=== PATIENT | female | born 1945 | race Caucasian/White ===

== ENCOUNTER → 2016-06-16 | Outpatient (CLI) | payer MEDICARE ==
[2016-03-31 15:00] VITALS: BP 121/58
[~2016-06-16] MED LIST: ALPR0.254 PO; AMIT50TA PO; AMLO5TAB2 PO; ASPI-482 PO; ATOR20TA58 PO; CARV25TA PO; CETI10TA16 PO; CLON0.1T12 PO; CLOT15CR3 TP; DIGO125T PO; FLUT9.9S NS; FURO20TA3 PO; GABA-586 PO; GLIP5TAB10 PO; HYDR200T5 PO; INSU100I13 SQ; ISOS30TA4 PO; LOSA100T6 PO; METF500T4 PO; MONT10TA6 PO; MULT-18 PO; NITR0.4T SL; OMEP20CA5 PO; POTA10CA PO; PRED-220 PO; ZOLP5TAB4 PO; [UNRECOGNIZED DRUG - CODE] PO
--- NOTE | 2016-06-16 10:00 | KCIC ---
PROCEDURE CT right foot without contrast dated 06/16/2016. HISTORY Right foot pain. Pain since March 2016. No known injury. TECHNIQUE Contiguous axial imaging of the right foot performed with thin cut coronal and sagittal reconstructions. No contrast administered.Exposure: One or more of the following individualized dose reduction techniques were utilized for this exam: 1. Automated exposure control. 2. Adjustment of the mA and/or kV according to patient size. 3. Use of iterative reconstruction technique. COMPARISON None. FINDINGS Moderate hypertrophic change of the Lisfranc joints with bony fragmentation and/or calcification along the dorsal margin of the midfoot. There is widening of the intermetatarsal disc since between the 1st and 2nd metatarsals, suggesting the possibility of Lisfranc ligament injury. There is a mildly displaced fracture of the lateral aspect of the navicular bone extending to both the talonavicular joint and the navicular-lateral cuneiform joint. There is cortical thickening of the 2nd, 3rd and 4th metatarsals. Focal erosive changes at the base of 2nd metatarsal and intermediate cuneiform. There is also erosive changes at the medial cuneiform bone near the base of 1st metatarsal articulation. Alignment is otherwise anatomic. No additional fractures are seen. Mild degenerate change in chondrocalcinosis of the tibiotalar joint. Mild degenerative change of the subtalar joints and 1st MTP joint. Small calcaneal spur. No apparent tibiotalar joint effusion. There is edema and fluid surrounding the Lisfranc joints throughout. Diffuse fatty atrophy of the plantar foot musculature plantar fascia and Achilles tendon are grossly intact. Flexor and extensor tendons are not well evaluated. The ankle ligaments are not well evaluated. 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 Underlying infection not excluded. - Widening of the 1st and 2nd metatarsal bases, suggestive of complete Lisfranc ligament tear and midfoot instability. - Ununited intra-articular fracture of the lateral aspect of the navicular bone, age-indeterminate. - Focal soft tissue swelling and fluid surrounding the Lisfranc joints. Diffuse muscle atrophy. Electronically signed by: Oscar Mitchell (Jun 16, 2016 09:59:22)
== END | disposition home or self-care (01) ==
LOC: KCIC CT 08:58
PROVIDERS: ATTEND Orthopaedic Surgery Foot and Ankle Surgery
DX: M79.671 Pain in right foot (principal)
CPT/HCPCS: 73700

== ENCOUNTER → 2016-07-27 | Outpatient (CLI) | payer MEDICARE ==
[2016-03-31 15:00] VITALS: BP 121/58
[~2016-07-27] MED LIST changes: -ZOLP5TAB4 PO; +ZOLP5TAB5 PO
--- NOTE | 2016-07-27 13:49 | KCIC ---
Complete cervical spine Indication: Reason: NECK PAIN WITH LEFT ARM RADICULOPATHY X'S 3 MONTHS, NO INJURY / Spl. Instructions: / History: Reason For Study Findings: There is very subtle anterolisthesis of C4 on C5 which is degenerative in nature as there is facet arthropathy on the right at this level. This results in moderate narrowing of the right foramina. The left foramina are widely patent. Vertebral body heights are maintained. There is degenerative disc height loss at C5-6 and C6-7. No perching of the facets. The odontoid is intact. Evaluation of the cervical thoracic junction is somewhat obscured by overlying shoulder anatomy. Impression: - Degenerative disc disease greatest at C4-C5 where there is right facet arthropathy with moderate right foraminal stenosis. Correlate for right C5 radiculopathy symptoms. Electronically signed by: Michael Eddy (Jul 27, 2016 13:47:46)
== END | disposition home or self-care (01) ==
LOC: KCIC 11:42
PROVIDERS: ATTEND Internal Medicine
DX: M54.12 Radiculopathy, cervical region (principal)
CPT/HCPCS: 72050

== ENCOUNTER → 2016-07-29 | Outpatient (CLI) | payer MEDICARE ==
[2016-03-31 15:00] VITALS: BP 121/58
[~2016-07-29] MED LIST changes: +ZOLP5TAB4 PO; -ZOLP5TAB5 PO
== END | disposition home or self-care (01) ==
LOC: KCIC MAMMO 09:14
PROVIDERS: ATTEND Internal Medicine
DX: Z12.31 Encounter for screening mammogram for malignant neoplasm of breast (principal)
CPT/HCPCS: G0202; 77067

== ENCOUNTER → 2016-08-02 | Outpatient (CLI) | payer MEDICARE ==
[2016-03-31 15:00] VITALS: BP 121/58
[~2016-08-02] MED LIST changes: -ZOLP5TAB4 PO; +ZOLP5TAB5 PO
--- NOTE | 2016-08-02 09:40 | KCIC ---
EXAM: Bone densitometry. HISTORY: Postmenopausal female presents for osteoporosis screening. FINDINGS: BMD: (g/cm2) - AP Spine Total (L1-L4): 1.183 - Total left Hip: 0.841 T-Score: - AP Spine Total (L1-L4): 1.2 - Total left Hip: -0.8 Z-Score: - AP Spine Total (L1-L4): 3.5 - Total left Hip: 0.8 World Health Organization criteria for BMD interpretation classify patients as Normal (T-score at or above -1.0), Osteopenic (T-score between -1.0 and -2.5), or Osteoporotic (T-score at or below -2.5). IMPRESSION: Normal bone mineral density. Electronically signed by: Jessica Baca (Aug 02, 2016 09:38:38)
== END | disposition home or self-care (01) ==
LOC: KCIC DEXA 08:41
PROVIDERS: ATTEND Internal Medicine
DX: Z13.820 Encounter for screening for osteoporosis (principal); Z78.0 Asymptomatic menopausal state
CPT/HCPCS: 77080

== ENCOUNTER → 2016-08-03 | Outpatient (CLI) | payer MEDICARE ==
[2016-03-31 15:00] VITALS: BP 121/58
--- NOTE | 2016-08-03 13:25 | KCIC ---
PROCEDURE Chest, two views. HISTORY Bronchitis. FINDINGS Frontal and lateral views of the chest are obtained. Comparison is made with a prior study dated 03/30/2016. There is no infiltrate, effusion or pneumothorax. There is suspected lingular atelectasis or scarring. The heart is upper normal in size. There are findings consistent with median sternotomy and cardiac pacemaker defibrillator placement. IMPRESSION No acute pulmonary finding. Electronically signed by: Jessica Baca (Aug 03, 2016 13:24:02)
== END | disposition home or self-care (01) ==
LOC: KCIC 12:48
PROVIDERS: ATTEND Internal Medicine
DX: J41.0 Simple chronic bronchitis (principal)
CPT/HCPCS: 71020

== ENCOUNTER 2016-08-19 13:43 | Emergency (ER) | payer MEDICARE ==
[~2016-08-19] VITALS: Ht 162.6 cm; Wt 81.6 kg
[2016-08-19] MEDS ORDERED: MECLIZINE HCL 12.5 MG TABLET. PO ONE (14:15)
--- NOTE | 2016-08-19 14:19 | EKG ---
[facility] [address] [place] [address] Test Date: 2016-08-19 Test Time: 14:01:31 Pat Name: SHANIQUA SHRESTHA Department: Room: Gender: F Platform Loader: : 1945 Requested By: Jerome UPTON Order Number: [id number] Reading MD: Measurements Intervals Cameron Rate: 62 P: 41 GA: 214 QRS: 51 QRSD: 118 T: 84 QT: 434 QTc: 443 Interpretive Statements SINUS RHYTHM INCOMPLETE RIGHT BUNDLE BRANCH BLOCK QRS(T) CONTOUR ABNORMALITY CONSIDER INFERIOR MYOCARDIAL DAMAGE POSSIBLY ABNORMAL ECG RI6.01 No previous ECG available for comparison
[2016-08-19 14:24] LABS: BASO # 0.1 x10^3/uL (0.0-0.2); BASO % 1 % (0-3); EOS % 0 % (0-3); HEMATOCRIT 28.9 % (36.0-47.0); HEMOGLOBIN 9.3 g/dL (12.0-15.5); LYMPH # 0.6 x10^3/uL (1.0-4.8); LYMPH % 3 % (24-48); MEAN CORPUSCULAR HEMOGLOBIN 25 pg (25-35); MEAN CORPUSCULAR HGB CONC 32 g/dL (31-37); MEAN CORPUSCULAR VOLUME 77 fL (79-100); MONO % 8 % (0-9); NEUT % 89 % (31-73); PLATELET COUNT 268 x10^3/uL (140-400); RED BLOOD COUNT 3.77 x10^6/uL (3.50-5.40); RED CELL DISTRIBUTION WIDTH 14.2 % (11.5-14.5); WHITE BLOOD COUNT 23.3 x10^3/uL (4.0-11.0)
[2016-08-19 14:38] LABS: CALCIUM 9.1 mg/dL (8.5-10.1); GFR 54.5; POTASSIUM 4.6 mmol/L (3.5-5.1)
--- NOTE | 2016-08-19 14:48 | RAD ---
CT of the head without IV contrast compared to similar examination dated 08/28/2012 for dizziness, dropped a bowl of cereal and does not know why. Technique: Contiguous helical axial 5 mm axial images are obtained from the skull base to the vertex. No IV contrast was administered. Findings: There is no acute territorial infarction or intracranial hemorrhage. There is no mass, mass effect, or midline shift. Small focal area of calcification is seen in the left basal ganglia, and was present on the prior examination. The ventricles and subarachnoid spaces are mildly enlarged compatible with mild diffuse cortical atrophy. No extra axial fluid collections are identified. The posterior fossa, brainstem, bilateral orbits, visualized paranasal sinuses, and mastoid air cells are grossly unremarkable. No significant osseous abnormalities are seen. Impression: 1. No acute intracranial abnormality.
[2016-08-19 14:51] LABS: HYPOCHROMIA SLIGHT; MICROCYTOSIS SLIGHT; PLT ESTIMATE ADEQUATE (ADEQUATE)
[2016-08-19] MEDS ORDERED: HYDROCODONE/APAP 7.5/325MG TABLET. PO ONE (15:00)
[2016-08-19] MEDS ORDERED: MECL25TA3 PO (15:30)
--- NOTE | 2016-08-19 15:30 | PHYS DOC ---
Past Medical History Past Medical History: Anxiety, Diabetes-Type II, GERD, High Cholesterol, Hypertension, [place] Additional Past Medical Histor: RA; neuropathy Past Surgical History: Hysterectomy, Other Additional Past Surgical Histo: open heart SX 2003, defibrillator 2003; left bunionectomy Alcohol Use: None Drug Use: None Adult General Chief Complaint Chief Complaint: DIZZY/LIGHT HEADED HPI HPI Patient is a 71 year old female who presents with her friend for intermittent dizziness over the past 3 days, worse today, and few episodes of watery diarrhea associated with mild crampy abdominal pain. She notes slight blurred vision when she is dizzy. She does have some dizziness after moving in the bed , but this fatigues easily. States she has not fallen due to dizziness, but is holding the naranjo at home to walk. She denies headache, chest pain, dyspnea, orthopnea, cough, dysuria, bloody or dark stools. Review of Systems Review of Systems Constitutional: Denies fever or chills [] Eyes: Denies change in visual acuity, redness, or eye pain [] HENT: Denies nasal congestion or sore throat [] Respiratory: Denies cough or shortness of breath [] Cardiovascular: No additional information not addressed in HPI [] GI: Denies nausea, vomiting, bloody stools [] : Denies dysuria or hematuria [] Musculoskeletal: Denies back pain or joint pain [] Integument: Denies rash or skin lesions [] Neurologic: Denies headache, focal weakness or sensory changes [] Endocrine: Denies polyuria or polydipsia [] Current Medications Current Medications Current Medications Medications (Trade) Dose Ordered Sig/Christian Start Time Stop Time Status Last Admin Dose Admin Acetaminophen/ Hydrocodone Bitart (Lortab 7.5/325) 1 tab 1X ONCE 08/19/16 15:00 08/19/16 15:01 DC 08/19/16 15:15 1 TAB Meclizine HCl (Antivert) 25 mg 1X ONCE 08/19/16 14:15 08/19/16 14:18 DC 08/19/16 14:51 25 MG Allergies Allergies Allergies Coded Allergies Type Severity Reaction Last Updated Verified No Known Drug Allergies 01/22/14 No Physical Exam Physical Exam Constitutional: Well developed, well nourished, no acute distress, non-toxic appearance. [] HENT: Normocephalic, atraumatic, bilateral external ears normal, oropharynx moist, no oral exudates, nose normal. [] Eyes: PERRLA, EOMI. [] Neck: Normal range of motion, supple. [] Cardiovascular:Heart rate regular rhythm [] Lungs & Thorax: Bilateral breath sounds clear to auscultation [] Abdomen: Bowel sounds normal, soft, no tenderness. [] Skin: Warm, dry, no erythema, no rash. [] Back: No tenderness, no CVA tenderness. [] Extremities: No tenderness, ROM intact, no edema. [] Neurologic: Alert and oriented X 3, normal motor function, normal sensory function, no focal deficits noted, cranial nerves II through XII intact, no extremity drift, normal finger to nose. [] Psychologic: Affect normal, judgement normal, mood normal. [] Current Patient Data Vital Signs Vital Signs Date Time Temp Pulse Resp B/P Pulse Ox O2 Delivery O2 Flow Rate FiO2 08/19/16 15:38 64 123/61 96 Room Air 08/19/16 15:18 1 08/19/16 15:15 16 08/19/16 14:00 97.2 97.2 Lab Values Laboratory Tests Test 08/19/16 14:10 White Blood Count 23.3x10^3/uL (4.0-11.0) H Red Blood Count 3.77x10^6/uL (3.50-5.40) Hemoglobin 9.3g/dL (12.0-15.5) L Hematocrit 28.9% (36.0-47.0) L Mean Corpuscular Volume 77fL (79-100) L Mean Corpuscular Hemoglobin 25pg (25-35) Mean Corpuscular Hemoglobin Concent 32g/dL (31-37) Red Cell Distribution Width 14.2% (11.5-14.5) Platelet Count 268x10^3/uL (140-400) Neutrophils (%) (Auto) 89% (31-73) H Lymphocytes (%) (Auto) 3% (24-48) L Monocytes (%) (Auto) 8% (0-9) Eosinophils (%) (Auto) 0% (0-3) Basophils (%) (Auto) 1% (0-3) Neutrophils # (Auto) 20.8x10^3uL (1.8-7.7) H Lymphocytes # (Auto) 0.6x10^3/uL (1.0-4.8) L Monocytes # (Auto) 1.8x10^3/uL (0.0-1.1) H Eosinophils # (Auto) 0.0x10^3/uL (0.0-0.7) Basophils # (Auto) 0.1x10^3/uL (0.0-0.2) Segmented Neutrophils % 73% (35-66) H Band Neutrophils % 23% (0-9) H Lymphocytes % 2% (24-48) L Monocytes % 2% (0-10) Platelet Estimate Adequate (ADEQUATE) Hypochromasia Slight Microcytosis Slight Sodium Level 135mmol/L (136-145) L Potassium Level 4.6mmol/L (3.5-5.1) Chloride Level 97mmol/L (98-107) L Carbon Dioxide Level 26mmol/L (21-32) Anion Gap 12 (6-14) Blood Urea Nitrogen 18mg/dL (7-20) Creatinine 1.0mg/dL (0.6-1.0) Estimated GFR (Cockcroft-Gault) 54.5 Glucose Level 176mg/dL (70-99) H Calcium Level 9.1mg/dL (8.5-10.1) Laboratory Tests 08/19/16 14:10 Laboratory Tests 08/19/16 14:10 EKG EKG EKG as interpreted by me as normal sinus rhythm with first-degree AV block, rate 62, no ST-T changes, P-R 214, QTc 443, no ectopy Radiology/Procedures Radiology/Procedures Head CT without contrast Impression: 1. No acute intracranial abnormality. DICTATED and SIGNED BY: STEVAN LOPEZ MD DATE: 08/19/16 0892 Course & Med Decision Making Course & Med Decision Making Pertinent Labs and Imaging studies reviewed. (See chart for details) She has leukocytosis but workup is otherwise unremarkable. She is feeling better after meclizine and walking with a steady gait. She would like to go home. Return precautions given. She understands and agrees with plan. Dragon Disclaimer Dragon Disclaimer This electronic medical record was generated, in whole or in part, using a voice recognition dictation system. Departure Departure Impression: Primary Impression: Diarrhea Additional Impression: Dizziness Disposition: HOME, SELF-CARE Condition: STABLE Referrals: MILA CONN MD (PCP) Patient Instructions: Dizziness, [id number] Additional Instructions: Drink liquids to stay hydrated. Take meclizine as needed for dizziness. Follow- up with your primary care doctor within one week. Return for any concerns. Scripts Meclizine Hcl 25 Mg Tablet1 Tab PO PRN TID PRN DIZZINESS #10 TAB Prov:Jerome UPTON MD 08/19/16 Problem Qualifiers Primary Impression: Diarrhea Diarrhea type: unspecified type Qualified Code: R19.7 - Diarrhea, unspecified Jerome UPTON MD Aug 19, 2016 15:30
[2016-08-19 15:38] VITALS: BP 123/61
== END 2016-08-19 15:40 | disposition home or self-care (01) ==
LOC: ER 13:49
DX: R42 Dizziness and giddiness (principal); R19.7 Diarrhea, unspecified; H53.8 Other visual disturbances; R10.9 Unspecified abdominal pain; F41.9 Anxiety disorder, unspecified; I10 Essential (primary) hypertension; K21.9 Gastro-esophageal reflux disease without esophagitis; E78.00 Pure hypercholesterolemia, unspecified; I25.2 Old myocardial infarction; E11.40 Type 2 diabetes mellitus with diabetic neuropathy, unspecified; Z90.710 Acquired absence of both cervix and uterus
CPT/HCPCS: 36415; 70450; 80048; 85007; 85027; 93005; 99285; J8597

== ENCOUNTER 2016-08-20 16:39 | Inpatient (IN) | payer MEDICARE ==
[~2016-08-20] VITALS: Ht 165.1 cm; Wt 87.5 kg
[~2016-08-20 16:39] MED LIST changes: +MECL25TA3 PO
--- NOTE | 2016-08-20 18:04 | PHYS DOC ---
Past Medical History Past Medical History: Anxiety, Diabetes-Type II, GERD, High Cholesterol, Hypertension, [place] Additional Past Medical Histor: RA; neuropathy Past Surgical History: Hysterectomy, Other Additional Past Surgical Histo: open heart SX 2003, defibrillator 2003; left bunionectomy Alcohol Use: None Drug Use: None Adult General Chief Complaint Chief Complaint: DIZZY/LIGHT HEADED HPI HPI Patient is a 71 year old female who presents with continued dizziness and nb watery diarrhea. She was seen here yesterday for same, felt better after evaluation and went home. She had another episode of diarrhea and has not taken meclizine at home. She no longer feels safe at home in current condition. She denies headache, vision changes, chest pain, dyspnea, cough, abdominal pain, dysuria, numbness, tingling, focal weakness. Review of Systems Review of Systems Constitutional: Denies fever or chills [] Eyes: Denies change in visual acuity, redness, or eye pain [] HENT: Denies nasal congestion or sore throat [] Respiratory: Denies cough or shortness of breath [] Cardiovascular: No additional information not addressed in HPI [] GI: Denies abdominal pain, nausea, vomiting, bloody stools or diarrhea [] : Denies dysuria or hematuria [] Musculoskeletal: Denies back pain or joint pain [] Integument: Denies rash or skin lesions [] Neurologic: Denies headache, focal weakness or sensory changes [] Endocrine: Denies polyuria or polydipsia [] Allergies Allergies Allergies Coded Allergies Type Severity Reaction Last Updated Verified No Known Drug Allergies 01/22/14 No Physical Exam Physical Exam Constitutional: Well developed, well nourished, no acute distress, non-toxic appearance. [] HENT: Normocephalic, atraumatic, bilateral external ears normal, oropharynx moist, nose normal. [] Eyes: PERRLA, EOMI. [] Neck: Normal range of motion, supple. [] Cardiovascular:Heart rate regular rhythm [] Lungs & Thorax: Bilateral breath sounds clear to auscultation [] Abdomen: Bowel sounds normal, soft, no tenderness. [] Skin: Warm, dry, no erythema, no rash. [] Back: No tenderness, no CVA tenderness. [] Extremities: No tenderness, ROM intact, no edema. [] Neurologic: Alert and oriented X 3, normal motor function, normal sensory function, no focal deficits noted, cranial nerves II through XII intact, no extremity drift. [] Psychologic: Affect normal, judgement normal, mood normal. [] Current Patient Data Vital Signs Vital Signs Date Time Temp Pulse Resp B/P Pulse Ox O2 Delivery O2 Flow Rate FiO2 08/20/16 17:52 72 14 112/72 94 08/20/16 16:52 97.4 Room Air 97.4 Lab Values Laboratory Tests Test 08/20/16 18:05 White Blood Count 10.6x10^3/uL (4.0-11.0) # Red Blood Count 3.15x10^6/uL (3.50-5.40) L Hemoglobin 7.8g/dL (12.0-15.5) L Hematocrit 23.8% (36.0-47.0) L Mean Corpuscular Volume 76fL (79-100) L Mean Corpuscular Hemoglobin 25pg (25-35) Mean Corpuscular Hemoglobin Concent 33g/dL (31-37) Red Cell Distribution Width 13.8% (11.5-14.5) Platelet Count 220x10^3/uL (140-400) Neutrophils (%) (Auto) 77% (31-73) H Lymphocytes (%) (Auto) 11% (24-48) L Monocytes (%) (Auto) 9% (0-9) Eosinophils (%) (Auto) 2% (0-3) Basophils (%) (Auto) 1% (0-3) Neutrophils # (Auto) 8.2x10^3uL (1.8-7.7) H Lymphocytes # (Auto) 1.2x10^3/uL (1.0-4.8) Monocytes # (Auto) 1.0x10^3/uL (0.0-1.1) Eosinophils # (Auto) 0.2x10^3/uL (0.0-0.7) Basophils # (Auto) 0.1x10^3/uL (0.0-0.2) Urine Collection Type Unknown Urine Color Yellow Urine Clarity Clear Urine pH 5.5 Urine Specific [place] 1.010 Urine Protein Negativemg/dL (NEG-TRACE) Urine Glucose (UA) Negativemg/dL (NEG) Urine Ketones (Stick) Negativemg/dL (NEG) Urine Blood Negative (NEG) Urine Nitrite Negative (NEG) Urine Bilirubin Negative (NEG) Urine Urobilinogen Dipstick 0.2mg/dL (0.2 mg/dL) Urine Leukocyte Esterase Negative (NEG) Urine RBC 0/HPF (0-2) Urine WBC 0/HPF (0-4) Urine Squamous Epithelial Cells Few/LPF Urine Bacteria 0/HPF (0-FEW) Sodium Level 118mmol/L (136-145) *L Potassium Level 3.9mmol/L (3.5-5.1) Chloride Level 86mmol/L (98-107) L Carbon Dioxide Level 26mmol/L (21-32) Anion Gap 6 (6-14) Blood Urea Nitrogen 17mg/dL (7-20) Creatinine 0.8mg/dL (0.6-1.0) Estimated GFR (Cockcroft-Gault) 70.5 Glucose Level 209mg/dL (70-99) H Calcium Level 7.9mg/dL (8.5-10.1) L Laboratory Tests 08/20/16 18:05 Laboratory Tests 08/20/16 18:05 Course & Med Decision Making Course & Med Decision Making Pertinent Labs and Imaging studies reviewed. (See chart for details) She has persistent dizziness and diarrhea. Laboratory evaluation reveals hyponatremia, suspected as acute hypovolemic. IV fluids ordered for placement, going slow for history of CHF. Discussed case with Dr. Conn, who will admit. Dragon Disclaimer Dragon Disclaimer This electronic medical record was generated, in whole or in part, using a voice recognition dictation system. Departure Departure Impression: Primary Impression: Dizziness Additional Impressions: Diarrhea Hyponatremia Disposition: ADMITTED INPATIENT Condition: STABLE Referrals: MILA CONN MD (PCP) Problem Qualifiers Additional Impressions: Diarrhea Diarrhea type: unspecified type Qualified Code: R19.7 - Diarrhea, unspecified Jerome UPTON MD Aug 20, 2016 18:04
[2016-08-20 18:23] LABS: BASO # 0.1 x10^3/uL (0.0-0.2); BASO % 1 % (0-3); EOS % 2 % (0-3); HEMATOCRIT 23.8 % (36.0-47.0); HEMOGLOBIN 7.8 g/dL (12.0-15.5); LYMPH # 1.2 x10^3/uL (1.0-4.8); LYMPH % 11 % (24-48); MEAN CORPUSCULAR HEMOGLOBIN 25 pg (25-35); MEAN CORPUSCULAR HGB CONC 33 g/dL (31-37); MEAN CORPUSCULAR VOLUME 76 fL (79-100); MONO % 9 % (0-9); NEUT % 77 % (31-73); PLATELET COUNT 220 x10^3/uL (140-400); RED BLOOD COUNT 3.15 x10^6/uL (3.50-5.40); RED CELL DISTRIBUTION WIDTH 13.8 % (11.5-14.5); WHITE BLOOD COUNT 10.6 x10^3/uL (4.0-11.0)
[2016-08-20 18:26] LABS: BILIRUBIN,URINE NEGATIVE (NEG); GLUCOSE,URINE NEGATIVE (NEG); NITRITE,URINE NEGATIVE (NEG); PH,URINE 5.5; PROTEIN,URINE NEGATIVE (NEG-TRACE); UROBILINOGEN,URINE 0.2 mg/dL (0.2 mg/dL)
[2016-08-20 18:44] LABS: CALCIUM 7.9 mg/dL (8.5-10.1); CREATININE 0.8 mg/dL (0.6-1.0); GFR 70.5; POTASSIUM 3.9 mmol/L (3.5-5.1)
[2016-08-20 18:46] LABS: BACTERIA,URINE 0 /HPF (0-FEW); RBC,URINE 0 /HPF (0-2); SQUAMOUS EPITHELIAL CELL,UR FEW /LPF; WBC,URINE 0 /HPF (0-4)
[2016-08-20] MEDS ORDERED: HYDROCODONE/APAP 7.5/325MG TABLET. PO ONE (19:00)
[2016-08-20] MEDS ORDERED: IV NORMAL SALINE 500ML BAG 500 ML IV ONE (19:15)
[2016-08-20] MEDS ORDERED: ACETAMINOPHEN 325 MG TABLET. PO PRN (19:45)
[2016-08-20] MEDS ORDERED: ONDANSETRON PF 4 MG/2 ML VIAL. IV PRN (19:45)
[2016-08-20] MEDS ORDERED: FENTANYL PF 100 MCG/2 ML VIAL. IV PRN (19:45)
[2016-08-20 19:51] VITALS: BP 139/75
[2016-08-20] MEDS ORDERED: ALBUTEROL SULFATE 2.5 MG/3 ML NEBU. NEB PRN (22:15)
[2016-08-20 23:15] VITALS: BP 155/56
[2016-08-21] MEDS: VANCOMYCIN 125 MG/2.5 ML ORAL SOLUTION. PO SCH ×5 (00:15→20:21)
[2016-08-21] MEDS ORDERED: MECLIZINE HCL 12.5 MG TABLET. PO PRN (00:45)
[2016-08-21] MEDS ORDERED: GABA600T PO (01:20)
[2016-08-21] MEDS ORDERED: GABA-586 PO (01:20)
[2016-08-21] MEDS ORDERED: CLOTRIMAZOLE/BETAMETH 1%-0.05% TOPICAL CREAM 15GM TUBE. TP PRN (01:30)
[2016-08-21] MEDS: AMITRIPTYLINE HCL 50 MG TABLET PO SCH ×2 (01:41→20:22)
[2016-08-21] MEDS ORDERED: MORPHINE SULFATE 2 MG/ML DISP.SYRIN. IV PRN (03:30)
[2016-08-21 05:14] LABS: BASO # 0.1 x10^3/uL (0.0-0.2); BASO % 0 % (0-3); EOS % 1 % (0-3); HEMATOCRIT 30.3 % (36.0-47.0); HEMOGLOBIN 9.7 g/dL (12.0-15.5); LYMPH # 0.8 x10^3/uL (1.0-4.8); LYMPH % 6 % (24-48); MEAN CORPUSCULAR HEMOGLOBIN 25 pg (25-35); MEAN CORPUSCULAR HGB CONC 32 g/dL (31-37); MEAN CORPUSCULAR VOLUME 76 fL (79-100); MONO % 9 % (0-9); NEUT % 84 % (31-73); PLATELET COUNT 280 x10^3/uL (140-400); RED BLOOD COUNT 3.98 x10^6/uL (3.50-5.40); RED CELL DISTRIBUTION WIDTH 14.1 % (11.5-14.5); WHITE BLOOD COUNT 13.1 x10^3/uL (4.0-11.0)
[2016-08-21 05:27] LABS: ALBUMIN 3.3 g/dL (3.4-5.0); ALBUMIN/GLOBULIN RATIO 0.8 (1.0-1.7); CALCIUM 8.9 mg/dL (8.5-10.1); CREATININE 0.6 mg/dL (0.6-1.0); GFR 98.3; POTASSIUM 3.9 mmol/L (3.5-5.1); TOTAL BILIRUBIN 0.4 mg/dL (0.2-1.0); TOTAL PROTEIN 7.5 g/dL (6.4-8.2)
[2016-08-21 07:00] VITALS: BP 197/88
[2016-08-21] MEDS ORDERED: ONDANSETRON PF 4 MG/2 ML VIAL. IV PRN (07:45)
[2016-08-21] MEDS ORDERED: NITROGLYCERIN SUBLINGUAL 0.4 MG BOTTLE OF 25. SL PRN (07:45)
[2016-08-21] MEDS ORDERED: HYDROCODONE/APAP 7.5/325MG TABLET. PO PRN (07:45)
[2016-08-21] MEDS ORDERED: ACETAMINOPHEN 325 MG TABLET. PO PRN (07:45)
[2016-08-21] MEDS: INSULIN ASPART 300 UNITS/3 ML INSULN.PEN SQ SCH ×3 (08:00→16:30)
--- NOTE | 2016-08-21 08:06 | PDOC1 ---
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 She was seen in the ED on 08/19 with c/o dizziness along with crampy abdominal pain with watery diarrhea. Her WBC was 23.3 and Hgb 9.3. EKG unremarkable. A CT of the head unremarkable. Na 135. She was given Meclizine in the ED and discharged home per her request. She returned to the ED on 08/20/16 with continued dizziness and watery stool x1. Labs: Na 118 and WBC decreased to 10.6. She is c/o back pain this morning- reports a fall on Tuesday when taking out trash. Her full weight landed on her buttocks. She was also recently treated in the office with Keflex for infected R great toe after cuticle removed per pt. She is admitted for further evaluation and treatment. Problem List Problems Medical Problems: (1) Diarrhea Status: Acute (2) Dizziness Status: Acute (3) Hyponatremia Status: Acute Past Medical History Cardiovascular: CAD (h/o NSTEMI: 3 vessel disease on cath; CABG x 4 07/12/04: MORILLO to LAD, SVT to diagonal and marginal and SVG to PDA), CHF (diastolic EF 50% ), HTN, TN, Hyperlipidemia, Other (ICM with medtronic ICD ) Pulmonary: Other (ROEL intolerant to COPA ) GI: Diverticulosis, GERD, Gastritis, Other (Schatski ring) Heme/Onc: Anemia NOS, Cancer (forhead type unknown ) Hepatobiliary: Hep A/B/C Psych: Anxiety Musculoskeletal: low back pain (chronic ), Other (Charcot foot with surgery planned ) Rheumatologic: Rheumatoid arthritis Endocrine: Diabetes (Type II chronic insulin ) Past Surgical History Past Surgical History: Pacemaker (Medtronic dual chanber ICD), CABG, Cataract Removal (with IOL), Total knee replacement (Left), Tonsillectomy, Hysterectomy, Other (R carpal tunnel release, L bunionectomy ) Past Family History Family History: Coronary Artery Disease (multiple family members) Past Social History PSH lives alone, h/o tobacco, no ETOH or illicit drug use Review of Symptoms Review of Symptoms A 14 point ROS was completed with the following noted as positive: low back pain , diarrhea-no further stools since admit, n/v resolved, + dizziness Other systems reviewed and negative. Medications Medications reviewed and reconciled Allergy Allergies Coded Allergies Type Severity Reaction Last Updated Verified No Known Drug Allergies 01/22/14 No Physical Exam Physical Exam General appearance - alert, ill appearing, and in mod distress r/t back pain Mental Status - alert, oriented to person, place, and time, in distress Head - normal Chest - clear to auscultation, no wheezes, rales or rhonchi, symmetric air entry Heart - S1 and S2 normal Abdomen - soft, nontender, nondistended, BS+ obese Neurological - no acute focal neurological deficits noted Musculoskeletal - bilateral LS pain Extremities - no pedal edema Skin - warm and dry VTE Prophylaxis Ordered VTE Prophylaxis Devices: Yes VTE Pharmacological Prophylaxi: No Assessment Labs Laboratory Tests Test 08/20/16 18:05 08/21/16 04:35 White Blood Count 10.6x10^3/uL (4.0-11.0) 13.1x10^3/uL (4.0-11.0) Red Blood Count 3.15x10^6/uL (3.50-5.40) 3.98x10^6/uL (3.50-5.40) Hemoglobin 7.8g/dL (12.0-15.5) 9.7g/dL (12.0-15.5) Hematocrit 23.8% (36.0-47.0) 30.3% (36.0-47.0) Mean Corpuscular Volume 76fL (79-100) 76fL (79-100) Mean Corpuscular Hemoglobin 25pg (25-35) 25pg (25-35) Mean Corpuscular Hemoglobin Concent 33g/dL (31-37) 32g/dL (31-37) Red Cell Distribution Width 13.8% (11.5-14.5) 14.1% (11.5-14.5) Platelet Count 220x10^3/uL (140-400) 280x10^3/uL (140-400) Neutrophils (%) (Auto) 77% (31-73) 84% (31-73) Lymphocytes (%) (Auto) 11% (24-48) 6% (24-48) Monocytes (%) (Auto) 9% (0-9) 9% (0-9) Eosinophils (%) (Auto) 2% (0-3) 1% (0-3) Basophils (%) (Auto) 1% (0-3) 0% (0-3) Neutrophils # (Auto) 8.2x10^3uL (1.8-7.7) 11.0x10^3uL (1.8-7.7) Lymphocytes # (Auto) 1.2x10^3/uL (1.0-4.8) 0.8x10^3/uL (1.0-4.8) Monocytes # (Auto) 1.0x10^3/uL (0.0-1.1) 1.2x10^3/uL (0.0-1.1) Eosinophils # (Auto) 0.2x10^3/uL (0.0-0.7) 0.1x10^3/uL (0.0-0.7) Basophils # (Auto) 0.1x10^3/uL (0.0-0.2) 0.1x10^3/uL (0.0-0.2) Urine Collection Type Unknown Urine Color Yellow Urine Clarity Clear Urine pH 5.5 Urine Specific Joanna 1.010 Urine Protein Negativemg/dL (NEG-TRACE) Urine Glucose (UA) Negativemg/dL (NEG) Urine Ketones (Stick) Negativemg/dL (NEG) Urine Blood Negative (NEG) Urine Nitrite Negative (NEG) Urine Bilirubin Negative (NEG) Urine Urobilinogen Dipstick 0.2mg/dL (0.2 mg/dL) Urine Leukocyte Esterase Negative (NEG) Urine RBC 0/HPF (0-2) Urine WBC 0/HPF (0-4) Urine Squamous Epithelial Cells Few/LPF Urine Bacteria 0/HPF (0-FEW) Sodium Level 118mmol/L (136-145) 136mmol/L (136-145) Potassium Level 3.9mmol/L (3.5-5.1) 3.9mmol/L (3.5-5.1) Chloride Level 86mmol/L (98-107) 100mmol/L (98-107) Carbon Dioxide Level 26mmol/L (21-32) 26mmol/L (21-32) Anion Gap 6 (6-14) 10 (6-14) Blood Urea Nitrogen 17mg/dL (7-20) 9mg/dL (7-20) Creatinine 0.8mg/dL (0.6-1.0) 0.6mg/dL (0.6-1.0) Estimated GFR (Cockcroft-Gault) 70.5 98.3 Glucose Level 209mg/dL (70-99) 133mg/dL (70-99) Calcium Level 7.9mg/dL (8.5-10.1) 8.9mg/dL (8.5-10.1) BUN/Creatinine Ratio 15 (6-20) Total Bilirubin 0.4mg/dL (0.2-1.0) Aspartate Amino Transf (AST/SGOT) 25U/L (15-37) Alanine Aminotransferase (ALT/SGPT) 32U/L (14-59) Alkaline Phosphatase 77U/L (46-116) Total Protein 7.5g/dL (6.4-8.2) Albumin 3.3g/dL (3.4-5.0) Albumin/Globulin Ratio 0.8 (1.0-1.7) Laboratory Tests Test 08/20/16 18:05 08/21/16 04:35 White Blood Count 10.6x10^3/uL (4.0-11.0) 13.1x10^3/uL (4.0-11.0) Red Blood Count 3.15x10^6/uL (3.50-5.40) 3.98x10^6/uL (3.50-5.40) Hemoglobin 7.8g/dL (12.0-15.5) 9.7g/dL (12.0-15.5) Hematocrit 23.8% (36.0-47.0) 30.3% (36.0-47.0) Mean Corpuscular Volume 76fL (79-100) 76fL (79-100) Mean Corpuscular Hemoglobin 25pg (25-35) 25pg (25-35) Mean Corpuscular Hemoglobin Concent 33g/dL (31-37) 32g/dL (31-37) Red Cell Distribution Width 13.8% (11.5-14.5) 14.1% (11.5-14.5) Platelet Count 220x10^3/uL (140-400) 280x10^3/uL (140-400) Neutrophils (%) (Auto) 77% (31-73) 84% (31-73) Lymphocytes (%) (Auto) 11% (24-48) 6% (24-48) Monocytes (%) (Auto) 9% (0-9) 9% (0-9) Eosinophils (%) (Auto) 2% (0-3) 1% (0-3) Basophils (%) (Auto) 1% (0-3) 0% (0-3) Neutrophils # (Auto) 8.2x10^3uL (1.8-7.7) 11.0x10^3uL (1.8-7.7) Lymphocytes # (Auto) 1.2x10^3/uL (1.0-4.8) 0.8x10^3/uL (1.0-4.8) Monocytes # (Auto) 1.0x10^3/uL (0.0-1.1) 1.2x10^3/uL (0.0-1.1) Eosinophils # (Auto) 0.2x10^3/uL (0.0-0.7) 0.1x10^3/uL (0.0-0.7) Basophils # (Auto) 0.1x10^3/uL (0.0-0.2) 0.1x10^3/uL (0.0-0.2) Urine Collection Type Unknown Urine Color Yellow Urine Clarity Clear Urine pH 5.5 Urine Specific Joanna 1.010 Urine Protein Negativemg/dL (NEG-TRACE) Urine Glucose (UA) Negativemg/dL (NEG) Urine Ketones (Stick) Negativemg/dL (NEG) Urine Blood Negative (NEG) Urine Nitrite Negative (NEG) Urine Bilirubin Negative (NEG) Urine Urobilinogen Dipstick 0.2mg/dL (0.2 mg/dL) Urine Leukocyte Esterase Negative (NEG) Urine RBC 0/HPF (0-2) Urine WBC 0/HPF (0-4) Urine Squamous Epithelial Cells Few/LPF Urine Bacteria 0/HPF (0-FEW) Sodium Level 118mmol/L (136-145) 136mmol/L (136-145) Potassium Level 3.9mmol/L (3.5-5.1) 3.9mmol/L (3.5-5.1) Chloride Level 86mmol/L (98-107) 100mmol/L (98-107) Carbon Dioxide Level 26mmol/L (21-32) 26mmol/L (21-32) Anion Gap 6 (6-14) 10 (6-14) Blood Urea Nitrogen 17mg/dL (7-20) 9mg/dL (7-20) Creatinine 0.8mg/dL (0.6-1.0) 0.6mg/dL (0.6-1.0) Estimated GFR (Cockcroft-Gault) 70.5 98.3 Glucose Level 209mg/dL (70-99) 133mg/dL (70-99) Calcium Level 7.9mg/dL (8.5-10.1) 8.9mg/dL (8.5-10.1) BUN/Creatinine Ratio 15 (6-20) Total Bilirubin 0.4mg/dL (0.2-1.0) Aspartate Amino Transf (AST/SGOT) 25U/L (15-37) Alanine Aminotransferase (ALT/SGPT) 32U/L (14-59) Alkaline Phosphatase 77U/L (46-116) Total Protein 7.5g/dL (6.4-8.2) Albumin 3.3g/dL (3.4-5.0) Albumin/Globulin Ratio 0.8 (1.0-1.7) Plan Plan IMPRESSION 1. acute hyponatremia 2. dizziness 3. acute on chronic LBP (LBPunder chronic pain management OP) secondary to fall in the home Wednesday 08/16 4. ICM CHF diastolic EF 50% ICD PPM 5. HTN 6. CAD with h/o NSTEMI TN, CABG 7. anemia CD 8. hyperlipidemia 9. mild pulmonary HTN 10. DM II controlled chronic insulin polyneuropathy 11. ROEL intolerant to CPAP 12. diverticulosis 13. GERD 14. Schatzki ring 15. anemia chronic disease 16. chronic pain management LS 17. RA 18. anxiety 19. chronic moderate PCL malnutrition PLAN: acute hyponatremia Na 08/19 135 Admit Na 118 08/21 136 K 3.9 3.8 BUN 17 9 Cr 0.8 0.6 NS 20 K 125cc/hr 08/20--decrease to 100cc/hr 08/21 renal consulted Anemia Hgb 08/19 9.3 Admit Hgb 7.8 08/21 9.7 no overt bleeding, no PRC, improved 08/21-?dilutional leukocytosis w/o fever--diarrhea WBC 08/19 23.3 Admit 10.6 08/21 13.1 UA negative A/C low back pain post fall Tuesday xray LS Dr. Thacker consult suspect acute lumbar strain Voltaren gel qid 2gm initiate 08/21 CHF diastolic not acute Admit wt 197.36 daily wt IO hold Lasix KCL DM II Levemir 34unit (recently being tirated up--needs Hba1c less than 8 before can proceed with surgery for Charcoat foot) HOld levemir FSBS/SSI [id number] DVT/GI prophylaxis SCD/LENA PPI For further plan of care, please refer to the orders. For more details regarding further plans, please refer to the orders. MILA CONN MD 08/21/16 0955: HISTORY AND PHYSICAL Plan Plan Acute gastroenteritis.Also treated recently sith Ketali- check for C.Diff.started on Vancomycin- diarrhea improving. Left hip pain. The patient was seen and examined by me. Chart reviewed and plan of care formulated. Discussed with, reviewed and agree with EQUIPMENT MAINTENANCE ENGINEER's notes, plan of care and orders with modifications as necessary. For more details regarding further plans, please refer to the orders. EDUAR LOBO APRN Aug 21, 2016 08:06 MILA CONN MD Aug 21, 2016 09:55
[2016-08-21] MEDS: FENTANYL PF 100 MCG/2 ML VIAL. IV PRN ×6 (09:43→22:55)
[2016-08-21] MEDS: CALCIUM CARB/VIT D3 500/200 TABLET. PO SCH ×2 (09:44→18:10)
[2016-08-21] MEDS: ALPRAZOLAM 0.25 MG TABLET PO PRN (09:44)
[2016-08-21] MEDS: HYDROCODONE/APAP 10/325 TABLET. PO PRN ×3 (09:45→21:39)
[2016-08-21] MEDS: CLONIDINE HCL 0.1 MG TABLET PO SCH ×3 (09:45→20:22)
[2016-08-21] MEDS: tiZANidine 4 MG TABLET. PO SCH ×3 (09:45→21:39)
[2016-08-21] MEDS: PANTOPRAZOLE 40 MG TABLET. PO SCH (09:45)
[2016-08-21] MEDS: LOSARTAN POTASSIUM 50 MG TABLET. PO SCH (09:46)
--- NOTE | 2016-08-21 11:04 | CONS ---
DATE OF CONSULTATION: 08/21/2016 ATTENDING PHYSICIAN: Dr. Cheryl Rai. The patient was seen at the request of Dr. Rai for rehab evaluation. HISTORY OF PRESENT ILLNESS: This is a 71-year-old right-handed female admitted on 08/20/2016, with dizziness, nausea and diarrhea, acute on chronic lower back pain since she fell on 08/17/2016 and landed on her buttock at home. She was seen in the Emergency Room on 08/19/2016 with dizziness, crampy abdominal pain and watery diarrhea. At that time, her WBC count was 23.3 thousand, hemoglobin 9.3. EKG unremarkable. CT of the head unremarkable. Sodium 135. Was given meclizine and discharged to home at her request. She was seen in the Emergency Room again on 08/20/2016 and she was noted again with dizziness and watery stools x 1, sodium 118. WBC decreased to 10.6 thousand, complained of back pain, reportedly fell on 08/17/2016 or 08/18/2016 when taking out trash ____ landed on her buttocks. The patient was recently treated with antibiotics for right big toe infection and cuticle removed. The patient with known coronary artery disease status post coronary artery bypass graft, congestive heart failure, diastolic with ejection fraction of 50%, hypertension, previous non-ST segment elevated myocardial infarction, hyperlipidemia, ICM with Medtronic ICD placement, obstructive sleep apnea, intolerant to CPAP, diverticulosis, gastroesophageal reflux disease, gastritis, Schatzki's ring, anemia, carcinoma of skin, hepatitis A, B, C, positive anxiety, chronic lower back pain, Charcot foot, rheumatoid arthritis, diabetes type 2, cataract surgery, left total knee arthroplasty, tonsillectomy, hysterectomy, right carpal tunnel release, left bunionectomy. Family history of coronary artery disease with multiple family members. She lives with her family, had history of tobacco use. No ethanol or illicit drug use. She has been taking before hydrocodone for pain, but is not effective anymore. She denies any radiation of back pain to the extremities. She is not known allergic to any medication. She has been independent with her mobility and self-care skills, not using assistive devices prior to the present hospitalization. She had a few stairs to manage at home. PHYSICAL EXAMINATION: Today revealed an elderly female. She is alert, oriented to time, place, person and circumstance and follows commands appropriately, moves all 4 extremities voluntarily where she had 4+/5 grade muscle strength and deep tendon reflexes are decreased overall with absent knee and ankle jerks and she had equal perception of touch and pinprick sensation bilaterally. Straight leg raising test is negative bilaterally. She had painful limited movements of her lumbar spine with tenderness to palpation over lower thoracic and lumbar paraspinal muscles extending over to sacroiliac joint area. The patient is independent with rolling from side to side. I have not tested her transfers or ambulation skills at this time. She had been receiving IV fluids. ASSESSMENT: An elderly female with recent fall with lumbar sprain. No clinical evidence of ongoing lumbar radiculopathy. The patient with degenerative joint disease of her right knee, status post left total knee arthroplasty, chronic lower back pain, also radiological evidence of degenerative disk disease of cervical vertebrae without any neck pain at present time, diabetes mellitus with peripheral neuropathy, coronary artery disease, hypertension, hyperlipidemia, status post permanent pacemaker placement and coronary artery bypass graft. Also with history of obstructive sleep apnea, gastroesophageal reflux disease, diverticulosis, anemia, hepatitis A, B, C, positive anxiety, Charcot feet, rheumatoid arthritis. RECOMMENDATIONS: To obtain CT scan of the lumbar spine to rule out any new compression fractures. To ask physical therapy and occupational therapy to see to get her up with lumbar support. Dr. Rai, I appreciate asking me to participate in the care of this interesting patient. I will be glad to follow her with you as needed for her rehabilitation. CHARITY FELDMAN MD DR: ANTWON/karmen JOB#: [id number] / [id number]
--- NOTE | 2016-08-21 11:10 | RAD ---
Indication chronic back pain. PA and lateral views of the lumbar spine were obtained as well as a coned view targeted to the lumbosacral junction. Note is made of a previous plain film examination 05/12/2010. There are spondylitic changes. There is disc space narrowing with associated degenerative endplate changes at L4-5. Facet degenerative changes are seen at L4-5 and L5-S1. Alignment is unremarkable. There is a fracture involving the inferior endplate of L1. This is new relative to the previous plain film examination and the CT examination 4 years ago. Vascular calcification is noted. IMPRESSION: Underlying spondylitic changes. Mild compression involving the inferior endplate of L1 new relative to a study 4 years ago
[2016-08-21 11:15] VITALS: BP 176/74
--- NOTE | 2016-08-21 11:33 | RAD ---
Indication persistent pain associated with a fall 5 days earlier. Axial images through the lumbar spine were obtained and reformatted in the coronal and sagittal planes. Note is made of a plain film examination obtained in conjunction with the CT exam. Note is made of a prior plain film examination 05/12/2010. There are very small bilateral pleural effusions. There is mild compression involving the inferior endplate of L1. This is likely recent or acute as demonstrated by fracture lines on the axial images. It is certainly new relative to the plain film examination in 2009 and is new when compared to a CT examination 08/27/2012. The remainder of the vertebral body segments demonstrate normal height. Degenerative changes are noted at L4-5. Facet degenerative changes are noted in the lower lumbar spine. There is disc space bulging at L2-3 with some associated narrowing of the canal. Similar findings are seen at L3-4. There is additional mild spinal stenosis noted at L4-5. IMPRESSION: Recent or acute fracture involving the inferior endplate of L1. Underlying spondylitic changes with mild multilevel spinal stenosis PQRS Compliance Statement: One or more of the following individualized dose reduction techniques were utilized for this examination: 1. Automated exposure control 2. Adjustment of the mA and/or kV according to patient size 3. Use of iterative reconstruction technique
[2016-08-21] MEDS: AMLODIPINE BESYLATE 5 MG TABLET PO SCH (11:54)
[2016-08-21] MEDS: DIGOXIN 125 MCG TABLET PO SCH (11:54)
[2016-08-21] MEDS: GABAPENTIN 300 MG CAPSULE. PO SCH ×2 (11:54→20:22)
[2016-08-21] MEDS: HYDROXYCHLOROQUINE 200 MG TABLET PO SCH ×2 (11:55→18:10)
[2016-08-21] MEDS: MULTIVITAMIN with MINERAL TABLET. PO SCH (11:56)
[2016-08-21] MEDS: ASPIRIN ENTERIC COATED 81 MG TABLET.DR. PO SCH (11:56)
[2016-08-21] MEDS: ISOSORBIDE MONONITRATE ER 30 MG TAB.ER.24H PO SCH (11:56)
[2016-08-21] MEDS: LIDOCAINE (700MG/PATCH) PATCH. TD SCH (12:03)
[2016-08-21] MEDS: GABAPENTIN PO SCH (12:47)
[2016-08-21 15:14] VITALS: BP 176/70
[2016-08-21] MEDS: DICLOFENAC SODIUM 1% TOPICAL GEL 100GM TUBE. TP SCH ×3 (15:52→20:22)
[2016-08-21 19:31] VITALS: BP 125/61
[2016-08-21] MEDS: CETIRIZINE HCL 10 MG TABLET. PO SCH (20:22)
[2016-08-21] MEDS: ATORVASTATIN CALCIUM 20 MG TABLET PO SCH (20:22)
[2016-08-21] MEDS ORDERED: MONTELUKAST SODIUM 10 MG TABLET. PO SCH (21:00)
[2016-08-21] MEDS ORDERED: AMITRIPTYLINE HCL 50 MG TABLET PO SCH (21:00)
[2016-08-21] MEDS: ZOLPIDEM 5 MG TABLET. PO PRN (23:00)
[2016-08-21 23:06] VITALS: BP 171/66
[2016-08-22] VITALS (7 sets, daily range): BP systolic 87–171; BP diastolic 43–83
--- NOTE | 2016-08-22 00:06 | CONS ---
DATE OF CONSULTATION: 08/21/2016 REQUESTING PHYSICIAN: Dr Rai. REASON FOR CONSULTATION: Hyponatremia. HISTORY OF PRESENT ILLNESS: A 71-year-old female who presents to the hospital with complaints of dizziness and watery diarrhea. The patient was ____ 24 hours to hospitalizations for another earlier Emergency Room evaluation. The patient improved and was discharged home. She has had no nausea, vomiting. She does have background history of diabetes mellitus and hypertension. Her laboratories on presentation revealed serum sodium of 118 at 1800 hours on 08/20/2016 and by 0430 hours on 08/21/2016 patient's serum sodium was 136. ____ isotonic saline administration for 10 hours. PAST MEDICAL HISTORY: Diabetes mellitus, hypertension, coronary artery disease, status post myocardial infarction, GE reflux disease, anxiety, rheumatoid arthritis, peripheral neuropathy, tubular replacement, coronary artery bypass grafting 2003, left bunionectomy, hysterectomy. ALLERGIES: None. MEDICATIONS: Noted. FAMILY HISTORY: Noncontributory. SOCIAL HISTORY: The patient resides independently. No tobacco use. No alcohol use. REVIEW OF SYSTEMS: Diarrhea, nausea and vomiting, resolved, has had back pain, no headaches, sinus problem, nasal drainage, epistaxis, change in vision or hearing, no difficulty swallowing. No fever, chills, cough, sputum production, or hemoptysis. No chest pain, shortness of breath, PND, orthopnea, dyspnea on exertion. No abdominal pain or upper or lower gastrointestinal blood loss. No malignancies. No seizures. PHYSICAL EXAMINATION: GENERAL: The patient awake, conversant. She has back pain. HEENT: Clear. NECK: No increased JVD, no thyromegaly, masses or lymphadenopathy. LUNGS: Clear. CARDIAC: Without S3 or rub. ABDOMEN: Soft, nontender, no bruits. EXTREMITIES: Without edema. NEUROLOGIC: Nonfocal, localizing. PSYCHIATRIC: Good attention to detail, appropriate affect somewhat dysphoric. LABORATORY DATA: Sodium currently 136, creatinine 0.6, GFR 98, white count, 13.1, hemoglobin 9, hematocrit 30%. Urinalysis specific gravity 1.010, no protein or blood. IMPRESSION: Hyponatremia - suspect the serum sodium of 118 was laboratory error, unlikely that would have improved to this degree in such a short amount of time with isotonic saline administration. RECOMMENDATIONS: Discontinue IV fluid and allow oral hydration. Reassess serum sodium in the morning. MARCELA SIFUENTES MD DR: Madhu JOB#: [id number] / [id number]
[2016-08-22] MEDS: tiZANidine 4 MG TABLET. PO SCH ×3 (06:14→21:21)
[2016-08-22] MEDS: HYDROCODONE/APAP 10/325 TABLET. PO PRN ×3 (06:14→18:38)
[2016-08-22] MEDS: DICLOFENAC SODIUM 1% TOPICAL GEL 100GM TUBE. TP SCH ×4 (06:14→21:26)
[2016-08-22] MEDS: INSULIN ASPART 300 UNITS/3 ML INSULN.PEN SQ SCH ×3 (07:30→16:30)
[2016-08-22 08:24] LABS: BASO # 0.1 x10^3/uL (0.0-0.2); BASO % 1 % (0-3); EOS % 2 % (0-3); HEMATOCRIT 25.7 % (36.0-47.0); HEMOGLOBIN 8.1 g/dL (12.0-15.5); LYMPH # 1.3 x10^3/uL (1.0-4.8); LYMPH % 18 % (24-48); MEAN CORPUSCULAR HEMOGLOBIN 25 pg (25-35); MEAN CORPUSCULAR HGB CONC 31 g/dL (31-37); MEAN CORPUSCULAR VOLUME 78 fL (79-100); MONO % 13 % (0-9); NEUT % 67 % (31-73); PLATELET COUNT 237 x10^3/uL (140-400); RED CELL DISTRIBUTION WIDTH 14.5 % (11.5-14.5); WHITE BLOOD COUNT 7.2 x10^3/uL (4.0-11.0)
[2016-08-22 08:34] LABS: CALCIUM 8.6 mg/dL (8.5-10.1); CREATININE 1.2 mg/dL (0.6-1.0); GFR 44.2; MAGNESIUM 2.3 mg/dL (1.8-2.4); POTASSIUM 4.4 mmol/L (3.5-5.1)
[2016-08-22] MEDS: LOSARTAN POTASSIUM 50 MG TABLET. PO SCH (08:41)
[2016-08-22] MEDS: ISOSORBIDE MONONITRATE ER 30 MG TAB.ER.24H PO SCH (08:41)
[2016-08-22] MEDS: DIGOXIN 125 MCG TABLET PO SCH (08:42)
[2016-08-22] MEDS: AMLODIPINE BESYLATE 5 MG TABLET PO SCH ×2 (08:43→08:59)
[2016-08-22] MEDS: GABAPENTIN 300 MG CAPSULE. PO SCH ×2 (08:43→20:26)
[2016-08-22] MEDS: CALCIUM CARB/VIT D3 500/200 TABLET. PO SCH ×2 (08:44→17:58)
[2016-08-22] MEDS: MULTIVITAMIN with MINERAL TABLET. PO SCH (08:44)
[2016-08-22] MEDS: PANTOPRAZOLE 40 MG TABLET. PO SCH (08:44)
[2016-08-22] MEDS: HYDROXYCHLOROQUINE 200 MG TABLET PO SCH ×2 (08:45→17:58)
[2016-08-22] MEDS: ASPIRIN ENTERIC COATED 81 MG TABLET.DR. PO SCH (08:45)
[2016-08-22] MEDS: MONTELUKAST SODIUM 10 MG TABLET. PO SCH (08:45)
[2016-08-22] MEDS: CLONIDINE HCL 0.1 MG TABLET PO SCH ×3 (08:51→20:25)
[2016-08-22 08:52] LABS: FREE T4 1.09 ng/dL (0.76-1.46)
[2016-08-22] MEDS: LIDOCAINE (700MG/PATCH) PATCH. TD SCH (08:52)
[2016-08-22] MEDS: VANCOMYCIN 125 MG/2.5 ML ORAL SOLUTION. PO SCH ×4 (08:54→20:30)
[2016-08-22] MEDS: FENTANYL PF 100 MCG/2 ML VIAL. IV PRN ×3 (10:43→19:54)
--- NOTE | 2016-08-22 10:55 | PDOC ---
IM PROGRESS NOTES- Subjective Subjective Has low back pain. Objective Vitals Vital Signs Date Time Temp Pulse Resp B/P Pulse Ox O2 Delivery O2 Flow Rate FiO2 08/22/16 08:59 134/56 08/22/16 08:42 80 08/22/16 08:00 Room Air 08/22/16 07:00 98.3 16 100 98.3 Input & Output Intake and Output 08/22/16 07:00 Intake Total 1160 ml Output Total 800 ml Balance 360 ml Intake Oral 1160 ml Output Urine Total 800 ml # Voids 3 Physical Exam Physical Exam General appearance - alert, ill appearing, and in mod distress r/t back pain Mental Status - alert, oriented to person, place, and time, in distress Head - normal Chest - clear to auscultation, no wheezes, rales or rhonchi, symmetric air entry Heart - S1 and S2 normal Abdomen - soft, nontender, nondistended, BS+ obese Neurological - no acute focal neurological deficits noted Musculoskeletal - bilateral LS pain Extremities - no pedal edema Skin - warm and dry Labs Laboratory Tests Test 08/20/16 18:05 08/21/16 04:35 08/21/16 07:43 08/21/16 11:42 White Blood Count 10.6x10^3/uL (4.0-11.0) 13.1x10^3/uL (4.0-11.0) Red Blood Count 3.15x10^6/uL (3.50-5.40) 3.98x10^6/uL (3.50-5.40) Hemoglobin 7.8g/dL (12.0-15.5) 9.7g/dL (12.0-15.5) Hematocrit 23.8% (36.0-47.0) 30.3% (36.0-47.0) Mean Corpuscular Volume 76fL (79-100) 76fL (79-100) Mean Corpuscular Hemoglobin 25pg (25-35) 25pg (25-35) Mean Corpuscular Hemoglobin Concent 33g/dL (31-37) 32g/dL (31-37) Red Cell Distribution Width 13.8% (11.5-14.5) 14.1% (11.5-14.5) Platelet Count 220x10^3/uL (140-400) 280x10^3/uL (140-400) Neutrophils (%) (Auto) 77% (31-73) 84% (31-73) Lymphocytes (%) (Auto) 11% (24-48) 6% (24-48) Monocytes (%) (Auto) 9% (0-9) 9% (0-9) Eosinophils (%) (Auto) 2% (0-3) 1% (0-3) Basophils (%) (Auto) 1% (0-3) 0% (0-3) Neutrophils # (Auto) 8.2x10^3uL (1.8-7.7) 11.0x10^3uL (1.8-7.7) Lymphocytes # (Auto) 1.2x10^3/uL (1.0-4.8) 0.8x10^3/uL (1.0-4.8) Monocytes # (Auto) 1.0x10^3/uL (0.0-1.1) 1.2x10^3/uL (0.0-1.1) Eosinophils # (Auto) 0.2x10^3/uL (0.0-0.7) 0.1x10^3/uL (0.0-0.7) Basophils # (Auto) 0.1x10^3/uL (0.0-0.2) 0.1x10^3/uL (0.0-0.2) Urine Collection Type Unknown Urine Color Yellow Urine Clarity Clear Urine pH 5.5 Urine Specific Gomer 1.010 Urine Protein Negativemg/dL (NEG-TRACE) Urine Glucose (UA) Negativemg/dL (NEG) Urine Ketones (Stick) Negativemg/dL (NEG) Urine Blood Negative (NEG) Urine Nitrite Negative (NEG) Urine Bilirubin Negative (NEG) Urine Urobilinogen Dipstick 0.2mg/dL (0.2 mg/dL) Urine Leukocyte Esterase Negative (NEG) Urine RBC 0/HPF (0-2) Urine WBC 0/HPF (0-4) Urine Squamous Epithelial Cells Few/LPF Urine Bacteria 0/HPF (0-FEW) Sodium Level 118mmol/L (136-145) 136mmol/L (136-145) Potassium Level 3.9mmol/L (3.5-5.1) 3.9mmol/L (3.5-5.1) Chloride Level 86mmol/L (98-107) 100mmol/L (98-107) Carbon Dioxide Level 26mmol/L (21-32) 26mmol/L (21-32) Anion Gap 6 (6-14) 10 (6-14) Blood Urea Nitrogen 17mg/dL (7-20) 9mg/dL (7-20) Creatinine 0.8mg/dL (0.6-1.0) 0.6mg/dL (0.6-1.0) Estimated GFR (Cockcroft-Gault) 70.5 98.3 Glucose Level 209mg/dL (70-99) 133mg/dL (70-99) Calcium Level 7.9mg/dL (8.5-10.1) 8.9mg/dL (8.5-10.1) BUN/Creatinine Ratio 15 (6-20) Magnesium Level 2.1mg/dL (1.8-2.4) Total Bilirubin 0.4mg/dL (0.2-1.0) Aspartate Amino Transf (AST/SGOT) 25U/L (15-37) Alanine Aminotransferase (ALT/SGPT) 32U/L (14-59) Alkaline Phosphatase 77U/L (46-116) Total Protein 7.5g/dL (6.4-8.2) Albumin 3.3g/dL (3.4-5.0) Albumin/Globulin Ratio 0.8 (1.0-1.7) Glucose (Fingerstick) 155mg/dL (70-99) 136mg/dL (70-99) Test 08/21/16 17:17 08/21/16 20:44 08/22/16 07:50 08/22/16 07:51 Glucose (Fingerstick) 129mg/dL (70-99) 142mg/dL (70-99) 120mg/dL (70-99) White Blood Count 7.2x10^3/uL (4.0-11.0) Red Blood Count 3.30x10^6/uL (3.50-5.40) Hemoglobin 8.1g/dL (12.0-15.5) Hematocrit 25.7% (36.0-47.0) Mean Corpuscular Volume 78fL (79-100) Mean Corpuscular Hemoglobin 25pg (25-35) Mean Corpuscular Hemoglobin Concent 31g/dL (31-37) Red Cell Distribution Width 14.5% (11.5-14.5) Platelet Count 237x10^3/uL (140-400) Neutrophils (%) (Auto) 67% (31-73) Lymphocytes (%) (Auto) 18% (24-48) Monocytes (%) (Auto) 13% (0-9) Eosinophils (%) (Auto) 2% (0-3) Basophils (%) (Auto) 1% (0-3) Neutrophils # (Auto) 4.8x10^3uL (1.8-7.7) Lymphocytes # (Auto) 1.3x10^3/uL (1.0-4.8) Monocytes # (Auto) 0.9x10^3/uL (0.0-1.1) Eosinophils # (Auto) 0.1x10^3/uL (0.0-0.7) Basophils # (Auto) 0.1x10^3/uL (0.0-0.2) Sodium Level 136mmol/L (136-145) Potassium Level 4.4mmol/L (3.5-5.1) Chloride Level 101mmol/L (98-107) Carbon Dioxide Level 29mmol/L (21-32) Anion Gap 6 (6-14) Blood Urea Nitrogen 13mg/dL (7-20) Creatinine 1.2mg/dL (0.6-1.0) Estimated GFR (Cockcroft-Gault) 44.2 Glucose Level 123mg/dL (70-99) Serum Osmolality 280mOsm/Kg (279-304) Calcium Level 8.6mg/dL (8.5-10.1) Magnesium Level 2.3mg/dL (1.8-2.4) Thyroid Stimulating Hormone (TSH) 2.776uIU/mL (0.358-3.74) Free Thyroxine 1.09ng/dL (0.76-1.46) Laboratory Tests Test 08/21/16 11:42 08/21/16 17:17 08/21/16 20:44 08/22/16 07:50 Glucose (Fingerstick) 136mg/dL (70-99) 129mg/dL (70-99) 142mg/dL (70-99) White Blood Count 7.2x10^3/uL (4.0-11.0) Red Blood Count 3.30x10^6/uL (3.50-5.40) Hemoglobin 8.1g/dL (12.0-15.5) Hematocrit 25.7% (36.0-47.0) Mean Corpuscular Volume 78fL (79-100) Mean Corpuscular Hemoglobin 25pg (25-35) Mean Corpuscular Hemoglobin Concent 31g/dL (31-37) Red Cell Distribution Width 14.5% (11.5-14.5) Platelet Count 237x10^3/uL (140-400) Neutrophils (%) (Auto) 67% (31-73) Lymphocytes (%) (Auto) 18% (24-48) Monocytes (%) (Auto) 13% (0-9) Eosinophils (%) (Auto) 2% (0-3) Basophils (%) (Auto) 1% (0-3) Neutrophils # (Auto) 4.8x10^3uL (1.8-7.7) Lymphocytes # (Auto) 1.3x10^3/uL (1.0-4.8) Monocytes # (Auto) 0.9x10^3/uL (0.0-1.1) Eosinophils # (Auto) 0.1x10^3/uL (0.0-0.7) Basophils # (Auto) 0.1x10^3/uL (0.0-0.2) Sodium Level 136mmol/L (136-145) Potassium Level 4.4mmol/L (3.5-5.1) Chloride Level 101mmol/L (98-107) Carbon Dioxide Level 29mmol/L (21-32) Anion Gap 6 (6-14) Blood Urea Nitrogen 13mg/dL (7-20) Creatinine 1.2mg/dL (0.6-1.0) Estimated GFR (Cockcroft-Gault) 44.2 Glucose Level 123mg/dL (70-99) Serum Osmolality 280mOsm/Kg (279-304) Calcium Level 8.6mg/dL (8.5-10.1) Magnesium Level 2.3mg/dL (1.8-2.4) Thyroid Stimulating Hormone (TSH) 2.776uIU/mL (0.358-3.74) Free Thyroxine 1.09ng/dL (0.76-1.46) Test 08/22/16 07:51 Glucose (Fingerstick) 120mg/dL (70-99) Meds Current Medications Amitriptyline HCl (Elavil) 50 mg QHS PO ; Start 08/21/16 at 21:00; Stop at 21:00; Status DC Atorvastatin Calcium (Lipitor) 20 mg QHS PO Last administered on 08/21/16 20: 22; Start 08/21/16 at 21:00 Cetirizine HCl (Zyrtec) 10 mg QHS PO Last administered on 08/21/16 20:22; Start 08/21/16 at 21:00 Diclofenac Sodium (Voltaren) 1 gage [id number] TP Last administered on 08/22/16 06 :14; Start 08/21/16 at 13:00 Gabapentin (Neurontin) 600 mg DAILYWLUN PO Last administered on 08/21/16 12:47 ; Start 08/21/16 at 12:00 Gabapentin (Neurontin) 900 mg QHS PO Last administered on 08/21/16 20:22; Start 08/21/16 at 21:00 Montelukast Sodium (Singulair) 10 mg DAILY PO Last administered on 08/22/16 08 :45; Start 08/22/16 at 09:00 Montelukast Sodium (Singulair) 10 mg QHS PO ; Start 08/21/16 at 21:00; Stop at 21:00; Status DC Assessment Assessment 1. acute hyponatremia 2. dizziness 3. acute on chronic LBP (LBPunder chronic pain management OP) secondary to fall in the home Wednesday 08/16 4. ICM CHF diastolic EF 50% ICD PPM 5. HTN 6. CAD with h/o NSTEMI LA, CABG 7. anemia CD 8. hyperlipidemia 9. mild pulmonary HTN 10. DM II controlled chronic insulin polyneuropathy 11. ROEL intolerant to CPAP 12. diverticulosis 13. GERD 14. Schatzki ring 15. anemia chronic disease 16. chronic pain management LS 17. RA 18. anxiety 19. chronic moderate PCL malnutrition PLAN: acute hyponatremia Na 08/19 135 Admit Na 118 08/21 136 K 3.9 3.8 BUN 17 9 Cr 0.8 0.6 NS 20 K 125cc/hr 08/20--decrease to 100cc/hr 08/21 renal consulted Anemia Hgb 08/19 9.3 Admit Hgb 7.8 08/21 9.7 no overt bleeding, no PRC, improved 08/21-?dilutional leukocytosis w/o fever--diarrhea WBC 08/19 23.3 Admit 10.6 08/21 13.1 08/22- 7.2 UA negative A/C low back pain post fall Tuesday xray LS Dr. Thacker consult CT lumbar spine -Recent or acute fracture involving the inferior endplate of L1. Underlying spondylitic changes with mild multilevel spinal stenosis. L1 compression fracture- consult IR. Voltaren gel qid 2gm initiate 08/21 CHF diastolic not acute Admit wt 197.36 daily wt IO hold Lasix KCL DM II Levemir 34unit (recently being tirated up--needs Hba1c less than 8 before can proceed with surgery for Charcoat foot) HOld levemir FSBS/SSI [id number] DVT/GI prophylaxis SCD/LENA PPI Hypertension with hypotension- BP 171/66 - 87/43 - 134/56. Plan Plan Acute gastroenteritis.Also treated recently sith Keflex- check for C.Diff.started on Vancomycin- diarrhea improving. Left hip pain. The patient was seen and examined by me. Chart reviewed and plan of care formulated. Discussed with, reviewed and agree with HOUSEHOLD WORKER's notes, plan of care and orders with modifications as necessary. For more details regarding further plans, please refer to the orders. MILA CONN MD Aug 22, 2016 10:54
[2016-08-22] MEDS: GABAPENTIN PO SCH (12:23)
[2016-08-22] MEDS: ALPRAZOLAM 0.25 MG TABLET PO PRN (17:58)
[2016-08-22] MEDS: ATORVASTATIN CALCIUM 20 MG TABLET PO SCH (20:24)
[2016-08-22] MEDS: CETIRIZINE HCL 10 MG TABLET. PO SCH (20:24)
[2016-08-22] MEDS: AMITRIPTYLINE HCL 50 MG TABLET PO SCH (20:25)
[2016-08-22] MEDS: ZOLPIDEM 5 MG TABLET. PO PRN (21:26)
--- NOTE | 2016-08-22 21:46 | PDOC ---
Provider Note Provider Note Provider Note RENAL F/U : GABRIEL S : No new c/o Feels better. O : Doing better/stable. VSS Afebrile. Neck : Supple. Lungs : Non labored. CVS : RRR ABD : Benign. Ext : No edema. Alert Neuro : Non focal. Labs, I/Os reviewed. A/P : HYPONATREMIA DEHYDRATION. DIZZINESS WEAKNESS. Dehydrated. Na stable. Likely lab error. Encourage diet. Supportive care. No new issues. GABRIEL RIOS MD Aug 22, 2016 21:45
[2016-08-23] VITALS (7 sets, daily range): BP systolic 132–186; BP diastolic 59–91
[2016-08-23] MEDS: HYDROCODONE/APAP 10/325 TABLET. PO PRN ×2 (01:41→08:35)
[2016-08-23 04:24] LABS: BASO # 0.1 x10^3/uL (0.0-0.2); BASO % 1 % (0-3); EOS % 3 % (0-3); HEMATOCRIT 26.8 % (36.0-47.0); HEMOGLOBIN 8.6 g/dL (12.0-15.5); LYMPH # 1.3 x10^3/uL (1.0-4.8); LYMPH % 17 % (24-48); MEAN CORPUSCULAR HEMOGLOBIN 25 pg (25-35); MEAN CORPUSCULAR HGB CONC 32 g/dL (31-37); MEAN CORPUSCULAR VOLUME 77 fL (79-100); MONO % 14 % (0-9); NEUT % 65 % (31-73); PLATELET COUNT 246 x10^3/uL (140-400); RED BLOOD COUNT 3.48 x10^6/uL (3.50-5.40); RED CELL DISTRIBUTION WIDTH 14.1 % (11.5-14.5); WHITE BLOOD COUNT 7.3 x10^3/uL (4.0-11.0)
[2016-08-23 04:51] LABS: GFR 54.5; POTASSIUM 4.6 mmol/L (3.5-5.1)
[2016-08-23] MEDS: DICLOFENAC SODIUM 1% TOPICAL GEL 100GM TUBE. TP SCH ×4 (05:30→20:50)
[2016-08-23] MEDS: tiZANidine 4 MG TABLET. PO SCH ×3 (05:30→20:43)
[2016-08-23] MEDS: FENTANYL PF 100 MCG/2 ML VIAL. IV PRN ×2 (05:36→14:56)
[2016-08-23] MEDS: PANTOPRAZOLE 40 MG TABLET. PO SCH (07:30)
[2016-08-23] MEDS: INSULIN ASPART 300 UNITS/3 ML INSULN.PEN SQ SCH ×3 (07:30→17:06)
[2016-08-23] MEDS: HYDROXYCHLOROQUINE 200 MG TABLET PO SCH ×2 (08:00→16:58)
[2016-08-23] MEDS: GABAPENTIN 300 MG CAPSULE. PO SCH ×3 (08:00→20:49)
[2016-08-23] MEDS: CALCIUM CARB/VIT D3 500/200 TABLET. PO SCH ×2 (08:00→16:58)
[2016-08-23 08:47] LABS: INR 1.1 (0.8-1.1); PROTHROMBIN TIME PATIENT 13.1 SEC (11.7-14.0)
[2016-08-23] MEDS: CLONIDINE HCL 0.1 MG TABLET PO SCH ×3 (09:00→20:44)
[2016-08-23] MEDS: LIDOCAINE (700MG/PATCH) PATCH. TD SCH (09:00)
[2016-08-23] MEDS: MULTIVITAMIN with MINERAL TABLET. PO SCH (09:00)
[2016-08-23] MEDS: ISOSORBIDE MONONITRATE ER 30 MG TAB.ER.24H PO SCH (09:00)
[2016-08-23] MEDS: MONTELUKAST SODIUM 10 MG TABLET. PO SCH (09:00)
[2016-08-23] MEDS: LOSARTAN POTASSIUM 50 MG TABLET. PO SCH (09:00)
[2016-08-23] MEDS: VANCOMYCIN 125 MG/2.5 ML ORAL SOLUTION. PO SCH ×5 (09:00→20:43)
[2016-08-23] MEDS: ASPIRIN ENTERIC COATED 81 MG TABLET.DR. PO SCH (09:00)
--- NOTE | 2016-08-23 09:40 | PDOC ---
DES-KAYLIEEDUAR FORGE PRESS OPERATOR 08/23/16 0940: IM PROGRESS NOTES- Subjective Subjective Continues with low back pain Objective Objective mod distress Vitals Vital Signs Date Time Temp Pulse Resp B/P Pulse Ox O2 Delivery O2 Flow Rate FiO2 08/23/16 08:35 Room Air 08/23/16 07:00 98.1 67 20 149/59 93 98.1 Input & Output Intake and Output 08/23/16 07:00 Intake Total 600 ml Output Total 0 ml Balance 600 ml Intake Oral 600 ml Output Urine Total 0 ml # Voids 1 Physical Exam Physical Exam General appearance - alert, ill appearing, and in mod distress r/t back pain Mental Status - alert, oriented to person, place, and time, in distress Head - normal Chest - clear to auscultation, no wheezes, rales or rhonchi, symmetric air entry Heart - S1 and S2 normal Abdomen - soft, nontender, nondistended, BS+ obese Neurological - no acute focal neurological deficits noted Musculoskeletal - bilateral LS pain Extremities - no pedal edema Skin - warm and dry Labs Laboratory Tests Test 08/21/16 11:42 08/21/16 17:17 08/21/16 20:44 08/22/16 07:50 Glucose (Fingerstick) 136mg/dL (70-99) 129mg/dL (70-99) 142mg/dL (70-99) White Blood Count 7.2x10^3/uL (4.0-11.0) Red Blood Count 3.30x10^6/uL (3.50-5.40) Hemoglobin 8.1g/dL (12.0-15.5) Hematocrit 25.7% (36.0-47.0) Mean Corpuscular Volume 78fL (79-100) Mean Corpuscular Hemoglobin 25pg (25-35) Mean Corpuscular Hemoglobin Concent 31g/dL (31-37) Red Cell Distribution Width 14.5% (11.5-14.5) Platelet Count 237x10^3/uL (140-400) Neutrophils (%) (Auto) 67% (31-73) Lymphocytes (%) (Auto) 18% (24-48) Monocytes (%) (Auto) 13% (0-9) Eosinophils (%) (Auto) 2% (0-3) Basophils (%) (Auto) 1% (0-3) Neutrophils # (Auto) 4.8x10^3uL (1.8-7.7) Lymphocytes # (Auto) 1.3x10^3/uL (1.0-4.8) Monocytes # (Auto) 0.9x10^3/uL (0.0-1.1) Eosinophils # (Auto) 0.1x10^3/uL (0.0-0.7) Basophils # (Auto) 0.1x10^3/uL (0.0-0.2) Sodium Level 136mmol/L (136-145) Potassium Level 4.4mmol/L (3.5-5.1) Chloride Level 101mmol/L (98-107) Carbon Dioxide Level 29mmol/L (21-32) Anion Gap 6 (6-14) Blood Urea Nitrogen 13mg/dL (7-20) Creatinine 1.2mg/dL (0.6-1.0) Estimated GFR (Cockcroft-Gault) 44.2 Glucose Level 123mg/dL (70-99) Serum Osmolality 280mOsm/Kg (279-304) Calcium Level 8.6mg/dL (8.5-10.1) Magnesium Level 2.3mg/dL (1.8-2.4) Thyroid Stimulating Hormone (TSH) 2.776uIU/mL (0.358-3.74) Free Thyroxine 1.09ng/dL (0.76-1.46) Cortisol AM Sample 1.8ug/dL (6.2-19.4) Test 08/22/16 07:51 08/22/16 12:11 08/22/16 17:26 08/22/16 21:51 Glucose (Fingerstick) 120mg/dL (70-99) 279mg/dL (70-99) 120mg/dL (70-99) 178mg/dL (70-99) Test 08/23/16 03:00 08/23/16 07:26 08/23/16 08:25 White Blood Count 7.3x10^3/uL (4.0-11.0) Red Blood Count 3.48x10^6/uL (3.50-5.40) Hemoglobin 8.6g/dL (12.0-15.5) Hematocrit 26.8% (36.0-47.0) Mean Corpuscular Volume 77fL (79-100) Mean Corpuscular Hemoglobin 25pg (25-35) Mean Corpuscular Hemoglobin Concent 32g/dL (31-37) Red Cell Distribution Width 14.1% (11.5-14.5) Platelet Count 246x10^3/uL (140-400) Neutrophils (%) (Auto) 65% (31-73) Lymphocytes (%) (Auto) 17% (24-48) Monocytes (%) (Auto) 14% (0-9) Eosinophils (%) (Auto) 3% (0-3) Basophils (%) (Auto) 1% (0-3) Neutrophils # (Auto) 4.7x10^3uL (1.8-7.7) Lymphocytes # (Auto) 1.3x10^3/uL (1.0-4.8) Monocytes # (Auto) 1.0x10^3/uL (0.0-1.1) Eosinophils # (Auto) 0.2x10^3/uL (0.0-0.7) Basophils # (Auto) 0.1x10^3/uL (0.0-0.2) Sodium Level 132mmol/L (136-145) Potassium Level 4.6mmol/L (3.5-5.1) Chloride Level 95mmol/L (98-107) Carbon Dioxide Level 30mmol/L (21-32) Anion Gap 7 (6-14) Blood Urea Nitrogen 12mg/dL (7-20) Creatinine 1.0mg/dL (0.6-1.0) Estimated GFR (Cockcroft-Gault) 54.5 Glucose Level 124mg/dL (70-99) Calcium Level 9.0mg/dL (8.5-10.1) Glucose (Fingerstick) 170mg/dL (70-99) Prothrombin Time 13.1SEC (11.7-14.0) Prothromb Time International Ratio 1.1 (0.8-1.1) Laboratory Tests Test 08/22/16 12:11 08/22/16 17:26 08/22/16 21:51 08/23/16 03:00 Glucose (Fingerstick) 279mg/dL (70-99) 120mg/dL (70-99) 178mg/dL (70-99) White Blood Count 7.3x10^3/uL (4.0-11.0) Red Blood Count 3.48x10^6/uL (3.50-5.40) Hemoglobin 8.6g/dL (12.0-15.5) Hematocrit 26.8% (36.0-47.0) Mean Corpuscular Volume 77fL (79-100) Mean Corpuscular Hemoglobin 25pg (25-35) Mean Corpuscular Hemoglobin Concent 32g/dL (31-37) Red Cell Distribution Width 14.1% (11.5-14.5) Platelet Count 246x10^3/uL (140-400) Neutrophils (%) (Auto) 65% (31-73) Lymphocytes (%) (Auto) 17% (24-48) Monocytes (%) (Auto) 14% (0-9) Eosinophils (%) (Auto) 3% (0-3) Basophils (%) (Auto) 1% (0-3) Neutrophils # (Auto) 4.7x10^3uL (1.8-7.7) Lymphocytes # (Auto) 1.3x10^3/uL (1.0-4.8) Monocytes # (Auto) 1.0x10^3/uL (0.0-1.1) Eosinophils # (Auto) 0.2x10^3/uL (0.0-0.7) Basophils # (Auto) 0.1x10^3/uL (0.0-0.2) Sodium Level 132mmol/L (136-145) Potassium Level 4.6mmol/L (3.5-5.1) Chloride Level 95mmol/L (98-107) Carbon Dioxide Level 30mmol/L (21-32) Anion Gap 7 (6-14) Blood Urea Nitrogen 12mg/dL (7-20) Creatinine 1.0mg/dL (0.6-1.0) Estimated GFR (Cockcroft-Gault) 54.5 Glucose Level 124mg/dL (70-99) Calcium Level 9.0mg/dL (8.5-10.1) Test 08/23/16 07:26 08/23/16 08:25 Glucose (Fingerstick) 170mg/dL (70-99) Prothrombin Time 13.1SEC (11.7-14.0) Prothromb Time International Ratio 1.1 (0.8-1.1) Assessment Assessment 1. acute hyponatremia 2. dizziness 3. acute on chronic LBP (LBPunder chronic pain management OP) secondary to fall in the home Wednesday 08/16 with compression fracture L1 endplate 4. ICM CHF diastolic EF 50% ICD PPM 5. HTN 6. CAD with h/o NSTEMI MS, CABG 7. anemia CD 8. hyperlipidemia 9. mild pulmonary HTN 10. DM II controlled chronic insulin polyneuropathy 11. ROEL intolerant to CPAP 12. diverticulosis 13. GERD 14. Schatzki ring 15. anemia chronic disease 16. chronic pain management LS 17. RA 18. anxiety 19. chronic moderate PCL malnutrition 20. acute gastroenteritis viral POA 21. diarrhea presumptive C diff PLAN: acute hyponatremia Na 08/19 135 Admit Na 118 08/23 132 K 3.9 4.6 BUN 17 12 Cr 0.8 01.0 NS 20 K 125cc/hr 08/20--decrease to 100cc/hr 08/21 renal consulted-secondary to dehydration Anemia Hgb 08/19 9.3 Admit Hgb 7.8 08/23 8.6 no overt bleeding, no PRC, improved 08/21-?dilutional leukocytosis w/o fever--diarrhea WBC 08/19 23.3 Admit 10.6 08/21 13.1 08/23 7.3 UA negative A/C low back pain post fall Tuesday xray LS Dr. Thacker consult CT lumbar spine -Recent or acute fracture involving the inferior endplate of L1 : spondylitic underlying spondylitic changes with mild multilevel spinal stenosis. L1 compression fracture- consult IR-kyphoplasty pending 08/23 Voltaren gel qid 2gm initiate 08/21 CHF diastolic not acute Admit wt 197.36 08/23 193.0 daily wt IO hold Lasix KCL DM II Levemir 34unit (recently being tirated up--needs Hba1c less than 8 before can proceed with surgery for Charcoat foot) HOld levemir FSBS/SSI [id number] DVT/GI prophylaxis SCD/LENA PPI Hypertension with hypotension- 08/22 BP 171/66 - 87/43 - 134/56. improving. DVT/GI prophylaxis Lovenox PPI Diarrhea POA acute gastroenteritis presumptive C diff-oral vancomycin due to recent keflex for infected R great toe improved. Plan Plan For more details regarding further plans, please refer to the orders. MILA CONN MD 08/23/16 0958: IM PROGRESS NOTES- Assessment Assessment D/w . The patient was seen and examined by me. Chart reviewed and plan of care formulated. Discussed with, reviewed and agree with CANVAS BASTER's notes, plan of care and orders with modifications as necessary. For more details regarding further plans, please refer to the orders. EDUAR LOBO APRN Aug 23, 2016 09:40 MILA CONN MD Aug 23, 2016 09:58
--- NOTE | 2016-08-23 12:08 | PDOC ---
Renal-Progress Notes Subjective Notes Notes NONE History of Present Illness Hx of present illness BETTER Vitals Vitals Vital Signs Date Time Temp Pulse Resp B/P Pulse Ox O2 Delivery O2 Flow Rate FiO2 08/23/16 11:00 97.9 80 20 176/72 93 Room Air 97.9 Weight Weight [ ] I.O. Intake and Output Intake and Output 08/23/16 07:00 Intake Total 600 ml Output Total 0 ml Balance 600 ml Intake Oral 600 ml Output Urine Total 0 ml # Voids 1 Labs Labs Laboratory Tests Test 08/22/16 12:11 08/22/16 17:26 08/22/16 21:51 08/23/16 03:00 Glucose (Fingerstick) 279mg/dL (70-99) 120mg/dL (70-99) 178mg/dL (70-99) White Blood Count 7.3x10^3/uL (4.0-11.0) Red Blood Count 3.48x10^6/uL (3.50-5.40) Hemoglobin 8.6g/dL (12.0-15.5) Hematocrit 26.8% (36.0-47.0) Mean Corpuscular Volume 77fL (79-100) Mean Corpuscular Hemoglobin 25pg (25-35) Mean Corpuscular Hemoglobin Concent 32g/dL (31-37) Red Cell Distribution Width 14.1% (11.5-14.5) Platelet Count 246x10^3/uL (140-400) Neutrophils (%) (Auto) 65% (31-73) Lymphocytes (%) (Auto) 17% (24-48) Monocytes (%) (Auto) 14% (0-9) Eosinophils (%) (Auto) 3% (0-3) Basophils (%) (Auto) 1% (0-3) Neutrophils # (Auto) 4.7x10^3uL (1.8-7.7) Lymphocytes # (Auto) 1.3x10^3/uL (1.0-4.8) Monocytes # (Auto) 1.0x10^3/uL (0.0-1.1) Eosinophils # (Auto) 0.2x10^3/uL (0.0-0.7) Basophils # (Auto) 0.1x10^3/uL (0.0-0.2) Sodium Level 132mmol/L (136-145) Potassium Level 4.6mmol/L (3.5-5.1) Chloride Level 95mmol/L (98-107) Carbon Dioxide Level 30mmol/L (21-32) Anion Gap 7 (6-14) Blood Urea Nitrogen 12mg/dL (7-20) Creatinine 1.0mg/dL (0.6-1.0) Estimated GFR (Cockcroft-Gault) 54.5 Glucose Level 124mg/dL (70-99) Calcium Level 9.0mg/dL (8.5-10.1) Test 08/23/16 07:26 08/23/16 08:25 08/23/16 11:39 Glucose (Fingerstick) 170mg/dL (70-99) 146mg/dL (70-99) Prothrombin Time 13.1SEC (11.7-14.0) Prothromb Time International Ratio 1.1 (0.8-1.1) Review of Systems Constitutional: yes: no symptom reported Physical Exam General Appearance: no apparent distress Skin: warm Respiratory: decreased breath sounds Abdomen: soft, bowel sounds present Extremities: no edema Musculoskeletal: low back pain (chronic ), Other (Charcot foot with surgery planned ) Assessment Assessment IMP HYPONATREMIA-MUCH BETTER NA 118 TO 132 PLAN WILL FOLLOW ADDIS PANDA MD Aug 23, 2016 12:08
[2016-08-23] MEDS: DIGOXIN 125 MCG TABLET PO SCH (12:15)
[2016-08-23] MEDS: AMLODIPINE BESYLATE 5 MG TABLET PO SCH (12:16)
[2016-08-23] MEDS ORDERED: LIDOCAINE 1% / SOD BICARB 8.4% 20 ML VIAL. IJ ONE ×2 (12:56→14:00)
[2016-08-23] MEDS ORDERED: IOHEXOL 300 MG/ML 50 ML VIAL. ONE (13:08)
[2016-08-23] MEDS ORDERED: MIDAZOLAM HCL/PF 5 MG/5 ML VIAL ONE (13:09)
[2016-08-23] MEDS ORDERED: FENTANYL PF 250 MCG/5 ML VIAL. ONE (13:10)
[2016-08-23] MEDS ORDERED: CEFAZOLIN 1GM IVPB FOR OMNI 50 ML IV ONE ×2 (13:10→14:00)
[2016-08-23] MEDS ORDERED: MIDAZOLAM HCL/PF 5 MG/5 ML VIAL IV ONE (14:00)
[2016-08-23] MEDS ORDERED: FENTANYL PF 250 MCG/5 ML VIAL. IV ONE (14:00)
[2016-08-23] MEDS ORDERED: IOHEXOL 300 MG/ML 50 ML VIAL. IART ONE (14:00)
--- NOTE | 2016-08-23 14:02 | PDOC ---
MODERATE SEDATION ASSESSMENT RISKS/ALTERNATIVES Risks/Alternatives Risks and alternatives of this type of sedation and procedure discussed with: RISK/ALTERNATIVES: Patient H & P ON CHART H & P H & P on chart and reviewed for co-morbid conditions and appropriate labs. H&P ON CHART: Yes STATUS PREG STATUS ASSESSED: N/A MEDS/ALLERGIES REVIEWED Meds/Allergies Reviewed Medications and Allergies including time and route of recently administered narcotics and sedatives. MEDS/ALLERGIES REVIEWED: Yes ASA RATING ASA RATING: II AIRWAY ASSESSMENT Airway Assessment Airway patency, oral function limitations, presence of caps, crowns, dentures, partials, and ability to extend neck assessed. AIRWAY ASSESSMENT: Yes MALLAMPATI SCORE MALLAMPATI SCORE: III PRE-SEDATION ASSESSMENT PRE-SEDATION ASSESSMENT: Yes LUIS FERNANDO ZHANG MD Aug 23, 2016 14:02
[2016-08-23] MEDS ORDERED: KETOROLAC TROMETHAMINE 60 MG/2 ML SYRINGE. ONE (14:04)
--- NOTE | 2016-08-23 14:05 | PDOC ---
Exam Hat Blocking Machine Operator Hat Blocking Machine Operator Keira Core Laying Machine Operator Core Laying Machine Operator Lauryn Reyna Pre-Procedure Diagnosis Pre-Procedure Diagnosis 71 YO female with severe LBP due to L1 fracture, precipitated by a fall 08/17/16. Post-Procedure Diagnosis Post-Procedure Diagnosis Same Procedure Performed Procedure Performed Fluoro guided L1 kyphoplasty Type of Anesthesia Type of Anesthesia Local + Mod sedation Estimated Blood Loss EBL: Minimal Condition of Patient Condition of Patient Stable. No apparent complication. Disposition Disposition From IR return to [facility] for recovery. F/u with Dr Rai and Dr Thacker. Full report to follow. LUIS FERNANDO ZHANG MD Aug 23, 2016 14:05
[2016-08-23] MEDS ORDERED: KETOROLAC TROMETHAMINE 30 MG/ML SYRINGE. IV ONE (14:45)
--- NOTE | 2016-08-23 15:40 | RAD ---
Fluoro guided L1 kyphoplasty Indication: 71-year-old female with severe low back pain due to acute L1 vertebral body compression, precipitated by a fall on 08/17/2016. Fluoro time: 15.5 minutes Kerma-Area Product: 67 Gycm2 Moderate sedation: 33 minutes moderate sedation was provided utilizing a total of 4 mg Versed and 250 mcg fentanyl, IV. The patient was appropriately monitored by a qualified independent observer throughout the course of the moderate sedation. Consent: The procedure was explained in its entirety to the patient and/or the patient's designated sales representative by a member of the treatment team. This included a discussion of risks and benefits and commonly accepted alternatives to the procedure, as well as expected consequences of no treatment at all. Discussion of risks included, but was not limited to, those that are most frequent and those that are rare, but possibly severe or life-threatening, as well as the possibility of unforeseen complications. Antibiotic: A single dose of Ancef was administered within 1 hour of the procedure start time. Sterility: All elements of maximal sterile barrier technique, including the use of a cap, mask, sterile gown, sterile gloves, large sterile sheet, appropriate hand hygiene, and 2% chlorhexidine for cutaneous antisepsis (or acceptable alternative antiseptic per current guidelines) were utilized. Procedure: Informed was obtained from the patient. She was placed prone on the angiography table. Midline low back was prepped and draped in the usual sterile fashion, utilizing all elements of maximal sterile barrier technique, as described above. Moderate sedation was provided with IV Fentanyl and Versed. 1 gram Ancef was given IV, prophylactically. Using aseptic technique, local anesthesia, and direct fluoroscopic guidance a 10 gauge vertebral augmentation needle was successfully introduced into anterior inferior midline of the L1 vertebral body, via unilateral right transpedicular approach. A 15 mm vertebral augmentation balloon was then coaxially introduced through the needle, and was gently inflated under fluoroscopic control, creating a pocket suitable to accept vertebral augmentation cement. The balloon was then deflated and removed. Contrast opacified polymethylmethacrylate was then very slowly and carefully introduced through the vertebral augmentation needle, using strict fluoroscopic control. There was resulting good filling of the L1 vertebral body, without significant extraosseous extravasation of opacified cement. The needle was then removed and a sterile dressing was applied. Patient tolerated the procedure well, without apparent complication. Impression: Successful, uneventful fluoro guided L1 kyphoplasty , performed via unilateral right transpedicular approach, as described.
--- NOTE | 2016-08-23 18:14 | PDOC ---
PROGRESS NOTES Subjective Subjective She admits no back pain after kyphoplasty this AM. Objective Objective Vital Signs Date Time Temp Pulse Resp B/P Pulse Ox O2 Delivery O2 Flow Rate FiO2 08/23/16 15:36 Nasal Cannula 1.0 08/23/16 15:00 97.9 81 20 157/61 94 97.9 Intake and Output 08/23/16 07:00 Intake Total 600 ml Output Total 0 ml Balance 600 ml Intake Oral 600 ml Output Urine Total 0 ml # Voids 1 Physical Exam Physical Exam She is supine in bed and seems comfortable. Assessment Assessment Problems Medical Problems: (1) Diarrhea Status: Acute (2) Dizziness Status: Acute (3) Hyponatremia Status: Acute Plan Plan of Care To see how she does get around tomorrow and depending on that home with home health or SNF transfer. Comment Review of Relevant I have reviewed the following items jenifer (where applicable) has been applied. Labs Laboratory Tests Test 08/21/16 20:44 08/22/16 07:50 08/22/16 07:51 08/22/16 12:11 Glucose (Fingerstick) 142mg/dL (70-99) 120mg/dL (70-99) 279mg/dL (70-99) White Blood Count 7.2x10^3/uL (4.0-11.0) Red Blood Count 3.30x10^6/uL (3.50-5.40) Hemoglobin 8.1g/dL (12.0-15.5) Hematocrit 25.7% (36.0-47.0) Mean Corpuscular Volume 78fL (79-100) Mean Corpuscular Hemoglobin 25pg (25-35) Mean Corpuscular Hemoglobin Concent 31g/dL (31-37) Red Cell Distribution Width 14.5% (11.5-14.5) Platelet Count 237x10^3/uL (140-400) Neutrophils (%) (Auto) 67% (31-73) Lymphocytes (%) (Auto) 18% (24-48) Monocytes (%) (Auto) 13% (0-9) Eosinophils (%) (Auto) 2% (0-3) Basophils (%) (Auto) 1% (0-3) Neutrophils # (Auto) 4.8x10^3uL (1.8-7.7) Lymphocytes # (Auto) 1.3x10^3/uL (1.0-4.8) Monocytes # (Auto) 0.9x10^3/uL (0.0-1.1) Eosinophils # (Auto) 0.1x10^3/uL (0.0-0.7) Basophils # (Auto) 0.1x10^3/uL (0.0-0.2) Sodium Level 136mmol/L (136-145) Potassium Level 4.4mmol/L (3.5-5.1) Chloride Level 101mmol/L (98-107) Carbon Dioxide Level 29mmol/L (21-32) Anion Gap 6 (6-14) Blood Urea Nitrogen 13mg/dL (7-20) Creatinine 1.2mg/dL (0.6-1.0) Estimated GFR (Cockcroft-Gault) 44.2 Glucose Level 123mg/dL (70-99) Serum Osmolality 280mOsm/Kg (279-304) Calcium Level 8.6mg/dL (8.5-10.1) Magnesium Level 2.3mg/dL (1.8-2.4) Thyroid Stimulating Hormone (TSH) 2.776uIU/mL (0.358-3.74) Free Thyroxine 1.09ng/dL (0.76-1.46) Cortisol AM Sample 1.8ug/dL (6.2-19.4) Test 08/22/16 17:26 08/22/16 21:51 08/23/16 03:00 08/23/16 07:26 Glucose (Fingerstick) 120mg/dL (70-99) 178mg/dL (70-99) 170mg/dL (70-99) White Blood Count 7.3x10^3/uL (4.0-11.0) Red Blood Count 3.48x10^6/uL (3.50-5.40) Hemoglobin 8.6g/dL (12.0-15.5) Hematocrit 26.8% (36.0-47.0) Mean Corpuscular Volume 77fL (79-100) Mean Corpuscular Hemoglobin 25pg (25-35) Mean Corpuscular Hemoglobin Concent 32g/dL (31-37) Red Cell Distribution Width 14.1% (11.5-14.5) Platelet Count 246x10^3/uL (140-400) Neutrophils (%) (Auto) 65% (31-73) Lymphocytes (%) (Auto) 17% (24-48) Monocytes (%) (Auto) 14% (0-9) Eosinophils (%) (Auto) 3% (0-3) Basophils (%) (Auto) 1% (0-3) Neutrophils # (Auto) 4.7x10^3uL (1.8-7.7) Lymphocytes # (Auto) 1.3x10^3/uL (1.0-4.8) Monocytes # (Auto) 1.0x10^3/uL (0.0-1.1) Eosinophils # (Auto) 0.2x10^3/uL (0.0-0.7) Basophils # (Auto) 0.1x10^3/uL (0.0-0.2) Sodium Level 132mmol/L (136-145) Potassium Level 4.6mmol/L (3.5-5.1) Chloride Level 95mmol/L (98-107) Carbon Dioxide Level 30mmol/L (21-32) Anion Gap 7 (6-14) Blood Urea Nitrogen 12mg/dL (7-20) Creatinine 1.0mg/dL (0.6-1.0) Estimated GFR (Cockcroft-Gault) 54.5 Glucose Level 124mg/dL (70-99) Calcium Level 9.0mg/dL (8.5-10.1) Test 08/23/16 08:25 08/23/16 11:39 08/23/16 17:02 Prothrombin Time 13.1SEC (11.7-14.0) Prothromb Time International Ratio 1.1 (0.8-1.1) Glucose (Fingerstick) 146mg/dL (70-99) 180mg/dL (70-99) Laboratory Tests Test 08/22/16 21:51 08/23/16 03:00 08/23/16 07:26 08/23/16 08:25 Glucose (Fingerstick) 178mg/dL (70-99) 170mg/dL (70-99) White Blood Count 7.3x10^3/uL (4.0-11.0) Red Blood Count 3.48x10^6/uL (3.50-5.40) Hemoglobin 8.6g/dL (12.0-15.5) Hematocrit 26.8% (36.0-47.0) Mean Corpuscular Volume 77fL (79-100) Mean Corpuscular Hemoglobin 25pg (25-35) Mean Corpuscular Hemoglobin Concent 32g/dL (31-37) Red Cell Distribution Width 14.1% (11.5-14.5) Platelet Count 246x10^3/uL (140-400) Neutrophils (%) (Auto) 65% (31-73) Lymphocytes (%) (Auto) 17% (24-48) Monocytes (%) (Auto) 14% (0-9) Eosinophils (%) (Auto) 3% (0-3) Basophils (%) (Auto) 1% (0-3) Neutrophils # (Auto) 4.7x10^3uL (1.8-7.7) Lymphocytes # (Auto) 1.3x10^3/uL (1.0-4.8) Monocytes # (Auto) 1.0x10^3/uL (0.0-1.1) Eosinophils # (Auto) 0.2x10^3/uL (0.0-0.7) Basophils # (Auto) 0.1x10^3/uL (0.0-0.2) Sodium Level 132mmol/L (136-145) Potassium Level 4.6mmol/L (3.5-5.1) Chloride Level 95mmol/L (98-107) Carbon Dioxide Level 30mmol/L (21-32) Anion Gap 7 (6-14) Blood Urea Nitrogen 12mg/dL (7-20) Creatinine 1.0mg/dL (0.6-1.0) Estimated GFR (Cockcroft-Gault) 54.5 Glucose Level 124mg/dL (70-99) Calcium Level 9.0mg/dL (8.5-10.1) Prothrombin Time 13.1SEC (11.7-14.0) Prothromb Time International Ratio 1.1 (0.8-1.1) Test 08/23/16 11:39 08/23/16 17:02 Glucose (Fingerstick) 146mg/dL (70-99) 180mg/dL (70-99) Medications Current Medications Acetaminophen/ Hydrocodone Bitart 1 tab 1 tab 1X ONCE PO Last administered on 08/20/16 19:00; Start 08/20/16 at 19:00; Stop 08/20/16 at 19:01; Status DC Sodium Chloride (Iv Sodium Chloride 0.9% 500ml Bag) 500 ml @ 500 mls/hr 1X ONCE IV Last administered on 08/20/16 19:15; Start 08/20/16 at 19:15; Stop at 20:14; Status DC Ondansetron HCl (Zofran) 4 mg PRN Q8HRS PRN IV NAUSEA/VOMITING; Start 08/20/16 at 19:45; Stop 08/21/16 at 07:52; Status DC Fentanyl Citrate (Fentanyl 2ml Vial) 50 mcg PRN Q2HR PRN IV PAIN Last administered on 08/21/16 00:22; Start 08/20/16 at 19:45; Stop 08/21/16 at 07:52 ; Status DC Acetaminophen (Tylenol) 650 mg PRN Q4HRS PRN PO FEVER Last administered on 08/21 01:41; Start 08/20/16 at 19:45; Stop 08/21/16 at 07:52; Status DC Albuterol Sulfate (Ventolin Neb Soln) 2.5 mg PRN QID PRN NEB SHORTNESS OF BREATH Last administered on 08/21/16 08:41; Start 08/20/16 at 22:15 Vancomycin HCl 125 mg 125 mg [id number] PO ; Start 08/20/16 at 22:30 Potassium Chloride/Sodium Chloride (KCl 20 Meq-NS 1,000 ml Iv Soln) 1,000 ml @ 125 mls/hr Q8H IV Last administered on 08/21/16 00:22; Start 08/20/16 at 22:30 ; Stop 08/21/16 at 07:52; Status DC Alprazolam (Xanax) 0.25 mg PRN TID PRN PO ANXIETY / AGITATION Last administered on 08/22/16 17:58; Start 08/21/16 at 00:45 Amitriptyline HCl (Elavil) 50 mg QHS PO ; Start 08/21/16 at 21:00; Stop at 21:00; Status DC Aspirin (Ecotrin) 81 mg DAILY PO Last administered on 08/22/16 08:45; Start at 09:00 Atorvastatin Calcium (Lipitor) 20 mg QHS PO Last administered on 08/22/16 20: 24; Start 08/21/16 at 21:00 Cetirizine HCl (Zyrtec) 10 mg QHS PO Last administered on 08/22/16 20:24; Start 08/21/16 at 21:00 Betamethasone/ Clotrimazole (Lotrisone) 1 david PRN BID PRN TP ALLERGIES; Start 08/21/16 at 01:30 Digoxin (Lanoxin) 125 mcg DAILY PO Last administered on 08/23/16 12:15; Start 08/21/16 at 09:00 Gabapentin (Neurontin) 300 mg DAILY08 PO Last administered on 08/22/16 08:43; Start 08/21/16 at 08:00 Hydroxychloroquine Sulfate (Plaquenil) 200 mg BIDWMEALS PO Last administered on 08/23/16 16:58; Start 08/21/16 at 08:00 Isosorbide Mononitrate (Imdur) 30 mg DAILY PO Last administered on 08/21/16 11 :56; Start 08/21/16 at 09:00 Montelukast Sodium (Singulair) 10 mg QHS PO ; Start 08/21/16 at 21:00; Stop at 21:00; Status DC Meclizine HCl (Antivert) 25 mg PRN TID PRN PO DIZZINESS; Start 08/21/16 at 00: 45 Multivitamins (Thera M Plus) 1 tab DAILY PO Last administered on 08/22/16 08: 44; Start 08/21/16 at 09:00 Gabapentin (Neurontin) 900 mg QHS PO Last administered on 08/22/16 20:26; Start 08/21/16 at 21:00 Gabapentin (Neurontin) 600 mg DAILYWLUN PO Last administered on 08/22/16 12:23 ; Start 08/21/16 at 12:00; Stop 08/23/16 at 10:57; Status DC Amitriptyline HCl (Elavil) 50 mg QHS PO Last administered on 08/22/16 20:25; Start 08/21/16 at 01:45 Morphine Sulfate 2 mg 2 mg PRN Q2HR PRN IV PAIN Last administered on 08/21/16 03:49; Start 08/21/16 at 03:30; Stop 08/21/16 at 07:52; Status DC Potassium Chloride/Sodium Chloride (KCl 20 Meq-NS 1,000 ml Iv Soln) 1,000 ml @ 100 mls/hr Q10H IV Last administered on 08/21/16 07:45; Start 08/21/16 at 07: 45; Stop 08/21/16 at 12:41; Status DC Fentanyl Citrate (Fentanyl 2ml Vial) 50 mcg PRN Q2HR PRN IV PAIN Last administered on 08/23/16 14:56; Start 08/21/16 at 07:45 Ondansetron HCl (Zofran) 4 mg PRN Q8HRS PRN IV NAUSEA/VOMITING; Start 08/21/16 at 07:45 Acetaminophen (Tylenol) 650 mg PRN Q4HRS PRN PO FEVER Last administered on 08/23 12:16; Start 08/21/16 at 07:45 Acetaminophen/ Hydrocodone Bitart (Lortab 7.5/325) 1 tab PRN Q6HRS PRN PO PAIN ; Start 08/21/16 at 07:45; Stop 08/21/16 at 08:58; Status DC Pantoprazole Sodium (Protonix) 40 mg DAILYAC PO Last administered on 08/22/16 08:44; Start 08/21/16 at 09:00 Amlodipine Besylate (Norvasc) 5 mg DAILY PO Last administered on 08/23/16 12: 16; Start 08/21/16 at 09:00 Clonidine HCl (Catapres) 0.1 mg TID PO Last administered on 08/23/16 14:56; Start 08/21/16 at 09:00 Nitroglycerin (Nitrostat) 0.4 mg PRN Q5MIN PRN SL CHEST PAIN; Start 08/21/16 at 07:45 Zolpidem Tartrate (Ambien) 5 mg PRN QHS PRN PO INSOMNIA Last administered on 21:26; Start 08/21/16 at 07:45 Calcium/Vitamin D (Oscal D 500mg/ 200uts) 1 tab BIDWMEALS PO Last administered on 08/23/16 16:58; Start 08/21/16 at 08:00 Losartan Potassium (Cozaar) 100 mg DAILY PO Last administered on 08/21/16 09: 46; Start 08/21/16 at 09:00 Insulin Aspart (Novolog) TIDAC SQ Last administered on 08/23/16 17:06; Start 08/21/16 at 08:00 Diclofenac Sodium (Voltaren) 1 david [id number] TP Last administered on 08/23/16 17 :00; Start 08/21/16 at 13:00 Acetaminophen/ Hydrocodone Bitart (Lortab 10/325) 1 tab PRN Q6HRS PRN PO PAIN MILD TO MOD Last administered on 08/23/16 08:35; Start 08/21/16 at 09:00 Tizanidine HCl (Zanaflex) 4 mg Q8HRS PO Last administered on 08/23/16 14:56; Start 08/21/16 at 09:00 Lidocaine (Lidoderm) 1 patch DAILY TD Last administered on 08/22/16 08:52; Start 08/21/16 at 09:00 Montelukast Sodium (Singulair) 10 mg DAILY PO Last administered on 08/22/16 08 :45; Start 08/22/16 at 09:00 Gabapentin (Neurontin) 600 mg DAILYWLUN PO ; Start 08/23/16 at 12:00 Lidocaine/Sodium Bicarbonate (Buffered Lidocaine 1%) 20 ml STK-MED ONCE IJ ; Start 08/23/16 at 12:56; Stop 08/23/16 at 12:57; Status DC Iohexol (Omnipaque 300 Mg/ml) 50 ml STK-MED ONCE .ROUTE ; Start 08/23/16 at 13: 08; Stop 08/23/16 at 13:09; Status DC Midazolam HCl (Versed) 5 mg STK-MED ONCE .ROUTE ; Start 08/23/16 at 13:09; Stop 08/23/16 at 13:10; Status DC Fentanyl Citrate 250 mcg 250 mcg STK-MED ONCE .ROUTE ; Start 08/23/16 at 13:10; Stop 08/23/16 at 13:11; Status DC Cefazolin Sodium (Ancef 1gm Ivpb For Omni) 50 ml @ As Directed STK-MED ONCE IV ; Start 08/23/16 at 13:10; Stop 08/23/16 at 13:11; Status DC Lidocaine/Sodium Bicarbonate (Buffered Lidocaine 1%) 10 ml 1X ONCE IJ Last administered on 08/23/16 14:14; Start 08/23/16 at 14:00; Stop 08/23/16 at 14:03 ; Status DC Midazolam HCl (Versed) 4 mg 1X ONCE IV Last administered on 08/23/16 14:12; Start 08/23/16 at 14:00; Stop 08/23/16 at 14:03; Status DC Fentanyl Citrate (Fentanyl 5ml Vial) 250 mcg 1X ONCE IV Last administered on 14:13; Start 08/23/16 at 14:00; Stop 08/23/16 at 14:03; Status DC Iohexol 10 ml 10 ml 1X ONCE IART Last administered on 08/23/16 14:13; Start 08/23/16 at 14:00; Stop 08/23/16 at 14:03; Status DC Cefazolin Sodium (Ancef 1gm Ivpb For Omni) 50 ml @ 100 mls/hr 1X ONCE IV Last administered on 08/23/16 14:14; Start 08/23/16 at 14:00; Stop 08/23/16 at 14:29; Status DC Ketorolac Tromethamine (Toradol) 60 mg 1X ONCE IV Last administered on 14:14; Start 08/23/16 at 14:45; Stop 08/23/16 at 14:46; Status DC Ketorolac Tromethamine (Toradol Im) 60 mg STK-MED ONCE .ROUTE ; Start 08/23/16 at 14:04; Stop 08/23/16 at 14:05; Status DC Active Scripts Active Meclizine Hcl 25 Mg Tablet 1 Tab PO PRN TID PRN Reported Neurontin (Gabapentin) 300 Mg Capsule 900 Mg PO QHS Neurontin (Gabapentin) 600 Mg Tablet 600 Mg PO DAILYWLUN Nitrostat (Nitroglycerin) 0.4 Mg Tab.subl 1 Tab SL UD PRN Zolpidem Tartrate 5 Mg Tablet 1 Tab PO PRN QHS PRN Lantus Solostar (Insulin Glargine,Hum.rec.anlog) 100 Unit/1 Ml Insuln.pen 34 Unit SQ DAILY08 Flonase Allergy Relief (Fluticasone Propionate) 9.9 Ml [place].susp 2 Sprays NS DAILY Digoxin 125 Mcg Tablet 1 Tab PO DAILY Lotrisone Cream (Clotrimazole/Betamethasone Dip) 15 Gm Cream..g. 1 David TP PRN BID PRN Calcium Plus Menaq7 Adult Tab (Calcium Carb/Vitamin D3/Vit K2) 1 Each Tablet 1 Each PO Amitriptyline Hcl 50 Mg Tablet 1 Tab PO QHS Hydroxychloroquine Sulfate 200 Mg Tablet 1 Tab PO BID Alprazolam 0.25 Mg Tablet 1 Tab PO PRN TID PRN Prilosec (Omeprazole) 20 Mg Capsule.dr 1 Cap PO Metformin Hcl 500 Mg Tablet 1 Tab PO Glipizide 5 Mg Tablet 1 Tab PO Neurontin (Gabapentin) 300 Mg Capsule 1 Cap PO DAILY08 Daily Vitamin (Multivitamin) 1 Each Tablet 1 Each PO DAILY Potassium Chloride 10 Meq Capsule.er 1 Cap PO Coreg (Carvedilol) 25 Mg Tablet 1 Tab PO Aspir 81 (Aspirin) 81 Mg Tablet.dr 1 Tab PO Amlodipine Besylate 5 Mg Tablet 1 Tab PO Atorvastatin Calcium 20 Mg Tablet 20 Mg PO Furosemide 20 Mg Tablet 1 Tab PO Catapres (Clonidine Hcl) 0.1 Mg Tablet 1 Tab PO TID Cetirizine Hcl 10 Mg Tablet 1 Tab PO QHS Losartan Potassium 100 Mg Tablet 1 Tab PO Isosorbide Mononitrate Er (Isosorbide Mononitrate) 30 Mg Tab.er.24h 1 Tab PO Singulair Tablet (Montelukast Sodium) 10 Mg Tablet 1 Tab PO Vitals/I & O Vital Sign - Last 24 Hours 08/22/16 08/22/16 08/22/16 08/22/16 19:00 19:54 20:00 20:25 Temp 97.9 97.9 Pulse 71 71 Resp 18 B/P 171/83 171/83 Pulse Ox 90 90 O2 Delivery Room Air Room Air Room Air 08/22/16 08/22/16 08/23/16 08/23/16 20:30 23:00 03:00 05:36 Temp 97.6 98.3 97.6 98.3 Pulse 62 76 Resp 18 20 B/P 155/63 168/66 Pulse Ox 90 92 90 O2 Delivery Room Air Room Air Room Air 308/23/16 08/23/16 08/23/16 07:00 08:08 08:35 09:00 Temp 98.1 98.1 Pulse 67 67 Resp 20 B/P 149/59 149/59 Pulse Ox 93 O2 Delivery Room Air Room Air Room Air 08/23/16 08/23/16 08/23/16 08/23/16 09:00 09:00 10:04 11:00 Temp 97.9 97.9 Pulse 67 67 80 Resp 20 B/P 149/59 149/59 176/72 Pulse Ox 93 O2 Delivery Room Air Room Air 08/23/16 08/23/16 08/23/16 08/23/16 12:15 12:16 14:13 14:15 Pulse 80 80 96 Resp 16 14 B/P 176/72 176/72 Pulse Ox 99 97 O2 Delivery Nasal Cannula Nasal Cannula O2 Flow Rate 2.0 2.0 08/23/16 08/23/16 08/23/16 08/23/16 14:56 14:56 15:00 15:05 Temp 97.9 97.9 Pulse 77 81 Resp 20 B/P 192/63 157/61 Pulse Ox 98 94 O2 Delivery Nasal Cannula Room Air Nasal Cannula O2 Flow Rate 1.0 1.0 08/23/16 15:36 O2 Delivery Nasal Cannula O2 Flow Rate 1.0 Intake and Output 08/22/16 08/22/16 08/23/16 15:00 23:00 07:00 Intake Total 600 ml Output Total 0 ml Balance 600 ml 0 ml CHARITY FELDMAN MD Aug 23, 2016 18:13
[2016-08-23] MEDS ORDERED: AMITRIPTYLINE HCL 50 MG TABLET ONE (20:10)
[2016-08-23] MEDS: CETIRIZINE HCL 10 MG TABLET. PO SCH (20:44)
[2016-08-23] MEDS: AMITRIPTYLINE HCL 50 MG TABLET PO SCH (20:44)
[2016-08-23] MEDS: ATORVASTATIN CALCIUM 20 MG TABLET PO SCH (20:44)
[2016-08-24 03:45] VITALS: BP 154/81
--- NOTE | 2016-08-24 05:15 | ACF ---
Admission Forms Criteria HYPONATREMIA; HYPERNATREMIA; HYPOKALEMIA; HYPERKALEMIA; HYPOCALCEMIA; HYPERCALCEMIA Clinical Indications for Inpatient Care (Place 'X' for any and all applicable criteria): Ongoing inpatient care may be indicated for ANY ONE of the following [G](1)(2)(3 )(5): [X]I. Hyponatremia with ANY ONE of the following: [X]a) Sodium less than 130 mEq/L (mmol/L) (new) (6)(22) [ ]b) Sodium less than 135 mEq/L (mmol/L) with ANY ONE of the following: [ ]i) Severe medical etiology requiring inpatient management (eg, heart failure, hypovolemia) [ ]ii) Altered mental status [ ]iii) Seizures [ ]II. Hypernatremia with ANY ONE of the following: [ ]a) Sodium greater than 155 mEq/L (mmol/L) [ ]b) Sodium greater than 150 mEq/L (mmol/L) with ANY ONE of the following: [ ] i) Altered mental status [ ]ii) Seizures [ ]iii) Severe medical etiology (eg, hypovolemia, diabetes insipidus) [ ]iv) Severe weakness [ ]v) Severe medical etiology (eg, hemolysis, infection, drug overdose) [ ]III. Hypokalemia with ANY ONE of the following: [ ]a) Potassium less than 2.5 mEq/L (mmol/L) despite outpatient and emergency treatment [ ]b) Potassium less than 3.0 mEq/L (mmol/L) with ANY ONE of the following: [ ]i) Weakness [ ]ii) Cardiac abnormality (eg, arrhythmia, conduction disturbance) [ ]iii) Cardiac ischemia [ ]iv) Ileus [ ]v) Ongoing medical cause requiring inpatient management. ( e.g., acute renal wasting, SIADH) [ ]vi) Other severe symptoms [ ] IV. Hyperkalemia with ANY ONE of the following: [ ]a) Potassium greater than 6.5 mEq/L (mmol/L) [ ]b) Potassium greater than 5 mEq/L (mmol/L) with ANY ONE of the following: [ ]i) Severe ECG findings [H] [ ]ii) Acute worsening of renal failure (creatinine greater than 2.5 mg/dL (221 micromoles/L) or significant elevation for age and size) [ ] V. Hypocalcemia with ANY ONE of the following: [ ]a) Calcium less than 7 mg/dL (1.75 mmol/L) despite outpatient and emergency treatment(19) [ ]b) Calcium less than 8 mg/dL (2 mmol/L) with significant symptoms or findings; examples include: [ ]i) Cardiac abnormality (eg, arrhythmia or conduction disturbance) [ ]ii) Altered mental status [ ]iii) Seizures [ ]iv) Breathing difficulty [ ]v) Muscle spasms [ ]. Hypercalcemia with ANY ONE of the following: [ ]a) Calcium greater than 14 mg/dL (3.5 mmol/L) [ ]b) Calcium greater than 12 mg/dL (3 mmol/L) with ANY ONE of the following: [ ]i) Significant dehydration or hypovolemia as indicated by ANY ONE of the following(2): [ ]1. Clinically significant dehydration as indicated by ANY ONE of the following: [ ]A. Acute loss of weight from baseline (5% of body weight in adults, 9% in pediatric patients) [ ]B. Hemodynamic instability [ ]C. Acute renal failure [ ]D. Serum sodium greater than 150 mEq/L (mmol/L) [ ]2) Dehydration that is persistent indicated by ALL of the following: [ ]A. Oral rehydration therapy not tolerated or insufficient to adequately correct dehydration [ ]B. Appropriate intravenous treatment (eg, fluids ) does not readily correct dehydration ie, after 12 to 24 hours of treatment) [ ]ii) Significant symptoms or findings; examples include: [ ]1) Altered mental status [ ]2) Cardiac abnormality (eg, arrhythmia, conduction disturbance) [ ]3) Cardiac abnormality (eg, arrhythmia, conduction disturbance) The original [facility] content created by [facility] has been revised. The portions of the content which have been revised are identified through the use of italic text or in bold, and [facility] has neither reviewed nor approved the modified material. All other unmodified content is copyright [facility] Please see references footnoted in the original [facility] [employer] edition 2015 Admission Criteria Met?: Yes IKE LOMBARDO Aug 24, 2016 05:15
[2016-08-24 05:55] LABS: BASO # 0.1 x10^3/uL (0.0-0.2); BASO % 1 % (0-3); EOS % 2 % (0-3); HEMATOCRIT 32.5 % (36.0-47.0); HEMOGLOBIN 10.3 g/dL (12.0-15.5); LYMPH # 1.3 x10^3/uL (1.0-4.8); LYMPH % 14 % (24-48); MEAN CORPUSCULAR HEMOGLOBIN 24 pg (25-35); MEAN CORPUSCULAR HGB CONC 32 g/dL (31-37); MEAN CORPUSCULAR VOLUME 77 fL (79-100); MONO % 11 % (0-9); NEUT % 72 % (31-73); PLATELET COUNT 329 x10^3/uL (140-400); RED BLOOD COUNT 4.25 x10^6/uL (3.50-5.40); RED CELL DISTRIBUTION WIDTH 14.4 % (11.5-14.5); WHITE BLOOD COUNT 9.5 x10^3/uL (4.0-11.0)
[2016-08-24 06:13] LABS: CALCIUM 9.5 mg/dL (8.5-10.1); CREATININE 0.8 mg/dL (0.6-1.0); GFR 70.5; POTASSIUM 4.1 mmol/L (3.5-5.1)
[2016-08-24] MEDS: tiZANidine 4 MG TABLET. PO SCH ×2 (06:39→15:45)
[2016-08-24 07:00] VITALS: BP 215/93
[2016-08-24] MEDS: DICLOFENAC SODIUM 1% TOPICAL GEL 100GM TUBE. TP SCH ×3 (07:00→17:00)
--- NOTE | 2016-08-24 07:38 | PDOC3 ---
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 acute hyponatremia 2. dizziness 3. acute on chronic LBP (LBPunder chronic pain management OP) secondary to fall in the home Wednesday 08/16 with compression fracture L1 endplate 4. ICM CHF diastolic EF 50% ICD PPM 5. HTN 6. CAD with h/o NSTEMI NM, CABG 7. anemia CD 8. hyperlipidemia 9. mild pulmonary HTN 10. DM II controlled chronic insulin polyneuropathy 11. ROEL intolerant to CPAP 12. diverticulosis 13. GERD 14. Schatzki ring 15. anemia chronic disease 16. chronic pain management LS 17. RA 18. anxiety 19. chronic moderate PCL malnutrition 20. acute gastroenteritis viral POA 21. diarrhea presumptive C diff Consults Consults Gary Thacker MD, Dr. Procedures Procedures Furnace Repairer Furnace Repairer Keira Cisco Certified Network Professional [employer] Certified Network Professional Lauryn Reyna Pre-Procedure Diagnosis Pre-Procedure Diagnosis 71 YO female with severe LBP due to L1 fracture, precipitated by a fall 08/17/16. Post-Procedure Diagnosis Post-Procedure Diagnosis Same Procedure Performed Procedure Performed Fluoro guided L1 kyphoplasty Type of Anesthesia Type of Anesthesia Local + Mod sedation Estimated Blood Loss EBL: Minimal Condition of Patient Condition of Patient Stable. No apparent complication. Disposition Disposition From IR return to [facility] for recovery. F/u with Dr Rai and Dr Thacker. Full report to follow. LUIS FERNANDO ZHANG MD Aug 23, 2016 14:05 Labs Labs Laboratory Tests Test 08/21/16 07:43 08/21/16 11:42 08/21/16 17:17 08/21/16 20:44 Glucose (Fingerstick) 155mg/dL (70-99) 136mg/dL (70-99) 129mg/dL (70-99) 142mg/dL (70-99) Test 08/22/16 07:50 08/22/16 07:51 08/22/16 12:11 08/22/16 17:26 White Blood Count 7.2x10^3/uL (4.0-11.0) Red Blood Count 3.30x10^6/uL (3.50-5.40) Hemoglobin 8.1g/dL (12.0-15.5) Hematocrit 25.7% (36.0-47.0) Mean Corpuscular Volume 78fL (79-100) Mean Corpuscular Hemoglobin 25pg (25-35) Mean Corpuscular Hemoglobin Concent 31g/dL (31-37) Red Cell Distribution Width 14.5% (11.5-14.5) Platelet Count 237x10^3/uL (140-400) Neutrophils (%) (Auto) 67% (31-73) Lymphocytes (%) (Auto) 18% (24-48) Monocytes (%) (Auto) 13% (0-9) Eosinophils (%) (Auto) 2% (0-3) Basophils (%) (Auto) 1% (0-3) Neutrophils # (Auto) 4.8x10^3uL (1.8-7.7) Lymphocytes # (Auto) 1.3x10^3/uL (1.0-4.8) Monocytes # (Auto) 0.9x10^3/uL (0.0-1.1) Eosinophils # (Auto) 0.1x10^3/uL (0.0-0.7) Basophils # (Auto) 0.1x10^3/uL (0.0-0.2) Sodium Level 136mmol/L (136-145) Potassium Level 4.4mmol/L (3.5-5.1) Chloride Level 101mmol/L (98-107) Carbon Dioxide Level 29mmol/L (21-32) Anion Gap 6 (6-14) Blood Urea Nitrogen 13mg/dL (7-20) Creatinine 1.2mg/dL (0.6-1.0) Estimated GFR (Cockcroft-Gault) 44.2 Glucose Level 123mg/dL (70-99) Serum Osmolality 280mOsm/Kg (279-304) Calcium Level 8.6mg/dL (8.5-10.1) Magnesium Level 2.3mg/dL (1.8-2.4) Thyroid Stimulating Hormone (TSH) 2.776uIU/mL (0.358-3.74) Free Thyroxine 1.09ng/dL (0.76-1.46) Cortisol AM Sample 1.8ug/dL (6.2-19.4) Glucose (Fingerstick) 120mg/dL (70-99) 279mg/dL (70-99) 120mg/dL (70-99) Test 08/22/16 21:51 08/23/16 03:00 08/23/16 07:26 08/23/16 08:25 Glucose (Fingerstick) 178mg/dL (70-99) 170mg/dL (70-99) White Blood Count 7.3x10^3/uL (4.0-11.0) Red Blood Count 3.48x10^6/uL (3.50-5.40) Hemoglobin 8.6g/dL (12.0-15.5) Hematocrit 26.8% (36.0-47.0) Mean Corpuscular Volume 77fL (79-100) Mean Corpuscular Hemoglobin 25pg (25-35) Mean Corpuscular Hemoglobin Concent 32g/dL (31-37) Red Cell Distribution Width 14.1% (11.5-14.5) Platelet Count 246x10^3/uL (140-400) Neutrophils (%) (Auto) 65% (31-73) Lymphocytes (%) (Auto) 17% (24-48) Monocytes (%) (Auto) 14% (0-9) Eosinophils (%) (Auto) 3% (0-3) Basophils (%) (Auto) 1% (0-3) Neutrophils # (Auto) 4.7x10^3uL (1.8-7.7) Lymphocytes # (Auto) 1.3x10^3/uL (1.0-4.8) Monocytes # (Auto) 1.0x10^3/uL (0.0-1.1) Eosinophils # (Auto) 0.2x10^3/uL (0.0-0.7) Basophils # (Auto) 0.1x10^3/uL (0.0-0.2) Sodium Level 132mmol/L (136-145) Potassium Level 4.6mmol/L (3.5-5.1) Chloride Level 95mmol/L (98-107) Carbon Dioxide Level 30mmol/L (21-32) Anion Gap 7 (6-14) Blood Urea Nitrogen 12mg/dL (7-20) Creatinine 1.0mg/dL (0.6-1.0) Estimated GFR (Cockcroft-Gault) 54.5 Glucose Level 124mg/dL (70-99) Calcium Level 9.0mg/dL (8.5-10.1) Prothrombin Time 13.1SEC (11.7-14.0) Prothromb Time International Ratio 1.1 (0.8-1.1) Test 08/23/16 11:39 08/23/16 17:02 08/23/16 22:28 08/24/16 05:28 Glucose (Fingerstick) 146mg/dL (70-99) 180mg/dL (70-99) 138mg/dL (70-99) White Blood Count 9.5x10^3/uL (4.0-11.0) Red Blood Count 4.25x10^6/uL (3.50-5.40) Hemoglobin 10.3g/dL (12.0-15.5) Hematocrit 32.5% (36.0-47.0) Mean Corpuscular Volume 77fL (79-100) Mean Corpuscular Hemoglobin 24pg (25-35) Mean Corpuscular Hemoglobin Concent 32g/dL (31-37) Red Cell Distribution Width 14.4% (11.5-14.5) Platelet Count 329x10^3/uL (140-400) Neutrophils (%) (Auto) 72% (31-73) Lymphocytes (%) (Auto) 14% (24-48) Monocytes (%) (Auto) 11% (0-9) Eosinophils (%) (Auto) 2% (0-3) Basophils (%) (Auto) 1% (0-3) Neutrophils # (Auto) 6.9x10^3uL (1.8-7.7) Lymphocytes # (Auto) 1.3x10^3/uL (1.0-4.8) Monocytes # (Auto) 1.1x10^3/uL (0.0-1.1) Eosinophils # (Auto) 0.2x10^3/uL (0.0-0.7) Basophils # (Auto) 0.1x10^3/uL (0.0-0.2) Sodium Level 140mmol/L (136-145) Potassium Level 4.1mmol/L (3.5-5.1) Chloride Level 101mmol/L (98-107) Carbon Dioxide Level 32mmol/L (21-32) Anion Gap 7 (6-14) Blood Urea Nitrogen 11mg/dL (7-20) Creatinine 0.8mg/dL (0.6-1.0) Estimated GFR (Cockcroft-Gault) 70.5 Glucose Level 148mg/dL (70-99) Calcium Level 9.5mg/dL (8.5-10.1) Medications Medications Medications reviewed and reconciled for discharge. Brief hospital course Brief hospital course This 71 year old female who presented with weakness and diarrhea was admitted. The following is a summary of her treatment: acute hyponatremia Na 08/19 135 Admit Na 118 08/24 140 K 3.9 4.1 BUN 17 11 Cr 0.8 0.8 NS 20 K 125cc/hr 08/20--decrease to 100cc/hr 08/21 renal consulted-secondary to dehydration resolved Anemia Hgb 08/19 9.3 Admit Hgb 7.8 08/24 10.3 no overt bleeding, no PRC, improved 08/21-?dilutional leukocytosis w/o fever--diarrhea WBC 08/19 23.3 Admit 10.6 08/21 13.1 08/24 9.5 UA negative A/C low back pain post fall Tuesday xray LS Dr. Thacker consult CT lumbar spine -Recent or acute fracture involving the inferior endplate of L1 : spondylitic underlying spondylitic changes with mild multilevel spinal stenosis. L1 compression fracture- consult IR-kyphoplasty L1 08/23 in IR Voltaren gel qid 2gm initiate 08/21-stop at discharge CHF diastolic not acute Admit wt 197.36 08/23 193.0 daily wt IO hold Lasix KCL DM II Levemir 34unit (recently being tirated up--needs Hba1c less than 8 before can proceed with surgery for Charcoat foot) HOld levemir at admission FSBS/SSI [id number] Begin Levemir 28 units subq daily-eval in office Tuesday. DVT/GI prophylaxis SCD/LENA PPI Hypertension with hypotension- 08/22 BP 171/66 - 87/43 - 134/56. improving. DVT/GI prophylaxis Lovenox PPI Diarrhea POA acute gastroenteritis presumptive C diff-oral vancomycin due to recent keflex for infected R great toe -negative Cdiff improved. 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 For more details regarding the past history, family history, social history, surgical history and other details, please refer to History and Physical. BP has significantly improved. Will plan DC home. Please see DC orders. Subjective Pain improved Objective no distress Vitals Vital Signs Date Time Temp Pulse Resp B/P Pulse Ox O2 Delivery O2 Flow Rate FiO2 08/24/16 03:45 97.6 84 18 154/81 93 Room Air 97.6 08/23/16 15:36 1.0 Physical Exam General appearance - alert, ill appearing, and in mod distress r/t back pain Mental Status - alert, oriented to person, place, and time, in distress Head - normal Chest - clear to auscultation, no wheezes, rales or rhonchi, symmetric air entry Heart - S1 and S2 normal Abdomen - soft, nontender, nondistended, BS+ obese Neurological - no acute focal neurological deficits noted Musculoskeletal - bilateral LS pain Extremities - no pedal edema Skin - warm and dry Medications Medications reviewed. Allergy Allergies Coded Allergies Type Severity Reaction Last Updated Verified No Known Drug Allergies 01/22/14 No Follow up Tuesday this week. Disposition: Home Comments Discharge Management - 35 minutes. For other details please refer to discharge instructions MILA RAI MD 08/24/16 0944: IM DISCHARGE & PROGRESS NOTES Brief hospital course Brief hospital course BP 215/93- restarted Coreg and Lasix. Back pain much better. will need rt foot surgery at a later date. If BP is better,discharge later today.see in office in 6 days. Does not want HHS. The patient was seen and examined by me. Chart reviewed and plan of care formulated. Discussed with, reviewed and agree with [facility]'s notes, plan of care and orders with modifications as necessary. Discharge Management - 35 minutes. EDUAR LOBO APRN Aug 24, 2016 07:38 MILA RAI MD Aug 24, 2016 09:44
--- NOTE | 2016-08-24 07:40 | DISCH ---
DISCHARGE INSTRUCTIONS Condition on Discharge Condition on Discharge: Stable Activity After Discharge Activity Instructions for Disc: Activity as tolerated Diet after Discharge Diet after Discharge: Cardiac (no concentrated sweets ) Checks after Discharge DC Comment: Check BS TID ac and bring log to appt. Contacting the DRShanice after DC Call your doctor for: Concerns you may have Follow-Up Follow up with: Dr. Rai or Lawson on Tuesday Treatment/Equipment after DC Comment: continue cam walker on R EDUAR Green APRN Aug 24, 2016 07:40
[2016-08-24] MEDS ORDERED: Vancomycin Hcl PO (07:48)
[2016-08-24] MEDS ORDERED: MECL12.52 PO (07:48)
[2016-08-24] MEDS ORDERED: HYDR-2672 PO (07:48)
[2016-08-24] MEDS ORDERED: INSU100I27 SQ (07:48)
[2016-08-24] MEDS ORDERED: TIZA4TAB PO (07:48)
[2016-08-24] MEDS: CLONIDINE HCL 0.1 MG TABLET PO SCH ×2 (08:58→15:46)
[2016-08-24] MEDS: ISOSORBIDE MONONITRATE ER 30 MG TAB.ER.24H PO SCH (08:59)
[2016-08-24] MEDS: MONTELUKAST SODIUM 10 MG TABLET. PO SCH (08:59)
[2016-08-24] MEDS: HYDROXYCHLOROQUINE 200 MG TABLET PO SCH ×2 (08:59→18:19)
[2016-08-24] MEDS: LIDOCAINE (700MG/PATCH) PATCH. TD SCH (09:00)
[2016-08-24] MEDS: ASPIRIN ENTERIC COATED 81 MG TABLET.DR. PO SCH (09:01)
[2016-08-24] MEDS: DIGOXIN 125 MCG TABLET PO SCH (09:01)
[2016-08-24] MEDS: PANTOPRAZOLE 40 MG TABLET. PO SCH (09:02)
[2016-08-24] MEDS: CALCIUM CARB/VIT D3 500/200 TABLET. PO SCH ×2 (09:02→18:18)
[2016-08-24] MEDS: LOSARTAN POTASSIUM 50 MG TABLET. PO SCH (09:02)
[2016-08-24] MEDS: GABAPENTIN 300 MG CAPSULE. PO SCH ×2 (09:02→12:32)
[2016-08-24] MEDS: VANCOMYCIN 125 MG/2.5 ML ORAL SOLUTION. PO SCH ×2 (09:03→13:00)
[2016-08-24] MEDS: AMLODIPINE BESYLATE 5 MG TABLET PO SCH (09:03)
[2016-08-24] MEDS: MULTIVITAMIN with MINERAL TABLET. PO SCH (09:03)
[2016-08-24] MEDS: INSULIN ASPART 300 UNITS/3 ML INSULN.PEN SQ SCH ×3 (09:09→18:28)
[2016-08-24] MEDS ORDERED: FUROSEMIDE 20 MG TABLET PO SCH (09:30)
--- NOTE | 2016-08-24 09:43 | PDOC ---
PROGRESS NOTES Subjective Subjective No new complaints. Objective Objective Vital Signs Date Time Temp Pulse Resp B/P Pulse Ox O2 Delivery O2 Flow Rate FiO2 08/24/16 09:03 94 215/93 08/24/16 07:00 98.5 18 93 Room Air 98.5 08/23/16 15:36 1.0 Intake and Output 08/24/16 07:00 Intake Total 400 ml Output Total 3050 ml Balance -2650 ml Intake Oral 400 ml Output Urine Total 3050 ml Physical Exam Physical Exam She is comfortable supine in bed and moving in bed without pain.She hates back support brace. Assessment Assessment Problems Medical Problems: (1) Diarrhea Status: Acute (2) Dizziness Status: Acute (3) Hyponatremia Status: Acute Plan Plan of Care To see how she does getting up and walking and then decide on home or SNF transfer. Comment Review of Relevant I have reviewed the following items jenifer (where applicable) has been applied. Labs Laboratory Tests Test 08/22/16 12:11 08/22/16 17:26 08/22/16 21:51 08/23/16 03:00 Glucose (Fingerstick) 279mg/dL (70-99) 120mg/dL (70-99) 178mg/dL (70-99) White Blood Count 7.3x10^3/uL (4.0-11.0) Red Blood Count 3.48x10^6/uL (3.50-5.40) Hemoglobin 8.6g/dL (12.0-15.5) Hematocrit 26.8% (36.0-47.0) Mean Corpuscular Volume 77fL (79-100) Mean Corpuscular Hemoglobin 25pg (25-35) Mean Corpuscular Hemoglobin Concent 32g/dL (31-37) Red Cell Distribution Width 14.1% (11.5-14.5) Platelet Count 246x10^3/uL (140-400) Neutrophils (%) (Auto) 65% (31-73) Lymphocytes (%) (Auto) 17% (24-48) Monocytes (%) (Auto) 14% (0-9) Eosinophils (%) (Auto) 3% (0-3) Basophils (%) (Auto) 1% (0-3) Neutrophils # (Auto) 4.7x10^3uL (1.8-7.7) Lymphocytes # (Auto) 1.3x10^3/uL (1.0-4.8) Monocytes # (Auto) 1.0x10^3/uL (0.0-1.1) Eosinophils # (Auto) 0.2x10^3/uL (0.0-0.7) Basophils # (Auto) 0.1x10^3/uL (0.0-0.2) Sodium Level 132mmol/L (136-145) Potassium Level 4.6mmol/L (3.5-5.1) Chloride Level 95mmol/L (98-107) Carbon Dioxide Level 30mmol/L (21-32) Anion Gap 7 (6-14) Blood Urea Nitrogen 12mg/dL (7-20) Creatinine 1.0mg/dL (0.6-1.0) Estimated GFR (Cockcroft-Gault) 54.5 Glucose Level 124mg/dL (70-99) Calcium Level 9.0mg/dL (8.5-10.1) Test 08/23/16 07:26 08/23/16 08:25 08/23/16 11:39 08/23/16 17:02 Glucose (Fingerstick) 170mg/dL (70-99) 146mg/dL (70-99) 180mg/dL (70-99) Prothrombin Time 13.1SEC (11.7-14.0) Prothromb Time International Ratio 1.1 (0.8-1.1) Test 08/23/16 22:28 08/24/16 05:28 08/24/16 08:34 Glucose (Fingerstick) 138mg/dL (70-99) 180mg/dL (70-99) White Blood Count 9.5x10^3/uL (4.0-11.0) Red Blood Count 4.25x10^6/uL (3.50-5.40) Hemoglobin 10.3g/dL (12.0-15.5) Hematocrit 32.5% (36.0-47.0) Mean Corpuscular Volume 77fL (79-100) Mean Corpuscular Hemoglobin 24pg (25-35) Mean Corpuscular Hemoglobin Concent 32g/dL (31-37) Red Cell Distribution Width 14.4% (11.5-14.5) Platelet Count 329x10^3/uL (140-400) Neutrophils (%) (Auto) 72% (31-73) Lymphocytes (%) (Auto) 14% (24-48) Monocytes (%) (Auto) 11% (0-9) Eosinophils (%) (Auto) 2% (0-3) Basophils (%) (Auto) 1% (0-3) Neutrophils # (Auto) 6.9x10^3uL (1.8-7.7) Lymphocytes # (Auto) 1.3x10^3/uL (1.0-4.8) Monocytes # (Auto) 1.1x10^3/uL (0.0-1.1) Eosinophils # (Auto) 0.2x10^3/uL (0.0-0.7) Basophils # (Auto) 0.1x10^3/uL (0.0-0.2) Sodium Level 140mmol/L (136-145) Potassium Level 4.1mmol/L (3.5-5.1) Chloride Level 101mmol/L (98-107) Carbon Dioxide Level 32mmol/L (21-32) Anion Gap 7 (6-14) Blood Urea Nitrogen 11mg/dL (7-20) Creatinine 0.8mg/dL (0.6-1.0) Estimated GFR (Cockcroft-Gault) 70.5 Glucose Level 148mg/dL (70-99) Calcium Level 9.5mg/dL (8.5-10.1) Laboratory Tests Test 08/23/16 11:39 08/23/16 17:02 08/23/16 22:28 08/24/16 05:28 Glucose (Fingerstick) 146mg/dL (70-99) 180mg/dL (70-99) 138mg/dL (70-99) White Blood Count 9.5x10^3/uL (4.0-11.0) Red Blood Count 4.25x10^6/uL (3.50-5.40) Hemoglobin 10.3g/dL (12.0-15.5) Hematocrit 32.5% (36.0-47.0) Mean Corpuscular Volume 77fL (79-100) Mean Corpuscular Hemoglobin 24pg (25-35) Mean Corpuscular Hemoglobin Concent 32g/dL (31-37) Red Cell Distribution Width 14.4% (11.5-14.5) Platelet Count 329x10^3/uL (140-400) Neutrophils (%) (Auto) 72% (31-73) Lymphocytes (%) (Auto) 14% (24-48) Monocytes (%) (Auto) 11% (0-9) Eosinophils (%) (Auto) 2% (0-3) Basophils (%) (Auto) 1% (0-3) Neutrophils # (Auto) 6.9x10^3uL (1.8-7.7) Lymphocytes # (Auto) 1.3x10^3/uL (1.0-4.8) Monocytes # (Auto) 1.1x10^3/uL (0.0-1.1) Eosinophils # (Auto) 0.2x10^3/uL (0.0-0.7) Basophils # (Auto) 0.1x10^3/uL (0.0-0.2) Sodium Level 140mmol/L (136-145) Potassium Level 4.1mmol/L (3.5-5.1) Chloride Level 101mmol/L (98-107) Carbon Dioxide Level 32mmol/L (21-32) Anion Gap 7 (6-14) Blood Urea Nitrogen 11mg/dL (7-20) Creatinine 0.8mg/dL (0.6-1.0) Estimated GFR (Cockcroft-Gault) 70.5 Glucose Level 148mg/dL (70-99) Calcium Level 9.5mg/dL (8.5-10.1) Test 08/24/16 08:34 Glucose (Fingerstick) 180mg/dL (70-99) Medications Current Medications Acetaminophen/ Hydrocodone Bitart 1 tab 1 tab 1X ONCE PO Last administered on 08/20/16 19:00; Start 08/20/16 at 19:00; Stop 08/20/16 at 19:01; Status DC Sodium Chloride (Iv Sodium Chloride 0.9% 500ml Bag) 500 ml @ 500 mls/hr 1X ONCE IV Last administered on 08/20/16 19:15; Start 08/20/16 at 19:15; Stop at 20:14; Status DC Ondansetron HCl (Zofran) 4 mg PRN Q8HRS PRN IV NAUSEA/VOMITING; Start 08/20/16 at 19:45; Stop 08/21/16 at 07:52; Status DC Fentanyl Citrate (Fentanyl 2ml Vial) 50 mcg PRN Q2HR PRN IV PAIN Last administered on 08/21/16 00:22; Start 08/20/16 at 19:45; Stop 08/21/16 at 07:52 ; Status DC Acetaminophen (Tylenol) 650 mg PRN Q4HRS PRN PO FEVER Last administered on 08/21 01:41; Start 08/20/16 at 19:45; Stop 08/21/16 at 07:52; Status DC Albuterol Sulfate (Ventolin Neb Soln) 2.5 mg PRN QID PRN NEB SHORTNESS OF BREATH Last administered on 08/21/16 08:41; Start 08/20/16 at 22:15 Vancomycin HCl 125 mg 125 mg [id number] PO Last administered on 08/24/16 09:03; Start 08/20/16 at 22:30 Potassium Chloride/Sodium Chloride (KCl 20 Meq-NS 1,000 ml Iv Soln) 1,000 ml @ 125 mls/hr Q8H IV Last administered on 08/21/16 00:22; Start 08/20/16 at 22:30 ; Stop 08/21/16 at 07:52; Status DC Alprazolam (Xanax) 0.25 mg PRN TID PRN PO ANXIETY / AGITATION Last administered on 08/22/16 17:58; Start 08/21/16 at 00:45 Amitriptyline HCl (Elavil) 50 mg QHS PO ; Start 08/21/16 at 21:00; Stop at 21:00; Status DC Aspirin (Ecotrin) 81 mg DAILY PO Last administered on 08/24/16 09:01; Start at 09:00 Atorvastatin Calcium (Lipitor) 20 mg QHS PO Last administered on 08/23/16 20: 44; Start 08/21/16 at 21:00 Cetirizine HCl (Zyrtec) 10 mg QHS PO Last administered on 08/23/16 20:44; Start 08/21/16 at 21:00 Betamethasone/ Clotrimazole (Lotrisone) 1 david PRN BID PRN TP ALLERGIES; Start 08/21/16 at 01:30 Digoxin (Lanoxin) 125 mcg DAILY PO Last administered on 08/24/16 09:01; Start 08/21/16 at 09:00 Gabapentin (Neurontin) 300 mg DAILY08 PO Last administered on 08/24/16 09:02; Start 08/21/16 at 08:00 Hydroxychloroquine Sulfate (Plaquenil) 200 mg BIDWMEALS PO Last administered on 08/24/16 08:59; Start 08/21/16 at 08:00 Isosorbide Mononitrate (Imdur) 30 mg DAILY PO Last administered on 08/24/16 08 :59; Start 08/21/16 at 09:00 Montelukast Sodium (Singulair) 10 mg QHS PO ; Start 08/21/16 at 21:00; Stop at 21:00; Status DC Meclizine HCl (Antivert) 25 mg PRN TID PRN PO DIZZINESS; Start 08/21/16 at 00: 45 Multivitamins (Thera M Plus) 1 tab DAILY PO Last administered on 08/24/16 09: 03; Start 08/21/16 at 09:00 Gabapentin (Neurontin) 900 mg QHS PO Last administered on 08/23/16 20:49; Start 08/21/16 at 21:00 Gabapentin (Neurontin) 600 mg DAILYWLUN PO Last administered on 08/22/16 12:23 ; Start 08/21/16 at 12:00; Stop 08/23/16 at 10:57; Status DC Amitriptyline HCl (Elavil) 50 mg QHS PO Last administered on 08/23/16 20:44; Start 08/21/16 at 01:45 Morphine Sulfate 2 mg 2 mg PRN Q2HR PRN IV PAIN Last administered on 08/21/16 03:49; Start 08/21/16 at 03:30; Stop 08/21/16 at 07:52; Status DC Potassium Chloride/Sodium Chloride (KCl 20 Meq-NS 1,000 ml Iv Soln) 1,000 ml @ 100 mls/hr Q10H IV Last administered on 08/21/16 07:45; Start 08/21/16 at 07: 45; Stop 08/21/16 at 12:41; Status DC Fentanyl Citrate (Fentanyl 2ml Vial) 50 mcg PRN Q2HR PRN IV PAIN Last administered on 08/23/16 14:56; Start 08/21/16 at 07:45 Ondansetron HCl (Zofran) 4 mg PRN Q8HRS PRN IV NAUSEA/VOMITING; Start 08/21/16 at 07:45 Acetaminophen (Tylenol) 650 mg PRN Q4HRS PRN PO FEVER Last administered on 08/23 12:16; Start 08/21/16 at 07:45 Acetaminophen/ Hydrocodone Bitart (Lortab 7.5/325) 1 tab PRN Q6HRS PRN PO PAIN ; Start 08/21/16 at 07:45; Stop 08/21/16 at 08:58; Status DC Pantoprazole Sodium (Protonix) 40 mg DAILYAC PO Last administered on 08/24/16 09:02; Start 08/21/16 at 09:00 Amlodipine Besylate (Norvasc) 5 mg DAILY PO Last administered on 08/24/16 09: 03; Start 08/21/16 at 09:00 Clonidine HCl (Catapres) 0.1 mg TID PO Last administered on 08/24/16 08:58; Start 08/21/16 at 09:00 Nitroglycerin (Nitrostat) 0.4 mg PRN Q5MIN PRN SL CHEST PAIN; Start 08/21/16 at 07:45 Zolpidem Tartrate (Ambien) 5 mg PRN QHS PRN PO INSOMNIA Last administered on 21:26; Start 08/21/16 at 07:45 Calcium/Vitamin D (Oscal D 500mg/ 200uts) 1 tab BIDWMEALS PO Last administered on 08/24/16 09:02; Start 08/21/16 at 08:00 Losartan Potassium (Cozaar) 100 mg DAILY PO Last administered on 08/24/16 09: 02; Start 08/21/16 at 09:00 Insulin Aspart (Novolog) TIDAC SQ Last administered on 08/24/16 09:09; Start 08/21/16 at 08:00 Diclofenac Sodium (Voltaren) 1 david [id number] TP Last administered on 08/23/16 20 :50; Start 08/21/16 at 13:00 Acetaminophen/ Hydrocodone Bitart (Lortab 10/325) 1 tab PRN Q6HRS PRN PO PAIN MILD TO MOD Last administered on 08/23/16 08:35; Start 08/21/16 at 09:00 Tizanidine HCl (Zanaflex) 4 mg Q8HRS PO Last administered on 08/23/16 20:43; Start 08/21/16 at 09:00 Lidocaine (Lidoderm) 1 patch DAILY TD Last administered on 08/22/16 08:52; Start 08/21/16 at 09:00 Montelukast Sodium (Singulair) 10 mg DAILY PO Last administered on 08/24/16 08 :59; Start 08/22/16 at 09:00 Gabapentin (Neurontin) 600 mg DAILYWLUN PO ; Start 08/23/16 at 12:00 Lidocaine/Sodium Bicarbonate (Buffered Lidocaine 1%) 20 ml STK-MED ONCE IJ ; Start 08/23/16 at 12:56; Stop 08/23/16 at 12:57; Status DC Iohexol (Omnipaque 300 Mg/ml) 50 ml STK-MED ONCE .ROUTE ; Start 08/23/16 at 13: 08; Stop 08/23/16 at 13:09; Status DC Midazolam HCl (Versed) 5 mg STK-MED ONCE .ROUTE ; Start 08/23/16 at 13:09; Stop 08/23/16 at 13:10; Status DC Fentanyl Citrate 250 mcg 250 mcg STK-MED ONCE .ROUTE ; Start 08/23/16 at 13:10; Stop 08/23/16 at 13:11; Status DC Cefazolin Sodium (Ancef 1gm Ivpb For Omni) 50 ml @ As Directed STK-MED ONCE IV ; Start 08/23/16 at 13:10; Stop 08/23/16 at 13:11; Status DC Lidocaine/Sodium Bicarbonate (Buffered Lidocaine 1%) 10 ml 1X ONCE IJ Last administered on 08/23/16 14:14; Start 08/23/16 at 14:00; Stop 08/23/16 at 14:03 ; Status DC Midazolam HCl (Versed) 4 mg 1X ONCE IV Last administered on 08/23/16 14:12; Start 08/23/16 at 14:00; Stop 08/23/16 at 14:03; Status DC Fentanyl Citrate (Fentanyl 5ml Vial) 250 mcg 1X ONCE IV Last administered on 14:13; Start 08/23/16 at 14:00; Stop 08/23/16 at 14:03; Status DC Iohexol 10 ml 10 ml 1X ONCE IART Last administered on 08/23/16 14:13; Start 08/23/16 at 14:00; Stop 08/23/16 at 14:03; Status DC Cefazolin Sodium (Ancef 1gm Ivpb For Omni) 50 ml @ 100 mls/hr 1X ONCE IV Last administered on 08/23/16 14:14; Start 08/23/16 at 14:00; Stop 08/23/16 at 14:29; Status DC Ketorolac Tromethamine (Toradol) 60 mg 1X ONCE IV Last administered on 14:14; Start 08/23/16 at 14:45; Stop 08/23/16 at 14:46; Status DC Ketorolac Tromethamine (Toradol Im) 60 mg STK-MED ONCE .ROUTE ; Start 08/23/16 at 14:04; Stop 08/23/16 at 14:05; Status DC Amitriptyline HCl (Amitriptyline HCl) 50 mg STK-MED ONCE .ROUTE ; Start at 20:10; Stop 08/23/16 at 20:11; Status DC Carvedilol (Coreg) 25 mg BIDWMEALS PO ; Start 08/24/16 at 09:15 Furosemide (Lasix) 20 mg DAILY PO ; Start 08/25/16 at 09:00; Stop 08/25/16 at 09 :00; Status DC Furosemide (Lasix) 20 mg DAILY PO ; Start 08/24/16 at 09:30 Active Scripts Active Tizanidine Hcl 4 Mg Tablet 4 Mg PO Q8HRS Meclizine Hcl 12.5 Mg Tablet 25 Mg PO PRN TID PRN Hydrocodone-Apap 10-325 (Hydrocodone Bit/Acetaminophen) 1 Each Tablet 1 Tab PO PRN Q6HRS PRN Levemir Flextouch (Insulin Detemir) 100 Unit/1 Ml Insuln.pen 28 Unit SQ DAILY08 Reported Neurontin (Gabapentin) 300 Mg Capsule 900 Mg PO QHS Neurontin (Gabapentin) 600 Mg Tablet 600 Mg PO DAILYWLUN Nitrostat (Nitroglycerin) 0.4 Mg Tab.subl 1 Tab SL UD PRN Flonase Allergy Relief (Fluticasone Propionate) 9.9 Ml Crumrod.susp 2 Sprays NS DAILY Digoxin 125 Mcg Tablet 1 Tab PO DAILY Lotrisone Cream (Clotrimazole/Betamethasone Dip) 15 Gm Cream..g. 1 David TP PRN BID PRN Calcium Plus Menaq7 Adult Tab (Calcium Carb/Vitamin D3/Vit K2) 1 Each Tablet 1 Each PO Amitriptyline Hcl 50 Mg Tablet 1 Tab PO QHS Hydroxychloroquine Sulfate 200 Mg Tablet 1 Tab PO BID Alprazolam 0.25 Mg Tablet 1 Tab PO PRN TID PRN Prilosec (Omeprazole) 20 Mg Capsule.dr 1 Cap PO Glipizide 5 Mg Tablet 1 Tab PO Neurontin (Gabapentin) 300 Mg Capsule 1 Cap PO DAILY08 Daily Vitamin (Multivitamin) 1 Each Tablet 1 Each PO DAILY Potassium Chloride 10 Meq Capsule.er 1 Cap PO Coreg (Carvedilol) 25 Mg Tablet 1 Tab PO Aspir 81 (Aspirin) 81 Mg Tablet.dr 1 Tab PO Amlodipine Besylate 5 Mg Tablet 1 Tab PO Atorvastatin Calcium 20 Mg Tablet 20 Mg PO Furosemide 20 Mg Tablet 1 Tab PO Catapres (Clonidine Hcl) 0.1 Mg Tablet 1 Tab PO TID Cetirizine Hcl 10 Mg Tablet 1 Tab PO QHS Losartan Potassium 100 Mg Tablet 1 Tab PO Isosorbide Mononitrate Er (Isosorbide Mononitrate) 30 Mg Tab.er.24h 1 Tab PO Singulair Tablet (Montelukast Sodium) 10 Mg Tablet 1 Tab PO Vitals/I & O Vital Sign - Last 24 Hours 08/23/16 08/23/16 08/23/16 08/23/16 10:04 11:00 12:15 12:16 Temp 97.9 97.9 Pulse 80 80 80 Resp 20 B/P 176/72 176/72 176/72 Pulse Ox 93 O2 Delivery Room Air Room Air 08/23/16 08/23/16 08/23/16 08/23/16 14:13 14:15 14:56 14:56 Pulse 96 77 Resp 16 14 B/P 192/63 Pulse Ox 99 97 98 O2 Delivery Nasal Cannula Nasal Cannula Nasal Cannula O2 Flow Rate 2.0 2.0 1.0 08/23/16 08/23/16 08/23/16 08/23/16 15:00 15:05 15:36 19:46 Temp 97.9 97.7 97.9 97.7 Pulse 81 79 Resp 20 18 B/P 157/61 132/84 Pulse Ox 94 94 O2 Delivery Room Air Nasal Cannula Nasal Cannula Room Air O2 Flow Rate 1.0 1.0 08/23/16 08/23/16 08/23/16 08/24/16 20:00 20:44 23:00 03:45 Temp 97.7 97.6 97.7 97.6 Pulse 81 79 84 Resp 18 18 B/P 157/61 186/84 154/81 Pulse Ox 94 93 O2 Delivery Room Air Room Air Room Air 08/24/16 08/24/16 08/24/16 08/24/16 07:00 08:58 08:59 09:01 Temp 98.5 98.5 Pulse 94 94 94 94 Resp 18 B/P 215/93 215/93 215/93 215/93 Pulse Ox 93 O2 Delivery Room Air 08/24/16 08/24/16 09:02 09:03 Pulse 94 94 B/P 215/93 215/93 Intake and Output 08/23/16 08/23/16 08/24/16 15:00 23:00 07:00 Intake Total 400 ml 0 ml Output Total 1750 ml 1300 ml Balance -1350 ml -1300 ml CHARITY FELDMAN MD Aug 24, 2016 09:43
[2016-08-24] MEDS ORDERED: CLONIDINE HCL 0.1 MG TABLET PO ONE (09:45)
[2016-08-24] MEDS: HYDROCODONE/APAP 10/325 TABLET. PO PRN ×2 (10:41→15:46)
[2016-08-24] MEDS: CARVEDILOL 12.5 MG TABLET PO SCH ×2 (10:41→18:19)
[2016-08-24 10:44] VITALS: BP 179/151
--- NOTE | 2016-08-24 11:44 | PDOC ---
Renal-Progress Notes Subjective Notes Notes NONE History of Present Illness Hx of present illness STABLE Vitals Vitals Vital Signs Date Time Temp Pulse Resp B/P Pulse Ox O2 Delivery O2 Flow Rate FiO2 08/24/16 10:44 98.0 84 18 179/151 93 Room Air 98.0 08/24/16 10:41 1.0 Weight Weight [ ] I.O. Intake and Output Intake and Output 08/24/16 07:00 Intake Total 400 ml Output Total 3050 ml Balance -2650 ml Intake Oral 400 ml Output Urine Total 3050 ml Labs Labs Laboratory Tests Test 08/23/16 17:02 08/23/16 22:28 08/24/16 05:28 08/24/16 08:34 Glucose (Fingerstick) 180mg/dL (70-99) 138mg/dL (70-99) 180mg/dL (70-99) White Blood Count 9.5x10^3/uL (4.0-11.0) Red Blood Count 4.25x10^6/uL (3.50-5.40) Hemoglobin 10.3g/dL (12.0-15.5) Hematocrit 32.5% (36.0-47.0) Mean Corpuscular Volume 77fL (79-100) Mean Corpuscular Hemoglobin 24pg (25-35) Mean Corpuscular Hemoglobin Concent 32g/dL (31-37) Red Cell Distribution Width 14.4% (11.5-14.5) Platelet Count 329x10^3/uL (140-400) Neutrophils (%) (Auto) 72% (31-73) Lymphocytes (%) (Auto) 14% (24-48) Monocytes (%) (Auto) 11% (0-9) Eosinophils (%) (Auto) 2% (0-3) Basophils (%) (Auto) 1% (0-3) Neutrophils # (Auto) 6.9x10^3uL (1.8-7.7) Lymphocytes # (Auto) 1.3x10^3/uL (1.0-4.8) Monocytes # (Auto) 1.1x10^3/uL (0.0-1.1) Eosinophils # (Auto) 0.2x10^3/uL (0.0-0.7) Basophils # (Auto) 0.1x10^3/uL (0.0-0.2) Sodium Level 140mmol/L (136-145) Potassium Level 4.1mmol/L (3.5-5.1) Chloride Level 101mmol/L (98-107) Carbon Dioxide Level 32mmol/L (21-32) Anion Gap 7 (6-14) Blood Urea Nitrogen 11mg/dL (7-20) Creatinine 0.8mg/dL (0.6-1.0) Estimated GFR (Cockcroft-Gault) 70.5 Glucose Level 148mg/dL (70-99) Calcium Level 9.5mg/dL (8.5-10.1) Review of Systems Constitutional: yes: no symptom reported Physical Exam General Appearance: no apparent distress Skin: warm Respiratory: decreased breath sounds Abdomen: soft, bowel sounds present Extremities: no edema Musculoskeletal: low back pain (chronic ), Other (Charcot foot with surgery planned ) Assessment Assessment IMP HYPONATREMIA-RESOLVED PLAN WILL SIGN OFF ADDIS JONES MD Aug 24, 2016 11:43
[2016-08-24 15:00] VITALS: BP 121/47
[2016-08-24] MEDS ORDERED: HYDROCODONE/APAP 10/325 TABLET. PO ONE (15:30)
[2016-08-24 18:19] VITALS: BP 121/47
[2016-08-24] MEDS ORDERED: AMITRIPTYLINE HCL 50 MG TABLET PO SCH (21:00)
[2016-08-25] MEDS ORDERED: FUROSEMIDE 20 MG TABLET PO SCH (09:00)
== END 2016-08-24 18:41 | disposition home or self-care (01) | DRG 516 ==
LOC: ER 16:39 → 6 SOUTH 18:15
PROVIDERS: ADMIT Internal Medicine; ATTEND Internal Medicine
PROC: 0QS03ZZ Reposition Lumbar Vertebra, Percutaneous Approach (ICD-10-PCS; principal; 2016-08-23)
PROC: 0QU03JZ Supplement Lumbar Vertebra with Synthetic Substitute, Percutaneous Approach (ICD-10-PCS; 2016-08-23)
DX: M48.56XA Collapsed vertebra, not elsewhere classified, lumbar region, initial encounter for fracture (principal); E87.1 Hypo-osmolality and hyponatremia; E44.0 Moderate protein-calorie malnutrition; I50.32 Chronic diastolic (congestive) heart failure; E11.42 Type 2 diabetes mellitus with diabetic polyneuropathy; E11.610 Type 2 diabetes mellitus with diabetic neuropathic arthropathy; D63.8 Anemia in other chronic diseases classified elsewhere; Z68.32 Body mass index [BMI] 32.0-32.9, adult; E78.5 Hyperlipidemia, unspecified; E78.00 Pure hypercholesterolemia, unspecified; E66.9 Obesity, unspecified; F41.9 Anxiety disorder, unspecified; G47.33 Obstructive sleep apnea (adult) (pediatric); G89.29 Other chronic pain; I11.0 Hypertensive heart disease with heart failure; I25.10 Atherosclerotic heart disease of native coronary artery without angina pectoris; M54.5 Low back pain; I25.2 Old myocardial infarction; I27.2 Other secondary pulmonary hypertension; K21.9 Gastro-esophageal reflux disease without esophagitis; K22.2 Esophageal obstruction; K57.90 Diverticulosis of intestine, part unspecified, without perforation or abscess without bleeding; G56.01 Carpal tunnel syndrome, right upper limb; I95.9 Hypotension, unspecified; W19.XXXA Unspecified fall, initial encounter; E86.0 Dehydration; I25.5 Ischemic cardiomyopathy; A08.4 Viral intestinal infection, unspecified; M06.9 Rheumatoid arthritis, unspecified; Z96.652 Presence of left artificial knee joint; Z82.49 Family history of ischemic heart disease and other diseases of the circulatory system; Z87.891 Personal history of nicotine dependence; Z95.1 Presence of aortocoronary bypass graft; Z95.810 Presence of automatic (implantable) cardiac defibrillator; Z90.710 Acquired absence of both cervix and uterus; Y92.009 Unspecified place in unspecified non-institutional (private) residence as the place of occurrence of the external cause
CPT/HCPCS: 22514; 36415; 70450; 72100; 72131; 80048; 80053; 81001; 82533; 82947; 83735; 83930; 84439; 84443; 85007; 85027; 85610; 93005; 94250; 94640; 94760; 96360; C1758; C1892; J0690; J1815; J1885; J2250; J2270; J3010; J7040; Q9967; 99285-25

== ENCOUNTER 2016-12-25 22:09 | Inpatient (IN) | payer MEDICARE ==
[~2016-12-25] VITALS: Ht 165.1 cm; Wt 84.4 kg
[~2016-12-25 22:09] MED LIST changes: +GABA600T PO; +HYDR-2766 PO; +INSU100I27 SQ; +MECL12.52 PO; -POTA10CA PO; +POTASSIUM CHLO10 MEQ PO; +TIZA4TAB PO; +Vancomycin Hcl PO
[2016-12-25 23:29] LABS: BASO # 0.1 x10^3/uL (0.0-0.2); BASO % 1 % (0-3); EOS % 2 % (0-3); HEMATOCRIT 30.8 % (36.0-47.0); HEMOGLOBIN 10.2 g/dL (12.0-15.5); LYMPH # 2.2 x10^3/uL (1.0-4.8); LYMPH % 12 % (24-48); MEAN CORPUSCULAR HEMOGLOBIN 26 pg (25-35); MEAN CORPUSCULAR HGB CONC 33 g/dL (31-37); MEAN CORPUSCULAR VOLUME 79 fL (79-100); MONO % 10 % (0-9); NEUT % 75 % (31-73); PLATELET COUNT 246 x10^3/uL (140-400); RED BLOOD COUNT 3.91 x10^6/uL (3.50-5.40); RED CELL DISTRIBUTION WIDTH 18.1 % (11.5-14.5)
[2016-12-25 23:36] LABS: CALCIUM 8.8 mg/dL (8.5-10.1); CREATININE 0.8 mg/dL (0.6-1.0); GFR 70.5; POTASSIUM 3.8 mmol/L (3.5-5.1)
[2016-12-25 23:52] LABS: % BASOS 1 % (0-3); % EOS 1 % (0-5)
[2016-12-25 23:55] LABS: ANISOCYTOSIS SLIGHT; PLT ESTIMATE ADEQUATE (ADEQUATE); POLYCHROMASIA SLIGHT; TOXIC GRANULATION SLIGHT
[2016-12-26] VITALS (7 sets, daily range): BP systolic 133–188; BP diastolic 63–84
--- NOTE | 2016-12-26 00:28 | PHYS DOC ---
Past Medical History Past Medical History: Anxiety, Diabetes-Type II, GERD, High Cholesterol, Hypertension, [place] Additional Past Medical Histor: RA; neuropathy Past Surgical History: Hysterectomy, Other Additional Past Surgical Histo: open heart SX 2003, defibrillator 2003; left bunionectomy Alcohol Use: None Drug Use: None Adult General Chief Complaint Chief Complaint: COUGH HPI HPI 71-year-old female presenting to the emergency department today with cough fever congestion and intermittent confusion over the past few days. Her cough is productive with a yellow green sputum. Her fever is 101.5F. No alleviating or exacerbating factors present. She denies abdominal pain. Review of systems is negative for chest pain abdominal pain. Positive for fevers and cough. All other review of systems is negative unless otherwise noted in history of present illness. ED course: 71-year-old female presenting to the emergency department with cough suggestive of pneumonia. The patient was hypoxic in the emergency department and placed on nasal cannula. Chest x-ray suggestive of pneumonia. Intravenous Rocephin and azithromycin given. The patient's sodium also came back at around 118. The patient was then admitted to the hospital for treatment of pneumonia further evaluation workup and care. Review of Systems Review of Systems SEE ABOVE. Current Medications Current Medications Current Medications Medications (Trade) Dose Ordered Sig/Christian Start Time Stop Time Status Last Admin Dose Admin Azithromycin 500 mg/Sodium Chloride 250 ml @ 250 mls/hr 1X ONCE 12/26/16 00:30 12/26/16 01:29 UNV Ceftriaxone Sodium 50 ml @ 100 mls/hr 1X ONCE 12/26/16 00:30 12/26/16 00:59 UNV Sodium Chloride 1,000 ml @ 1,000 mls/hr 1X ONCE 12/26/16 00:30 12/26/16 01:29 UNV Allergies Allergies Allergies Coded Allergies Type Severity Reaction Last Updated Verified No Known Drug Allergies 01/22/14 No Physical Exam Physical Exam SEE ABOVE Constitutional: Well developed, well nourished, no acute distress, non-toxic appearance. [] HENT: Normocephalic, atraumatic, bilateral external ears normal, oropharynx moist, no oral exudates, nose normal. [] Eyes: PERRLA, EOMI, conjunctiva normal, no discharge. [] Neck: Normal range of motion, no tenderness, supple, no stridor. [] Cardiovascular:Heart rate regular rhythm, no murmur [] Lungs & Thorax: Mild wheezing in the left more than the right. Abdomen: Bowel sounds normal, soft, no tenderness, no masses, no pulsatile masses. [] Skin: Warm, dry, no erythema, no rash. [] Back: No tenderness, no CVA tenderness. [] Extremities: No tenderness, no cyanosis, no clubbing, ROM intact, no edema. [] Neurologic: Alert and oriented X 3, normal motor function, normal sensory function, no focal deficits noted. [] Psychologic: Affect normal, judgement normal, mood normal. [] Current Patient Data Vital Signs Vital Signs Date Time Temp Pulse Resp B/P (MAP) Pulse Ox O2 Delivery O2 Flow Rate FiO2 12/26/16 00:00 73 20 177/78 (111) 97 Room Air 12/25/16 22:57 97.6 97.6 Lab Values Laboratory Tests Test 12/25/16 23:20 White Blood Count 19.0 x10^3/uL (4.0-11.0) H Red Blood Count 3.91 x10^6/uL (3.50-5.40) Hemoglobin 10.2 g/dL (12.0-15.5) L Hematocrit 30.8 % (36.0-47.0) L Mean Corpuscular Volume 79 fL (79-100) Mean Corpuscular Hemoglobin 26 pg (25-35) Mean Corpuscular Hemoglobin Concent 33 g/dL (31-37) Red Cell Distribution Width 18.1 % (11.5-14.5) H Platelet Count 246 x10^3/uL (140-400) Neutrophils (%) (Auto) 75 % (31-73) H Lymphocytes (%) (Auto) 12 % (24-48) L Monocytes (%) (Auto) 10 % (0-9) H Eosinophils (%) (Auto) 2 % (0-3) Basophils (%) (Auto) 1 % (0-3) Neutrophils # (Auto) 14.3 x10^3uL (1.8-7.7) H Lymphocytes # (Auto) 2.2 x10^3/uL (1.0-4.8) Monocytes # (Auto) 1.9 x10^3/uL (0.0-1.1) H Eosinophils # (Auto) 0.4 x10^3/uL (0.0-0.7) Basophils # (Auto) 0.1 x10^3/uL (0.0-0.2) Segmented Neutrophils % 75 % (35-66) H Band Neutrophils % 3 % (0-9) Lymphocytes % 15 % (24-48) L Monocytes % 5 % (0-10) Eosinophils % 1 % (0-5) Basophils % 1 % (0-3) Toxic Granulation Slight Platelet Estimate Adequate (ADEQUATE) Polychromasia Slight Anisocytosis Slight Sodium Level 117 mmol/L (136-145) *L Potassium Level 3.8 mmol/L (3.5-5.1) Chloride Level 82 mmol/L (98-107) L Carbon Dioxide Level 26 mmol/L (21-32) Anion Gap 9 (6-14) Blood Urea Nitrogen 14 mg/dL (7-20) Creatinine 0.8 mg/dL (0.6-1.0) Estimated GFR (Cockcroft-Gault) 70.5 Glucose Level 195 mg/dL (70-99) H Calcium Level 8.8 mg/dL (8.5-10.1) Laboratory Tests 12/25/16 23:20 Laboratory Tests 12/25/16 23:20 EKG EKG EKG shows sinus rhythm with a regular rate. Thornton normal. ST segments show mild repolarization in lead V2 this less than 1 mm an isolated. Not suggestive of ACS. Reviewed by myself. [] Radiology/Procedures Radiology/Procedures [] Chest x-ray reviewed by myself shows blurring of the cardiac border in the left lower lobe with congestion in the right lower lobe as well suggestive of infiltrate. Course & Med Decision Making Course & Med Decision Making Pertinent Labs and Imaging studies reviewed. (See chart for details) [] Dragon Disclaimer Dragon Disclaimer This electronic medical record was generated, in whole or in part, using a voice recognition dictation system. Departure Departure Impression: Primary Impression: Pneumonia Disposition: ADMITTED INPATIENT Admitting Physician: Mila Conn Condition: STABLE Referrals: MILA CONN MD (PCP) EVA PEÑA MD Dec 26, 2016 00:28
[2016-12-26] MEDS ORDERED: MORPHINE SULFATE 2 MG/ML DISP.SYRIN. IV PRN (00:45)
[2016-12-26] MEDS ORDERED: AZITHROMYCIN 500 MG in IV NORMAL SALINE 250ML 250 ML IV ONE (00:45)
[2016-12-26] MEDS ORDERED: IV NORMAL SALINE 1000ML BAG 1,000 ML IV ONE (00:45)
[2016-12-26] MEDS ORDERED: ONDANSETRON PF 4 MG/2 ML VIAL. IV PRN (00:45)
[2016-12-26 07:33] LABS: NEGATIVE OBC STREP NEG; POSITIVE OBC STREP POS
--- NOTE | 2016-12-26 07:54 | RAD ---
2 view CXR: Clinical indications: Chest pain and shortness of breath and cough for week. Comparison: August 03, 2016.. Findings: Chronic interstitial thickening is seen. In the lateral view, there is a posterior right lower lobe lung infiltrate. No pleural effusion or pneumothorax is seen. Sternotomy is again evident. Bipolar atrial-ventricular pacemaker is again evident. Mild cardiomegaly is seen which has not changed significantly. The mediastinum and pulmonary vasculature and both mami are stable. The osseous structures appear intact. Impression: Right lower lobe lung infiltrate..
--- NOTE | 2016-12-26 08:14 | EKG ---
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
[2016-12-26 09:22] LABS: BASO # 0.1 x10^3/uL (0.0-0.2); BASO % 0 % (0-3); EOS % 1 % (0-3); HEMATOCRIT 32.8 % (36.0-47.0); HEMOGLOBIN 10.9 g/dL (12.0-15.5); LYMPH % 7 % (24-48); MEAN CORPUSCULAR HEMOGLOBIN 26 pg (25-35); MEAN CORPUSCULAR HGB CONC 33 g/dL (31-37); MEAN CORPUSCULAR VOLUME 78 fL (79-100); MONO % 9 % (0-9); NEUT % 82 % (31-73); PLATELET COUNT 269 x10^3/uL (140-400); RED BLOOD COUNT 4.21 x10^6/uL (3.50-5.40); RED CELL DISTRIBUTION WIDTH 18.7 % (11.5-14.5); WHITE BLOOD COUNT 14.5 x10^3/uL (4.0-11.0)
[2016-12-26 09:53] LABS: ALBUMIN 2.9 g/dL (3.4-5.0); ALBUMIN/GLOBULIN RATIO 0.6 (1.0-1.7); CALCIUM 8.9 mg/dL (8.5-10.1); CREATININE 0.6 mg/dL (0.6-1.0); GFR 98.3; MAGNESIUM 1.4 mg/dL (1.8-2.4); POTASSIUM 3.9 mmol/L (3.5-5.1); TOTAL BILIRUBIN 0.4 mg/dL (0.2-1.0); TOTAL PROTEIN 7.6 g/dL (6.4-8.2)
[2016-12-26] MEDS ORDERED: NITROGLYCERIN SUBLINGUAL 0.4 MG BOTTLE OF 25. SL PRN (10:00)
[2016-12-26] MEDS ORDERED: IV NORMAL SALINE 1000ML BAG 1,000 ML IV SCH (10:00)
--- NOTE | 2016-12-26 10:14 | PDOC ---
Provider Note Provider Note [id number] acute resp fail abnl cxr pneumonia ? copd w ae rafael see orders JUSTYNA ELLIS MD Dec 26, 2016 10:14
--- NOTE | 2016-12-26 10:15 | PDOC ---
Provider Note Provider Note Patient seen. History and Physical dictated. See dictation# [id number] MILA CONN MD Dec 26, 2016 10:15
[2016-12-26] MEDS: IPRATRPIUM/ALBUTEROL 0.5/2.5MG 3 ML NEBU. NEB SCH ×3 (11:17→20:06)
[2016-12-26] MEDS: INSULIN ASPART 300 UNITS/3 ML INSULN.PEN SQ SCH ×2 (11:30→17:45)
--- NOTE | 2016-12-26 11:56 | CONS ---
DATE OF CONSULTATION: 12/26/2016 I was asked to see this 71-year-old lady for shortness of breath, acute respiratory failure. HISTORY OF PRESENT ILLNESS: She does have a history of [id number] smoking, stopped smoking 30 years ago. She has not been diagnosed with COPD. She started to have shortness of breath, cough with yellow-greenish sputum production and fever and chills 3-4 days ago. She presented to the Emergency Room, was found to have right lower lobe infiltrate and was admitted for treatment of pneumonia. She has nasal congestion. Denies chest pain or gastroesophageal reflux symptoms. She has excessive daytime sleepiness and was diagnosed with obstructive sleep apnea-hypopnea syndrome 10 years ago, but she was not able to tolerate CPAP secondary to claustrophobia. PAST MEDICAL HISTORY: 1. Obstructive sleep apnea-hypopnea syndrome, coronary artery disease status post CABG in 2003. 2. Status post defibrillator. 3. Diabetes mellitus. 4. Hypertension. 5. Gastroesophageal reflux disease. 6. Rheumatoid arthritis. ALLERGIES: No known drug allergies. MEDICATIONS: Currently, she is on Rocephin, Flonase, multivitamins, azithromycin, Singulair, Cetirizine, Lipitor, Coreg, DuoNeb, insulin, potassium, digoxin, clonidine, aspirin, Norvasc. SOCIAL HISTORY: History of [id number] smoking, stopped smoking 30 years ago. She does not drink alcohol. FAMILY HISTORY: There is no history of lung disease. REVIEW OF SYSTEMS: As mentioned as above, other systems otherwise negative. PHYSICAL EXAMINATION: GENERAL: This is an overweight lady. VITAL SIGNS: Her O2 saturation on 2 liters of oxygen is 90%, respiratory rate 20, heart rate 89, blood pressure 158/73, temperature 99.9. HEENT: Normocephalic, atraumatic. Pupils are equal, round, reactive to light. There is shallow oropharynx. Nose: There is inflamed mucosa. NECK: There is no JVD, lymphadenopathy or thyromegaly. CARDIOVASCULAR: Regular rate and rhythm. PMI is nondisplaced. CHEST: Inspection is normal. LUNGS: There are bibasilar crackles, a few end expiratory wheezing, dullness at the right base. ABDOMEN: Soft, bowel sounds are good. There is no mass. EXTREMITIES: There is no edema. LYMPHATICS: There is no lymphadenopathy. NEUROLOGIC: Alert and oriented x 3. SKIN: Chronic changes. LABORATORY DATA: I reviewed the following lab data: Chest x-ray shows cardiomegaly, status post CABG, status post defibrillator, right lower lobe infiltrate. WBC 14.5, on admission was 19, hemoglobin 10.9, platelets 269. Sodium 127, potassium 3.9, chloride 91, CO2 of 28, glucose 224, BUN 6, creatinine 0.6. IMPRESSION: 1. Acute hypoxemic respiratory failure secondary to pneumonia, ? chronic obstructive pulmonary disease with acute exacerbation vs others. 2. Abnormal chest x-ray. 3. Pneumonia. 4. Wheezing, ? chronic obstructive pulmonary disease with acute exacerbation. 5. Obstructive sleep apnea-hypopnea syndrome. 6. Coronary artery disease. 7. Hyponatremia. 8. Leukocytosis. 9. Hypertension. 10. Diabetes mellitus. 11. Obesity. 12. Gastroesophageal reflux disease. PLAN AND RECOMMENDATIONS: 1. Titrate FiO2 to keep O2 saturation 92%. 2. Bronchodilator. 3. Start inhaled corticosteroid. 4. Continue Rocephin and azithromycin. 5. I do recommend PFTs as an outpatient. 6. I have discussed obstructive sleep apnea-hypopnea syndrome, the importance of treatment, if untreated the increased cardiovascular and [employer] morbidity or mortality. I do recommend a split night sleep study as an outpatient. 7. Protonix for stress ulcer prophylaxis. 8. Lovenox for DVT prophylaxis. 9. Workup for hyponatremia. 10. Monitor respiratory status very closely. 11. The findings and recommendations were discussed with the patient. She understood and agreed to proceed with the plan. I have answered all of her questions. Thank you very much for allowing me to participate in care of this very nice lady. JUSTYNA ELLIS M.D. : ALIA/karmen JOB#: [id number] / [id number] JAY
--- NOTE | 2016-12-26 12:13 | HP ---
ADMIT DATE: 12/26/2016 HISTORY OF PRESENT ILLNESS: This 71-year-old female started having cough, congestion, getting worse over the last several days. Symptoms started around last . Because of the worsening symptoms, she came to the Emergency Room. In the Emergency Room, the patient was noted to have right lower lobe pneumonia. The patient also had fever of 101.5. Her sputum is yellowish green. The patient is a poor historian. She does not know what medication she takes. She complains of body aches, cough, congestion, and chills. She denies any nausea, vomiting, diarrhea, abdominal pain. Other systems reviewed and are negative. SYSTEMS REVIEW: As noted in the history of present illness. The patient does admit to body ache, headaches, fever and chills. Because of the pneumonia and severe hyponatremia with a sodium of 117 and also WBC count of 19,000 it was decided to go ahead and admit the patient for further evaluation and management. PAST MEDICAL HISTORY: The patient was last admitted here in 07/2016 and at that time also patient was treated for hyponatremia, L1 compression fracture, diarrhea and dizziness. She is known to have congestive heart failure with ejection fraction of 50%. The patient has a permanent pacemaker and ICD placement. She has coronary artery disease with history of non-ST elevation myocardial infarction, 3-vessel disease and CABG x 4 on 07/12/2004, MOR[place]O to LAD, SVG to diagonal and marginal and SVG to PDA. 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 PAST SURGICAL HISTORY: The patient had a pacemaker, [employer]; dual chamber ICD, CABG, cataract removal with intraocular lens, total knee replacement on the left side, tonsillectomy, hysterectomy, right carpal tunnel release, left bunionectomy. FAMILY HISTORY: Positive for coronary artery disease in multiple family members. SOCIAL HISTORY: Lives alone. Past history of smoking. No history of alcoholism or drug abuse. ALLERGIES: None known any. MEDICATIONS: I have reviewed the medications. IMAGING: Chest x-ray shows a right lower lobe lung infiltrate. LABORATORY DATA: Sodium was 117 yesterday, today it is 127, potassium 3.8, BUN 14, creatinine 0.8, glucose 195, calcium 8.8. WBC count was 19 yesterday and 14.5 today, hemoglobin 10.2, platelet count 246,000, polys 75, group A strep rapid was negative. IMPRESSION: 1. Right lower lobe pneumonia. 2. Exacerbation of chronic obstructive pulmonary disease. 3. Severe hyponatremia. 4. Coronary artery disease. 5. Diabetes mellitus type 2 with neuropathy. 6. Congestive heart failure, ejection fraction of 50%, diastolic heart failure, chronic. 7. History of myocardial infarction. 8. Hyperlipidemia. 9. Obstructive sleep apnea. 10. Gastroesophageal reflux disease. 11. Gastritis. 12. Anemia. 13. Anxiety. 14. Low back pain, chronic with history of L1 compression fracture. 15. Rheumatoid arthritis. 16. Status post pacemaker and ICD and CABG and total knee replacement and tonsillectomy and hysterectomy. PLAN: Continue IV Rocephin and Zithromax. Consult Dr. Lala for pulmonary evaluation and management. Consult Dr. Slater for nephrology evaluation and management for hyponatremia. Continue IV normal saline. Use sliding scale insulin. The patient's medications do not seem to be correct so I asked the staff to have the family bring a list of medications and this should be reconciled. I resumed most of the home medications and held some at this time. For details, please review the orders. PHYSICAL EXAMINATION: VITAL SIGNS: Temperature maximum 101.5. Blood pressure maximum 180/65 mmHg. Pulse 93 per minute, respirations 20 per minute. GENERAL: The patient is an elderly female who is alert, oriented, moaning, and in mild respiratory distress. She has also been coughing. EYES: Pupils are reacting to light. Conjunctivae pale. Sclerae are muddy. THROAT: Congested. SKIN: Warm and dry. There is no cyanosis. NECK: Supple. JVP normal. No thyromegaly. Trachea midline. LUNGS: Bilateral wheezing with right basilar rales and coarse breath sounds. CARDIOVASCULAR: S1, S2 regular. ABDOMEN: Soft, nontender, no guarding, no rigidity. Bowel sounds present. EXTREMITIES: No edema. CENTRAL NERVOUS SYSTEM: Somewhat restless due to pain, appropriate, no acute changes noted. ASSESSMENT AND PLAN: As noted above. For details, please review the orders. MILA CONN MD DR: Geeta JOB#: [id number] / [id number]
[2016-12-26] MEDS: cloNIDine HCL 0.1 MG TABLET PO SCH ×3 (14:00→21:08)
[2016-12-26] MEDS: DIGOXIN 125 MCG TABLET. PO SCH (14:27)
[2016-12-26] MEDS: HYDROcodone/APAP 10/325 1 TAB TABLET PO PRN ×2 (14:27→21:08)
[2016-12-26] MEDS: PANTOPRAZOLE 40 MG TABLET.DR. PO SCH (14:28)
[2016-12-26] MEDS: amLODIPine BESYLATE 5 MG TABLET PO SCH (14:28)
[2016-12-26] MEDS: ISOSORBIDE MONONITRATE ER 30 MG TAB.ER.24H PO SCH (14:28)
[2016-12-26] MEDS: HYDROXYCHLOROQUINE 200 MG TABLET PO SCH ×2 (14:28→21:08)
[2016-12-26] MEDS: ASPIRIN ENTERIC COATED 81 MG TABLET.DR. PO SCH (14:28)
[2016-12-26] MEDS: ENOXAPARIN 40 MG/0.4 ML SYRINGE. SQ SCH (14:29)
[2016-12-26] MEDS: POTASSIUM CHLORIDE 20 MEQ in IV NORMAL SALINE 1000ML BAG 1,000 ML IV SCH (14:29)
[2016-12-26] MEDS: CARVEDILOL 12.5 MG TABLET. PO SCH (17:42)
[2016-12-26] MEDS ORDERED: MONTELUKAST SODIUM 10 MG TABLET. PO SCH ×2 (21:00)
[2016-12-26] MEDS: AMITRIPTYLINE HCL 50 MG TABLET PO SCH (21:07)
[2016-12-26] MEDS: GABAPENTIN 300 MG CAPSULE. PO SCH (21:07)
[2016-12-26] MEDS: CETIRIZINE HCL 10 MG TABLET. PO SCH (21:08)
[2016-12-26] MEDS: ATORVASTATIN CALCIUM 20 MG TABLET PO SCH (21:08)
--- NOTE | 2016-12-27 | CONS ---
DATE OF CONSULTATION: 12/26/2016 REQUESTING PHYSICIAN: Dr. Cheryl Rai REASON FOR CONSULTATION: Hyponatremia. HISTORY OF PRESENT ILLNESS: This is a 71-year-old female with history of diabetes mellitus, hypertension, and cardiomyopathy. The patient has history of previous hyponatremia by her report. States she was told by Dr. Rai that she "drank too much water." At this time, she came to Emergency Department and was admitted with fever at 101.5, cough productive of sputum, which is yellow green. She denies chest pain, abdominal pain, nausea, vomiting, diarrhea, seizures, or malignancies. PAST MEDICAL HISTORY: Diabetes mellitus, hypertension, hyperlipidemia, myocardial infarction, GE reflux disease, anxiety, rheumatoid arthritis, peripheral neuropathy, hysterectomy, coronary artery bypass grafting 2003, defibrillator placement 2003, left bunionectomy. ALLERGIES: None are noted. MEDICATIONS: Reviewed per JUL. FAMILY HISTORY: Noncontributory. SOCIAL HISTORY: The patient resides with assistance. REVIEW OF SYSTEMS: No headaches, sinus problem, nasal drainage, epistaxis, change in vision or hearing. No difficulty swallowing. No chills. She has had fever. She has had cough, purulent sputum production. No chest pain, no abdominal pain, no upper or lower gastrointestinal blood loss. No nausea, vomiting, diarrhea, seizures, or malignancies. PHYSICAL EXAMINATION: GENERAL APPEARANCE: The patient is awake, conversant. HEENT: Clear. Nasal cannula in place. NECK: No increased JVD. No thyromegaly, mass, or adenopathy. LUNGS: Decreased breath sounds, left posterior lobe with scattered rhonchi. CARDIAC: Without S3 or rub. ABDOMEN: Soft, nontender, no bruits. EXTREMITIES: Trace pretibial edema. NEUROLOGIC: Nonfocal localizing. PSYCHIATRIC: Good attention to detail, appropriate affect. LABORATORY DATA: Sodium 117, potassium 3.8, chloride 82, CO2 26, BUN 14, creatinine 0.8. IMPRESSION: Hyponatremia - occurring in the setting of infectious pneumonitis. Maybe related to reduced intravascular volume, but must also keep in mind syndrome of inappropriate antidiuretic hormone. RECOMMENDATIONS: Isotonic saline at this time and follow level of serum sodium. MARCELA SIFUENTES MD DR: TERRI/karmen JOB#: [id number] / [id number]
[2016-12-27 03:00] VITALS: BP 192/76
[2016-12-27] MEDS ORDERED: AZITHRMYCN 500MG IVPB FOR OMNI 250 ML IV ONE (03:00)
[2016-12-27] MEDS: POTASSIUM CHLORIDE 20 MEQ in IV NORMAL SALINE 1000ML BAG 1,000 ML IV SCH (03:35)
--- NOTE | 2016-12-27 03:50 | ACF ---
Admission Forms Criteria PNEUMONIA, COMMUNITY ACQUIRED Clinical Indications for Admission to Inpatient Care (Place 'X' for any and all applicable criteria): Admission to inpatient status for two midnights or more is indicated for ANY ONE of the following (1)(2)(3): [ ]I. Hypoxia [ ]II. Hemodynamic instability [ ]III. Altered mental status that is severe or persistent [ ]IV. Dehydration that is severe or persistent. [ ]V. Bacteremia [X]. Moderate-risk or high-risk category patients (Pneumonia Severity Index ( PSI) class IV or V, or CURB-65 score of 3 or greater). [ ]VII. Intermediate-risk category patients (e.g., PSI class III or CURB-65 score 2) who do not improve with outpatient and observation care treatment [ ]VIII. Outpatient treatment failure as indicated by 1 or more of the following(9): [ ]a) Failure to respond to antibiotic (eg, resistant organism) [ ]b) Clinically significant adverse effects from medication (eg, vomiting) [ ]c) Complications of pneumonia (eg, empyema, bacteremia) [ ]d) Significant worsening of comorbid cond necessitating inpatient care (eg, chronic heart failure) [ ]IX. Appropriate diagnostic testing and treatment unavailable in outpatient or recovery facility (eg, testing or infection control measures unavailable) [ ]X. Respiratory finding (eg. tachypnea) that do not respond to outpatient observation care treatment [ ]XI. Complicated pleural effusions (eg, emphysema, exudative, loculated) [ ]XII. Immunocompromised patients (e.g., AIDS, chronic steroid use) at moderate or high risk based on clinical evaluation. Extended stay beyond goal length of stay may be needed for (20) [ ]a) Unclear diagnosis [ ]b) Pleural disease [ ]c) Severe pneumonia or treatment failure [ ]d) Respiratory failure [ ]e) New onset hyponatremia (serum Na concentration less than 135 mEq/L(mmol/ L) [ ]f) Clinically significant comorbid illness (eg, heart failure, atrial fibrillation with rapid heart rate, alcohol withdrawal, renal insufficiency)(34)(35) [ ]g) Comorbid acute exacerbation of COPD(36) [ ]h) Concomitant diagnosis of malignancy [ ]i) Concomitant altered mental status [ ]j) Culture-identified Gram-negative or antibiotic-resistant organism (eg, Pseudomonas, methicillin-resistant Staphylococcus aureus MRSA)(30) [ ]k) Healthcare-associated pneumonia (36) The original [facility] [employer] [facility] [place] content created by [facility] [place] [facility] has been revised. The portions of the content which have been revised are identified through the use of italic text, and [facility] has neither reviewed nor approved the modified material. All other unmodified content is copyright [facility] [place] [facility]. Please see references footnoted in the original [facility] edition 2015 Admission Criteria Met?: Yes SAMANTHA PALACIOS Dec 27, 2016 03:50
[2016-12-27] MEDS: HYDROcodone/APAP 10/325 1 TAB TABLET PO PRN ×3 (04:00→19:35)
[2016-12-27 04:25] LABS: BASO % 0 % (0-3); EOS % 1 % (0-3); HEMATOCRIT 35.8 % (36.0-47.0); LYMPH # 1.4 x10^3/uL (1.0-4.8); LYMPH % 12 % (24-48); MEAN CORPUSCULAR HEMOGLOBIN 27 pg (25-35); MEAN CORPUSCULAR HGB CONC 34 g/dL (31-37); MEAN CORPUSCULAR VOLUME 79 fL (79-100); MONO % 11 % (0-9); NEUT % 75 % (31-73); PLATELET COUNT 357 x10^3/uL (140-400); RED CELL DISTRIBUTION WIDTH 18.4 % (11.5-14.5); WHITE BLOOD COUNT 11.3 x10^3/uL (4.0-11.0)
[2016-12-27] MEDS ORDERED: METF500T4 PO (04:36)
[2016-12-27] MEDS ORDERED: METF-620 PO (04:36)
[2016-12-27] MEDS ORDERED: ZOLP5TAB5 PO (04:36)
[2016-12-27] MEDS ORDERED: OMEG1CAP38 PO (04:36)
[2016-12-27] MEDS ORDERED: AZITHROMYCIN 500 MG in IV NORMAL SALINE 250ML 250 ML IV ONE (05:00)
[2016-12-27 05:03] LABS: ALBUMIN 3.1 g/dL (3.4-5.0); ALBUMIN/GLOBULIN RATIO 0.6 (1.0-1.7); CALCIUM 9.6 mg/dL (8.5-10.1); CREATININE 0.6 mg/dL (0.6-1.0); GFR 98.3; POTASSIUM 3.9 mmol/L (3.5-5.1); TOTAL BILIRUBIN 0.4 mg/dL (0.2-1.0); TOTAL PROTEIN 8.4 g/dL (6.4-8.2)
[2016-12-27] MEDS: ACETAMINOPHEN 325 MG TABLET. PO PRN (06:04)
[2016-12-27 07:00] VITALS: BP 140/72
[2016-12-27] MEDS: IPRATRPIUM/ALBUTEROL 0.5/2.5MG 3 ML NEBU. NEB SCH ×4 (07:28→19:17)
[2016-12-27] MEDS ORDERED: MAGNESIUM SULFATE 4GM 100 ML IV PRN (08:15)
[2016-12-27] MEDS ORDERED: MAGNESIUM SULFATE 2GM 50 ML IV PRN (08:15)
--- NOTE | 2016-12-27 08:18 | PDOC ---
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 12/27/16 0817: IM PROGRESS NOTES- Subjective Subjective cough present and is non productive Objective Objective alert no distress Vitals Vital Signs Date Time Temp Pulse Resp B/P (MAP) Pulse Ox O2 Delivery O2 Flow Rate FiO2 12/27/16 07:30 98 Room Air 12/27/16 05:00 20 12/27/16 03:00 98.9 92 192/76 (114) 98.9 12/26/16 19:44 2.0 Input & Output Intake and Output 12/27/16 07:00 Intake Total 920 ml Output Total 450 ml Balance 470 ml Intake Oral 920 ml Output Urine Total 450 ml # Voids 9 # Bowel Movements 2 Physical Exam Physical Exam General appearance - alert, ill appearing, and in no distress Mental Status - alert, oriented to person, place, and time, affect appropriate to mood Head - normal Chest - clear to auscultation, no wheezes, rales or rhonchi, coarse R ant Heart - S1 and S2 normal Abdomen - soft, nontender, nondistended, BS + Neurological - no acute focal neurological deficit Musculoskeletal - no muscular tenderness noted Extremities - no pedal edema Skin - warm and dry Labs Laboratory Tests Test 12/25/16 22:30 12/25/16 23:20 12/26/16 08:01 12/26/16 09:15 Group A Streptococcus Rapid Negative (NEGATIVE) White Blood Count 19.0 x10^3/uL (4.0-11.0) 14.5 x10^3/uL (4.0-11.0) Red Blood Count 3.91 x10^6/uL (3.50-5.40) 4.21 x10^6/uL (3.50-5.40) Hemoglobin 10.2 g/dL (12.0-15.5) 10.9 g/dL (12.0-15.5) Hematocrit 30.8 % (36.0-47.0) 32.8 % (36.0-47.0) Mean Corpuscular Volume 79 fL (79-100) 78 fL (79-100) Mean Corpuscular Hemoglobin 26 pg (25-35) 26 pg (25-35) Mean Corpuscular Hemoglobin Concent 33 g/dL (31-37) 33 g/dL (31-37) Red Cell Distribution Width 18.1 % (11.5-14.5) 18.7 % (11.5-14.5) Platelet Count 246 x10^3/uL (140-400) 269 x10^3/uL (140-400) Neutrophils (%) (Auto) 75 % (31-73) 82 % (31-73) Lymphocytes (%) (Auto) 12 % (24-48) 7 % (24-48) Monocytes (%) (Auto) 10 % (0-9) 9 % (0-9) Eosinophils (%) (Auto) 2 % (0-3) 1 % (0-3) Basophils (%) (Auto) 1 % (0-3) 0 % (0-3) Neutrophils # (Auto) 14.3 x10^3uL (1.8-7.7) 11.9 x10^3uL (1.8-7.7) Lymphocytes # (Auto) 2.2 x10^3/uL (1.0-4.8) 1.0 x10^3/uL (1.0-4.8) Monocytes # (Auto) 1.9 x10^3/uL (0.0-1.1) 1.3 x10^3/uL (0.0-1.1) Eosinophils # (Auto) 0.4 x10^3/uL (0.0-0.7) 0.1 x10^3/uL (0.0-0.7) Basophils # (Auto) 0.1 x10^3/uL (0.0-0.2) 0.1 x10^3/uL (0.0-0.2) Segmented Neutrophils % 75 % (35-66) Band Neutrophils % 3 % (0-9) Lymphocytes % 15 % (24-48) Monocytes % 5 % (0-10) Eosinophils % 1 % (0-5) Basophils % 1 % (0-3) Toxic Granulation Slight Platelet Estimate Adequate (ADEQUATE) Polychromasia Slight Anisocytosis Slight Sodium Level 117 mmol/L (136-145) 127 mmol/L (136-145) Potassium Level 3.8 mmol/L (3.5-5.1) 3.9 mmol/L (3.5-5.1) Chloride Level 82 mmol/L (98-107) 91 mmol/L (98-107) Carbon Dioxide Level 26 mmol/L (21-32) 28 mmol/L (21-32) Anion Gap 9 (6-14) 8 (6-14) Blood Urea Nitrogen 14 mg/dL (7-20) 6 mg/dL (7-20) Creatinine 0.8 mg/dL (0.6-1.0) 0.6 mg/dL (0.6-1.0) Estimated GFR (Cockcroft-Gault) 70.5 98.3 Glucose Level 195 mg/dL (70-99) 224 mg/dL (70-99) Calcium Level 8.8 mg/dL (8.5-10.1) 8.9 mg/dL (8.5-10.1) Glucose (Fingerstick) 179 mg/dL (70-99) BUN/Creatinine Ratio 10 (6-20) Magnesium Level 1.4 mg/dL (1.8-2.4) Total Bilirubin 0.4 mg/dL (0.2-1.0) Aspartate Amino Transf (AST/SGOT) 22 U/L (15-37) Alanine Aminotransferase (ALT/SGPT) 20 U/L (14-59) Alkaline Phosphatase 113 U/L (46-116) Total Protein 7.6 g/dL (6.4-8.2) Albumin 2.9 g/dL (3.4-5.0) Albumin/Globulin Ratio 0.6 (1.0-1.7) Digoxin Level 0.6 ng/mL (0.9-2.0) Digoxin Last Dose Date 12/25/16 Digoxin Last Dose Time 1200 Test 12/26/16 11:14 12/26/16 16:46 12/26/16 21:30 12/27/16 03:35 Glucose (Fingerstick) 231 mg/dL (70-99) 156 mg/dL (70-99) 173 mg/dL (70-99) White Blood Count 11.3 x10^3/uL (4.0-11.0) Red Blood Count 4.50 x10^6/uL (3.50-5.40) Hemoglobin 12.0 g/dL (12.0-15.5) Hematocrit 35.8 % (36.0-47.0) Mean Corpuscular Volume 79 fL (79-100) Mean Corpuscular Hemoglobin 27 pg (25-35) Mean Corpuscular Hemoglobin Concent 34 g/dL (31-37) Red Cell Distribution Width 18.4 % (11.5-14.5) Platelet Count 357 x10^3/uL (140-400) Neutrophils (%) (Auto) 75 % (31-73) Lymphocytes (%) (Auto) 12 % (24-48) Monocytes (%) (Auto) 11 % (0-9) Eosinophils (%) (Auto) 1 % (0-3) Basophils (%) (Auto) 0 % (0-3) Neutrophils # (Auto) 8.5 x10^3uL (1.8-7.7) Lymphocytes # (Auto) 1.4 x10^3/uL (1.0-4.8) Monocytes # (Auto) 1.3 x10^3/uL (0.0-1.1) Eosinophils # (Auto) 0.1 x10^3/uL (0.0-0.7) Basophils # (Auto) 0.0 x10^3/uL (0.0-0.2) Sodium Level 135 mmol/L (136-145) Potassium Level 3.9 mmol/L (3.5-5.1) Chloride Level 96 mmol/L (98-107) Carbon Dioxide Level 33 mmol/L (21-32) Anion Gap 6 (6-14) Blood Urea Nitrogen 4 mg/dL (7-20) Creatinine 0.6 mg/dL (0.6-1.0) Estimated GFR (Cockcroft-Gault) 98.3 BUN/Creatinine Ratio 7 (6-20) Glucose Level 151 mg/dL (70-99) Calcium Level 9.6 mg/dL (8.5-10.1) Total Bilirubin 0.4 mg/dL (0.2-1.0) Aspartate Amino Transf (AST/SGOT) 24 U/L (15-37) Alanine Aminotransferase (ALT/SGPT) 23 U/L (14-59) Alkaline Phosphatase 125 U/L (46-116) Total Protein 8.4 g/dL (6.4-8.2) Albumin 3.1 g/dL (3.4-5.0) Albumin/Globulin Ratio 0.6 (1.0-1.7) Laboratory Tests Test 12/26/16 08:01 12/26/16 09:15 12/26/16 11:14 12/26/16 16:46 Glucose (Fingerstick) 179 mg/dL (70-99) 231 mg/dL (70-99) 156 mg/dL (70-99) White Blood Count 14.5 x10^3/uL (4.0-11.0) Red Blood Count 4.21 x10^6/uL (3.50-5.40) Hemoglobin 10.9 g/dL (12.0-15.5) Hematocrit 32.8 % (36.0-47.0) Mean Corpuscular Volume 78 fL (79-100) Mean Corpuscular Hemoglobin 26 pg (25-35) Mean Corpuscular Hemoglobin Concent 33 g/dL (31-37) Red Cell Distribution Width 18.7 % (11.5-14.5) Platelet Count 269 x10^3/uL (140-400) Neutrophils (%) (Auto) 82 % (31-73) Lymphocytes (%) (Auto) 7 % (24-48) Monocytes (%) (Auto) 9 % (0-9) Eosinophils (%) (Auto) 1 % (0-3) Basophils (%) (Auto) 0 % (0-3) Neutrophils # (Auto) 11.9 x10^3uL (1.8-7.7) Lymphocytes # (Auto) 1.0 x10^3/uL (1.0-4.8) Monocytes # (Auto) 1.3 x10^3/uL (0.0-1.1) Eosinophils # (Auto) 0.1 x10^3/uL (0.0-0.7) Basophils # (Auto) 0.1 x10^3/uL (0.0-0.2) Sodium Level 127 mmol/L (136-145) Potassium Level 3.9 mmol/L (3.5-5.1) Chloride Level 91 mmol/L (98-107) Carbon Dioxide Level 28 mmol/L (21-32) Anion Gap 8 (6-14) Blood Urea Nitrogen 6 mg/dL (7-20) Creatinine 0.6 mg/dL (0.6-1.0) Estimated GFR (Cockcroft-Gault) 98.3 BUN/Creatinine Ratio 10 (6-20) Glucose Level 224 mg/dL (70-99) Calcium Level 8.9 mg/dL (8.5-10.1) Magnesium Level 1.4 mg/dL (1.8-2.4) Total Bilirubin 0.4 mg/dL (0.2-1.0) Aspartate Amino Transf (AST/SGOT) 22 U/L (15-37) Alanine Aminotransferase (ALT/SGPT) 20 U/L (14-59) Alkaline Phosphatase 113 U/L (46-116) Total Protein 7.6 g/dL (6.4-8.2) Albumin 2.9 g/dL (3.4-5.0) Albumin/Globulin Ratio 0.6 (1.0-1.7) Digoxin Level 0.6 ng/mL (0.9-2.0) Digoxin Last Dose Date 12/25/16 Digoxin Last Dose Time 1200 Test 12/26/16 21:30 12/27/16 03:35 Glucose (Fingerstick) 173 mg/dL (70-99) White Blood Count 11.3 x10^3/uL (4.0-11.0) Red Blood Count 4.50 x10^6/uL (3.50-5.40) Hemoglobin 12.0 g/dL (12.0-15.5) Hematocrit 35.8 % (36.0-47.0) Mean Corpuscular Volume 79 fL (79-100) Mean Corpuscular Hemoglobin 27 pg (25-35) Mean Corpuscular Hemoglobin Concent 34 g/dL (31-37) Red Cell Distribution Width 18.4 % (11.5-14.5) Platelet Count 357 x10^3/uL (140-400) Neutrophils (%) (Auto) 75 % (31-73) Lymphocytes (%) (Auto) 12 % (24-48) Monocytes (%) (Auto) 11 % (0-9) Eosinophils (%) (Auto) 1 % (0-3) Basophils (%) (Auto) 0 % (0-3) Neutrophils # (Auto) 8.5 x10^3uL (1.8-7.7) Lymphocytes # (Auto) 1.4 x10^3/uL (1.0-4.8) Monocytes # (Auto) 1.3 x10^3/uL (0.0-1.1) Eosinophils # (Auto) 0.1 x10^3/uL (0.0-0.7) Basophils # (Auto) 0.0 x10^3/uL (0.0-0.2) Sodium Level 135 mmol/L (136-145) Potassium Level 3.9 mmol/L (3.5-5.1) Chloride Level 96 mmol/L (98-107) Carbon Dioxide Level 33 mmol/L (21-32) Anion Gap 6 (6-14) Blood Urea Nitrogen 4 mg/dL (7-20) Creatinine 0.6 mg/dL (0.6-1.0) Estimated GFR (Cockcroft-Gault) 98.3 BUN/Creatinine Ratio 7 (6-20) Glucose Level 151 mg/dL (70-99) Calcium Level 9.6 mg/dL (8.5-10.1) Total Bilirubin 0.4 mg/dL (0.2-1.0) Aspartate Amino Transf (AST/SGOT) 24 U/L (15-37) Alanine Aminotransferase (ALT/SGPT) 23 U/L (14-59) Alkaline Phosphatase 125 U/L (46-116) Total Protein 8.4 g/dL (6.4-8.2) Albumin 3.1 g/dL (3.4-5.0) Albumin/Globulin Ratio 0.6 (1.0-1.7) Meds Current Medications Acetaminophen (Tylenol) 650 mg PRN Q6HRS PRN PO MILD PAIN / TEMP Last administered on 12/27/16 06:04; Start 12/26/16 at 10:00 Acetaminophen/ Hydrocodone Bitart (Lortab 10/325) 1 tab PRN Q6HRS PRN PO PAIN MILD TO MOD Last administered on 12/27/16 04:00; Start 12/26/16 at 09:00 Albuterol/ Ipratropium (Duoneb) 3 ml RTQID NEB Last administered on 12/27/16 07:28; Start 12/26/16 at 12:00 Amitriptyline HCl (Amitriptyline HCl) 50 mg QHS PO Last administered on 21:07; Start 12/26/16 at 21:15 Amlodipine Besylate (Norvasc) 5 mg DAILY PO Last administered on 12/26/16 14: 28; Start 12/26/16 at 09:00 Aspirin (Ecotrin) 81 mg DAILY PO Last administered on 12/26/16 14:28; Start at 09:00 Atorvastatin Calcium (Lipitor) 20 mg HS PO Last administered on 12/26/16 21:08 ; Start 12/26/16 at 21:00 Azithromycin 250 ml @ 250 mls/hr 1X ONCE IV ; Start 12/27/16 at 03:00; Stop at 03:00; Status DC Azithromycin 500 mg/Sodium Chloride 250 ml @ 250 mls/hr 1X ONCE IV Last administered on 12/27/16 03:35; Start 12/27/16 at 05:00; Stop 12/27/16 at 05:59 ; Status DC Carvedilol (Coreg) 12.5 mg BIDWMEALS PO Last administered on 12/26/16 17:42; Start 12/26/16 at 17:00 Ceftriaxone Sodium 1 gm/ Sodium Chloride 50 ml @ 100 mls/hr DAILY IV ; Start at 09:00 Cetirizine HCl (ZyrTEC) 10 mg QHS PO Last administered on 12/26/16 21:08; Start 12/26/16 at 21:00 Clonidine HCl (Catapres) 0.1 mg TID PO Last administered on 12/26/16 21:08; Start 12/26/16 at 09:00 Digoxin (Lanoxin) 125 mcg DAILY PO Last administered on 12/26/16 14:27; Start 12/26/16 at 09:00 Enoxaparin Sodium (Lovenox 40mg Syringe) 40 mg Q24H SQ Last administered on 14:29; Start 12/26/16 at 10:30 Fluticasone Propionate (Flonase) 2 spray DAILY NS ; Start 12/27/16 at 09:00 Gabapentin (Neurontin) 300 mg DAILY PO ; Start 12/27/16 at 09:00 Gabapentin (Neurontin) 600 mg DAILY16 PO ; Start 12/27/16 at 16:00 Gabapentin (Neurontin) 900 mg HS PO Last administered on 12/26/16 21:07; Start 12/26/16 at 21:15 Hydroxychloroquine Sulfate (Plaquenil) 200 mg BID PO Last administered on 21:08; Start 12/26/16 at 09:00 Insulin Aspart (NovoLOG) TIDBFRMEAL SQ Last administered on 12/26/16 17:45; Start 12/26/16 at 11:30 Isosorbide Mononitrate (Imdur) 30 mg DAILY PO Last administered on 12/26/16 14 :28; Start 12/26/16 at 09:00 Montelukast Sodium (Singulair) 10 mg DAILY PO ; Start 12/27/16 at 09:00 Montelukast Sodium (Singulair) 10 mg HS PO ; Start 12/26/16 at 21:00; Stop 12/26 at 22:05; Status DC Montelukast Sodium (Singulair) 10 mg QHS PO ; Start 12/26/16 at 21:00; Status Cancel Multivitamins (Thera M Plus) 1 tab DAILY PO ; Start 12/27/16 at 09:00 Nitroglycerin (Nitrostat) 0.4 mg PRN Q5MIN PRN SL CHEST PAIN; Start 12/26/16 at 10:00 Pantoprazole Sodium (Protonix) 40 mg DAILYAC PO Last administered on 12/26/16 14:28; Start 12/26/16 at 10:30 Potassium Chloride 20 meq/ Sodium Chloride 1,010 ml @ 75 mls/hr [id number] IV Last administered on 12/27/16 03:35; Start 12/26/16 at 10:00 Sodium Chloride 1,000 ml @ 75 mls/hr [id number] IV ; Start 12/26/16 at 10:00; Stop 12/26/16 at 10:00; Status DC Assessment Assessment 1. pneumonia grm neg gram + with sepsis 2. acute hyponatremia 3. COPD with acute exacerbation 4. ICM CHF diastolic EF 50% ICD PPM 5. HTN 6. CAD with h/o NSTEMI [place], CABG 7. anemia CD 8. hyperlipidemia 9. mild pulmonary HTN 10. DM II controlled chronic insulin polyneuropathy 11. ROEL intolerant to CPAP 12. diverticulosis 13. GERD 14. Schatzki ring 15. anemia chronic disease 16. chronic pain management LS 17. RA 18. anxiety 19. chronic moderate PCL malnutrition PLAN: acute hypoxic respiratory failure due to pneumonia/COPD with exacerbation pneumonia exac COPD pulmonary consult duoneb 12/27 budesonide bid mucinex 1200mg bid check UA for strep pneumonia antigen and legionella Admit WBC 19.0 12/27 11.3 T101.5F Admit acute hyponatremia due to infectious pneumonia Admit 117 12/27 135 renal consult IV NS with 20K 75ccc/hr DM II FSBS/SSI BS 151-224 change SSI to moderate intensity hypomagnesia Admit Mg 1.4 recheck today with replacement orders DVT/GI prophylaxis SCD/LENA PPI Lovenox for further plan of care, please see the orders. Plan Plan For more details regarding further plans, please refer to the orders. MILA CONN MD 12/27/16 0932: IM PROGRESS NOTES- Assessment Assessment Clinically improving. The patient was seen and examined by me. Chart reviewed and plan of care formulated. Discussed with, reviewed and agree with TOP LIFTER's notes, plan of care and orders with modifications as necessary. For more details regarding further plans, please refer to the orders. EDUAR LOBO APRN Dec 27, 2016 08:17 MILA CONN MD Dec 27, 2016 09:32
[2016-12-27] MEDS: ASPIRIN ENTERIC COATED 81 MG TABLET.DR. PO SCH (09:09)
[2016-12-27] MEDS: MONTELUKAST SODIUM 10 MG TABLET. PO SCH (09:09)
[2016-12-27] MEDS: GABAPENTIN 300 MG CAPSULE. PO SCH ×3 (09:09→19:34)
[2016-12-27] MEDS: CARVEDILOL 12.5 MG TABLET. PO SCH ×2 (09:10→16:05)
[2016-12-27] MEDS: HYDROXYCHLOROQUINE 200 MG TABLET PO SCH ×2 (09:10→19:33)
[2016-12-27] MEDS: PANTOPRAZOLE 40 MG TABLET.DR. PO SCH (09:10)
[2016-12-27] MEDS: ISOSORBIDE MONONITRATE ER 30 MG TAB.ER.24H PO SCH (09:10)
[2016-12-27] MEDS: MULTIVITAMIN with MINERAL TABLET. PO SCH (09:10)
[2016-12-27] MEDS: amLODIPine BESYLATE 5 MG TABLET PO SCH (09:11)
[2016-12-27] MEDS: cloNIDine HCL 0.1 MG TABLET PO SCH ×3 (09:11→19:34)
[2016-12-27] MEDS: ENOXAPARIN 40 MG/0.4 ML SYRINGE. SQ SCH (09:11)
[2016-12-27] MEDS: DIGOXIN 125 MCG TABLET. PO SCH (09:11)
--- NOTE | 2016-12-27 10:23 | PDOC ---
PULMONARY PROGRESS NOTES Subjective pt with continue cough not feeling well Vitals Vital Signs Date Time Temp Pulse Resp B/P (MAP) Pulse Ox O2 Delivery O2 Flow Rate FiO2 12/27/16 09:11 96 140/72 12/27/16 08:00 Room Air 2.0 12/27/16 07:30 98 12/27/16 07:00 97.9 24 97.9 ROS: No Nausea, No Chest Pain, No Abdominal Pain General: Alert Lungs: Crackles Cardiovascular: S1, S2 Abdomen: Soft, Non-tender Extremities: No Edema Skin: Warm Labs Laboratory Tests Test 12/25/16 22:30 12/25/16 23:20 12/26/16 08:01 12/26/16 09:15 Group A Streptococcus Rapid Negative (NEGATIVE) White Blood Count 19.0 x10^3/uL (4.0-11.0) 14.5 x10^3/uL (4.0-11.0) Red Blood Count 3.91 x10^6/uL (3.50-5.40) 4.21 x10^6/uL (3.50-5.40) Hemoglobin 10.2 g/dL (12.0-15.5) 10.9 g/dL (12.0-15.5) Hematocrit 30.8 % (36.0-47.0) 32.8 % (36.0-47.0) Mean Corpuscular Volume 79 fL (79-100) 78 fL (79-100) Mean Corpuscular Hemoglobin 26 pg (25-35) 26 pg (25-35) Mean Corpuscular Hemoglobin Concent 33 g/dL (31-37) 33 g/dL (31-37) Red Cell Distribution Width 18.1 % (11.5-14.5) 18.7 % (11.5-14.5) Platelet Count 246 x10^3/uL (140-400) 269 x10^3/uL (140-400) Neutrophils (%) (Auto) 75 % (31-73) 82 % (31-73) Lymphocytes (%) (Auto) 12 % (24-48) 7 % (24-48) Monocytes (%) (Auto) 10 % (0-9) 9 % (0-9) Eosinophils (%) (Auto) 2 % (0-3) 1 % (0-3) Basophils (%) (Auto) 1 % (0-3) 0 % (0-3) Neutrophils # (Auto) 14.3 x10^3uL (1.8-7.7) 11.9 x10^3uL (1.8-7.7) Lymphocytes # (Auto) 2.2 x10^3/uL (1.0-4.8) 1.0 x10^3/uL (1.0-4.8) Monocytes # (Auto) 1.9 x10^3/uL (0.0-1.1) 1.3 x10^3/uL (0.0-1.1) Eosinophils # (Auto) 0.4 x10^3/uL (0.0-0.7) 0.1 x10^3/uL (0.0-0.7) Basophils # (Auto) 0.1 x10^3/uL (0.0-0.2) 0.1 x10^3/uL (0.0-0.2) Segmented Neutrophils % 75 % (35-66) Band Neutrophils % 3 % (0-9) Lymphocytes % 15 % (24-48) Monocytes % 5 % (0-10) Eosinophils % 1 % (0-5) Basophils % 1 % (0-3) Toxic Granulation Slight Platelet Estimate Adequate (ADEQUATE) Polychromasia Slight Anisocytosis Slight Sodium Level 117 mmol/L (136-145) 127 mmol/L (136-145) Potassium Level 3.8 mmol/L (3.5-5.1) 3.9 mmol/L (3.5-5.1) Chloride Level 82 mmol/L (98-107) 91 mmol/L (98-107) Carbon Dioxide Level 26 mmol/L (21-32) 28 mmol/L (21-32) Anion Gap 9 (6-14) 8 (6-14) Blood Urea Nitrogen 14 mg/dL (7-20) 6 mg/dL (7-20) Creatinine 0.8 mg/dL (0.6-1.0) 0.6 mg/dL (0.6-1.0) Estimated GFR (Cockcroft-Gault) 70.5 98.3 Glucose Level 195 mg/dL (70-99) 224 mg/dL (70-99) Calcium Level 8.8 mg/dL (8.5-10.1) 8.9 mg/dL (8.5-10.1) Glucose (Fingerstick) 179 mg/dL (70-99) BUN/Creatinine Ratio 10 (6-20) Magnesium Level 1.4 mg/dL (1.8-2.4) Total Bilirubin 0.4 mg/dL (0.2-1.0) Aspartate Amino Transf (AST/SGOT) 22 U/L (15-37) Alanine Aminotransferase (ALT/SGPT) 20 U/L (14-59) Alkaline Phosphatase 113 U/L (46-116) Total Protein 7.6 g/dL (6.4-8.2) Albumin 2.9 g/dL (3.4-5.0) Albumin/Globulin Ratio 0.6 (1.0-1.7) Digoxin Level 0.6 ng/mL (0.9-2.0) Digoxin Last Dose Date 12/25/16 Digoxin Last Dose Time 1200 Test 12/26/16 11:14 12/26/16 16:46 12/26/16 21:30 12/27/16 03:35 Glucose (Fingerstick) 231 mg/dL (70-99) 156 mg/dL (70-99) 173 mg/dL (70-99) White Blood Count 11.3 x10^3/uL (4.0-11.0) Red Blood Count 4.50 x10^6/uL (3.50-5.40) Hemoglobin 12.0 g/dL (12.0-15.5) Hematocrit 35.8 % (36.0-47.0) Mean Corpuscular Volume 79 fL (79-100) Mean Corpuscular Hemoglobin 27 pg (25-35) Mean Corpuscular Hemoglobin Concent 34 g/dL (31-37) Red Cell Distribution Width 18.4 % (11.5-14.5) Platelet Count 357 x10^3/uL (140-400) Neutrophils (%) (Auto) 75 % (31-73) Lymphocytes (%) (Auto) 12 % (24-48) Monocytes (%) (Auto) 11 % (0-9) Eosinophils (%) (Auto) 1 % (0-3) Basophils (%) (Auto) 0 % (0-3) Neutrophils # (Auto) 8.5 x10^3uL (1.8-7.7) Lymphocytes # (Auto) 1.4 x10^3/uL (1.0-4.8) Monocytes # (Auto) 1.3 x10^3/uL (0.0-1.1) Eosinophils # (Auto) 0.1 x10^3/uL (0.0-0.7) Basophils # (Auto) 0.0 x10^3/uL (0.0-0.2) Sodium Level 135 mmol/L (136-145) Potassium Level 3.9 mmol/L (3.5-5.1) Chloride Level 96 mmol/L (98-107) Carbon Dioxide Level 33 mmol/L (21-32) Anion Gap 6 (6-14) Blood Urea Nitrogen 4 mg/dL (7-20) Creatinine 0.6 mg/dL (0.6-1.0) Estimated GFR (Cockcroft-Gault) 98.3 BUN/Creatinine Ratio 7 (6-20) Glucose Level 151 mg/dL (70-99) Calcium Level 9.6 mg/dL (8.5-10.1) Magnesium Level 1.8 mg/dL (1.8-2.4) Total Bilirubin 0.4 mg/dL (0.2-1.0) Aspartate Amino Transf (AST/SGOT) 24 U/L (15-37) Alanine Aminotransferase (ALT/SGPT) 23 U/L (14-59) Alkaline Phosphatase 125 U/L (46-116) Total Protein 8.4 g/dL (6.4-8.2) Albumin 3.1 g/dL (3.4-5.0) Albumin/Globulin Ratio 0.6 (1.0-1.7) Test 12/27/16 07:43 Glucose (Fingerstick) 183 mg/dL (70-99) Laboratory Tests Test 12/26/16 11:14 12/26/16 16:46 12/26/16 21:30 12/27/16 03:35 Glucose (Fingerstick) 231 mg/dL (70-99) 156 mg/dL (70-99) 173 mg/dL (70-99) White Blood Count 11.3 x10^3/uL (4.0-11.0) Red Blood Count 4.50 x10^6/uL (3.50-5.40) Hemoglobin 12.0 g/dL (12.0-15.5) Hematocrit 35.8 % (36.0-47.0) Mean Corpuscular Volume 79 fL (79-100) Mean Corpuscular Hemoglobin 27 pg (25-35) Mean Corpuscular Hemoglobin Concent 34 g/dL (31-37) Red Cell Distribution Width 18.4 % (11.5-14.5) Platelet Count 357 x10^3/uL (140-400) Neutrophils (%) (Auto) 75 % (31-73) Lymphocytes (%) (Auto) 12 % (24-48) Monocytes (%) (Auto) 11 % (0-9) Eosinophils (%) (Auto) 1 % (0-3) Basophils (%) (Auto) 0 % (0-3) Neutrophils # (Auto) 8.5 x10^3uL (1.8-7.7) Lymphocytes # (Auto) 1.4 x10^3/uL (1.0-4.8) Monocytes # (Auto) 1.3 x10^3/uL (0.0-1.1) Eosinophils # (Auto) 0.1 x10^3/uL (0.0-0.7) Basophils # (Auto) 0.0 x10^3/uL (0.0-0.2) Sodium Level 135 mmol/L (136-145) Potassium Level 3.9 mmol/L (3.5-5.1) Chloride Level 96 mmol/L (98-107) Carbon Dioxide Level 33 mmol/L (21-32) Anion Gap 6 (6-14) Blood Urea Nitrogen 4 mg/dL (7-20) Creatinine 0.6 mg/dL (0.6-1.0) Estimated GFR (Cockcroft-Gault) 98.3 BUN/Creatinine Ratio 7 (6-20) Glucose Level 151 mg/dL (70-99) Calcium Level 9.6 mg/dL (8.5-10.1) Magnesium Level 1.8 mg/dL (1.8-2.4) Total Bilirubin 0.4 mg/dL (0.2-1.0) Aspartate Amino Transf (AST/SGOT) 24 U/L (15-37) Alanine Aminotransferase (ALT/SGPT) 23 U/L (14-59) Alkaline Phosphatase 125 U/L (46-116) Total Protein 8.4 g/dL (6.4-8.2) Albumin 3.1 g/dL (3.4-5.0) Albumin/Globulin Ratio 0.6 (1.0-1.7) Test 12/27/16 07:43 Glucose (Fingerstick) 183 mg/dL (70-99) Medications Active Scripts Medications Dose Route/Sig Max Daily Dose Days Date Category Zolpidem Tartrate 5 Mg Tablet 5 Mg PO QHS 12/27/16 Reported [place] 3 Fish Oil Softgel ([place]-3 Fatty Acids/Fish Oil) 1 Each Capsule.dr 1 Each PO DAILY 12/27/16 Reported Metformin Hcl 1,000 Mg Tablet 1,000 Mg PO DAILYWSUP 12/27/16 Reported Metformin Hcl 500 Mg Tablet 500 Mg PO DAILYWBKFT 12/27/16 Reported Hydrocodone-Apap 10-325 (Hydrocodone Bit/Acetaminophen) 1 Each Tablet 1 Tab PO PRN Q6HRS PRN 08/24/16 Rx Levemir Flextouch (Insulin Detemir) 100 Unit/1 Ml Insuln.pen 28 Unit SQ DAILY08 08/24/16 Rx Neurontin (Gabapentin) 300 Mg Capsule 900 Mg PO QHS 08/21/16 Reported Neurontin (Gabapentin) 600 Mg Tablet 600 Mg PO DAILY16 08/21/16 Reported Nitrostat (Nitroglycerin) 0.4 Mg Tab.subl 1 Tab SL UD PRN 03/30/16 Reported Flonase Allergy Relief (Fluticasone Propionate) 9.9 Ml [place].susp 2 Sprays NS DAILY 03/30/16 Reported Digoxin 125 Mcg Tablet 1 Tab PO DAILY 03/30/16 Reported Lotrisone Cream (Clotrimazole/Betamethasone Dip) 15 Gm Cream..g. 1 David TP PRN BID PRN 03/30/16 Reported Calcium Plus Menaq7 Adult Tab (Calcium Carb/Vitamin D3/Vit K2) 1 Each Tablet 1 Each PO DAILY 03/30/16 Reported Amitriptyline Hcl 50 Mg Tablet 1 Tab PO QHS 03/30/16 Reported Hydroxychloroquine Sulfate 200 Mg Tablet 1 Tab PO BID 03/30/16 Reported Alprazolam 0.25 Mg Tablet 1 Tab PO PRN TID PRN 03/30/16 Reported Prilosec (Omeprazole) 20 Mg Capsule.dr 1 Cap PO BIDAC 01/22/14 Reported Glipizide 5 Mg Tablet 5 Mg PO BID 01/22/14 Reported Neurontin (Gabapentin) 300 Mg Capsule 1 Cap PO DAILY08 01/22/14 Reported Daily Vitamin (Multivitamin) 1 Each Tablet 1 Each PO DAILY 01/22/14 Reported Potassium Chloride 10 Meq Capsule.er 1 Cap PO DAILY 01/22/14 Reported Coreg (Carvedilol) 25 Mg Tablet 1 Tab PO BID 01/22/14 Reported Aspir 81 (Aspirin) 81 Mg Tablet.dr 1 Tab PO DAILY 01/22/14 Reported Amlodipine Besylate 5 Mg Tablet 1 Tab PO DAILY 01/22/14 Reported Atorvastatin Calcium 20 Mg Tablet 20 Mg PO HS 01/22/14 Reported Furosemide 20 Mg Tablet 20 Mg PO DAILY 01/22/14 Reported Catapres (Clonidine Hcl) 0.1 Mg Tablet 0.2 Mg PO PRN TID PRN 01/22/14 Reported Cetirizine Hcl 10 Mg Tablet 1 Tab PO QHS 01/22/14 Reported Losartan Potassium 100 Mg Tablet 1 Tab PO DAILY 01/22/14 Reported Isosorbide Mononitrate Er (Isosorbide Mononitrate) 30 Mg Tab.er.24h 1 Tab PO DAILY 01/22/14 Reported Singulair Tablet (Montelukast Sodium) 10 Mg Tablet 1 Tab PO HS 01/22/14 Reported Impression . IMPRESSION: 1. Acute hypoxemic respiratory failure secondary to pneumonia, chronic obstructive pulmonary disease with acute exacerbation vs others. 2. Abnormal chest x-ray. 3. Pneumonia. 4. Wheezing, chronic obstructive pulmonary disease with acute exacerbation. 5. Obstructive sleep apnea-hypopnea syndrome. 6. Coronary artery disease. 7. Hyponatremia. 8. Leukocytosis. 9. Hypertension. 10. Diabetes mellitus. 11. Obesity. 12. Gastroesophageal reflux disease. Plan . d/c all caffeine continue antibs steroids nebs 02 possible outpt sleep study GILBERTO MARTÍNEZ MD Dec 27, 2016 10:22
[2016-12-27 11:00] VITALS: BP 161/60
[2016-12-27] MEDS: FLUTICASONE 50MCG/NASAL SPRAY 16GM BOTTLE. NS SCH (11:07)
[2016-12-27] MEDS: INSULIN ASPART 300 UNITS/3 ML INSULN.PEN SQ SCH ×2 (11:10→16:57)
[2016-12-27] MEDS: BUDESONIDE 0.5 MG/2 ML NEBU. NEB SCH ×2 (11:45→19:18)
--- NOTE | 2016-12-27 12:51 | PDOC ---
SUBJECTIVE ROS F/up of HypoNatremia Doing and feelingm uch better today OBJECTIVE Vital Signs Vital Signs Date Time Temp Pulse Resp B/P (MAP) Pulse Ox O2 Delivery O2 Flow Rate FiO2 12/27/16 11:47 Room Air 12/27/16 11:00 97.6 72 22 161/60 (93) 96 97.6 12/27/16 08:00 2.0 I & 0 Intake and Output 12/27/16 07:00 Intake Total 920 ml Output Total 450 ml Balance 470 ml Intake Oral 920 ml Output Urine Total 450 ml # Voids 9 # Bowel Movements 2 PHYSICAL EXAM Physical Exam General Appearance: Awake: Alert Oriented x 2-3 Neck: No JVD or JVP Chest: CTA Wilber - antly Heart: S1 S2 Abdomen - Soft NTND Extremities - No Edema DIAGNOSIS/ASSESSMENT Assessment & Plan Hyponatremia - Improved with IV NS - pt feeling mcuh better already will be available prn - pl call Problems: COMMENT/RELEVANT DATA Meds Current Medications Medications (Trade) Dose Ordered Sig/Christian Start Time Stop Time Status Last Admin Dose Admin Acetaminophen (Tylenol) 650 mg PRN Q6HRS PRN 12/26/16 10:00 12/27/16 06:04 650 MG Acetaminophen/ Hydrocodone Bitart (Lortab 10/325) 1 tab PRN Q6HRS PRN 12/26/16 09:00 12/27/16 04:00 1 TAB Albuterol/ Ipratropium (Duoneb) 3 ml RTQID 12/26/16 12:00 12/27/16 11:45 3 ML Amitriptyline HCl (Amitriptyline HCl) 50 mg QHS 12/26/16 21:15 12/26/16 21:07 50 MG Amlodipine Besylate (Norvasc) 5 mg DAILY 12/26/16 09:00 12/27/16 09:11 5 MG Aspirin (Ecotrin) 81 mg DAILY 12/26/16 09:00 12/27/16 09:09 81 MG Atorvastatin Calcium (Lipitor) 20 mg HS 12/26/16 21:00 12/26/16 21:08 20 MG Azithromycin 250 ml @ 250 mls/hr 1X ONCE 12/27/16 03:00 12/27/16 03:00 DC Azithromycin 500 mg/Sodium Chloride 250 ml @ 250 mls/hr Q24H 12/28/16 07:00 Budesonide (Pulmicort) 0.5 mg RTBID 12/27/16 10:00 12/27/16 11:45 0.5 MG Carvedilol (Coreg) 12.5 mg BIDWMEALS 12/26/16 17:00 12/27/16 09:10 12.5 MG Ceftriaxone Sodium 1 gm/ Sodium Chloride 50 ml @ 100 mls/hr DAILY 12/27/16 09:00 12/27/16 09:12 100 MLS/HR Ceftriaxone Sodium 50 ml @ 100 mls/hr 1X ONCE 12/26/16 00:45 12/26/16 01:14 DC 12/26/16 06:07 100 MLS/HR Cetirizine HCl (ZyrTEC) 10 mg QHS 12/26/16 21:00 12/26/16 21:08 10 MG Clonidine HCl (Catapres) 0.1 mg TID 12/26/16 09:00 12/27/16 09:11 0.1 MG Digoxin (Lanoxin) 125 mcg DAILY 12/26/16 09:00 12/27/16 09:11 125 MCG Enoxaparin Sodium (Lovenox 40mg Syringe) 40 mg Q24H 12/26/16 10:30 12/27/16 09:11 40 MG Fluticasone Propionate (Flonase) 2 spray DAILY 12/27/16 09:00 12/27/16 11:07 2 SPRAY Gabapentin (Neurontin) 900 mg HS 12/26/16 21:15 12/26/16 21:07 900 MG Guaifenesin (Mucinex) 1,200 mg BID 12/27/16 09:00 12/27/16 09:09 1,200 MG Hydroxychloroquine Sulfate (Plaquenil) 200 mg BID 12/26/16 09:00 12/27/16 09:10 200 MG Insulin Aspart (NovoLOG) TIDBFRMEAL 12/27/16 11:30 12/27/16 11:10 8 UNITS Isosorbide Mononitrate (Imdur) 30 mg DAILY 12/26/16 09:00 12/27/16 09:10 30 MG Magnesium Sulfate/ Dextrose 100 ml @ 25 mls/hr 1X PRN 12/27/16 08:15 Montelukast Sodium (Singulair) 10 mg DAILY 12/27/16 09:00 12/27/16 09:09 10 MG Morphine Sulfate 2 mg PRN Q2HR PRN 12/26/16 00:45 12/27/16 00:44 DC Multivitamins (Thera M Plus) 1 tab DAILY 12/27/16 09:00 12/27/16 09:10 1 TAB Nitroglycerin (Nitrostat) 0.4 mg PRN Q5MIN PRN 12/26/16 10:00 Ondansetron HCl (Zofran) 4 mg PRN Q8HRS PRN 12/26/16 00:45 12/27/16 00:44 DC Pantoprazole Sodium (Protonix) 40 mg DAILYAC 12/26/16 10:30 12/27/16 09:10 40 MG Potassium Chloride 20 meq/ Sodium Chloride 1,010 ml @ 75 mls/hr [id number] 12/26/16 10:00 12/27/16 03:35 75 MLS/HR Sodium Chloride 1,000 ml @ 75 mls/hr [id number] 12/26/16 10:00 12/26/16 10:00 DC Lab Laboratory Tests Test 12/26/16 16:46 12/26/16 21:30 12/27/16 03:35 12/27/16 07:43 Glucose (Fingerstick) 156 mg/dL (70-99) 173 mg/dL (70-99) 183 mg/dL (70-99) White Blood Count 11.3 x10^3/uL (4.0-11.0) Red Blood Count 4.50 x10^6/uL (3.50-5.40) Hemoglobin 12.0 g/dL (12.0-15.5) Hematocrit 35.8 % (36.0-47.0) Mean Corpuscular Volume 79 fL (79-100) Mean Corpuscular Hemoglobin 27 pg (25-35) Mean Corpuscular Hemoglobin Concent 34 g/dL (31-37) Red Cell Distribution Width 18.4 % (11.5-14.5) Platelet Count 357 x10^3/uL (140-400) Neutrophils (%) (Auto) 75 % (31-73) Lymphocytes (%) (Auto) 12 % (24-48) Monocytes (%) (Auto) 11 % (0-9) Eosinophils (%) (Auto) 1 % (0-3) Basophils (%) (Auto) 0 % (0-3) Neutrophils # (Auto) 8.5 x10^3uL (1.8-7.7) Lymphocytes # (Auto) 1.4 x10^3/uL (1.0-4.8) Monocytes # (Auto) 1.3 x10^3/uL (0.0-1.1) Eosinophils # (Auto) 0.1 x10^3/uL (0.0-0.7) Basophils # (Auto) 0.0 x10^3/uL (0.0-0.2) Sodium Level 135 mmol/L (136-145) Potassium Level 3.9 mmol/L (3.5-5.1) Chloride Level 96 mmol/L (98-107) Carbon Dioxide Level 33 mmol/L (21-32) Anion Gap 6 (6-14) Blood Urea Nitrogen 4 mg/dL (7-20) Creatinine 0.6 mg/dL (0.6-1.0) Estimated GFR (Cockcroft-Gault) 98.3 BUN/Creatinine Ratio 7 (6-20) Glucose Level 151 mg/dL (70-99) Calcium Level 9.6 mg/dL (8.5-10.1) Magnesium Level 1.8 mg/dL (1.8-2.4) Total Bilirubin 0.4 mg/dL (0.2-1.0) Aspartate Amino Transf (AST/SGOT) 24 U/L (15-37) Alanine Aminotransferase (ALT/SGPT) 23 U/L (14-59) Alkaline Phosphatase 125 U/L (46-116) Total Protein 8.4 g/dL (6.4-8.2) Albumin 3.1 g/dL (3.4-5.0) Albumin/Globulin Ratio 0.6 (1.0-1.7) Test 12/27/16 11:03 Glucose (Fingerstick) 298 mg/dL (70-99) GREG CERVANTES MD Dec 27, 2016 12:51
[2016-12-27 15:00] VITALS: BP 116/74
[2016-12-27 19:00] VITALS: BP 117/51
[2016-12-27] MEDS: ATORVASTATIN CALCIUM 20 MG TABLET PO SCH (19:33)
[2016-12-27] MEDS: AMITRIPTYLINE HCL 50 MG TABLET PO SCH (19:34)
[2016-12-27] MEDS: CETIRIZINE HCL 10 MG TABLET. PO SCH (19:34)
[2016-12-27 23:00] VITALS: BP 164/79
[2016-12-28] MEDS: HYDROcodone/APAP 10/325 1 TAB TABLET PO PRN ×3 (01:46→23:10)
[2016-12-28] MEDS: ACETAMINOPHEN 325 MG TABLET. PO PRN ×2 (01:46→09:10)
[2016-12-28 04:05] LABS: BASO # 0.1 x10^3/uL (0.0-0.2); BASO % 1 % (0-3); EOS % 2 % (0-3); HEMATOCRIT 29.1 % (36.0-47.0); HEMOGLOBIN 9.8 g/dL (12.0-15.5); LYMPH # 1.5 x10^3/uL (1.0-4.8); LYMPH % 14 % (24-48); MEAN CORPUSCULAR HEMOGLOBIN 27 pg (25-35); MEAN CORPUSCULAR HGB CONC 34 g/dL (31-37); MEAN CORPUSCULAR VOLUME 79 fL (79-100); MONO % 14 % (0-9); NEUT % 70 % (31-73); PLATELET COUNT 280 x10^3/uL (140-400); RED BLOOD COUNT 3.66 x10^6/uL (3.50-5.40); RED CELL DISTRIBUTION WIDTH 18.5 % (11.5-14.5); WHITE BLOOD COUNT 10.8 x10^3/uL (4.0-11.0)
[2016-12-28 07:00] VITALS: BP 206/96
[2016-12-28] MEDS ORDERED: AZITHROMYCIN 500 MG in IV NORMAL SALINE 250ML 250 ML IV SCH (07:00)
[2016-12-28] MEDS: BUDESONIDE 0.5 MG/2 ML NEBU. NEB SCH ×2 (07:15→19:58)
[2016-12-28] MEDS: IPRATRPIUM/ALBUTEROL 0.5/2.5MG 3 ML NEBU. NEB SCH ×4 (07:15→19:58)
--- NOTE | 2016-12-28 08:38 | PDOC ---
DESRoderickEDUAR LOTT ENVIRONMENTAL PROGRAM MANAGER 12/28/16 0838: IM PROGRESS NOTES- Subjective Subjective cough kept her awake all night. When will she feel better. Why can't she have salt with her meals? Objective Objective alert no distress Vitals Vital Signs Date Time Temp Pulse Resp B/P (MAP) Pulse Ox O2 Delivery O2 Flow Rate FiO2 12/28/16 07:17 Room Air 12/28/16 03:06 18 12/27/16 23:00 98.3 81 164/79 (107) 92 98.3 12/27/16 14:55 2.0 Input & Output Intake and Output 12/28/16 07:00 Intake Total 2750 ml Output Total 2400 ml Balance 350 ml Intake Oral 2750 ml Output Urine Total 2400 ml Physical Exam Physical Exam General appearance - alert, ill appearing, and in no distress Mental Status - alert, oriented to person, place, and time, affect appropriate to mood Head - normal Chest - clear to auscultation, no wheezes, rales or rhonchi, coarse R ant Heart - S1 and S2 normal Abdomen - soft, nontender, nondistended, BS + Neurological - no acute focal neurological deficit Musculoskeletal - no muscular tenderness noted Extremities - no pedal edema Skin - warm and dry Labs Laboratory Tests Test 12/26/16 09:15 12/26/16 11:14 12/26/16 16:46 12/26/16 21:30 White Blood Count 14.5 x10^3/uL (4.0-11.0) Red Blood Count 4.21 x10^6/uL (3.50-5.40) Hemoglobin 10.9 g/dL (12.0-15.5) Hematocrit 32.8 % (36.0-47.0) Mean Corpuscular Volume 78 fL (79-100) Mean Corpuscular Hemoglobin 26 pg (25-35) Mean Corpuscular Hemoglobin Concent 33 g/dL (31-37) Red Cell Distribution Width 18.7 % (11.5-14.5) Platelet Count 269 x10^3/uL (140-400) Neutrophils (%) (Auto) 82 % (31-73) Lymphocytes (%) (Auto) 7 % (24-48) Monocytes (%) (Auto) 9 % (0-9) Eosinophils (%) (Auto) 1 % (0-3) Basophils (%) (Auto) 0 % (0-3) Neutrophils # (Auto) 11.9 x10^3uL (1.8-7.7) Lymphocytes # (Auto) 1.0 x10^3/uL (1.0-4.8) Monocytes # (Auto) 1.3 x10^3/uL (0.0-1.1) Eosinophils # (Auto) 0.1 x10^3/uL (0.0-0.7) Basophils # (Auto) 0.1 x10^3/uL (0.0-0.2) Sodium Level 127 mmol/L (136-145) Potassium Level 3.9 mmol/L (3.5-5.1) Chloride Level 91 mmol/L (98-107) Carbon Dioxide Level 28 mmol/L (21-32) Anion Gap 8 (6-14) Blood Urea Nitrogen 6 mg/dL (7-20) Creatinine 0.6 mg/dL (0.6-1.0) Estimated GFR (Cockcroft-Gault) 98.3 BUN/Creatinine Ratio 10 (6-20) Glucose Level 224 mg/dL (70-99) Calcium Level 8.9 mg/dL (8.5-10.1) Magnesium Level 1.4 mg/dL (1.8-2.4) Total Bilirubin 0.4 mg/dL (0.2-1.0) Aspartate Amino Transf (AST/SGOT) 22 U/L (15-37) Alanine Aminotransferase (ALT/SGPT) 20 U/L (14-59) Alkaline Phosphatase 113 U/L (46-116) Total Protein 7.6 g/dL (6.4-8.2) Albumin 2.9 g/dL (3.4-5.0) Albumin/Globulin Ratio 0.6 (1.0-1.7) Digoxin Level 0.6 ng/mL (0.9-2.0) Digoxin Last Dose Date 12/25/16 Digoxin Last Dose Time 1200 Glucose (Fingerstick) 231 mg/dL (70-99) 156 mg/dL (70-99) 173 mg/dL (70-99) Test 12/27/16 03:35 12/27/16 07:43 12/27/16 11:03 12/27/16 16:35 White Blood Count 11.3 x10^3/uL (4.0-11.0) Red Blood Count 4.50 x10^6/uL (3.50-5.40) Hemoglobin 12.0 g/dL (12.0-15.5) Hematocrit 35.8 % (36.0-47.0) Mean Corpuscular Volume 79 fL (79-100) Mean Corpuscular Hemoglobin 27 pg (25-35) Mean Corpuscular Hemoglobin Concent 34 g/dL (31-37) Red Cell Distribution Width 18.4 % (11.5-14.5) Platelet Count 357 x10^3/uL (140-400) Neutrophils (%) (Auto) 75 % (31-73) Lymphocytes (%) (Auto) 12 % (24-48) Monocytes (%) (Auto) 11 % (0-9) Eosinophils (%) (Auto) 1 % (0-3) Basophils (%) (Auto) 0 % (0-3) Neutrophils # (Auto) 8.5 x10^3uL (1.8-7.7) Lymphocytes # (Auto) 1.4 x10^3/uL (1.0-4.8) Monocytes # (Auto) 1.3 x10^3/uL (0.0-1.1) Eosinophils # (Auto) 0.1 x10^3/uL (0.0-0.7) Basophils # (Auto) 0.0 x10^3/uL (0.0-0.2) Sodium Level 135 mmol/L (136-145) Potassium Level 3.9 mmol/L (3.5-5.1) Chloride Level 96 mmol/L (98-107) Carbon Dioxide Level 33 mmol/L (21-32) Anion Gap 6 (6-14) Blood Urea Nitrogen 4 mg/dL (7-20) Creatinine 0.6 mg/dL (0.6-1.0) Estimated GFR (Cockcroft-Gault) 98.3 BUN/Creatinine Ratio 7 (6-20) Glucose Level 151 mg/dL (70-99) Calcium Level 9.6 mg/dL (8.5-10.1) Magnesium Level 1.8 mg/dL (1.8-2.4) Total Bilirubin 0.4 mg/dL (0.2-1.0) Aspartate Amino Transf (AST/SGOT) 24 U/L (15-37) Alanine Aminotransferase (ALT/SGPT) 23 U/L (14-59) Alkaline Phosphatase 125 U/L (46-116) Total Protein 8.4 g/dL (6.4-8.2) Albumin 3.1 g/dL (3.4-5.0) Albumin/Globulin Ratio 0.6 (1.0-1.7) Glucose (Fingerstick) 183 mg/dL (70-99) 298 mg/dL (70-99) 186 mg/dL (70-99) Test 12/27/16 21:15 12/28/16 03:25 12/28/16 08:24 Glucose (Fingerstick) 177 mg/dL (70-99) 156 mg/dL (70-99) White Blood Count 10.8 x10^3/uL (4.0-11.0) Red Blood Count 3.66 x10^6/uL (3.50-5.40) Hemoglobin 9.8 g/dL (12.0-15.5) Hematocrit 29.1 % (36.0-47.0) Mean Corpuscular Volume 79 fL (79-100) Mean Corpuscular Hemoglobin 27 pg (25-35) Mean Corpuscular Hemoglobin Concent 34 g/dL (31-37) Red Cell Distribution Width 18.5 % (11.5-14.5) Platelet Count 280 x10^3/uL (140-400) Neutrophils (%) (Auto) 70 % (31-73) Lymphocytes (%) (Auto) 14 % (24-48) Monocytes (%) (Auto) 14 % (0-9) Eosinophils (%) (Auto) 2 % (0-3) Basophils (%) (Auto) 1 % (0-3) Neutrophils # (Auto) 7.5 x10^3uL (1.8-7.7) Lymphocytes # (Auto) 1.5 x10^3/uL (1.0-4.8) Monocytes # (Auto) 1.5 x10^3/uL (0.0-1.1) Eosinophils # (Auto) 0.2 x10^3/uL (0.0-0.7) Basophils # (Auto) 0.1 x10^3/uL (0.0-0.2) Laboratory Tests Test 12/27/16 11:03 12/27/16 16:35 12/27/16 21:15 12/28/16 03:25 Glucose (Fingerstick) 298 mg/dL (70-99) 186 mg/dL (70-99) 177 mg/dL (70-99) White Blood Count 10.8 x10^3/uL (4.0-11.0) Red Blood Count 3.66 x10^6/uL (3.50-5.40) Hemoglobin 9.8 g/dL (12.0-15.5) Hematocrit 29.1 % (36.0-47.0) Mean Corpuscular Volume 79 fL (79-100) Mean Corpuscular Hemoglobin 27 pg (25-35) Mean Corpuscular Hemoglobin Concent 34 g/dL (31-37) Red Cell Distribution Width 18.5 % (11.5-14.5) Platelet Count 280 x10^3/uL (140-400) Neutrophils (%) (Auto) 70 % (31-73) Lymphocytes (%) (Auto) 14 % (24-48) Monocytes (%) (Auto) 14 % (0-9) Eosinophils (%) (Auto) 2 % (0-3) Basophils (%) (Auto) 1 % (0-3) Neutrophils # (Auto) 7.5 x10^3uL (1.8-7.7) Lymphocytes # (Auto) 1.5 x10^3/uL (1.0-4.8) Monocytes # (Auto) 1.5 x10^3/uL (0.0-1.1) Eosinophils # (Auto) 0.2 x10^3/uL (0.0-0.7) Basophils # (Auto) 0.1 x10^3/uL (0.0-0.2) Test 12/28/16 08:24 Glucose (Fingerstick) 156 mg/dL (70-99) Meds Current Medications Azithromycin 500 mg/Sodium Chloride 250 ml @ 250 mls/hr Q24H IV Last administered on 12/28/16 06:38; Start 12/28/16 at 07:00 Budesonide (Pulmicort) 0.5 mg RTBID NEB Last administered on 12/28/16 07:15; Start 12/27/16 at 10:00 Ceftriaxone Sodium 1 gm/ Sodium Chloride 50 ml @ 100 mls/hr DAILY IV Last administered on 12/27/16 09:12; Start 12/27/16 at 09:00 Fluticasone Propionate (Flonase) 2 spray DAILY NS Last administered on 11:07; Start 12/27/16 at 09:00 Gabapentin (Neurontin) 300 mg DAILY PO Last administered on 12/27/16 09:09; Start 12/27/16 at 09:00 Gabapentin (Neurontin) 600 mg DAILY16 PO Last administered on 12/27/16 16:04; Start 12/27/16 at 16:00 Guaifenesin (Mucinex) 1,200 mg BID PO Last administered on 12/27/16 19:34; Start 12/27/16 at 09:00 Insulin Aspart (NovoLOG) TIDBFRMEAL SQ Last administered on 12/27/16 16:57; Start 12/27/16 at 11:30 Insulin Detemir (Levemir) 15 units QHS SQ ; Start 12/28/16 at 21:00; Status UNV Montelukast Sodium (Singulair) 10 mg DAILY PO Last administered on 12/27/16 09 :09; Start 12/27/16 at 09:00 Multivitamins (Thera M Plus) 1 tab DAILY PO Last administered on 12/27/16 09: 10; Start 12/27/16 at 09:00 Assessment Assessment 1. pneumonia grm neg gram + with sepsis 2. acute hyponatremia 3. COPD with acute exacerbation 4. ICM CHF diastolic EF 50% ICD PPM 5. HTN 6. CAD with h/o NSTEMI CA, CABG 7. anemia CD 8. hyperlipidemia 9. mild pulmonary HTN 10. DM II controlled chronic insulin polyneuropathy 11. ROEL intolerant to CPAP 12. diverticulosis 13. GERD 14. Schatzki ring 15. anemia chronic disease 16. chronic pain management LS 17. RA 18. anxiety 19. chronic moderate PCL malnutrition 20. acute hypoxic respiratory failure with pneumonia and AECOPD PLAN: acute hypoxic respiratory failure due to pneumonia/COPD with exacerbation pneumonia exac COPD pulmonary consult duoneb 12/27 budesonide bid mucinex 1200mg bid check UA for strep pneumonia antigen and legionella Admit WBC 19.0 12/28 10.8 [id number] Admit -afebrile cough: hydrocodone cough syrup q 6hr prn tessalon perles prn acute hyponatremia due to infectious pneumonia Admit 117 12/27 135 renal consult IV NS with 20K 75ccc/hr-DC 12/27 DM II FSBS/SSI BS 177-298 change SSI to moderate intensity Home dose Levemir 22u in AM. Will begin 15u today and change SSI to low intensity hypomagnesia Admit Mg 1.4 12/27 .8 recheck today with replacement orders-replacement orders stopped 12/28 DVT/GI prophylaxis SCD/LENA PPI Lovenox anemia CD Admit 10.8 12/28 9.8 BMP pending. Advised no added salt due to CHF. For further plan of care, please see the orders. Plan Plan For more details regarding further plans, please refer to the orders. MILA CONN MD 12/28/16 0855: IM PROGRESS NOTES- Assessment Assessment Not feeling well. Lungs- increased air entry. The patient was seen and examined by me. Chart reviewed and plan of care formulated. Discussed with, reviewed and agree with FILTER CLOTH MAKER's notes, plan of care and orders with modifications as necessary. For more details regarding further plans, please refer to the orders. EDUAR LOBO APRN Dec 28, 2016 08:38 MILA CONN MD Dec 28, 2016 08:55
[2016-12-28] MEDS: PROMETH/CODEINE 6.25/10MG 5 ML SYRUP. PO PRN ×2 (09:10→20:34)
[2016-12-28] MEDS: FLUTICASONE 50MCG/NASAL SPRAY 16GM BOTTLE. NS SCH (09:11)
[2016-12-28] MEDS: amLODIPine BESYLATE 5 MG TABLET PO SCH (09:12)
[2016-12-28] MEDS: ASPIRIN ENTERIC COATED 81 MG TABLET.DR. PO SCH (09:12)
[2016-12-28] MEDS: cloNIDine HCL 0.1 MG TABLET PO SCH ×3 (09:13→20:35)
[2016-12-28] MEDS: DIGOXIN 125 MCG TABLET. PO SCH (09:14)
[2016-12-28] MEDS: HYDROXYCHLOROQUINE 200 MG TABLET PO SCH ×2 (09:14→20:38)
[2016-12-28] MEDS: CARVEDILOL 12.5 MG TABLET. PO SCH ×2 (09:14→17:02)
[2016-12-28] MEDS: PANTOPRAZOLE 40 MG TABLET.DR. PO SCH (09:15)
[2016-12-28] MEDS: GABAPENTIN 300 MG CAPSULE. PO SCH ×3 (09:15→20:35)
[2016-12-28] MEDS: MULTIVITAMIN with MINERAL TABLET. PO SCH (09:15)
[2016-12-28] MEDS: ISOSORBIDE MONONITRATE ER 30 MG TAB.ER.24H PO SCH (09:15)
[2016-12-28] MEDS: MONTELUKAST SODIUM 10 MG TABLET. PO SCH (09:15)
[2016-12-28 11:00] VITALS: BP 151/74
[2016-12-28 12:16] LABS: SPECIMEN SOURCE Urine (.)
[2016-12-28] MEDS: ENOXAPARIN 40 MG/0.4 ML SYRINGE. SQ SCH (12:36)
[2016-12-28] MEDS: INSULIN ASPART 300 UNITS/3 ML INSULN.PEN SQ SCH ×2 (12:40→17:05)
--- NOTE | 2016-12-28 13:11 | PDOC ---
PULMONARY PROGRESS NOTES Subjective STILL COUGHING LESS SOA Vitals Vital Signs Date Time Temp Pulse Resp B/P (MAP) Pulse Ox O2 Delivery O2 Flow Rate FiO2 12/28/16 11:22 Room Air 12/28/16 09:15 98 206/96 12/28/16 08:01 2.0 12/28/16 07:00 97.6 20 96 97.6 ROS: No Nausea, No Chest Pain, No Abdominal Pain General: Alert Lungs: Crackles Cardiovascular: S1, S2 Abdomen: Soft, Non-tender Extremities: No Edema Skin: Warm Labs Laboratory Tests Test 12/26/16 16:46 12/26/16 21:30 12/27/16 03:35 12/27/16 07:43 Glucose (Fingerstick) 156 mg/dL (70-99) 173 mg/dL (70-99) 183 mg/dL (70-99) White Blood Count 11.3 x10^3/uL (4.0-11.0) Red Blood Count 4.50 x10^6/uL (3.50-5.40) Hemoglobin 12.0 g/dL (12.0-15.5) Hematocrit 35.8 % (36.0-47.0) Mean Corpuscular Volume 79 fL (79-100) Mean Corpuscular Hemoglobin 27 pg (25-35) Mean Corpuscular Hemoglobin Concent 34 g/dL (31-37) Red Cell Distribution Width 18.4 % (11.5-14.5) Platelet Count 357 x10^3/uL (140-400) Neutrophils (%) (Auto) 75 % (31-73) Lymphocytes (%) (Auto) 12 % (24-48) Monocytes (%) (Auto) 11 % (0-9) Eosinophils (%) (Auto) 1 % (0-3) Basophils (%) (Auto) 0 % (0-3) Neutrophils # (Auto) 8.5 x10^3uL (1.8-7.7) Lymphocytes # (Auto) 1.4 x10^3/uL (1.0-4.8) Monocytes # (Auto) 1.3 x10^3/uL (0.0-1.1) Eosinophils # (Auto) 0.1 x10^3/uL (0.0-0.7) Basophils # (Auto) 0.0 x10^3/uL (0.0-0.2) Sodium Level 135 mmol/L (136-145) Potassium Level 3.9 mmol/L (3.5-5.1) Chloride Level 96 mmol/L (98-107) Carbon Dioxide Level 33 mmol/L (21-32) Anion Gap 6 (6-14) Blood Urea Nitrogen 4 mg/dL (7-20) Creatinine 0.6 mg/dL (0.6-1.0) Estimated GFR (Cockcroft-Gault) 98.3 BUN/Creatinine Ratio 7 (6-20) Glucose Level 151 mg/dL (70-99) Calcium Level 9.6 mg/dL (8.5-10.1) Magnesium Level 1.8 mg/dL (1.8-2.4) Total Bilirubin 0.4 mg/dL (0.2-1.0) Aspartate Amino Transf (AST/SGOT) 24 U/L (15-37) Alanine Aminotransferase (ALT/SGPT) 23 U/L (14-59) Alkaline Phosphatase 125 U/L (46-116) Total Protein 8.4 g/dL (6.4-8.2) Albumin 3.1 g/dL (3.4-5.0) Albumin/Globulin Ratio 0.6 (1.0-1.7) Test 12/27/16 11:03 12/27/16 14:05 12/27/16 16:35 12/27/16 21:15 Glucose (Fingerstick) 298 mg/dL (70-99) 186 mg/dL (70-99) 177 mg/dL (70-99) Body Fluid Culture (LAB) (.) Urine Legionella Antigen Negative (Negative) Streptococcus pneumoniae Antigen Negative (Negative) Organism Identification (LAB) (.) BRIAN Specimen Source Urine (.) Test 12/28/16 03:25 12/28/16 08:24 12/28/16 11:48 White Blood Count 10.8 x10^3/uL (4.0-11.0) Red Blood Count 3.66 x10^6/uL (3.50-5.40) Hemoglobin 9.8 g/dL (12.0-15.5) Hematocrit 29.1 % (36.0-47.0) Mean Corpuscular Volume 79 fL (79-100) Mean Corpuscular Hemoglobin 27 pg (25-35) Mean Corpuscular Hemoglobin Concent 34 g/dL (31-37) Red Cell Distribution Width 18.5 % (11.5-14.5) Platelet Count 280 x10^3/uL (140-400) Neutrophils (%) (Auto) 70 % (31-73) Lymphocytes (%) (Auto) 14 % (24-48) Monocytes (%) (Auto) 14 % (0-9) Eosinophils (%) (Auto) 2 % (0-3) Basophils (%) (Auto) 1 % (0-3) Neutrophils # (Auto) 7.5 x10^3uL (1.8-7.7) Lymphocytes # (Auto) 1.5 x10^3/uL (1.0-4.8) Monocytes # (Auto) 1.5 x10^3/uL (0.0-1.1) Eosinophils # (Auto) 0.2 x10^3/uL (0.0-0.7) Basophils # (Auto) 0.1 x10^3/uL (0.0-0.2) Glucose (Fingerstick) 156 mg/dL (70-99) 257 mg/dL (70-99) Laboratory Tests Test 12/27/16 14:05 12/27/16 16:35 12/27/16 21:15 12/28/16 03:25 Body Fluid Culture (LAB) (.) Urine Legionella Antigen Negative (Negative) Streptococcus pneumoniae Antigen Negative (Negative) Organism Identification (LAB) (.) BRIAN Specimen Source Urine (.) Glucose (Fingerstick) 186 mg/dL (70-99) 177 mg/dL (70-99) White Blood Count 10.8 x10^3/uL (4.0-11.0) Red Blood Count 3.66 x10^6/uL (3.50-5.40) Hemoglobin 9.8 g/dL (12.0-15.5) Hematocrit 29.1 % (36.0-47.0) Mean Corpuscular Volume 79 fL (79-100) Mean Corpuscular Hemoglobin 27 pg (25-35) Mean Corpuscular Hemoglobin Concent 34 g/dL (31-37) Red Cell Distribution Width 18.5 % (11.5-14.5) Platelet Count 280 x10^3/uL (140-400) Neutrophils (%) (Auto) 70 % (31-73) Lymphocytes (%) (Auto) 14 % (24-48) Monocytes (%) (Auto) 14 % (0-9) Eosinophils (%) (Auto) 2 % (0-3) Basophils (%) (Auto) 1 % (0-3) Neutrophils # (Auto) 7.5 x10^3uL (1.8-7.7) Lymphocytes # (Auto) 1.5 x10^3/uL (1.0-4.8) Monocytes # (Auto) 1.5 x10^3/uL (0.0-1.1) Eosinophils # (Auto) 0.2 x10^3/uL (0.0-0.7) Basophils # (Auto) 0.1 x10^3/uL (0.0-0.2) Test 12/28/16 08:24 12/28/16 11:48 Glucose (Fingerstick) 156 mg/dL (70-99) 257 mg/dL (70-99) Medications Active Scripts Medications Dose Route/Sig Max Daily Dose Days Date Category Zolpidem Tartrate 5 Mg Tablet 5 Mg PO QHS 12/27/16 Reported Lafitte 3 Fish Oil Softgel ([place]itte-3 Fatty Acids/Fish Oil) 1 Each Capsule. 1 Each PO DAILY 12/27/16 Reported Metformin Hcl 1,000 Mg Tablet 1,000 Mg PO DAILYWSUP 12/27/16 Reported Metformin Hcl 500 Mg Tablet 500 Mg PO DAILYWBKFT 12/27/16 Reported Hydrocodone-Apap 10-325 (Hydrocodone Bit/Acetaminophen) 1 Each Tablet 1 Tab PO PRN Q6HRS PRN 08/24/16 Rx Levemir Flextouch (Insulin Detemir) 100 Unit/1 Ml Insuln.pen 28 Unit SQ DAILY08 08/24/16 Rx Neurontin (Gabapentin) 300 Mg Capsule 900 Mg PO QHS 08/21/16 Reported Neurontin (Gabapentin) 600 Mg Tablet 600 Mg PO DAILY16 08/21/16 Reported Nitrostat (Nitroglycerin) 0.4 Mg Tab.subl 1 Tab SL UD PRN 03/30/16 Reported Flonase Allergy Relief (Fluticasone Propionate) 9.9 Ml Crozet.susp 2 Sprays NS DAILY 03/30/16 Reported Digoxin 125 Mcg Tablet 1 Tab PO DAILY 03/30/16 Reported Lotrisone Cream (Clotrimazole/Betamethasone Dip) 15 Gm Cream..g. 1 David TP PRN BID PRN 03/30/16 Reported Calcium Plus Menaq7 Adult Tab (Calcium Carb/Vitamin D3/Vit K2) 1 Each Tablet 1 Each PO DAILY 03/30/16 Reported Amitriptyline Hcl 50 Mg Tablet 1 Tab PO QHS 03/30/16 Reported Hydroxychloroquine Sulfate 200 Mg Tablet 1 Tab PO BID 03/30/16 Reported Alprazolam 0.25 Mg Tablet 1 Tab PO PRN TID PRN 03/30/16 Reported Prilosec (Omeprazole) 20 Mg Capsule.dr 1 Cap PO BIDAC 01/22/14 Reported Glipizide 5 Mg Tablet 5 Mg PO BID 01/22/14 Reported Neurontin (Gabapentin) 300 Mg Capsule 1 Cap PO DAILY08 01/22/14 Reported Daily Vitamin (Multivitamin) 1 Each Tablet 1 Each PO DAILY 01/22/14 Reported Potassium Chloride 10 Meq Capsule.er 1 Cap PO DAILY 01/22/14 Reported Coreg (Carvedilol) 25 Mg Tablet 1 Tab PO BID 01/22/14 Reported Aspir 81 (Aspirin) 81 Mg Tablet.dr 1 Tab PO DAILY 01/22/14 Reported Amlodipine Besylate 5 Mg Tablet 1 Tab PO DAILY 01/22/14 Reported Atorvastatin Calcium 20 Mg Tablet 20 Mg PO HS 01/22/14 Reported Furosemide 20 Mg Tablet 20 Mg PO DAILY 01/22/14 Reported Catapres (Clonidine Hcl) 0.1 Mg Tablet 0.2 Mg PO PRN TID PRN 01/22/14 Reported Cetirizine Hcl 10 Mg Tablet 1 Tab PO QHS 01/22/14 Reported Losartan Potassium 100 Mg Tablet 1 Tab PO DAILY 01/22/14 Reported Isosorbide Mononitrate Er (Isosorbide Mononitrate) 30 Mg Tab.er.24h 1 Tab PO DAILY 01/22/14 Reported Singulair Tablet (Montelukast Sodium) 10 Mg Tablet 1 Tab PO HS 01/22/14 Reported Impression . IMPRESSION: 1. Acute hypoxemic respiratory failure secondary to pneumonia, chronic obstructive pulmonary disease with acute exacerbation vs others. 2. Abnormal chest x-ray. 3. Pneumonia. 4. Wheezing, chronic obstructive pulmonary disease with acute exacerbation. 5. Obstructive sleep apnea-hypopnea syndrome. 6. Coronary artery disease. 7. Hyponatremia. 8. Leukocytosis. 9. Hypertension. 10. Diabetes mellitus. 11. Obesity. 12. Gastroesophageal reflux disease. Plan . slowly improving will continue the same d/c all caffeine continue antibs steroids nebs 02 possible outpt sleep study GILBERTO MARTÍNEZ MD Dec 28, 2016 13:11
[2016-12-28 15:00] VITALS: BP 145/71
[2016-12-28 19:00] VITALS: BP 174/92
[2016-12-28] MEDS: BENZONATATE 100 MG CAPSULE. PO PRN (20:34)
[2016-12-28] MEDS: ATORVASTATIN CALCIUM 20 MG TABLET PO SCH (20:35)
[2016-12-28] MEDS: AMITRIPTYLINE HCL 50 MG TABLET PO SCH (20:35)
[2016-12-28] MEDS: CETIRIZINE HCL 10 MG TABLET. PO SCH (20:36)
[2016-12-28] MEDS ORDERED: INSULIN DETEMIR 300 UNITS/3 ML INSULN.PEN. SQ SCH (21:00)
[2016-12-28 23:03] VITALS: BP 169/72
[2016-12-29] MEDS: PROMETH/CODEINE 6.25/10MG 5 ML SYRUP. PO PRN ×2 (02:07→08:15)
[2016-12-29 04:13] LABS: BASO # 0.1 x10^3/uL (0.0-0.2); BASO % 1 % (0-3); EOS % 3 % (0-3); HEMATOCRIT 33.2 % (36.0-47.0); HEMOGLOBIN 11.4 g/dL (12.0-15.5); LYMPH # 1.9 x10^3/uL (1.0-4.8); LYMPH % 20 % (24-48); MEAN CORPUSCULAR HEMOGLOBIN 27 pg (25-35); MEAN CORPUSCULAR HGB CONC 34 g/dL (31-37); MEAN CORPUSCULAR VOLUME 78 fL (79-100); MONO % 11 % (0-9); NEUT % 65 % (31-73); PLATELET COUNT 337 x10^3/uL (140-400); RED BLOOD COUNT 4.27 x10^6/uL (3.50-5.40); RED CELL DISTRIBUTION WIDTH 18.1 % (11.5-14.5); WHITE BLOOD COUNT 9.2 x10^3/uL (4.0-11.0)
[2016-12-29 04:17] LABS: CALCIUM 8.9 mg/dL (8.5-10.1); CREATININE 0.7 mg/dL (0.6-1.0); GFR 82.3; POTASSIUM 3.6 mmol/L (3.5-5.1)
[2016-12-29] MEDS: BENZONATATE 100 MG CAPSULE. PO PRN (06:10)
[2016-12-29] MEDS: HYDROcodone/APAP 10/325 1 TAB TABLET PO PRN (06:11)
[2016-12-29 07:00] VITALS: BP 159/72
[2016-12-29] MEDS ORDERED: AZITHROMYCIN 500 MG in IV NORMAL SALINE 250ML 250 ML IV SCH (07:00)
[2016-12-29] MEDS ORDERED: INSULIN DETEMIR 300 UNITS/3 ML INSULN.PEN. SQ SCH (07:00)
[2016-12-29] MEDS: PANTOPRAZOLE 40 MG TABLET.DR. PO SCH (08:15)
[2016-12-29] MEDS: FLUTICASONE 50MCG/NASAL SPRAY 16GM BOTTLE. NS SCH (08:16)
[2016-12-29] MEDS: GABAPENTIN 300 MG CAPSULE. PO SCH (08:16)
[2016-12-29] MEDS: MULTIVITAMIN with MINERAL TABLET. PO SCH (08:17)
[2016-12-29] MEDS: CARVEDILOL 12.5 MG TABLET. PO SCH (08:17)
[2016-12-29] MEDS: HYDROXYCHLOROQUINE 200 MG TABLET PO SCH (08:18)
[2016-12-29] MEDS: ASPIRIN ENTERIC COATED 81 MG TABLET.DR. PO SCH (08:18)
[2016-12-29] MEDS: ISOSORBIDE MONONITRATE ER 30 MG TAB.ER.24H PO SCH (08:18)
[2016-12-29] MEDS: MONTELUKAST SODIUM 10 MG TABLET. PO SCH (08:18)
[2016-12-29] MEDS: DIGOXIN 125 MCG TABLET. PO SCH (08:19)
[2016-12-29] MEDS: cloNIDine HCL 0.1 MG TABLET PO SCH ×2 (08:19→14:12)
[2016-12-29] MEDS: amLODIPine BESYLATE 5 MG TABLET PO SCH (08:20)
[2016-12-29] MEDS: INSULIN ASPART 300 UNITS/3 ML INSULN.PEN SQ SCH ×2 (08:24→12:06)
[2016-12-29] MEDS: IPRATRPIUM/ALBUTEROL 0.5/2.5MG 3 ML NEBU. NEB SCH ×2 (08:29→11:19)
[2016-12-29] MEDS: BUDESONIDE 0.5 MG/2 ML NEBU. NEB SCH (08:29)
--- NOTE | 2016-12-29 08:43 | PDOC3 ---
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 pneumonia grm neg gram + with sepsis 2. acute hyponatremia resolved 3. COPD with acute exacerbation 4. ICM CHF diastolic EF 50% ICD PPM 5. HTN 6. CAD with h/o NSTEMI MT, CABG 7. anemia CD 8. hyperlipidemia 9. mild pulmonary HTN 10. DM II controlled chronic insulin polyneuropathy 11. REOL intolerant to CPAP 12. diverticulosis 13. GERD 14. Schatzki ring 15. anemia chronic disease 16. chronic pain management LS 17. RA 18. anxiety 19. chronic moderate PCL malnutrition 20. acute hypoxic respiratory failure with pneumonia and AECOPD POA Consults Consults Giovani Slater MD Procedures Procedures None Labs Labs Laboratory Tests Test 12/26/16 09:15 12/26/16 11:14 12/26/16 16:46 12/26/16 21:30 White Blood Count 14.5 x10^3/uL (4.0-11.0) Red Blood Count 4.21 x10^6/uL (3.50-5.40) Hemoglobin 10.9 g/dL (12.0-15.5) Hematocrit 32.8 % (36.0-47.0) Mean Corpuscular Volume 78 fL (79-100) Mean Corpuscular Hemoglobin 26 pg (25-35) Mean Corpuscular Hemoglobin Concent 33 g/dL (31-37) Red Cell Distribution Width 18.7 % (11.5-14.5) Platelet Count 269 x10^3/uL (140-400) Neutrophils (%) (Auto) 82 % (31-73) Lymphocytes (%) (Auto) 7 % (24-48) Monocytes (%) (Auto) 9 % (0-9) Eosinophils (%) (Auto) 1 % (0-3) Basophils (%) (Auto) 0 % (0-3) Neutrophils # (Auto) 11.9 x10^3uL (1.8-7.7) Lymphocytes # (Auto) 1.0 x10^3/uL (1.0-4.8) Monocytes # (Auto) 1.3 x10^3/uL (0.0-1.1) Eosinophils # (Auto) 0.1 x10^3/uL (0.0-0.7) Basophils # (Auto) 0.1 x10^3/uL (0.0-0.2) Sodium Level 127 mmol/L (136-145) Potassium Level 3.9 mmol/L (3.5-5.1) Chloride Level 91 mmol/L (98-107) Carbon Dioxide Level 28 mmol/L (21-32) Anion Gap 8 (6-14) Blood Urea Nitrogen 6 mg/dL (7-20) Creatinine 0.6 mg/dL (0.6-1.0) Estimated GFR (Cockcroft-Gault) 98.3 BUN/Creatinine Ratio 10 (6-20) Glucose Level 224 mg/dL (70-99) Calcium Level 8.9 mg/dL (8.5-10.1) Magnesium Level 1.4 mg/dL (1.8-2.4) Total Bilirubin 0.4 mg/dL (0.2-1.0) Aspartate Amino Transf (AST/SGOT) 22 U/L (15-37) Alanine Aminotransferase (ALT/SGPT) 20 U/L (14-59) Alkaline Phosphatase 113 U/L (46-116) Total Protein 7.6 g/dL (6.4-8.2) Albumin 2.9 g/dL (3.4-5.0) Albumin/Globulin Ratio 0.6 (1.0-1.7) Digoxin Level 0.6 ng/mL (0.9-2.0) Digoxin Last Dose Date 12/25/16 Digoxin Last Dose Time 1200 Glucose (Fingerstick) 231 mg/dL (70-99) 156 mg/dL (70-99) 173 mg/dL (70-99) Test 12/27/16 03:35 12/27/16 07:43 12/27/16 11:03 12/27/16 14:05 White Blood Count 11.3 x10^3/uL (4.0-11.0) Red Blood Count 4.50 x10^6/uL (3.50-5.40) Hemoglobin 12.0 g/dL (12.0-15.5) Hematocrit 35.8 % (36.0-47.0) Mean Corpuscular Volume 79 fL (79-100) Mean Corpuscular Hemoglobin 27 pg (25-35) Mean Corpuscular Hemoglobin Concent 34 g/dL (31-37) Red Cell Distribution Width 18.4 % (11.5-14.5) Platelet Count 357 x10^3/uL (140-400) Neutrophils (%) (Auto) 75 % (31-73) Lymphocytes (%) (Auto) 12 % (24-48) Monocytes (%) (Auto) 11 % (0-9) Eosinophils (%) (Auto) 1 % (0-3) Basophils (%) (Auto) 0 % (0-3) Neutrophils # (Auto) 8.5 x10^3uL (1.8-7.7) Lymphocytes # (Auto) 1.4 x10^3/uL (1.0-4.8) Monocytes # (Auto) 1.3 x10^3/uL (0.0-1.1) Eosinophils # (Auto) 0.1 x10^3/uL (0.0-0.7) Basophils # (Auto) 0.0 x10^3/uL (0.0-0.2) Sodium Level 135 mmol/L (136-145) Potassium Level 3.9 mmol/L (3.5-5.1) Chloride Level 96 mmol/L (98-107) Carbon Dioxide Level 33 mmol/L (21-32) Anion Gap 6 (6-14) Blood Urea Nitrogen 4 mg/dL (7-20) Creatinine 0.6 mg/dL (0.6-1.0) Estimated GFR (Cockcroft-Gault) 98.3 BUN/Creatinine Ratio 7 (6-20) Glucose Level 151 mg/dL (70-99) Calcium Level 9.6 mg/dL (8.5-10.1) Magnesium Level 1.8 mg/dL (1.8-2.4) Total Bilirubin 0.4 mg/dL (0.2-1.0) Aspartate Amino Transf (AST/SGOT) 24 U/L (15-37) Alanine Aminotransferase (ALT/SGPT) 23 U/L (14-59) Alkaline Phosphatase 125 U/L (46-116) Total Protein 8.4 g/dL (6.4-8.2) Albumin 3.1 g/dL (3.4-5.0) Albumin/Globulin Ratio 0.6 (1.0-1.7) Glucose (Fingerstick) 183 mg/dL (70-99) 298 mg/dL (70-99) Body Fluid Culture (LAB) (.) Urine Legionella Antigen Negative (Negative) Streptococcus pneumoniae Antigen Negative (Negative) Organism Identification (LAB) (.) BRIAN Specimen Source Urine (.) Test 12/27/16 16:35 12/27/16 21:15 12/28/16 03:25 12/28/16 08:24 Glucose (Fingerstick) 186 mg/dL (70-99) 177 mg/dL (70-99) 156 mg/dL (70-99) White Blood Count 10.8 x10^3/uL (4.0-11.0) Red Blood Count 3.66 x10^6/uL (3.50-5.40) Hemoglobin 9.8 g/dL (12.0-15.5) Hematocrit 29.1 % (36.0-47.0) Mean Corpuscular Volume 79 fL (79-100) Mean Corpuscular Hemoglobin 27 pg (25-35) Mean Corpuscular Hemoglobin Concent 34 g/dL (31-37) Red Cell Distribution Width 18.5 % (11.5-14.5) Platelet Count 280 x10^3/uL (140-400) Neutrophils (%) (Auto) 70 % (31-73) Lymphocytes (%) (Auto) 14 % (24-48) Monocytes (%) (Auto) 14 % (0-9) Eosinophils (%) (Auto) 2 % (0-3) Basophils (%) (Auto) 1 % (0-3) Neutrophils # (Auto) 7.5 x10^3uL (1.8-7.7) Lymphocytes # (Auto) 1.5 x10^3/uL (1.0-4.8) Monocytes # (Auto) 1.5 x10^3/uL (0.0-1.1) Eosinophils # (Auto) 0.2 x10^3/uL (0.0-0.7) Basophils # (Auto) 0.1 x10^3/uL (0.0-0.2) Test 12/28/16 11:48 8/1/17 16:29 12/28/16 21:24 12/29/16 03:36 Glucose (Fingerstick) 257 mg/dL (70-99) 221 mg/dL (70-99) 173 mg/dL (70-99) White Blood Count 9.2 x10^3/uL (4.0-11.0) Red Blood Count 4.27 x10^6/uL (3.50-5.40) Hemoglobin 11.4 g/dL (12.0-15.5) Hematocrit 33.2 % (36.0-47.0) Mean Corpuscular Volume 78 fL (79-100) Mean Corpuscular Hemoglobin 27 pg (25-35) Mean Corpuscular Hemoglobin Concent 34 g/dL (31-37) Red Cell Distribution Width 18.1 % (11.5-14.5) Platelet Count 337 x10^3/uL (140-400) Neutrophils (%) (Auto) 65 % (31-73) Lymphocytes (%) (Auto) 20 % (24-48) Monocytes (%) (Auto) 11 % (0-9) Eosinophils (%) (Auto) 3 % (0-3) Basophils (%) (Auto) 1 % (0-3) Neutrophils # (Auto) 6.0 x10^3uL (1.8-7.7) Lymphocytes # (Auto) 1.9 x10^3/uL (1.0-4.8) Monocytes # (Auto) 1.0 x10^3/uL (0.0-1.1) Eosinophils # (Auto) 0.3 x10^3/uL (0.0-0.7) Basophils # (Auto) 0.1 x10^3/uL (0.0-0.2) Sodium Level 136 mmol/L (136-145) Potassium Level 3.6 mmol/L (3.5-5.1) Chloride Level 99 mmol/L (98-107) Carbon Dioxide Level 30 mmol/L (21-32) Anion Gap 7 (6-14) Blood Urea Nitrogen 7 mg/dL (7-20) Creatinine 0.7 mg/dL (0.6-1.0) Estimated GFR (Cockcroft-Gault) 82.3 Glucose Level 173 mg/dL (70-99) Calcium Level 8.9 mg/dL (8.5-10.1) Test 12/29/16 07:20 Glucose (Fingerstick) 172 mg/dL (70-99) Medications Medications Medications reviewed and reconciled for discharge. Brief hospital course Brief hospital course This 71 year old female who presented with acute hypoxic respiratory failure was admitted. The following is a summary of her treatment plan: acute hypoxic respiratory failure due to pneumonia/COPD with exacerbation pneumonia exac COPD pulmonary consult duoneb 12/27 budesonide bid mucinex 1200mg bid check UA for strep pneumonia antigen and legionella Admit WBC 19.0 12/28 10.8 T101.5F Admit -afebrile cough: hydrocodone cough syrup q 6hr prn-requested at [facility], Advised would not issue script as she is currently taking hydrocodone. tessalon perles prn acute hyponatremia due to infectious pneumonia Admit 117 08 136 renal consult IV NS with 20K 75ccc/hr-[facility] 12/27 DM II FSBS/SSI BS 172-257 change SSI to moderate intensity Home dose Levemir 22u in AM. Will begin 15u today and change SSI to low intensity Resume home dose levemir at [facility] hypomagnesia Admit Mg 1.4 12/27 1.8 recheck today with replacement orders-replacement orders stopped 12/28 resolved DVT/GI prophylaxis SCD/LENA PPI Lovenox anemia CD Admit 10.8 12/29 9.2 For more details regarding the past history, family history, social history, surgical history and other details, please refer to History and Physical. She will be discharged home today on Vantin 200mg bid for 5 days. Please see DC orders. No hydrocodone cough syrup at [facility] . Subjective cough still present, not coughing up much. Objective alert no distress Vitals Vital Signs Date Time Temp Pulse Resp B/P (MAP) Pulse Ox O2 Delivery O2 Flow Rate FiO2 12/29/16 08:29 Room Air 12/29/16 08:20 81 159/72 12/29/16 07:00 98.5 16 93 98.5 12/28/16 08:01 2.0 Physical Exam General appearance - alert, ill appearing, and in no distress Mental Status - alert, oriented to person, place, and time, affect appropriate to mood Head - normal Chest - clear to auscultation, no wheezes, rales or rhonchi, coarse R ant improving Heart - S1 and S2 normal Abdomen - soft, nontender, nondistended, BS + Neurological - no acute focal neurological deficit Musculoskeletal - no muscular tenderness noted Extremities - no pedal edema Skin - warm and dry Medications Medications reviewed. Allergy Allergies Coded Allergies Type Severity Reaction Last Updated Verified No Known Drug Allergies 01/22/14 No Follow up Tuesday with Dr. Conn or Lawson Disposition: Home Comments Discharge Management - 35 minutes. For other details please refer to discharge instructions MILA CONN MD 12/29/16 0958: IM DISCHARGE & PROGRESS NOTES Brief hospital course Comments Clinically improving.Air entry much better. The patient was seen and examined by me. Chart reviewed and plan of care formulated. Discussed with, reviewed and agree with HEAT PU[employer] INSTALLER's notes, plan of care and orders with modifications as necessary. Discharge Management - 35 minutes. see in office in 5 days. EDUAR LOBO APRN Dec 29, 2016 08:43 MILA CONN MD Dec 29, 2016 09:58
--- NOTE | 2016-12-29 08:45 | DISCH ---
DISCHARGE INSTRUCTIONS Condition on Discharge Condition on Discharge: Stable Activity After Discharge Activity Instructions for Disc: Activity as tolerated Diet after Discharge Diet after Discharge: Cardiac (ADA no added salt ) Wound Incision Care Other wound/incision instructi: continue surgical shoe R foot as instructed by surgeon Checks after Discharge DC Comment: Check BS before meals, bring log to appt. Contacting the DRShanice after DC Call your doctor for: Concerns you may have Follow-Up Follow up with: Dr. Rai or Lawson on Tuesday EDUAR LOBO APRN Dec 29, 2016 08:45
[2016-12-29] MEDS ORDERED: DEXT30SU19 PO (08:48)
[2016-12-29] MEDS ORDERED: GUAI12003 PO (08:48)
[2016-12-29] MEDS ORDERED: BENZ100C PO (08:48)
[2016-12-29] MEDS ORDERED: CEFP200T PO (08:48)
[2016-12-29] MEDS ORDERED: BREO ELLIPTA 11 EACH IH (08:50)
[2016-12-29] MEDS: ENOXAPARIN 40 MG/0.4 ML SYRINGE. SQ SCH (10:05)
[2016-12-29] MEDS: ACETAMINOPHEN 325 MG TABLET. PO PRN (10:05)
--- NOTE | 2016-12-29 10:19 | PDOC ---
PULMONARY PROGRESS NOTES Subjective STILL COUGHING LESS SOA Vitals Vital Signs Date Time Temp Pulse Resp B/P (MAP) Pulse Ox O2 Delivery O2 Flow Rate FiO2 12/29/16 08:29 Room Air 12/29/16 08:20 81 159/72 12/29/16 07:00 98.5 16 93 98.5 12/28/16 08:01 2.0 ROS: No Nausea, No Chest Pain, No Abdominal Pain General: Alert Lungs: Crackles Cardiovascular: S1, S2 Abdomen: Soft, Non-tender Extremities: No Edema Skin: Warm Labs Laboratory Tests Test 12/27/16 11:03 12/27/16 14:05 12/27/16 16:35 12/27/16 21:15 Glucose (Fingerstick) 298 mg/dL (70-99) 186 mg/dL (70-99) 177 mg/dL (70-99) Body Fluid Culture (LAB) (.) Urine Legionella Antigen Negative (Negative) Streptococcus pneumoniae Antigen Negative (Negative) Organism Identification (LAB) (.) BRIAN Specimen Source Urine (.) Test 12/28/16 03:25 12/28/16 08:24 12/28/16 11:48 12/28/16 16:29 White Blood Count 10.8 x10^3/uL (4.0-11.0) Red Blood Count 3.66 x10^6/uL (3.50-5.40) Hemoglobin 9.8 g/dL (12.0-15.5) Hematocrit 29.1 % (36.0-47.0) Mean Corpuscular Volume 79 fL (79-100) Mean Corpuscular Hemoglobin 27 pg (25-35) Mean Corpuscular Hemoglobin Concent 34 g/dL (31-37) Red Cell Distribution Width 18.5 % (11.5-14.5) Platelet Count 280 x10^3/uL (140-400) Neutrophils (%) (Auto) 70 % (31-73) Lymphocytes (%) (Auto) 14 % (24-48) Monocytes (%) (Auto) 14 % (0-9) Eosinophils (%) (Auto) 2 % (0-3) Basophils (%) (Auto) 1 % (0-3) Neutrophils # (Auto) 7.5 x10^3uL (1.8-7.7) Lymphocytes # (Auto) 1.5 x10^3/uL (1.0-4.8) Monocytes # (Auto) 1.5 x10^3/uL (0.0-1.1) Eosinophils # (Auto) 0.2 x10^3/uL (0.0-0.7) Basophils # (Auto) 0.1 x10^3/uL (0.0-0.2) Glucose (Fingerstick) 156 mg/dL (70-99) 257 mg/dL (70-99) 221 mg/dL (70-99) Test 12/28/16 21:24 12/29/16 03:36 12/29/16 07:20 Glucose (Fingerstick) 173 mg/dL (70-99) 172 mg/dL (70-99) White Blood Count 9.2 x10^3/uL (4.0-11.0) Red Blood Count 4.27 x10^6/uL (3.50-5.40) Hemoglobin 11.4 g/dL (12.0-15.5) Hematocrit 33.2 % (36.0-47.0) Mean Corpuscular Volume 78 fL (79-100) Mean Corpuscular Hemoglobin 27 pg (25-35) Mean Corpuscular Hemoglobin Concent 34 g/dL (31-37) Red Cell Distribution Width 18.1 % (11.5-14.5) Platelet Count 337 x10^3/uL (140-400) Neutrophils (%) (Auto) 65 % (31-73) Lymphocytes (%) (Auto) 20 % (24-48) Monocytes (%) (Auto) 11 % (0-9) Eosinophils (%) (Auto) 3 % (0-3) Basophils (%) (Auto) 1 % (0-3) Neutrophils # (Auto) 6.0 x10^3uL (1.8-7.7) Lymphocytes # (Auto) 1.9 x10^3/uL (1.0-4.8) Monocytes # (Auto) 1.0 x10^3/uL (0.0-1.1) Eosinophils # (Auto) 0.3 x10^3/uL (0.0-0.7) Basophils # (Auto) 0.1 x10^3/uL (0.0-0.2) Sodium Level 136 mmol/L (136-145) Potassium Level 3.6 mmol/L (3.5-5.1) Chloride Level 99 mmol/L (98-107) Carbon Dioxide Level 30 mmol/L (21-32) Anion Gap 7 (6-14) Blood Urea Nitrogen 7 mg/dL (7-20) Creatinine 0.7 mg/dL (0.6-1.0) Estimated GFR (Cockcroft-Gault) 82.3 Glucose Level 173 mg/dL (70-99) Calcium Level 8.9 mg/dL (8.5-10.1) Laboratory Tests Test 12/28/16 11:48 12/28/16 16:29 12/28/16 21:24 12/29/16 03:36 Glucose (Fingerstick) 257 mg/dL (70-99) 221 mg/dL (70-99) 173 mg/dL (70-99) White Blood Count 9.2 x10^3/uL (4.0-11.0) Red Blood Count 4.27 x10^6/uL (3.50-5.40) Hemoglobin 11.4 g/dL (12.0-15.5) Hematocrit 33.2 % (36.0-47.0) Mean Corpuscular Volume 78 fL (79-100) Mean Corpuscular Hemoglobin 27 pg (25-35) Mean Corpuscular Hemoglobin Concent 34 g/dL (31-37) Red Cell Distribution Width 18.1 % (11.5-14.5) Platelet Count 337 x10^3/uL (140-400) Neutrophils (%) (Auto) 65 % (31-73) Lymphocytes (%) (Auto) 20 % (24-48) Monocytes (%) (Auto) 11 % (0-9) Eosinophils (%) (Auto) 3 % (0-3) Basophils (%) (Auto) 1 % (0-3) Neutrophils # (Auto) 6.0 x10^3uL (1.8-7.7) Lymphocytes # (Auto) 1.9 x10^3/uL (1.0-4.8) Monocytes # (Auto) 1.0 x10^3/uL (0.0-1.1) Eosinophils # (Auto) 0.3 x10^3/uL (0.0-0.7) Basophils # (Auto) 0.1 x10^3/uL (0.0-0.2) Sodium Level 136 mmol/L (136-145) Potassium Level 3.6 mmol/L (3.5-5.1) Chloride Level 99 mmol/L (98-107) Carbon Dioxide Level 30 mmol/L (21-32) Anion Gap 7 (6-14) Blood Urea Nitrogen 7 mg/dL (7-20) Creatinine 0.7 mg/dL (0.6-1.0) Estimated GFR (Cockcroft-Gault) 82.3 Glucose Level 173 mg/dL (70-99) Calcium Level 8.9 mg/dL (8.5-10.1) Test 12/29/16 07:20 Glucose (Fingerstick) 172 mg/dL (70-99) Medications Active Scripts Medications Dose Route/Sig Max Daily Dose Days Date Category Zolpidem Tartrate 5 Mg Tablet 5 Mg PO QHS 12/27/16 Reported [place] 3 Fish Oil Softgel ([place]-3 Fatty Acids/Fish Oil) 1 Each Capsule.dr 1 Each PO DAILY 12/27/16 Reported Metformin Hcl 1,000 Mg Tablet 1,000 Mg PO DAILYWSUP 12/27/16 Reported Metformin Hcl 500 Mg Tablet 500 Mg PO DAILYWBKFT 12/27/16 Reported Hydrocodone-Apap 10-325 (Hydrocodone Bit/Acetaminophen) 1 Each Tablet 1 Tab PO PRN Q6HRS PRN 08/24/16 Rx Levemir Flextouch (Insulin Detemir) 100 Unit/1 Ml Insuln.pen 28 Unit SQ DAILY08 08/24/16 Rx Neurontin (Gabapentin) 300 Mg Capsule 900 Mg PO QHS 08/21/16 Reported Neurontin (Gabapentin) 600 Mg Tablet 600 Mg PO DAILY16 08/21/16 Reported Nitrostat (Nitroglycerin) 0.4 Mg Tab.subl 1 Tab SL UD PRN 03/30/16 Reported Flonase Allergy Relief (Fluticasone Propionate) 9.9 Ml [place].susp 2 Sprays NS DAILY 03/30/16 Reported Digoxin 125 Mcg Tablet 1 Tab PO DAILY 03/30/16 Reported Lotrisone Cream (Clotrimazole/Betamethasone Dip) 15 Gm Cream..g. 1 David TP PRN BID PRN 03/30/16 Reported Calcium Plus Menaq7 Adult Tab (Calcium Carb/Vitamin D3/Vit K2) 1 Each Tablet 1 Each PO DAILY 03/30/16 Reported Amitriptyline Hcl 50 Mg Tablet 1 Tab PO QHS 03/30/16 Reported Hydroxychloroquine Sulfate 200 Mg Tablet 1 Tab PO BID 03/30/16 Reported Alprazolam 0.25 Mg Tablet 1 Tab PO PRN TID PRN 03/30/16 Reported Prilosec (Omeprazole) 20 Mg Capsule.dr 1 Cap PO BIDAC 01/22/14 Reported Glipizide 5 Mg Tablet 5 Mg PO BID 01/22/14 Reported Neurontin (Gabapentin) 300 Mg Capsule 1 Cap PO DAILY08 01/22/14 Reported Daily Vitamin (Multivitamin) 1 Each Tablet 1 Each PO DAILY 01/22/14 Reported Potassium Chloride 10 Meq Capsule.er 1 Cap PO DAILY 01/22/14 Reported Coreg (Carvedilol) 25 Mg Tablet 1 Tab PO BID 01/22/14 Reported Aspir 81 (Aspirin) 81 Mg Tablet.dr 1 Tab PO DAILY 01/22/14 Reported Amlodipine Besylate 5 Mg Tablet 1 Tab PO DAILY 01/22/14 Reported Atorvastatin Calcium 20 Mg Tablet 20 Mg PO HS 01/22/14 Reported Furosemide 20 Mg Tablet 20 Mg PO DAILY 01/22/14 Reported Catapres (Clonidine Hcl) 0.1 Mg Tablet 0.2 Mg PO PRN TID PRN 01/22/14 Reported Cetirizine Hcl 10 Mg Tablet 1 Tab PO QHS 01/22/14 Reported Losartan Potassium 100 Mg Tablet 1 Tab PO DAILY 01/22/14 Reported Isosorbide Mononitrate Er (Isosorbide Mononitrate) 30 Mg Tab.er.24h 1 Tab PO DAILY 01/22/14 Reported Singulair Tablet (Montelukast Sodium) 10 Mg Tablet 1 Tab PO HS 01/22/14 Reported Impression . IMPRESSION: 1. Acute hypoxemic respiratory failure secondary to pneumonia, chronic obstructive pulmonary disease with acute exacerbation vs others. 2. Abnormal chest x-ray. 3. Pneumonia. 4. Wheezing, chronic obstructive pulmonary disease with acute exacerbation. 5. Obstructive sleep apnea-hypopnea syndrome. 6. Coronary artery disease. 7. Hyponatremia. 8. Leukocytosis. 9. Hypertension. 10. Diabetes mellitus. 11. Obesity. 12. Gastroesophageal reflux disease. Plan . slowly improving will continue the same d/c all caffeine continue antibs steroids nebs 02 possible outpt sleep study GILBERTO MARTÍNEZ MD Dec 29, 2016 10:19
[2016-12-29 10:42] VITALS: BP 168/80
[2016-12-29 14:12] VITALS: BP 166/76
== END 2016-12-29 15:30 | disposition home or self-care (01) | DRG 871 ==
LOC: ER 22:09 → 5 SOUTH 12-26 00:18
PROVIDERS: ADMIT Internal Medicine; ATTEND Internal Medicine
DX: A41.9 Sepsis, unspecified organism (principal); J96.01 Acute respiratory failure with hypoxia; J15.6 Pneumonia due to other Gram-negative bacteria; J44.1 Chronic obstructive pulmonary disease with (acute) exacerbation; E87.1 Hypo-osmolality and hyponatremia; I50.32 Chronic diastolic (congestive) heart failure; J44.0 Chronic obstructive pulmonary disease with (acute) lower respiratory infection; E44.0 Moderate protein-calorie malnutrition; K29.70 Gastritis, unspecified, without bleeding; D63.8 Anemia in other chronic diseases classified elsewhere; E11.42 Type 2 diabetes mellitus with diabetic polyneuropathy; E66.9 Obesity, unspecified; E78.5 Hyperlipidemia, unspecified; E83.42 Hypomagnesemia; F40.240 Claustrophobia; G47.33 Obstructive sleep apnea (adult) (pediatric); G89.29 Other chronic pain; I11.0 Hypertensive heart disease with heart failure; I25.10 Atherosclerotic heart disease of native coronary artery without angina pectoris; I27.2 Other secondary pulmonary hypertension; K21.9 Gastro-esophageal reflux disease without esophagitis; K22.2 Esophageal obstruction; K57.90 Diverticulosis of intestine, part unspecified, without perforation or abscess without bleeding; M06.9 Rheumatoid arthritis, unspecified; Z96.659 Presence of unspecified artificial knee joint; M54.5 Low back pain; R09.81 Nasal congestion; I25.5 Ischemic cardiomyopathy; Z82.49 Family history of ischemic heart disease and other diseases of the circulatory system; Z90.710 Acquired absence of both cervix and uterus; Z95.0 Presence of cardiac pacemaker; Z95.1 Presence of aortocoronary bypass graft; Z95.810 Presence of automatic (implantable) cardiac defibrillator; I25.2 Old myocardial infarction; Z68.31 Body mass index [BMI] 31.0-31.9, adult
CPT/HCPCS: 36415; 71020; 80048; 80053; 80162; 82962; 83735; 85007; 85027; 87070; 87449; 87880; 93005; 94250; 94640; 94760; 96360; J0456; J0690; J0696; J1650; J1815; J3480; J7030; J7050; J7620; J7626; 99285-25

== ENCOUNTER → 2017-08-18 | Day surgery (SDC) | payer MEDICARE ==
[~2017-08-18] MED LIST changes: -ALPR0.254 PO; -AMIT50TA PO; -AMLO5TAB2 PO; -ASPI-482 PO; -ATOR20TA58 PO; -CARV25TA PO; -CETI10TA16 PO; -CLON0.1T12 PO; -CLOT15CR3 TP; -DIGO125T PO; -FLUT9.9S NS; -FURO20TA3 PO; -GABA-586 PO; -GABA600T PO; -GLIP5TAB10 PO; -HYDR-2766 PO; -HYDR200T5 PO; -INSU100I13 SQ; -INSU100I27 SQ; -ISOS30TA4 PO; +LIDOCAINE 1% PF 2 ML VIAL. ID; +LIDOCAINE 2% 100 MG/5 ML SYRINGE.; -LOSA100T6 PO; -MECL12.52 PO; -MECL25TA3 PO; -METF500T4 PO; +MIDAZOLAM HCL/PF 2 MG/2 ML VIAL. IV; -MONT10TA6 PO; -MULT-18 PO; -NITR0.4T SL; -OMEP20CA5 PO; -POTASSIUM CHLO10 MEQ PO; -PRED-220 PO; +PROPOFOL 0 ML IV; +PROPOFOL 20 ML IV; +PROPOFOL 40 ML IV; -TIZA4TAB PO; -Vancomycin Hcl PO; -ZOLP5TAB5 PO; -[UNRECOGNIZED DRUG - CODE] PO; +fentaNYL PF VIAL 100 MCG/2 ML VIAL IV
[2017-08-18] MEDS: IV RINGERS,LACTATED 1000ML 1,000 ML IV (14:27)
== END | disposition home or self-care (01) ==
LOC: SURG 13:42
DX: K22.2 Esophageal obstruction (principal); K31.7 Polyp of stomach and duodenum; K29.50 Unspecified chronic gastritis without bleeding; D12.4 Benign neoplasm of descending colon; K57.30 Diverticulosis of large intestine without perforation or abscess without bleeding; Z87.19 Personal history of other diseases of the digestive system; I25.119 Atherosclerotic heart disease of native coronary artery with unspecified angina pectoris; D50.9 Iron deficiency anemia, unspecified; J44.9 Chronic obstructive pulmonary disease, unspecified; K21.0 Gastro-esophageal reflux disease with esophagitis; E78.5 Hyperlipidemia, unspecified; G47.33 Obstructive sleep apnea (adult) (pediatric); Z85.828 Personal history of other malignant neoplasm of skin; E11.49 Type 2 diabetes mellitus with other diabetic neurological complication; I11.0 Hypertensive heart disease with heart failure; I50.9 Heart failure, unspecified
CPT/HCPCS: 43239; 88305; J2704

== ENCOUNTER → 2017-09-06 | Outpatient (CLI) | payer MEDICARE ==
[~2017-09-06] MED LIST changes: +BARIUM SULFATE 96% 397 GM ENEMA. PR; -LIDOCAINE 1% PF 2 ML VIAL. ID; -LIDOCAINE 2% 100 MG/5 ML SYRINGE.; -MIDAZOLAM HCL/PF 2 MG/2 ML VIAL. IV; -PROPOFOL 0 ML IV; -PROPOFOL 20 ML IV; -PROPOFOL 40 ML IV; -fentaNYL PF VIAL 100 MCG/2 ML VIAL IV
== END | disposition home or self-care (01) ==
LOC: RAD 07:16
DX: D12.5 Benign neoplasm of sigmoid colon (principal)
CPT/HCPCS: 74270

== ENCOUNTER → 2017-09-21 | Outpatient (CLI) | payer MEDICARE ==
[2017-09-21] MEDS: BARIUM SULFATE 105% 1,900 ML SUSP PO (09:10)
== END | disposition home or self-care (01) ==
LOC: RAD 10:24
DX: K57.30 Diverticulosis of large intestine without perforation or abscess without bleeding (principal); K21.9 Gastro-esophageal reflux disease without esophagitis; Z86.010 Personal history of colon polyps
CPT/HCPCS: 74270

== ENCOUNTER → 2019-10-19 | Outpatient (CLI) | payer MEDICARE ==
[2019-08-10 14:43] VITALS: BP_SYST 124
[~2019-10-19] MED LIST changes: +ALPR0.254 PO; +AMIT50TA PO; +AMLO10TA8 PO; +AMLO5TAB10 PO; +AMOX1TAB61 PO; +ASCO500C9 PO; +ASPI-482 PO; +ATOR20TA58 PO; -BARIUM SULFATE 96% 397 GM ENEMA. PR; +BENZ100C PO; +BREO ELLIPTA 11 EACH IH; +CALC500T30 PO; +CARV25TA PO; +CEFP200T PO; +CETI10TA16 PO; +CLON0.1T12 PO; +CLOT15CR3 TP; +CYAN-25 PO; +DEXT30SU19 PO; +DIGO125T3 PO; +FERR-36 PO; +FLUT9.9S NS; +FURO20TA3 PO; +GABA300C18 PO; +GABA600T PO; +GLIP5TAB10 PO; +GUAI12003 PO; +HYDR-2769 PO; +HYDR200T5 PO; +INSU100I13 SQ; +INSU100I27 SQ; +IPRA3AMP29 NEB; +ISOS30TA4 PO; +LACT1CAP19 PO; +LOSA100T14 PO; +MAGN400C PO; +MECL-75 PO; +MECL12.573 PO; +METF10007 PO; +METF500T16 PO; +MONT10TA49 PO; +MULT-18 PO; +NITR0.4T24 SL; +OMEG1CAP38 PO; +OMEP20CA5 PO; +POTA10TA12 PO; +PRED-220 PO; +TAMS0.4C97 PO; +TICA90TA PO; +TIZA4TAB2 PO; +TURM500C4 PO; +Vancomycin Hcl PO; +ZOLP5TAB5 PO; +[UNRECOGNIZED DRUG - CODE] PO; +[UNRECOGNIZED DRUG - CODE] PO
[2019-10-23 11:05] VITALS: BP_DIAS 60
== END | disposition home or self-care (01) ==
LOC: LAB 10-17 11:11
PROVIDERS: ATTEND Internal Medicine Cardiovascular Disease
DX: Z45.02 Encounter for adjustment and management of automatic implantable cardiac defibrillator (principal)
CPT/HCPCS: C9803; U0003; 36415

== ENCOUNTER 2019-10-23 07:08 | Outpatient (CLI) | payer MEDICARE ==
[2019-10-23] VITALS (8 sets, daily range): BP systolic 113–142; BP diastolic 50–66
[~2019-10-23] VITALS: Ht 162.6 cm; Wt 72.6 kg
[~2019-10-23 07:08] MED LIST changes: -ASCO500C9 PO; -CALC500T30 PO; -CYAN-25 PO; -FERR-36 PO; -MAGN400C PO; -TURM500C4 PO; -[UNRECOGNIZED DRUG - CODE] PO
[2019-10-23] MEDS ORDERED: BACITRACIN 50,000 UNIT in IV NORMAL SALINE 250ML 250 ML IRR ONE (07:15)
[2019-10-23 07:24] LABS: HEMATOCRIT 26.8 % (36.0-47.0); HEMOGLOBIN 8.8 g/dL (12.0-15.5); RED BLOOD COUNT 3.77 x10^6/uL (3.50-5.40); RED CELL DISTRIBUTION WIDTH 18.3 % (11.5-14.5); WHITE BLOOD COUNT 8.2 x10^3/uL (4.0-11.0)
[2019-10-23 07:36] LABS: PROTHROMBIN TIME PATIENT 12.1 SEC (11.7-14.0)
[2019-10-23 07:38] LABS: CALCIUM 8.8 mg/dL (8.5-10.1); CREATININE 0.9 mg/dL (0.6-1.0); POTASSIUM 3.8 mmol/L (3.5-5.1)
[2019-10-23] MEDS ORDERED: TURM500C4 PO (07:58)
[2019-10-23] MEDS ORDERED: CALC500T30 PO (07:58)
[2019-10-23] MEDS ORDERED: MAGN400C PO (07:58)
[2019-10-23] MEDS ORDERED: METF500T16 PO (07:58)
[2019-10-23] MEDS ORDERED: CYAN-25 PO (07:58)
[2019-10-23] MEDS ORDERED: DIGO125T3 PO (07:58)
[2019-10-23] MEDS ORDERED: ASCO500C9 PO (07:58)
[2019-10-23] MEDS ORDERED: [UNRECOGNIZED DRUG - CODE] PO (07:58)
[2019-10-23] MEDS ORDERED: LIDOCAINE 2%/EPI 1:100,000 20 ML VIAL. ONE (08:07)
[2019-10-23] MEDS ORDERED: MIDAZOLAM HCL/PF 5 MG/5 ML VIAL. ONE (08:24)
[2019-10-23] MEDS ORDERED: fentaNYL PF VIAL 100 MCG/2 ML VIAL ONE (08:24)
[2019-10-23] MEDS ORDERED: ceFAZolin SODIUM IV Push 1 GM VIAL. IVP ONE ×2 (08:26→09:15)
[2019-10-23] MEDS ORDERED: fentaNYL PF VIAL 100 MCG/2 ML VIAL IV ONE (09:15)
[2019-10-23] MEDS ORDERED: LIDOCAINE 2%/EPI 1:100,000 20 ML VIAL. IJ ONE (09:15)
[2019-10-23] MEDS ORDERED: MIDAZOLAM HCL/PF 5 MG/5 ML VIAL. IV ONE (09:15)
[2019-10-23] MEDS ORDERED: FERR-36 PO (10:18)
--- NOTE | 2019-10-23 10:24 | CARD ---
MR#: [id number] Date of Study: 10/23/2019 Ordering Physician: JIMENEZ MILNER, Referring Physician: JIMENEZ MILNER, Tech: APPROVED REPORT HISTORY The Patient is a 74 year-old female with a history of ischemic CMP INDICATIONS Battery end of life CONSCI[employer] SEDATION AGENTS Sedation Time: 49 Minutes Dose: 0.045 Gycm2 Fluoro Time: 0.01 Minutes IMPLANTED DEVICES After appropriate informed consent the patient was brought to the catheterization laboratory. The [facility] chest was prepped and draped in usual sterile fashion. The left ICD site was infiltrated with 35 mL of 2% lidocaine. Using a 11 blade scalpel an incision was made at the site of the previous ICD. Using blunt dissection and cautery the pocket was opened. The previous ICD was explanted. The origi nal leads were untouched. A new dual-chamber Medtronic ICD was attached to the leads. Serial number is [id number]. A antibacterial envelope was also placed. The ICD was placed back in the pocket an d incision closed in 3 layers. Final right atrial and right ventricular parameters were unchanged po st procedure. RA 2.4 mV, 418 ohms, 0.6 V threshold at 0.5 ms. RV 16.1 mV, 703 ohms, 0.7 V at 0.5 ms . Mode AAI/DDD 50/130 CONCLUSION 1. Successful ICD generator change for end-of-life. Signed by : Jimenez Milner, Electronically Approved : 10/23/2019 10:23:55
--- NOTE | 2019-10-23 11:32 | NUR ---
Pt A&O x 4. denies pain or nausea. VSS. tolerating po well. ambulated to BR w/o problem. pressure roll removed from left chest dressing. dressing has small quarter size drainage on lateral side of dressing. marked side and instructed pt on things to monitor site for. d/c instructions reviewed and questions answered. pt out to vehicle per w/c- her son to drive her home. discussed holding Brillinta and calling Dr. Rankin's office next week for f/u lab. pt also to resume taking iron tablet daily.
== END 2019-10-23 11:30 | disposition home or self-care (01) ==
LOC: CCL 07:08
PROVIDERS: ATTEND Internal Medicine Cardiovascular Disease
DX: Z45.02 Encounter for adjustment and management of automatic implantable cardiac defibrillator (principal); I25.10 Atherosclerotic heart disease of native coronary artery without angina pectoris; I25.5 Ischemic cardiomyopathy; I50.22 Chronic systolic (congestive) heart failure; I10 Essential (primary) hypertension; I25.2 Old myocardial infarction; J44.9 Chronic obstructive pulmonary disease, unspecified; D64.9 Anemia, unspecified; F41.9 Anxiety disorder, unspecified; E11.9 Type 2 diabetes mellitus without complications; Z79.01 Long term (current) use of anticoagulants; Z79.84 Long term (current) use of oral hypoglycemic drugs
CPT/HCPCS: 33263; 36415; 80048; 85027; 85610; 99152; 99153; C1721; J0690; J2250; J3010; J3490; J7050; 33264; J7030

== ENCOUNTER 2019-11-23 13:35 | Inpatient (IN) | payer MEDICARE ==
[~2019-11-23] VITALS: Ht 162.6 cm; Wt 78.3 kg
[~2019-11-23 13:35] MED LIST changes: +ASCO500C9 PO; +CALC500T30 PO; +CYAN-25 PO; +FERR-36 PO; +MAGN400C PO; +TURM500C4 PO; +[UNRECOGNIZED DRUG - CODE] PO
[2019-11-23] MEDS ORDERED: cloNIDine HCL 0.1 MG TABLET PO PRN ×2 (14:30→14:45)
[2019-11-23] MEDS ORDERED: ALBUTEROL SULFATE 2.5 MG/3 ML NEBU. NEB PRN (14:30)
[2019-11-23] MEDS ORDERED: MAG HYDROX/ALUMINUM HYD/SIMETH 30 ML ORAL.SUSP PO PRN (14:30)
[2019-11-23 14:35] VITALS: BP_SYST 14; BP_SYST 154; BP_DIAS 66
--- NOTE | 2019-11-23 14:59 | PDOC1 ---
History and Physical Date of Admission Date of Admission DATE: 11/23/19 TIME: 14:45 History of Present Illness History of Present Illness This is a very pleasant 74 year old CF hx of combined CHF s/p AICD, Severe three-vessel coronary artery disease, recent cath and PCI 07/19, PAF, HLD, HTN, DM, anemia who presents with substernal chest pain for 3-4 days off and on without radiation and no relief with meds. states she has NTG at home but did not take. had battery exchanged from [facility] on 10/22 and told to stop her Brilinta 4 days before. She was confused with instructions post battery exchange and stopped taking her Brilinta all together since 10/18. she reports some sob. otherwise has no other symptoms: cough congestion, nausea vomiting diarrhea, headache. she went to PCP office today at [facility]. She reported chest and sob and instructed to come to [place] for further work up as direct admit. cath 07/19 1. Acute systolic and diastolic heart failure with an LVEDP of 35 2. Severe three-vessel coronary artery disease 3. 2 of 3 bypass grafts patent 4. Successful complex PCI of the jump portion of the saphenous vein graft from the diagonal to the obtuse marginal with a 4.5 x 18 mm drug-eluting stent 5. 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 Recommendations Aspirin 81 mg daily Ticagrelor 90 mg twice a day Past Medical History Cardiovascular: CAD, CHF, HTN, [place], Hyperlipidemia Pulmonary: COPD, Pneumonia, Other CENTRAL NERVOUS SYSTEM: Periperal neuropathy GI: Diverticulosis, Other Heme/Onc: Anemia NOS Hepatobiliary: No pertinent hx Psych: Anxiety Musculoskeletal: low back pain Rheumatologic: Rheumatoid arthritis Infectious disease: No pertinent hx Renal/: No pertinent hx Endocrine: Diabetes Past Surgical History Past Surgical History: Pacemaker, Appendectomy, CABG, Cataract Removal, Total knee replacement, Tonsillectomy, Other Family History Family History: Coronary Artery Disease Social History Smoke: No ALCOHOL: none Drugs: None Current Medications Current Medications Active Scripts Active Brilinta (Ticagrelor) 90 Mg Tablet 90 Mg PO BID 30 Days Atorvastatin Calcium 20 Mg Tablet 40 Mg PO HS 30 Days Amlodipine Besylate 10 Mg Tablet 10 Mg PO DAILY 30 Days Reported Iron (Ferrous Sulfate) 325 Mg Tablet 1 Tab PO DAILY 30 Days start taking 10-23-19. call Dr. Rankin's office for appointment to recheck lab Calcium (Calcium Carbonate) 500 Mg Tablet 1 Tab PO DAILY 30 Days Viactiv 650 mg-12.5 Mcg Chew (Calcium Carb/Vitamin D3/Vit K1) 1 Each Tab.chew 1 Each PO DAILY Vitamin B-12 (Cyanocobalamin (Vitamin B-12)) 1,000 Mcg Tablet 1 Tab PO DAILY 30 Days Magnesium (Magnesium Oxide) 400 Mg Capsule 1 Cap PO DAILY 30 Days Turmeric 500 mg Capsule (Turmeric/Turmeric Root Extract) 1 Each Capsule 1 Cap PO DAILY 30 Days Vitamin C (Ascorbic Acid) 500 Mg Capsule 1,000 Mg PO DAILY Digoxin 125 Mcg Tablet 125 Mcg PO DAILY Metformin Hcl 500 Mg Tablet 500 Mg PO BIDWMEALS 1 tab in am , 2 tabs after supper [place] 3 Fish Oil Softgel ([place]-3 Fatty Acids/Fish Oil) 1 Each Capsule.dr 1 Each PO DAILY Nitrostat (Nitroglycerin) 0.4 Mg Tab.subl 1 Tab SL UD PRN Prilosec (Omeprazole) 20 Mg Capsule.dr 1 Cap PO BIDAC Glipizide 5 Mg Tablet 5 Mg PO BID Neurontin (Gabapentin) 300 Mg Capsule 1 Cap PO TID 1 cap in am, 2 caps at 5pm, 3 caps at bedtime Daily Vitamin (Multivitamin) 1 Each Tablet 1 Each PO DAILY Coreg (Carvedilol) 25 Mg Tablet 1 Tab PO BID Aspir 81 (Aspirin) 81 Mg Tablet.dr 1 Tab PO DAILY Furosemide 20 Mg Tablet 40 Mg PO DAILY Catapres (Clonidine Hcl) 0.1 Mg Tablet 0.1 Mg PO BID PRN Cetirizine Hcl 10 Mg Tablet 1 Tab PO QHS Losartan Potassium 100 Mg Tablet 1 Tab PO DAILY Isosorbide Mononitrate Er (Isosorbide Mononitrate) 30 Mg Tab.er.24h 1 Tab PO DAILY Singulair Tablet (Montelukast Sodium) 10 Mg Tablet 1 Tab PO HS Allergies Allergies: Coded Allergies: No Known Drug Allergies (Unverified , 08/10/19) ROS Review of System CONSTITUTIONAL: No fever or chills EYES: No recent changes SKIN: No rash or itching CARDIOVASCULAR: No chest pain, syncope, palpitations, or edema RESPIRATORY: No SOB or cough GASTROINTESTINAL: No nausea, vomiting or abdominal pain NEUROLOGICAL: No headaches or weakness ENDOCRINE: No cold or heat intolerance GENITOURINARY: No urgency or frequency of urination MUSCULOSKELETAL: No back pain or joint pain LYMPHATICS: No enlarged lymph nodes PSYCHIATRIC: No anxiety or depression Physical Exam Physical Exam GENERAL: No apparent distress. Alert and oriented. HEENT: Head normocephalic, atraumatic. NECK: Supple LUNGS: Clear to auscultation. HEART: RRR, S1, S2 present, pulses intact ABDOMEN: Soft, positive bowel sounds. EXTREMITIES: No cyanosis or edema. NEUROLOGIC: Normal speech, normal tone PSYCHIATRIC: Normal affect, normal mood. SKIN: No ulceration. VTE Prophylaxis Ordered VTE Prophylaxis Devices: Yes VTE Pharmacological Prophylaxi: Yes Assessment/Plan Assessment/Plan ASSESSMENT chest in setting of known multivessel CAD currently off Brilinta CAD; s/p CABG. Cath with 2/3 bypass grafts patent. s/p complex PCI/AKOSUA chronic combined diastolic/systolic CHF -ICM: EF at 40-45%. s/p AICD. hx of Acute respiratory failure with CHF, PNA requring intubated 07/28. Hypertension HLD PAFIB; maintaining SR Anemia PLAN admit to cardiac tele bed trend troponins restart home meds including Brilinta prn ntg start home CPAP cards consult order baseline labs: BMP, CBC, troponin dvt ppx full code Justicifation of Admission Dx: Justifications for Admission: Justification of Admission Dx: Yes Angina: Symp at Rest MELODIE WILSON MD Nov 23, 2019 14:59
[2019-11-23] MEDS: GABAPENTIN 300 MG CAPSULE. PO SCH ×2 (15:00→21:30)
[2019-11-23] MEDS: IPRATRPIUM/ALBUTEROL 0.5/2.5MG 3 ML NEBU. NEB SCH ×2 (15:30→20:02)
[2019-11-23] MEDS ORDERED: DEXTROSE 50% 25 GM / 50ML DISP.SYRIN. IV PRN (15:30)
[2019-11-23] MEDS ORDERED: IPRATRPIUM/ALBUTEROL 0.5/2.5MG 3 ML NEBU. NEB SCH (16:00)
--- NOTE | 2019-11-23 16:02 | PDOC2 ---
MILES FUENTES HAND SHOE CUTTER 11/23/19 1602: CARDIAC CONSULT DATE OF CONSULT Date of Consult DATE: 11/23/19 TIME: 15:48 REASON FOR CONSULT Reason for Consult: Chest pain REFERRING PHYSICIAN Referring Physician: Wilner SOURCE Source: Chart review, Patient HISTORY OF PRESENT ILLNESS HISTORY OF PRESENT ILLNESS This is a pleasant 74 yo male admitted for complains of chest pain. This has been happening in the last 4 days. This feltlike pressing on her chest n onradiating and last about 15-20 minutes with exertion and better with rest. Has NTG but has been forgetting. She has been having indigestion in the last week. also CASTELLANO. No n/v. No recent falls or injury. She did have a sinus flare 2 weeks ago but no infection, no antibiotics given. No respiratory symptoms and no fever or chills. She had and ICD generator change due to ANA on 10/23/2019 and stopped birlinta 3 days prior but did restart thinking this is completely discontinued. She was at her PCP today and advised to come to ED. PAST MEDICAL HISTORY Past Medical History Cardiovascular: CAD, CHF, HTN, Hyperlipidemia Pulmonary: COPD, Pneumonia, Other (ROEL CPAP intolerant) CENTRAL NERVOUS SYSTEM: Carpal Tunnel Syndrome, Periperal neuropathy GI: GERD Heme/Onc: Anemia NOS Hepatobiliary: No pertinent hx Psych: Anxiety Musculoskeletal: Osteoarthritis, Other (charcot foot) Rheumatologic: Rheumatoid arthritis Infectious disease: No pertinent hx ENT: Allergic Rhinitis Renal/: No pertinent hx Endocrine: Diabetes (2) Dermatology: Other (skin CA) PAST SURGICAL HISTORY Past Surgical History Pacemaker (AICD) Medtronic recnet gen change 09/2019, Appendectomy, Arthroscopy (right foot surgery), CABG (CABG x 4 MORILLO to LAD, SVG to diagonal and marginal and SVG to PDA), Total knee replacement (left), PCI 06/2019 FAMILY HISTORY Family History: Coronary Artery Disease SOCIAL HISTORY Smoke: Quit ALCOHOL: none Drugs: None Lives: with Family CURRENT MEDICATIONS CURRENT MEDICATIONS Current Medications Medications (Trade) Dose Ordered Sig/Christian Route PRN Reason Start Time Stop Time Status Last Admin Dose Admin Albuterol/ Ipratropium (Duoneb) 3 ml QID NEB 11/23/19 15:30 UNV 11/23/19 15:30 ALLERGIES ALLERGIES: Coded Allergies: No Known Drug Allergies (Unverified , 08/10/19) ROS Review of System 14 point ROS evaluated with pertinent positives noted per HPI PHYSICAL EXAM General: Alert, Oriented X3, Cooperative, No acute distress HEENT: Atraumatic, Mucous membr. moist/pink Lungs: Clear to auscultation, Normal air movement Heart: Regular rate (SR with PVC), Other (diastolic murmur loudest to erb 3- 4/6) Abdomen: Soft, No tenderness Extremities: No cyanosis, No edema Skin: No breakdown, No significant lesion Neuro: Normal speech, Sensation intact Psych/Mental Status: Mental status NL, Mood NL MUSCULOSKELETAL: Osteoarthritic changes both hands VITALS/I&O VITALS/I&O: Vital Signs Date Time Temp Pulse Resp B/P (MAP) Pulse Ox O2 Delivery O2 Flow Rate FiO2 11/23/19 15:27 95 Room Air 11/23/19 14:35 98.0 71 18 14/66 (49) 98.0 ECHOCARDIOGRAM ECHOCARDIOGRAM <Conclusion> The left ventricular systolic function is mildly decreased. The Ejection Fraction is 40-45%. Septal motion consistent with conduction abnormality. Otherwise, mild global hypokinesis. There is a pacemaker lead in the right ventricle. Calculated aortic valve area is 1.01 cm2 with maximum pressure gradient of 22 mmHg and mean pressure gradient of 12 mmHg. Doppler and Color-flow revealed mild mitral regurgitation. DATE: 07/24/19 1033 HEART CATH HEART CATH CORONARY ANGIOGRAPHY: LM is a large caliber vessel with normal angiographic appearance. LAD is a large caliber vessel with a proximal 100% occlusion. Ramus is a small caliber diffusely diseased vessel. LCx is a small caliber probable co-dominant vessel with an anomalous origin from the RCC. This vessel is severely diseased. OM1 is a moderate caliber vessel with mild diffuse irregularities that is seen to fill after PCI. RCA is a large caliber co-dominant vessel with 100% proximal RESIDENTIAL ROOFER. The distal vessel is seen to fill via faint right to right and left to right collaterals. Bypass angiography: MORILLO to LAD is widely patent. SVG to RCA is occluded (occluded on previous cath in 2009) SVG jump graft to D1 and OM is patent from the SVG to D1 segment but the jump portion from D1 to OM1 is occluded proximally with contrast staining noted. INTERVENTIONAL TECHNIQUE: Heparin was used for anticoagulation. Through a 6 Fijian JR4 guide catheter a 0.014 inch pro-water wire was able to traverse the vein graft stenosis. Next balloon angioplasty was performed with a trek 2.0 x 12 mm balloon at nominal pressures. The lesion was then stented with a 4.5 x 18 mm resolute drug-eluting stent. Final angiography demonstrated excellent stent expansion with BONIFACIO-3 flow in the distal vein graft/OM segment. No acute guide or wire-related competitions were noted. The patient received ticagrelor at case completion and the right groin sheath was sutured to the skin to be used for arterial monitoring in the ICU. BONIFACIO Flow BONIFACIO Flow (Pre-Intervention): BONIFACIO-0 BONIFACIO Flow (Post-Intervention): BONIFACIO-3 Conclusion 1. Acute systolic and diastolic heart failure with an LVEDP of 35 2. Severe three-vessel coronary artery disease 3. 2 of 3 bypass grafts patent 4. Successful complex PCI of the jump portion of the 5. 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 Case discussed with family and patient's primary playback operator Dr. Castellanos DATE: 07/24/19 801 ASSESSMENT/PLAN ASSESSMENT/PLAN 1. Chest pain: UA features with exertional CP and CASTELLANO 2. CAD: past CABG 2/3 grafts were patent at that time of [facility]. s/p PCI/AKOSUA to SVG from the Diag to OM 07/25/2019. Chronic combined diastolic/systolic CHF 3. HTN: controlled 4. HLP 5. ICM: EF at 40-45% appears compensated 6. AICD in situ: Medtronic. recent gen change 10/23/2019 7. PAFIB; maintaining SR Recommendations 1. Continue Secondary prevention measures 2. CXR. Labs including troponin. EKG 3. Monitor overnight. Continue ASA and plavix. Lasix therapy. Stopped birlinta 10/20/2019 thought she does not have to take it anymore. Await trop level and EKG and note if brilinta bolus is warranted. JIMENEZ MILNER MD 11/23/19 4541: CARDIAC CONSULT ASSESSMENT/PLAN ASSESSMENT/PLAN Patient seen and examined. Agree with above nurse practitioner note. 74-year-old woman well-known to our service presenting with exertional angina type symptoms. Will plan for [facility] on tuesday. Thanks. Restart Ticagrelor. Thanks MILES FUENTES APRN Nov 23, 2019 16:02 JIMENEZ MILNER MD Nov 23, 2019 17:19
[2019-11-23 16:22] LABS: HEMATOCRIT 25.6 % (36.0-47.0); HEMOGLOBIN 8.3 g/dL (12.0-15.5); RED BLOOD COUNT 3.7 x10^6/uL (3.50-5.40); RED CELL DISTRIBUTION WIDTH 18.4 % (11.5-14.5)
--- NOTE | 2019-11-23 16:29 | EKG ---
[facility] [address] [place] [address] Test Date: 2019-11-23 Test Time: 16:24:03 Pat Name: SHANIQUA SHRESTHA Department: Room: 244 1 Gender: F County Supervisor: RADHA : 1945 Requested By: MILES FUENTES Order Number: [id number] Reading MD: Zay Rankin MD Measurements Intervals [place] Rate: 82 P: 53 OR: 198 QRS: 67 QRSD: 120 T: -62 QT: 376 QTc: 442 Interpretive Statements SINUS RHYTHM VENTRICULAR PREMATURE COMPLEX(ES) Electronically Signed On 12-18-2019 11:34:50 CDT by Zay Rankin MD
[2019-11-23 16:41] LABS: ALBUMIN 3.6 g/dL (3.4-5.0); CALCIUM 8.5 mg/dL (8.5-10.1); DIRECT BILIRUBIN 0.1 mg/dL (0.0-0.2); GFR 54.1; POTASSIUM 4.3 mmol/L (3.5-5.1); TOTAL BILIRUBIN 0.3 mg/dL (0.2-1.0); TOTAL PROTEIN 6.6 g/dL (6.4-8.2)
[2019-11-23] MEDS ORDERED: TICAGRELOR 90 MG TABLET. PO ONE (17:00)
[2019-11-23] MEDS: INSULIN LISPRO 300 UNITS/3 ML VIAL. SQ SCH (17:00)
[2019-11-23] MEDS ORDERED: metFORMIN 500 MG TABLET PO SCH (17:00)
[2019-11-23] MEDS: CARVEDILOL 12.5 MG TABLET. PO SCH (17:00)
[2019-11-23] MEDS: glipiZIDE 5 MG TABLET PO SCH (17:00)
[2019-11-23] MEDS ORDERED: HEPARIN for IV BOLUS 10,000 UNIT/10 ML VIAL. IV PRN (17:00)
[2019-11-23] MEDS: HEPARIN 25,000UTS/250ML PREMIX 250 ML IV PRN (17:16)
[2019-11-23 18:11] VITALS: BP 160/54
[2019-11-23] MEDS ORDERED: NITROGLYCERIN PREMIX 250 ML IV PRN (18:30)
[2019-11-23] MEDS: ACETAMINOPHEN 650 MG/20.3 ML SOLUTION. GT PRN (19:03)
--- NOTE | 2019-11-23 20:20 | NUR ---
Pt in bed assessment completed vss pt c/o pain to rt hip area, Tylenol given prior pt stated it did not help with the pain. Call placed to Dr. Russ for medication. Poc explained pt anxious will resume care and continue to monitor pt.Call light in reach.
[2019-11-23] MEDS: MONTELUKAST SODIUM 10 MG TABLET. PO SCH (21:30)
[2019-11-23] MEDS: LORazepam 0.5 MG TABLET PO PRN (21:30)
[2019-11-23] MEDS: ATORVASTATIN CALCIUM 40 MG TABLET. PO SCH (21:30)
[2019-11-23] MEDS: CETIRIZINE HCL 10 MG TABLET. PO SCH (21:30)
[2019-11-23 23:00] VITALS: BP 155/58
[2019-11-23] MEDS: oxyCODONE/APAP 5/325 1 TAB TABLET PO PRN (23:18)
[2019-11-24 03:32] VITALS: BP 127/61
[2019-11-24] MEDS: PANTOPRAZOLE 40 MG TABLET.DR. PO SCH (06:10)
[2019-11-24] MEDS: HEPARIN 25,000UTS/250ML PREMIX 250 ML IV PRN (06:12)
[2019-11-24 07:00] VITALS: BP 157/60
[2019-11-24 07:00] LABS: HEMATOCRIT 25.6 % (36.0-47.0); HEMOGLOBIN 8.3 g/dL (12.0-15.5); RED BLOOD COUNT 3.71 x10^6/uL (3.50-5.40); RED CELL DISTRIBUTION WIDTH 18.9 % (11.5-14.5); WHITE BLOOD COUNT 8.4 x10^3/uL (4.0-11.0)
[2019-11-24 07:33] LABS: CHOLESTEROL/HDL RATIO 3.4
[2019-11-24] MEDS ORDERED: ANTI-COAG MONITOR BY PHARMACY. MC PRN (07:45)
[2019-11-24] MEDS: INSULIN LISPRO 300 UNITS/3 ML VIAL. SQ SCH ×3 (08:00→17:16)
[2019-11-24] MEDS: CYANOCOBALAMIN (VITAMIN B-12) 1,000 MCG TABLET. PO SCH (08:19)
[2019-11-24] MEDS: CALCIUM CARB/VIT D3 500/200 TABLET. PO SCH (08:19)
[2019-11-24] MEDS: glipiZIDE 5 MG TABLET PO SCH ×2 (08:19→17:11)
[2019-11-24] MEDS: amLODIPine BESYLATE 10 MG TABLET PO SCH (08:19)
[2019-11-24] MEDS: MAGNESIUM OXIDE 400 MG TABLET PO SCH (08:20)
[2019-11-24] MEDS: ISOSORBIDE MONONITRATE ER 30 MG TAB.ER.24H PO SCH (08:20)
[2019-11-24] MEDS: OMEGA-3 FATTY ACIDS/FISH OIL 1,000 MG CAPSULE. PO SCH (08:20)
[2019-11-24] MEDS: CARVEDILOL 12.5 MG TABLET. PO SCH ×2 (08:20→17:11)
[2019-11-24] MEDS: MULTIVITAMIN with MINERAL TABLET. PO SCH (08:20)
[2019-11-24] MEDS: GABAPENTIN 300 MG CAPSULE. PO SCH ×3 (08:20→20:34)
[2019-11-24] MEDS: TICAGRELOR 90 MG TABLET. PO SCH ×2 (08:21→20:34)
[2019-11-24] MEDS: ASCORBIC ACID 500 MG TABLET PO SCH (08:21)
[2019-11-24] MEDS: LOSARTAN POTASSIUM 50 MG TABLET. PO SCH (08:21)
[2019-11-24] MEDS: ASPIRIN ENTERIC COATED 81 MG TABLET.DR. PO SCH (08:21)
[2019-11-24] MEDS: FERROUS SULFATE 325 MG TABLET. PO SCH (08:22)
[2019-11-24] MEDS: FUROSEMIDE 40 MG TABLET. PO SCH (08:22)
[2019-11-24] MEDS: DIGOXIN 125 MCG TABLET. PO SCH (08:22)
[2019-11-24] MEDS: IPRATRPIUM/ALBUTEROL 0.5/2.5MG 3 ML NEBU. NEB SCH ×4 (08:42→19:36)
[2019-11-24] MEDS ORDERED: CALCIUM CARBONATE 500 MG TABLET PO SCH (09:00)
[2019-11-24 11:00] VITALS: BP 158/64
[2019-11-24] MEDS: oxyCODONE/APAP 5/325 1 TAB TABLET PO PRN ×2 (12:29→21:33)
--- NOTE | 2019-11-24 13:44 | PDOC ---
PROGRESS NOTES Subjective Subjective Patient seen and examined Objective Objective Vital Signs Date Time Temp Pulse Resp B/P (MAP) Pulse Ox O2 Delivery O2 Flow Rate FiO2 11/24/19 12:29 Room Air 2.0 11/24/19 11:57 98 11/24/19 11:00 97.8 71 18 158/64 (95) 97.8 Intake and Output 11/24/19 07:00 Intake Total 1080 ml Output Total 1800 ml Balance -720 ml Intake Oral 1080 ml Output Urine Total 1800 ml # Voids 2 # Bowel Movements 4 Physical Exam Abdomen: Normal bowel sounds Heart: Regular rate General: No acute distress Lungs: Other (Mildly decreased breath sounds) Assessment Assessment 1. Chest pain: Pain has resolved. Peak troponin of 0.203. Continue present medications including heparin. Probable catheterization Tuesday. 2. CAD: past CABG 2/3 grafts were patent at that time of [facility]. s/p PCI/AKOSUA to SVG from the Diag to OM 07/25/2019. 3. Chronic combined diastolic/systolic CHF. Patient is feeling better today. BNP of 2061. Continuing medical treatment. 3. HTN: controlled 4. HLP 5. ICM: EF at 40-45% 6. AICD in situ: [employer]. recent gen change 10/23/2019 7. PAFIB; maintaining SR Comment Review of Relevant I have reviewed the following items jenifer (where applicable) has been applied. Labs Laboratory Tests Test 11/23/19 16:14 11/23/19 16:15 11/23/19 20:29 11/23/19 23:40 Glucose (Fingerstick) 172 mg/dL (70-99) 182 mg/dL (70-99) White Blood Count 8.0 x10^3/uL (4.0-11.0) Red Blood Count 3.70 x10^6/uL (3.50-5.40) Hemoglobin 8.3 g/dL (12.0-15.5) Hematocrit 25.6 % (36.0-47.0) Mean Corpuscular Volume 69 fL (79-100) Mean Corpuscular Hemoglobin 23 pg (25-35) Mean Corpuscular Hemoglobin Concent 33 g/dL (31-37) Red Cell Distribution Width 18.4 % (11.5-14.5) Platelet Count 321 x10^3/uL (140-400) Sodium Level 136 mmol/L (136-145) Potassium Level 4.3 mmol/L (3.5-5.1) Chloride Level 99 mmol/L (98-107) Carbon Dioxide Level 27 mmol/L (21-32) Anion Gap 10 (6-14) Blood Urea Nitrogen 11 mg/dL (7-20) Creatinine 1.0 mg/dL (0.6-1.0) Estimated GFR (Cockcroft-Gault) 54.1 Glucose Level 177 mg/dL (70-99) Calcium Level 8.5 mg/dL (8.5-10.1) Magnesium Level 1.9 mg/dL (1.8-2.4) Total Bilirubin 0.3 mg/dL (0.2-1.0) Direct Bilirubin 0.1 mg/dL (0.0-0.2) Aspartate Amino Transf (AST/SGOT) 17 U/L (15-37) Alanine Aminotransferase (ALT/SGPT) 25 U/L (14-59) Alkaline Phosphatase 69 U/L (46-116) Troponin I Quantitative 0.203 ng/mL (0.000-0.055) Total Protein 6.6 g/dL (6.4-8.2) Albumin 3.6 g/dL (3.4-5.0) Heparin Anti-Xa Act, Unfractionated 0.22 IU/mL (0.30-0.70) HJ-Bxg-V-Type Natriuretic Peptide 2062 pg/mL (0-449) Test 11/24/19 06:52 11/24/19 07:23 11/24/19 11:52 White Blood Count 8.4 x10^3/uL (4.0-11.0) Red Blood Count 3.71 x10^6/uL (3.50-5.40) Hemoglobin 8.3 g/dL (12.0-15.5) Hematocrit 25.6 % (36.0-47.0) Mean Corpuscular Volume 69 fL (79-100) Mean Corpuscular Hemoglobin 22 pg (25-35) Mean Corpuscular Hemoglobin Concent 32 g/dL (31-37) Red Cell Distribution Width 18.9 % (11.5-14.5) Platelet Count 295 x10^3/uL (140-400) Heparin Anti-Xa Act, Unfractionated 0.34 IU/mL (0.30-0.70) Troponin I Quantitative 0.195 ng/mL (0.000-0.055) Triglycerides Level 129 mg/dL (0-150) Cholesterol Level 103 mg/dL (0-200) LDL Cholesterol, Calculated 47 mg/dL (0-100) VLDL Cholesterol, Calculated 26 mg/dL (0-40) Non-HDL Cholesterol Calculated 73 mg/dL (0-129) HDL Cholesterol 30 mg/dL (40-60) Cholesterol/HDL Ratio 3.4 Glucose (Fingerstick) 149 mg/dL (70-99) 238 mg/dL (70-99) Laboratory Tests Test 11/23/19 16:14 11/23/19 16:15 11/23/19 20:29 11/23/19 23:40 Glucose (Fingerstick) 172 mg/dL (70-99) 182 mg/dL (70-99) White Blood Count 8.0 x10^3/uL (4.0-11.0) Red Blood Count 3.70 x10^6/uL (3.50-5.40) Hemoglobin 8.3 g/dL (12.0-15.5) Hematocrit 25.6 % (36.0-47.0) Mean Corpuscular Volume 69 fL (79-100) Mean Corpuscular Hemoglobin 23 pg (25-35) Mean Corpuscular Hemoglobin Concent 33 g/dL (31-37) Red Cell Distribution Width 18.4 % (11.5-14.5) Platelet Count 321 x10^3/uL (140-400) Sodium Level 136 mmol/L (136-145) Potassium Level 4.3 mmol/L (3.5-5.1) Chloride Level 99 mmol/L (98-107) Carbon Dioxide Level 27 mmol/L (21-32) Anion Gap 10 (6-14) Blood Urea Nitrogen 11 mg/dL (7-20) Creatinine 1.0 mg/dL (0.6-1.0) Estimated GFR (Cockcroft-Gault) 54.1 Glucose Level 177 mg/dL (70-99) Calcium Level 8.5 mg/dL (8.5-10.1) Magnesium Level 1.9 mg/dL (1.8-2.4) Total Bilirubin 0.3 mg/dL (0.2-1.0) Direct Bilirubin 0.1 mg/dL (0.0-0.2) Aspartate Amino Transf (AST/SGOT) 17 U/L (15-37) Alanine Aminotransferase (ALT/SGPT) 25 U/L (14-59) Alkaline Phosphatase 69 U/L (46-116) Troponin I Quantitative 0.203 ng/mL (0.000-0.055) Total Protein 6.6 g/dL (6.4-8.2) Albumin 3.6 g/dL (3.4-5.0) Heparin Anti-Xa Act, Unfractionated 0.22 IU/mL (0.30-0.70) TU-Mbo-X-Type Natriuretic Peptide 2062 pg/mL (0-449) Test 11/24/19 06:52 11/24/19 07:23 11/24/19 11:52 White Blood Count 8.4 x10^3/uL (4.0-11.0) Red Blood Count 3.71 x10^6/uL (3.50-5.40) Hemoglobin 8.3 g/dL (12.0-15.5) Hematocrit 25.6 % (36.0-47.0) Mean Corpuscular Volume 69 fL (79-100) Mean Corpuscular Hemoglobin 22 pg (25-35) Mean Corpuscular Hemoglobin Concent 32 g/dL (31-37) Red Cell Distribution Width 18.9 % (11.5-14.5) Platelet Count 295 x10^3/uL (140-400) Heparin Anti-Xa Act, Unfractionated 0.34 IU/mL (0.30-0.70) Troponin I Quantitative 0.195 ng/mL (0.000-0.055) Triglycerides Level 129 mg/dL (0-150) Cholesterol Level 103 mg/dL (0-200) LDL Cholesterol, Calculated 47 mg/dL (0-100) VLDL Cholesterol, Calculated 26 mg/dL (0-40) Non-HDL Cholesterol Calculated 73 mg/dL (0-129) HDL Cholesterol 30 mg/dL (40-60) Cholesterol/HDL Ratio 3.4 Glucose (Fingerstick) 149 mg/dL (70-99) 238 mg/dL (70-99) Medications Current Medications Acetaminophen (Tylenol) 650 mg PRN Q4HRS PRN GT TEMP OVER 100.4F OR MILD PAIN Last administered on 11/23/19at 19:03; Start 11/23/19 at 14:30 Al Hydroxide/Mg Hydroxide (Mylanta Plus Xs) 30 ml PRN DAILY PRN PO HEARTBURN / GAS; Start 11/23/19 at 14:30 Clonidine HCl (Catapres) 0.1 mg PRN Q6HRS PRN PO SBP>160 OR DBP>90; Start 11/23/19 at 14:30 Albuterol Sulfate (Ventolin Neb Soln) 2.5 mg PRN Q4HRS PRN NEB SHORTNESS OF BREATH; Start 11/23/19 at 14:30 Albuterol/ Ipratropium (Duoneb) 3 ml Q4HRS NEB ; Start 11/23/19 at 16:00; Stop 11/23/19 at 15:33; Status DC Amlodipine Besylate (Norvasc) 10 mg DAILY PO Last administered on 11/24/19at 08:19; Start 11/24/19 at 09:00 Aspirin (Ecotrin) 81 mg DAILY PO Last administered on 11/24/19at 08:21; Start 11/24/19 at 09:00 Atorvastatin Calcium (Lipitor) 40 mg QHS PO Last administered on 11/23/19at 21:30; Start 11/23/19 at 21:00 Calcium Carbonate/ Glycine (Oscal) 500 mg DAILY PO ; Start 11/24/19 at 09:00; Stop 11/23/19 at 14:49; Status DC Cetirizine HCl (ZyrTEC) 10 mg QHS PO Last administered on 11/23/19at 21:30; Start 11/23/19 at 21:00 Clonidine HCl (Catapres) 0.1 mg BID PRN PO HYPERTENSION; Start 11/23/19 at 14:45; Stop 11/23/19 at 14:49; Status DC Cyanocobalamin (Vitamin B-12) 1,000 mcg DAILY PO Last administered on 11/24/19at 08:19; Start 11/24/19 at 09:00 Digoxin (Lanoxin) 125 mcg DAILY PO Last administered on 11/24/19at 08:22; Start 11/24/19 at 09:00 Ferrous Sulfate (Feosol) 325 mg DAILY PO Last administered on 11/24/19at 08:22; Start 11/24/19 at 09:00 Furosemide (Lasix) 40 mg DAILY PO Last administered on 11/24/19 08:22; Start 11/24/19 at 09:00 Gabapentin (Neurontin) 300 mg TID PO Last administered on 11/24/19at 08:20; Start 11/23/19 at 15:00 Glipizide (Glucotrol) 5 mg BIDWMEALS PO Last administered on 11/24/19at 08:19; Start 11/23/19 at 17:00 Isosorbide Mononitrate (Imdur) 30 mg DAILY PO Last administered on 11/24/19 08:20; Start 11/24/19 at 09:00 Metformin HCl (Glucophage) 500 mg BIDWMEALS PO Last administered on 11/23/19at 17:00; Start 11/23/19 at 17:00; Stop 11/23/19 at 19:02; Status DC Montelukast Sodium (Singulair) 10 mg HS PO Last administered on 11/23/19at 21:30; Start 11/23/19 at 21:00 Ticagrelor (Brilinta) 90 mg BID PO Last administered on 11/24/19 08:21; Start 11/24/19 at 09:00 Ascorbic Acid (Vitamin C) 1,000 mg DAILY PO Last administered on 11/24/19at 08:21; Start 11/24/19 at 09:00 Calcium/Vitamin D (Oscal D 500mg/ 200uts) 1 tab DAILY PO Last administered on 11/24/19at 08:19; Start 11/24/19 at 09:00 Carvedilol (Coreg) 25 mg BIDWMEALS PO Last administered on 11/24/19at 08:20; Start 11/23/19 at 17:00 Losartan Potassium (Cozaar) 100 mg DAILY PO Last administered on 11/24/19at 08:21; Start 11/24/19 at 09:00 Magnesium Oxide (Magnesium Oxide) 400 mg DAILY PO Last administered on 11/24/19at 08:20; Start 11/24/19 at 09:00 Multivitamins (Thera M Plus) 1 tab DAILY PO Last administered on 11/24/19at 08:20; Start 11/24/19 at 09:00 Fish Oil (Fish Oil) 1,000 mg DAILY PO Last administered on 11/24/19at 08:20; Start 11/24/19 at 09:00 Pantoprazole Sodium (Protonix) 40 mg DAILYAC PO Last administered on 11/24/19at 06:10; Start 11/24/19 at 07:30 Insulin Human Lispro (HumaLOG) 0-7 UNITS TIDWMEALS SQ Last administered on 11/24/19at 12:34; Start 11/23/19 at 17:00 Dextrose (Dextrose 50%-Water Syringe) 12.5 gm PRN Q15MIN PRN IV SEE COMMENTS; Start 11/23/19 at 15:30 Albuterol/ Ipratropium (Duoneb) 3 ml QID NEB Last administered on 11/24/19at 11:56; Start 11/23/19 at 15:30 Heparin Sodium/ Dextrose 250 ml @ 0 mls/hr CONT PRN IV PER PROTOCOL Last administered on 11/24/19at 06:12; Start 11/23/19 at 17:00 Heparin Sodium (Porcine) (Heparin Sodium) 2,000 unit PRN Q6HRS PRN IV FOR UFH LEVEL LESS THAN 0.2 Last administered on 11/23/19at 17:12; Start 11/23/19 at 17:00 Ticagrelor (Brilinta) 180 mg 1X ONCE PO Last administered on 11/23/19at 17:01; Start 11/23/19 at 17:00; Stop 11/23/19 at 17:01; Status DC Lorazepam (Ativan) 0.5 mg PRN Q12HR PRN PO ANXIETY / AGITATION Last administered on 11/23/19at 21:30; Start 11/23/19 at 18:30 Nitroglycerin/ Dextrose 250 ml @ 1.5 mls/hr CONT PRN IV SEE I/O RECORD; Start 11/23/19 at 18:30 Oxycodone/ Acetaminophen (Percocet 5/325) 1 tab PRN Q6HRS PRN PO MODERATE- SEVERE PAIN Last administered on 11/24/19at 12:29; Start 11/23/19 at 23:00 Info (Anti-Coagulation Monitoring By Pharmacy) 1 each PRN DAILY PRN MC SEE COMMENTS; Start 11/24/19 at 07:45 Active Scripts Active Brilinta (Ticagrelor) 90 Mg Tablet 90 Mg PO BID 30 Days Atorvastatin Calcium 20 Mg Tablet 40 Mg PO HS 30 Days Amlodipine Besylate 10 Mg Tablet 10 Mg PO DAILY 30 Days Reported Iron (Ferrous Sulfate) 325 Mg Tablet 1 Tab PO DAILY 30 Days start taking 10-23-19. call Dr. Rankin's office for appointment to recheck lab Calcium (Calcium Carbonate) 500 Mg Tablet 1 Tab PO DAILY 30 Days Viactiv 650 mg-12.5 Mcg Chew (Calcium Carb/Vitamin D3/Vit K1) 1 Each Tab.chew 1 Each PO DAILY Vitamin B-12 (Cyanocobalamin (Vitamin B-12)) 1,000 Mcg Tablet 1 Tab PO DAILY 30 Days Magnesium (Magnesium Oxide) 400 Mg Capsule 1 Cap PO DAILY 30 Days Turmeric 500 mg Capsule (Turmeric/Turmeric Root Extract) 1 Each Capsule 1 Cap PO DAILY 30 Days Vitamin C (Ascorbic Acid) 500 Mg Capsule 1,000 Mg PO DAILY Digoxin 125 Mcg Tablet 125 Mcg PO DAILY Metformin Hcl 500 Mg Tablet 500 Mg PO BIDWMEALS 1 tab in am , 2 tabs after supper [place] 3 Fish Oil Softgel ([place]-3 Fatty Acids/Fish Oil) 1 Each Capsule.dr 1 Each PO DAILY Nitrostat (Nitroglycerin) 0.4 Mg Tab.subl 1 Tab SL UD PRN Prilosec (Omeprazole) 20 Mg Capsule. 1 Cap PO BIDAC Glipizide 5 Mg Tablet 5 Mg PO BID Neurontin (Gabapentin) 300 Mg Capsule 1 Cap PO TID 1 cap in am, 2 caps at 5pm, 3 caps at bedtime Daily Vitamin (Multivitamin) 1 Each Tablet 1 Each PO DAILY Coreg (Carvedilol) 25 Mg Tablet 1 Tab PO BID Aspir 81 (Aspirin) 81 Mg Tablet.dr 1 Tab PO DAILY Furosemide 20 Mg Tablet 40 Mg PO DAILY Catapres (Clonidine Hcl) 0.1 Mg Tablet 0.1 Mg PO BID PRN Cetirizine Hcl 10 Mg Tablet 1 Tab PO QHS Losartan Potassium 100 Mg Tablet 1 Tab PO DAILY Isosorbide Mononitrate Er (Isosorbide Mononitrate) 30 Mg Tab.er.24h 1 Tab PO DAILY Singulair Tablet (Montelukast Sodium) 10 Mg Tablet 1 Tab PO HS Vitals/I & O Vital Sign - Last 24 Hours 11/23/19 11/23/19 11/23/1920 14:35 15:27 17:00 18:11 Temp 98.0 98.0 Pulse 71 71 Resp 18 B/P (MAP) 154/66 (95) 148/66 160/54 (89) Pulse Ox 92 95 O2 Delivery Room Air Room Air 11/23/19 11/23/19 11/23/19 11/23/19 20:04 20:20 23:00 23:18 Temp 98.0 98.0 Pulse 74 Resp 18 18 B/P (MAP) 155/58 (90) Pulse Ox 97 96 96 O2 Delivery Room Air Room Air Room Air Nasal Cannula 11/24/19 11/24/19 11/24/19 11/24/19 00:18 03:32 07:00 08:00 Temp 97.7 97.6 97.7 97.6 Pulse 76 77 Resp 16 21 16 B/P (MAP) 127/61 (83) 157/60 (92) Pulse Ox 96 96 95 O2 Delivery Room Air Room Air Nasal Cannula Nasal Cannula O2 Flow Rate 2.0 2.0 11/24/19 11/24/19 11/24/19 11/24/19 08:19 08:20 08:20 08:21 Pulse 76 76 76 76 B/P (MAP) 127/61 127/61 127/61 127/61 11/24/19 11/24/19 11/24/19 11/24/19 08:22 08:42 11:00 11:57 Temp 97.8 97.8 Pulse 76 71 Resp 18 B/P (MAP) 127/61 158/64 (95) Pulse Ox 99 98 98 O2 Delivery Nasal Cannula Nasal Cannula Nasal Cannula O2 Flow Rate 2.0 2.0 2.0 11/24/19 12:29 O2 Delivery Room Air O2 Flow Rate 2.0 Intake and Output 11/23/19 11/23/19 11/24/19 15:00 23:00 07:00 Intake Total 600 ml 480 ml Output Total 800 ml 1000 ml Balance -200 ml -520 ml Justicifation of Admission Dx: Justifications for Admission: Justification of Admission Dx: Yes Angina: Symp at Rest JIM LUA MD Nov 24, 2019 13:44
[2019-11-24 15:00] VITALS: BP_SYST 106; BP_SYST 125; BP_DIAS 55; BP_DIAS 57
[2019-11-24 19:05] VITALS: BP 159/67
--- NOTE | 2019-11-24 19:59 | NUR ---
Pt alert and orient x4 in bed assessment completed vss poc explained pt denied pain will resume care and continue to monitor pt. Call light in reach.
[2019-11-24] MEDS: MONTELUKAST SODIUM 10 MG TABLET. PO SCH (20:34)
[2019-11-24] MEDS: CETIRIZINE HCL 10 MG TABLET. PO SCH (20:34)
[2019-11-24] MEDS: ATORVASTATIN CALCIUM 40 MG TABLET. PO SCH (20:34)
[2019-11-24] MEDS: LORazepam 0.5 MG TABLET PO PRN (21:28)
[2019-11-24 23:38] VITALS: BP 162/65
[2019-11-25] VITALS (7 sets, daily range): BP systolic 124–185; BP diastolic 46–68
[2019-11-25] MEDS: PANTOPRAZOLE 40 MG TABLET.DR. PO SCH (06:16)
[2019-11-25] MEDS: HEPARIN 25,000UTS/250ML PREMIX 250 ML IV PRN (06:19)
[2019-11-25] MEDS: CYANOCOBALAMIN (VITAMIN B-12) 1,000 MCG TABLET. PO SCH (07:58)
[2019-11-25] MEDS: GABAPENTIN 300 MG CAPSULE. PO SCH ×3 (07:58→21:09)
[2019-11-25] MEDS: ISOSORBIDE MONONITRATE ER 30 MG TAB.ER.24H PO SCH (07:58)
[2019-11-25] MEDS: ASCORBIC ACID 500 MG TABLET PO SCH (07:58)
[2019-11-25] MEDS: FUROSEMIDE 40 MG TABLET. PO SCH (07:58)
[2019-11-25] MEDS: MAGNESIUM OXIDE 400 MG TABLET PO SCH (07:58)
[2019-11-25] MEDS: CALCIUM CARB/VIT D3 500/200 TABLET. PO SCH (07:58)
[2019-11-25] MEDS: CARVEDILOL 12.5 MG TABLET. PO SCH ×2 (07:59→17:13)
[2019-11-25] MEDS: OMEGA-3 FATTY ACIDS/FISH OIL 1,000 MG CAPSULE. PO SCH (07:59)
[2019-11-25] MEDS: ASPIRIN ENTERIC COATED 81 MG TABLET.DR. PO SCH (07:59)
[2019-11-25] MEDS: glipiZIDE 5 MG TABLET PO SCH ×2 (07:59→17:12)
[2019-11-25] MEDS: amLODIPine BESYLATE 10 MG TABLET PO SCH (07:59)
[2019-11-25] MEDS: FERROUS SULFATE 325 MG TABLET. PO SCH (07:59)
[2019-11-25] MEDS: MULTIVITAMIN with MINERAL TABLET. PO SCH (07:59)
[2019-11-25] MEDS: LOSARTAN POTASSIUM 50 MG TABLET. PO SCH (07:59)
[2019-11-25] MEDS: TICAGRELOR 90 MG TABLET. PO SCH ×2 (08:00→21:09)
[2019-11-25] MEDS: DIGOXIN 125 MCG TABLET. PO SCH (08:00)
[2019-11-25] MEDS: oxyCODONE/APAP 5/325 1 TAB TABLET PO PRN ×2 (08:09→21:10)
[2019-11-25] MEDS: INSULIN LISPRO 300 UNITS/3 ML VIAL. SQ SCH ×3 (08:09→17:16)
[2019-11-25] MEDS: IPRATRPIUM/ALBUTEROL 0.5/2.5MG 3 ML NEBU. NEB SCH ×4 (09:16→20:08)
--- NOTE | 2019-11-25 13:37 | PDOC ---
PROGRESS NOTES Subjective Subjective Patient seen and examined Objective Objective Vital Signs Date Time Temp Pulse Resp B/P (MAP) Pulse Ox O2 Delivery O2 Flow Rate FiO2 11/25/19 12:02 Nasal Cannula 2.0 11/25/19 11:00 97.8 78 16 124/56 (78) 96 97.8 Intake and Output 11/25/19 07:00 Intake Total 1340 ml Output Total 2550 ml Balance -1210 ml Intake Oral 1340 ml Output Urine Total 2550 ml # Voids 6 Physical Exam Abdomen: Normal bowel sounds Heart: Regular rate General: mild distress Lungs: Other (Slightly decreased breath sounds) Assessment Assessment 1. Chest pain: Pain has resolved. Peak troponin of 0.203. Continue present medications including heparin. Probable catheterization Tuesday. Discussed with the patient. 2. CAD: past CABG 2/3 grafts were patent at that time of [facility]. s/p PCI/AKOSUA to SVG from the Diag to OM 07/25/2019. 3. Chronic combined diastolic/systolic CHF. Patient is feeling better today. BNP of 2061. Continuing medical treatment. 3. HTN: controlled 4. HLP 5. ICM: EF at 40-45% 6. AICD in situ: [employer]. recent gen change 10/23/2019 7. PAFIB; maintaining SR Comment Review of Relevant I have reviewed the following items jenifer (where applicable) has been applied. Labs Laboratory Tests Test 11/23/19 16:14 11/23/19 16:15 11/23/19 20:29 11/23/19 23:40 Glucose (Fingerstick) 172 mg/dL (70-99) 182 mg/dL (70-99) White Blood Count 8.0 x10^3/uL (4.0-11.0) Red Blood Count 3.70 x10^6/uL (3.50-5.40) Hemoglobin 8.3 g/dL (12.0-15.5) Hematocrit 25.6 % (36.0-47.0) Mean Corpuscular Volume 69 fL (79-100) Mean Corpuscular Hemoglobin 23 pg (25-35) Mean Corpuscular Hemoglobin Concent 33 g/dL (31-37) Red Cell Distribution Width 18.4 % (11.5-14.5) Platelet Count 321 x10^3/uL (140-400) Sodium Level 136 mmol/L (136-145) Potassium Level 4.3 mmol/L (3.5-5.1) Chloride Level 99 mmol/L (98-107) Carbon Dioxide Level 27 mmol/L (21-32) Anion Gap 10 (6-14) Blood Urea Nitrogen 11 mg/dL (7-20) Creatinine 1.0 mg/dL (0.6-1.0) Estimated GFR (Cockcroft-Gault) 54.1 Glucose Level 177 mg/dL (70-99) Calcium Level 8.5 mg/dL (8.5-10.1) Magnesium Level 1.9 mg/dL (1.8-2.4) Total Bilirubin 0.3 mg/dL (0.2-1.0) Direct Bilirubin 0.1 mg/dL (0.0-0.2) Aspartate Amino Transf (AST/SGOT) 17 U/L (15-37) Alanine Aminotransferase (ALT/SGPT) 25 U/L (14-59) Alkaline Phosphatase 69 U/L (46-116) Troponin I Quantitative 0.203 ng/mL (0.000-0.055) Total Protein 6.6 g/dL (6.4-8.2) Albumin 3.6 g/dL (3.4-5.0) Heparin Anti-Xa Act, Unfractionated 0.22 IU/mL (0.30-0.70) PU-Erw-V-Type Natriuretic Peptide 2062 pg/mL (0-449) Test 11/24/19 06:52 11/24/19 07:23 11/24/19 11:52 11/24/19 12:52 White Blood Count 8.4 x10^3/uL (4.0-11.0) Red Blood Count 3.71 x10^6/uL (3.50-5.40) Hemoglobin 8.3 g/dL (12.0-15.5) Hematocrit 25.6 % (36.0-47.0) Mean Corpuscular Volume 69 fL (79-100) Mean Corpuscular Hemoglobin 22 pg (25-35) Mean Corpuscular Hemoglobin Concent 32 g/dL (31-37) Red Cell Distribution Width 18.9 % (11.5-14.5) Platelet Count 295 x10^3/uL (140-400) Heparin Anti-Xa Act, Unfractionated 0.34 IU/mL (0.30-0.70) 0.33 IU/mL (0.30-0.70) Troponin I Quantitative 0.195 ng/mL (0.000-0.055) Triglycerides Level 129 mg/dL (0-150) Cholesterol Level 103 mg/dL (0-200) LDL Cholesterol, Calculated 47 mg/dL (0-100) VLDL Cholesterol, Calculated 26 mg/dL (0-40) Non-HDL Cholesterol Calculated 73 mg/dL (0-129) HDL Cholesterol 30 mg/dL (40-60) Cholesterol/HDL Ratio 3.4 Glucose (Fingerstick) 149 mg/dL (70-99) 238 mg/dL (70-99) Test 11/24/19 16:52 11/24/19 20:39 11/25/19 03:45 11/25/19 07:06 Glucose (Fingerstick) 255 mg/dL (70-99) 152 mg/dL (70-99) 152 mg/dL (70-99) Heparin Anti-Xa Act, Unfractionated 0.37 IU/mL (0.30-0.70) Test 11/25/19 11:46 Glucose (Fingerstick) 190 mg/dL (70-99) Laboratory Tests Test 11/24/19 16:52 11/24/19 20:39 11/25/19 03:45 11/25/19 07:06 Glucose (Fingerstick) 255 mg/dL (70-99) 152 mg/dL (70-99) 152 mg/dL (70-99) Heparin Anti-Xa Act, Unfractionated 0.37 IU/mL (0.30-0.70) Test 11/25/19 11:46 Glucose (Fingerstick) 190 mg/dL (70-99) Medications Current Medications Acetaminophen (Tylenol) 650 mg PRN Q4HRS PRN GT TEMP OVER 100.4F OR MILD PAIN Last administered on 11/23/19at 19:03; Start 11/23/19 at 14:30 Al Hydroxide/Mg Hydroxide (Mylanta Plus Xs) 30 ml PRN DAILY PRN PO HEARTBURN / GAS; Start 11/23/19 at 14:30 Clonidine HCl (Catapres) 0.1 mg PRN Q6HRS PRN PO SBP>160 OR DBP>90; Start 11/23/19 at 14:30 Albuterol Sulfate (Ventolin Neb Soln) 2.5 mg PRN Q4HRS PRN NEB SHORTNESS OF BREATH; Start 11/23/19 at 14:30 Albuterol/ Ipratropium (Duoneb) 3 ml Q4HRS NEB ; Start 11/23/19 at 16:00; Stop 11/23/19 at 15:33; Status DC Amlodipine Besylate (Norvasc) 10 mg DAILY PO Last administered on 11/25/19at 07:59; Start 11/24/19 at 09:00 Aspirin (Ecotrin) 81 mg DAILY PO Last administered on 11/25/19at 07:59; Start 11/24/19 at 09:00 Atorvastatin Calcium (Lipitor) 40 mg QHS PO Last administered on 11/24/19at 20:34; Start 11/23/19 at 21:00 Calcium Carbonate/ Glycine (Oscal) 500 mg DAILY PO ; Start 11/24/19 at 09:00; Stop 11/23/19 at 14:49; Status DC Cetirizine HCl (ZyrTEC) 10 mg QHS PO Last administered on 11/24/19at 20:34; Start 11/23/19 at 21:00 Clonidine HCl (Catapres) 0.1 mg BID PRN PO HYPERTENSION; Start 11/23/19 at 14:45; Stop 11/23/19 at 14:49; Status DC Cyanocobalamin (Vitamin B-12) 1,000 mcg DAILY PO Last administered on 11/25/19at 07:58; Start 11/24/19 at 09:00 Digoxin (Lanoxin) 125 mcg DAILY PO Last administered on 11/25/19at 08:00; Start 11/24/19 at 09:00 Ferrous Sulfate (Feosol) 325 mg DAILY PO Last administered on 11/25/19at 07:59; Start 11/24/19 at 09:00 Furosemide (Lasix) 40 mg DAILY PO Last administered on 11/25/19 07:58; Start 11/24/19 at 09:00 Gabapentin (Neurontin) 300 mg TID PO Last administered on 11/25/19at 07:58; Start 11/23/19 at 15:00 Glipizide (Glucotrol) 5 mg BIDWMEALS PO Last administered on 11/25/19 07:59; Start 11/23/19 at 17:00 Isosorbide Mononitrate (Imdur) 30 mg DAILY PO Last administered on 11/25/19 07:58; Start 11/24/19 at 09:00 Metformin HCl (Glucophage) 500 mg BIDWMEALS PO Last administered on 11/23/19 17:00; Start 11/23/19 at 17:00; Stop 11/23/19 at 19:02; Status DC Montelukast Sodium (Singulair) 10 mg HS PO Last administered on 11/24/19 20:34; Start 11/23/19 at 21:00 Ticagrelor (Brilinta) 90 mg BID PO Last administered on 11/25/19 08:00; Start 11/24/19 at 09:00 Ascorbic Acid (Vitamin C) 1,000 mg DAILY PO Last administered on 11/25/19 07:58; Start 11/24/19 at 09:00 Calcium/Vitamin D (Oscal D 500mg/ 200uts) 1 tab DAILY PO Last administered on 11/25/19 07:58; Start 11/24/19 at 09:00 Carvedilol (Coreg) 25 mg BIDWMEALS PO Last administered on 11/25/19 07:59; Start 11/23/19 at 17:00 Losartan Potassium (Cozaar) 100 mg DAILY PO Last administered on 11/25/19 07:59; Start 11/24/19 at 09:00 Magnesium Oxide (Magnesium Oxide) 400 mg DAILY PO Last administered on 11/25/19 07:58; Start 11/24/19 at 09:00 Multivitamins (Thera M Plus) 1 tab DAILY PO Last administered on 11/25/19 07:59; Start 11/24/19 at 09:00 Fish Oil (Fish Oil) 1,000 mg DAILY PO Last administered on 11/25/19 07:59; Start 11/24/19 at 09:00 Pantoprazole Sodium (Protonix) 40 mg DAILYAC PO Last administered on 11/25/19 06:16; Start 11/24/19 at 07:30 Insulin Human Lispro (HumaLOG) 0-7 UNITS TIDWMEALS SQ Last administered on 6/28/20at 12:03; Start 11/23/19 at 17:00 Dextrose (Dextrose 50%-Water Syringe) 12.5 gm PRN Q15MIN PRN IV SEE COMMENTS; Start 11/23/19 at 15:30 Albuterol/ Ipratropium (Duoneb) 3 ml QID NEB Last administered on 11/25/19at 12:02; Start 11/23/19 at 15:30 Heparin Sodium/ Dextrose 250 ml @ 0 mls/hr CONT PRN IV PER PROTOCOL Last administered on 11/25/19at 06:19; Start 11/23/19 at 17:00 Heparin Sodium (Porcine) (Heparin Sodium) 2,000 unit PRN Q6HRS PRN IV FOR UFH LEVEL LESS THAN 0.2 Last administered on 11/23/19at 17:12; Start 11/23/19 at 17:00 Ticagrelor (Brilinta) 180 mg 1X ONCE PO Last administered on 11/23/19at 17:01; Start 11/23/19 at 17:00; Stop 11/23/19 at 17:01; Status DC Lorazepam (Ativan) 0.5 mg PRN Q12HR PRN PO ANXIETY / AGITATION Last adm inistered on 11/24/19at 21:28; Start 11/23/19 at 18:30 Nitroglycerin/ Dextrose 250 ml @ 1.5 mls/hr CONT PRN IV SEE I/O RECORD; Start 11/23/19 at 18:30 Oxycodone/ Acetaminophen (Percocet 5/325) 1 tab PRN Q6HRS PRN PO MODERATE- SEVERE PAIN Last administered on 11/25/19at 08:09; Start 11/23/19 at 23:00 Info (Anti-Coagulation Monitoring By Pharmacy) 1 each PRN DAILY PRN MC SEE COMMENTS; Start 11/24/19 at 07:45 Active Scripts Active Brilinta (Ticagrelor) 90 Mg Tablet 90 Mg PO BID 30 Days Atorvastatin Calcium 20 Mg Tablet 40 Mg PO HS 30 Days Amlodipine Besylate 10 Mg Tablet 10 Mg PO DAILY 30 Days Reported Iron (Ferrous Sulfate) 325 Mg Tablet 1 Tab PO DAILY 30 Days start taking 10-23-19. call Dr. Rankin's office for appointment to recheck lab Calcium (Calcium Carbonate) 500 Mg Tablet 1 Tab PO DAILY 30 Days Viactiv 650 mg-12.5 Mcg Chew (Calcium Carb/Vitamin D3/Vit K1) 1 Each Tab.chew 1 Each PO DAILY Vitamin B-12 (Cyanocobalamin (Vitamin B-12)) 1,000 Mcg Tablet 1 Tab PO DAILY 30 Days Magnesium (Magnesium Oxide) 400 Mg Capsule 1 Cap PO DAILY 30 Days Turmeric 500 mg Capsule (Turmeric/Turmeric Root Extract) 1 Each Capsule 1 Cap PO DAILY 30 Days Vitamin C (Ascorbic Acid) 500 Mg Capsule 1,000 Mg PO DAILY Digoxin 125 Mcg Tablet 125 Mcg PO DAILY Metformin Hcl 500 Mg Tablet 500 Mg PO BIDWMEALS 1 tab in am , 2 tabs after supper Sullivan 3 Fish Oil Softgel (Sullivan-3 Fatty Acids/Fish Oil) 1 Each Capsule.dr 1 Each PO DAILY Nitrostat (Nitroglycerin) 0.4 Mg Tab.subl 1 Tab SL UD PRN Prilosec (Omeprazole) 20 Mg Capsule.dr 1 Cap PO BIDAC Glipizide 5 Mg Tablet 5 Mg PO BID Neurontin (Gabapentin) 300 Mg Capsule 1 Cap PO TID 1 cap in am, 2 caps at 5pm, 3 caps at bedtime Daily Vitamin (Multivitamin) 1 Each Tablet 1 Each PO DAILY Coreg (Carvedilol) 25 Mg Tablet 1 Tab PO BID Aspir 81 (Aspirin) 81 Mg Tablet.dr 1 Tab PO DAILY Furosemide 20 Mg Tablet 40 Mg PO DAILY Catapres (Clonidine Hcl) 0.1 Mg Tablet 0.1 Mg PO BID PRN Cetirizine Hcl 10 Mg Tablet 1 Tab PO QHS Losartan Potassium 100 Mg Tablet 1 Tab PO DAILY Isosorbide Mononitrate Er (Isosorbide Mononitrate) 30 Mg Tab.er.24h 1 Tab PO DAILY Singulair Tablet (Montelukast Sodium) 10 Mg Tablet 1 Tab PO HS Vitals/I & O Vital Sign - Last 24 Hours 11/24/19 11/24/19 11/24/19 11/24/19 15:00 15:50 17:11 19:05 Temp 98.0 97.8 98.0 97.8 Pulse 72 72 74 Resp 18 21 B/P (MAP) 125/57 (79) 125/57 159/67 (97) Pulse Ox 98 96 95 O2 Delivery Nasal Cannula Nasal Cannula Nasal Cannula O2 Flow Rate 3.0 2.0 2.0 6/11/24/19 11/24/19 11/24/19 19:15 19:36 21:33 22:37 Resp 18 Pulse Ox 96 96 96 O2 Delivery Nasal Cannula Nasal Cannula Room Air Nasal Cannula O2 Flow Rate 2.0 2.0 2.0 11/24/19 11/25/19 11/25/19 11/25/19 23:38 02:20 02:40 07:00 Temp 98.0 98.6 98.3 98.0 98.6 98.3 Pulse 75 76 71 76 Resp 20 18 16 B/P (MAP) 162/65 (97) 185/68 (107) 157/64 (95) 137/56 (83) Pulse Ox 98 96 97 O2 Delivery Nasal Cannula Nasal Cannula Room Air O2 Flow Rate 2.0 2.0 11/25/19 11/25/19 11/25/19 11/25/19 07:58 07:59 07:59 07:59 Pulse 76 76 76 76 B/P (MAP) 137/56 137/56 137/56 137/56 11/25/19 11/25/19 11/25/19 11/25/19 08:00 08:00 08:09 09:18 Pulse 76 B/P (MAP) 137/56 Pulse Ox 99 O2 Delivery Nasal Cannula Nasal Cannula Nasal Cannula O2 Flow Rate 2.0 2.0 2.0 11/25/19 11/25/19 11:00 12:02 Temp 97.8 97.8 Pulse 78 Resp 16 B/P (MAP) 124/56 (78) Pulse Ox 96 O2 Delivery Nasal Cannula Nasal Cannula O2 Flow Rate 2.0 2.0 Intake and Output 11/24/19 11/24/19 11/25/19 15:00 23:00 07:00 Intake Total 480 ml 660 ml 200 ml Output Total 250 ml 2300 ml Balance 230 ml 660 ml -2100 ml Justicifation of Admission Dx: Justifications for Admission: Justification of Admission Dx: Yes Angina: Symp at Rest JIM LUA MD Nov 25, 2019 13:37
[2019-11-25] MEDS: MONTELUKAST SODIUM 10 MG TABLET. PO SCH (21:00)
[2019-11-25] MEDS: CETIRIZINE HCL 10 MG TABLET. PO SCH (21:09)
[2019-11-25] MEDS: ATORVASTATIN CALCIUM 40 MG TABLET. PO SCH (21:09)
[2019-11-25] MEDS: LORazepam 0.5 MG TABLET PO PRN (21:12)
[2019-11-26] VITALS (17 sets, daily range): BP systolic 121–165; BP diastolic 50–72
[2019-11-26 05:48] LABS: HEMATOCRIT 25.6 % (36.0-47.0); HEMOGLOBIN 8.2 g/dL (12.0-15.5); RED BLOOD COUNT 3.7 x10^6/uL (3.50-5.40); RED CELL DISTRIBUTION WIDTH 18.9 % (11.5-14.5); WHITE BLOOD COUNT 8.2 x10^3/uL (4.0-11.0)
[2019-11-26 05:49] LABS: BASO # 0.1 x10^3/uL (0.0-0.2); BASO % 1 % (0-3); EOS # 0.3 x10^3/uL (0.0-0.7); EOS % 4 % (0-3); HEMATOCRIT 26.1 % (36.0-47.0); HEMOGLOBIN 8.3 g/dL (12.0-15.5); LYMPH # 2.1 x10^3/uL (1.0-4.8); LYMPH % 25 % (24-48); MEAN CORPUSCULAR HEMOGLOBIN 22 pg (25-35); MEAN CORPUSCULAR HGB CONC 32 g/dL (31-37); MEAN CORPUSCULAR VOLUME 69 fL (79-100); MONO # 0.9 x10^3/uL (0.0-1.1); MONO % 10 % (0-9); NEUT # 4.9 x10^3/uL (1.8-7.7); NEUT % 59 % (31-73); PLATELET COUNT 310 x10^3/uL (140-400); RED BLOOD COUNT 3.76 x10^6/uL (3.50-5.40); RED CELL DISTRIBUTION WIDTH 18.2 % (11.5-14.5); WHITE BLOOD COUNT 8.3 x10^3/uL (4.0-11.0)
[2019-11-26 05:55] LABS: CALCIUM 8.8 mg/dL (8.5-10.1); CREATININE 0.9 mg/dL (0.6-1.0); POTASSIUM 3.8 mmol/L (3.5-5.1)
[2019-11-26] MEDS: IPRATRPIUM/ALBUTEROL 0.5/2.5MG 3 ML NEBU. NEB SCH ×4 (06:59→21:16)
[2019-11-26] MEDS ORDERED: IV NORMAL SALINE 1000ML BAG 1,000 ML IV SCH (07:30)
[2019-11-26] MEDS ORDERED: HEPARIN for ARTERIAL LINE 1,500 ML ONE (07:34)
[2019-11-26] MEDS ORDERED: LIDOCAINE 1% Multi-Dose 20 ML VIAL. ONE (07:34)
[2019-11-26] MEDS ORDERED: IODIXANOL 320 MG/ML 100 ML VIAL. ONE (07:34)
[2019-11-26] MEDS: INSULIN LISPRO 300 UNITS/3 ML VIAL. SQ SCH ×3 (08:00→17:46)
[2019-11-26] MEDS ORDERED: fentaNYL PF VIAL 100 MCG/2 ML VIAL ONE (08:03)
[2019-11-26] MEDS ORDERED: MIDAZOLAM HCL/PF 2 MG/2 ML VIAL. ONE (08:03)
[2019-11-26] MEDS ORDERED: MIDAZOLAM HCL/PF 2 MG/2 ML VIAL. IV ONE (08:15)
[2019-11-26] MEDS ORDERED: LIDOCAINE 1% Multi-Dose 20 ML VIAL. INJ ONE (08:15)
[2019-11-26] MEDS ORDERED: fentaNYL PF VIAL 100 MCG/2 ML VIAL IV ONE (08:15)
[2019-11-26] MEDS ORDERED: IODIXANOL 320 MG/ML 100 ML VIAL. IART ONE (08:15)
[2019-11-26] MEDS: CARVEDILOL 12.5 MG TABLET. PO SCH ×2 (08:23→17:43)
[2019-11-26] MEDS: DIGOXIN 125 MCG TABLET. PO SCH (08:24)
[2019-11-26] MEDS: ASPIRIN ENTERIC COATED 81 MG TABLET.DR. PO SCH (08:25)
[2019-11-26] MEDS: LOSARTAN POTASSIUM 50 MG TABLET. PO SCH (08:26)
[2019-11-26] MEDS: amLODIPine BESYLATE 10 MG TABLET PO SCH (08:26)
[2019-11-26] MEDS: TICAGRELOR 90 MG TABLET. PO SCH ×2 (08:33→20:31)
[2019-11-26] MEDS ORDERED: CONTRAST GIVEN. MC PRN (08:45)
--- NOTE | 2019-11-26 09:46 | PDOC ---
PROGRESS NOTES History of Present Illness History of Present Illness VTE Prophylaxis Ordered VTE Prophylaxis Devices: Yes VTE Pharmacological Prophylaxi: Yes Assessment/Plan Assessment/Plan ASSESSMENT chest in setting of known multivessel CAD currently off Brilinta CAD; s/p CABG. Cath with 2/3 bypass grafts patent. s/p complex PCI/AKOSUA chronic combined diastolic/systolic CHF -ICM: EF at 40-45%. s/p AICD. hx of Acute respiratory failure with CHF, PNA requring intubated 07/28. Hypertension HLD PAFIB; maintaining SR Anemia , MICROCYTIC PLAN admit to cardiac tele bed trend troponins restart home meds including Brilinta prn ntg start home CPAP cards consult order baseline labs: BMP, CBC, troponin dvt ppx full code FE PANEL Justicifation of Admission Dx: Justicifation of Admission Dx: Justifications for Admission: Justification of Admission Dx: Yes Angina: Symp at Rest Vitals Vitals Vital Signs Date Time Temp Pulse Resp B/P (MAP) Pulse Ox O2 Delivery O2 Flow Rate FiO2 11/26/19 08:26 71 137/50 11/26/19 07:00 97.9 18 99 Nasal Cannula 2.0 97.9 Physical Exam Physical Exam HEENT: Head normocephalic, atraumatic. NECK: Supple LUNGS: Clear to auscultation. HEART: RRR, S1, S2 present, pulses intact ABDOMEN: Soft, positive bowel sounds. EXTREMITIES: No cyanosis or edema. NEUROLOGIC: Normal speech, normal tone PSYCHIATRIC: Normal affect, normal mood. SKIN: No ulceration. General: Alert, Oriented X3, Cooperative, No acute distress Heart: Regular rate Lungs: Clear Abdomen: Normal bowel sounds, No tenderness Extremities: No cyanosis, No edema Skin: No breakdown, No significant lesion Labs LABS Laboratory Tests Test 11/25/19 11:46 11/25/19 16:56 11/25/19 21:02 11/26/19 05:10 Glucose (Fingerstick) 190 mg/dL (70-99) 228 mg/dL (70-99) 213 mg/dL (70-99) White Blood Count 8.3 x10^3/uL (4.0-11.0) Red Blood Count 3.76 x10^6/uL (3.50-5.40) Hemoglobin 8.3 g/dL (12.0-15.5) Hematocrit 26.1 % (36.0-47.0) Mean Corpuscular Volume 69 fL (79-100) Mean Corpuscular Hemoglobin 22 pg (25-35) Mean Corpuscular Hemoglobin Concent 32 g/dL (31-37) Red Cell Distribution Width 18.2 % (11.5-14.5) Platelet Count 310 x10^3/uL (140-400) Neutrophils (%) (Auto) 59 % (31-73) Lymphocytes (%) (Auto) 25 % (24-48) Monocytes (%) (Auto) 10 % (0-9) Eosinophils (%) (Auto) 4 % (0-3) Basophils (%) (Auto) 1 % (0-3) Neutrophils # (Auto) 4.9 x10^3/uL (1.8-7.7) Lymphocytes # (Auto) 2.1 x10^3/uL (1.0-4.8) Monocytes # (Auto) 0.9 x10^3/uL (0.0-1.1) Eosinophils # (Auto) 0.3 x10^3/uL (0.0-0.7) Basophils # (Auto) 0.1 x10^3/uL (0.0-0.2) Heparin Anti-Xa Act, Unfractionated 0.37 IU/mL (0.30-0.70) Sodium Level 138 mmol/L (136-145) Potassium Level 3.8 mmol/L (3.5-5.1) Chloride Level 101 mmol/L (98-107) Carbon Dioxide Level 31 mmol/L (21-32) Anion Gap 6 (6-14) Blood Urea Nitrogen 12 mg/dL (7-20) Creatinine 0.9 mg/dL (0.6-1.0) Estimated GFR (Cockcroft-Gault) 61.0 Glucose Level 133 mg/dL (70-99) Calcium Level 8.8 mg/dL (8.5-10.1) Magnesium Level 2.0 mg/dL (1.8-2.4) Test 11/26/19 07:10 Glucose (Fingerstick) 130 mg/dL (70-99) Comment Review of Relevant I have reviewed the following items jenifer (where applicable) has been applied. Labs Laboratory Tests Test 11/24/19 11:52 11/24/19 12:52 11/24/19 16:52 11/24/19 20:39 Glucose (Fingerstick) 238 mg/dL (70-99) 255 mg/dL (70-99) 152 mg/dL (70-99) Heparin Anti-Xa Act, Unfractionated 0.33 IU/mL (0.30-0.70) Test 11/25/19 03:45 11/25/19 07:06 11/25/19 11:46 11/25/19 16:56 Heparin Anti-Xa Act, Unfractionated 0.37 IU/mL (0.30-0.70) Glucose (Fingerstick) 152 mg/dL (70-99) 190 mg/dL (70-99) 228 mg/dL (70-99) Test 11/25/19 21:02 11/26/19 05:10 11/26/19 07:10 Glucose (Fingerstick) 213 mg/dL (70-99) 130 mg/dL (70-99) White Blood Count 8.3 x10^3/uL (4.0-11.0) Red Blood Count 3.76 x10^6/uL (3.50-5.40) Hemoglobin 8.3 g/dL (12.0-15.5) Hematocrit 26.1 % (36.0-47.0) Mean Corpuscular Volume 69 fL (79-100) Mean Corpuscular Hemoglobin 22 pg (25-35) Mean Corpuscular Hemoglobin Concent 32 g/dL (31-37) Red Cell Distribution Width 18.2 % (11.5-14.5) Platelet Count 310 x10^3/uL (140-400) Neutrophils (%) (Auto) 59 % (31-73) Lymphocytes (%) (Auto) 25 % (24-48) Monocytes (%) (Auto) 10 % (0-9) Eosinophils (%) (Auto) 4 % (0-3) Basophils (%) (Auto) 1 % (0-3) Neutrophils # (Auto) 4.9 x10^3/uL (1.8-7.7) Lymphocytes # (Auto) 2.1 x10^3/uL (1.0-4.8) Monocytes # (Auto) 0.9 x10^3/uL (0.0-1.1) Eosinophils # (Auto) 0.3 x10^3/uL (0.0-0.7) Basophils # (Auto) 0.1 x10^3/uL (0.0-0.2) Heparin Anti-Xa Act, Unfractionated 0.37 IU/mL (0.30-0.70) Sodium Level 138 mmol/L (136-145) Potassium Level 3.8 mmol/L (3.5-5.1) Chloride Level 101 mmol/L (98-107) Carbon Dioxide Level 31 mmol/L (21-32) Anion Gap 6 (6-14) Blood Urea Nitrogen 12 mg/dL (7-20) Creatinine 0.9 mg/dL (0.6-1.0) Estimated GFR (Cockcroft-Gault) 61.0 Glucose Level 133 mg/dL (70-99) Calcium Level 8.8 mg/dL (8.5-10.1) Magnesium Level 2.0 mg/dL (1.8-2.4) Laboratory Tests Test 11/25/19 11:46 11/25/19 16:56 11/25/19 21:02 11/26/19 05:10 Glucose (Fingerstick) 190 mg/dL (70-99) 228 mg/dL (70-99) 213 mg/dL (70-99) White Blood Count 8.3 x10^3/uL (4.0-11.0) Red Blood Count 3.76 x10^6/uL (3.50-5.40) Hemoglobin 8.3 g/dL (12.0-15.5) Hematocrit 26.1 % (36.0-47.0) Mean Corpuscular Volume 69 fL (79-100) Mean Corpuscular Hemoglobin 22 pg (25-35) Mean Corpuscular Hemoglobin Concent 32 g/dL (31-37) Red Cell Distribution Width 18.2 % (11.5-14.5) Platelet Count 310 x10^3/uL (140-400) Neutrophils (%) (Auto) 59 % (31-73) Lymphocytes (%) (Auto) 25 % (24-48) Monocytes (%) (Auto) 10 % (0-9) Eosinophils (%) (Auto) 4 % (0-3) Basophils (%) (Auto) 1 % (0-3) Neutrophils # (Auto) 4.9 x10^3/uL (1.8-7.7) Lymphocytes # (Auto) 2.1 x10^3/uL (1.0-4.8) Monocytes # (Auto) 0.9 x10^3/uL (0.0-1.1) Eosinophils # (Auto) 0.3 x10^3/uL (0.0-0.7) Basophils # (Auto) 0.1 x10^3/uL (0.0-0.2) Heparin Anti-Xa Act, Unfractionated 0.37 IU/mL (0.30-0.70) Sodium Level 138 mmol/L (136-145) Potassium Level 3.8 mmol/L (3.5-5.1) Chloride Level 101 mmol/L (98-107) Carbon Dioxide Level 31 mmol/L (21-32) Anion Gap 6 (6-14) Blood Urea Nitrogen 12 mg/dL (7-20) Creatinine 0.9 mg/dL (0.6-1.0) Estimated GFR (Cockcroft-Gault) 61.0 Glucose Level 133 mg/dL (70-99) Calcium Level 8.8 mg/dL (8.5-10.1) Magnesium Level 2.0 mg/dL (1.8-2.4) Test 11/26/19 07:10 Glucose (Fingerstick) 130 mg/dL (70-99) Medications Current Medications Acetaminophen (Tylenol) 650 mg PRN Q4HRS PRN GT TEMP OVER 100.4F OR MILD PAIN Last administered on 11/23/19at 19:03; Start 11/23/19 at 14:30 Al Hydroxide/Mg Hydroxide (Mylanta Plus Xs) 30 ml PRN DAILY PRN PO HEARTBURN / GAS; Start 11/23/19 at 14:30 Clonidine HCl (Catapres) 0.1 mg PRN Q6HRS PRN PO SBP>160 OR DBP>90; Start 11/23/19 at 14:30 Albuterol Sulfate (Ventolin Neb Soln) 2.5 mg PRN Q4HRS PRN NEB SHORTNESS OF BREATH; Start 11/23/19 at 14:30 Albuterol/ Ipratropium (Duoneb) 3 ml Q4HRS NEB ; Start 11/23/19 at 16:00; Stop 11/23/19 at 15:33; Status DC Amlodipine Besylate (Norvasc) 10 mg DAILY PO Last administered on 11/26/19 08:26; Start 11/24/19 at 09:00 Aspirin (Ecotrin) 81 mg DAILY PO Last administered on 11/26/19 08:25; Start 11/24/19 at 09:00 Atorvastatin Calcium (Lipitor) 40 mg QHS PO Last administered on 11/25/19at 21:09; Start 11/23/19 at 21:00 Calcium Carbonate/ Glycine (Oscal) 500 mg DAILY PO ; Start 11/24/19 at 09:00; Stop 11/23/19 at 14:49; Status DC Cetirizine HCl (ZyrTEC) 10 mg QHS PO Last administered on 11/25/19at 21:09; Start 11/23/19 at 21:00 Clonidine HCl (Catapres) 0.1 mg BID PRN PO HYPERTENSION; Start 11/23/19 at 14:45; Stop 11/23/19 at 14:49; Status DC Cyanocobalamin (Vitamin B-12) 1,000 mcg DAILY PO Last administered on 11/25/19 07:58; Start 11/24/19 at 09:00 Digoxin (Lanoxin) 125 mcg DAILY PO Last administered on 11/26/19 08:24; Start 11/24/19 at 09:00 Ferrous Sulfate (Feosol) 325 mg DAILY PO Last administered on 11/25/19 07:59; Start 11/24/19 at 09:00 Furosemide (Lasix) 40 mg DAILY PO Last administered on 11/25/19 07:58; Start 11/24/19 at 09:00 Gabapentin (Neurontin) 300 mg TID PO Last administered on 11/25/19 21:09; Start 11/23/19 at 15:00 Glipizide (Glucotrol) 5 mg BIDWMEALS PO Last administered on 11/25/19at 17:12; Start 11/23/19 at 17:00 Isosorbide Mononitrate (Imdur) 30 mg DAILY PO Last administered on 11/25/19 07:58; Start 11/24/19 at 09:00 Metformin HCl (Glucophage) 500 mg BIDWMEALS PO Last administered on 11/23/19at 17:00; Start 11/23/19 at 17:00; Stop 11/23/19 at 19:02; Status DC Montelukast Sodium (Singulair) 10 mg HS PO Last administered on 11/24/19at 20:34; Start 11/23/19 at 21:00 Ticagrelor (Brilinta) 90 mg BID PO Last administered on 11/26/19 08:33; Start 11/24/19 at 09:00 Ascorbic Acid (Vitamin C) 1,000 mg DAILY PO Last administered on 11/25/19 07:58; Start 11/24/19 at 09:00 Calcium/Vitamin D (Oscal D 500mg/ 200uts) 1 tab DAILY PO Last administered on 11/25/19 07:58; Start 11/24/19 at 09:00 Carvedilol (Coreg) 25 mg BIDWMEALS PO Last administered on 11/26/19 08:23; Start 11/23/19 at 17:00 Losartan Potassium (Cozaar) 100 mg DAILY PO Last administered on 11/26/19 08:26; Start 11/24/19 at 09:00 Magnesium Oxide (Magnesium Oxide) 400 mg DAILY PO Last administered on 11/25/19 07:58; Start 11/24/19 at 09:00 Multivitamins (Thera M Plus) 1 tab DAILY PO Last administered on 11/25/19 07:59; Start 11/24/19 at 09:00 Fish Oil (Fish Oil) 1,000 mg DAILY PO Last administered on 11/25/19 07:59; Start 11/24/19 at 09:00 Pantoprazole Sodium (Protonix) 40 mg DAILYAC PO Last administered on 11/25/19 06:16; Start 11/24/19 at 07:30 Insulin Human Lispro (HumaLOG) 0-7 UNITS TIDWMEALS SQ Last administered on 11/25/19 17:16; Start 11/23/19 at 17:00 Dextrose (Dextrose 50%-Water Syringe) 12.5 gm PRN Q15MIN PRN IV SEE COMMENTS; Start 11/23/19 at 15:30 Albuterol/ Ipratropium (Duoneb) 3 ml QID NEB Last administered on 6/29/20at 06:59; Start 11/23/19 at 15:30 Heparin Sodium/ Dextrose 250 ml @ 0 mls/hr CONT PRN IV PER PROTOCOL Last administered on 11/25/19at 06:19; Start 11/23/19 at 17:00 Heparin Sodium (Porcine) (Heparin Sodium) 2,000 unit PRN Q6HRS PRN IV FOR UFH LEVEL LESS THAN 0.2 Last administered on 11/23/19at 17:12; Start 11/23/19 at 17:00 Ticagrelor (Brilinta) 180 mg 1X ONCE PO Last administered on 11/23/19at 17:01; Start 11/23/19 at 17:00; Stop 11/23/19 at 17:01; Status DC Lorazepam (Ativan) 0.5 mg PRN Q12HR PRN PO ANXIETY / AGITATION Last administered on 11/25/19at 21:12; Start 11/23/19 at 18:30 Nitroglycerin/ Dextrose 250 ml @ 1.5 mls/hr CONT PRN IV SEE I/O RECORD; Start 11/23/19 at 18:30 Oxycodone/ Acetaminophen (Percocet 5/325) 1 tab PRN Q6HRS PRN PO MODERATE- SEVERE PAIN Last administered on 11/25/19at 21:10; Start 11/23/19 at 23:00 Info (Anti-Coagulation Monitoring By Pharmacy) 1 each PRN DAILY PRN MC SEE COMMENTS; Start 11/24/19 at 07:45 Sodium Chloride 1,000 ml @ 60 mls/hr [id number] IV Last administered on 11/26/19at 08:25; Start 11/26/19 at 07:30 Lidocaine HCl (Lidocaine 1% 20ml Vial) 20 ml STK-MED ONCE .ROUTE ; Start 11/26/19 at 07:34; Stop 11/26/19 at 07:34; Status DC Iodixanol (Visipaque 320) 100 ml STK-MED ONCE .ROUTE ; Start 11/26/19 at 07:34; Stop 11/26/19 at 07:34; Status DC Heparin Sodium/ Sodium Chloride 1,500 ml @ As Directed STK-MED ONCE .ROUTE ; Start 11/26/19 at 07:34; Stop 11/26/19 at 07:35; Status DC Fentanyl Citrate (Fentanyl 2ml Vial) 100 mcg STK-MED ONCE .ROUTE ; Start 11/26/19 at 08:03; Stop 11/26/19 at 08:03; Status DC Midazolam HCl (Versed) 2 mg STK-MED ONCE .ROUTE ; Start 11/26/19 at 08:03; Stop 11/26/19 at 08:03; Status DC Heparin Sodium/ Sodium Chloride (HEPARIN for ARTERIAL LINE FLUSH) 1,000 unit 1X ONCE IART Last administered on 11/26/19at 08:15; Start 11/26/19 at 08:15; Stop 11/26/19 at 08:41; Status DC Heparin Sodium/ Sodium Chloride (HEPARIN for ARTERIAL LINE FLUSH) 1,000 unit 1X ONCE IART Last administered on 11/26/19at 08:15; Start 11/26/19 at 08:15; Stop 11/26/19 at 08:41; Status DC Midazolam HCl (Versed) 2 mg 1X ONCE IV ; Start 11/26/19 at 08:15; Stop 11/26/19 at 08:41; Status DC Fentanyl Citrate (Fentanyl 2ml Vial) 100 mcg 1X ONCE IV ; Start 11/26/19 at 08:15; Stop 11/26/19 at 08:41; Status DC Iodixanol (Visipaque 320) 100 ml 1X ONCE IART ; Start 11/26/19 at 08:15; Stop 11/26/19 at 08:41; Status DC Lidocaine HCl (Lidocaine 1% 20ml Vial) 20 ml 1X ONCE INJ Last administered on 11/26/19at 09:09; Start 11/26/19 at 08:15; Stop 11/26/19 at 08:41; Status DC Info (CONTRAST GIVEN -- Rx MONITORING) 1 each PRN DAILY PRN MC SEE COMMENTS; Start 11/26/19 at 08:45; Stop 11/28/19 at 08:44 Active Scripts Active Brilinta (Ticagrelor) 90 Mg Tablet 90 Mg PO BID 30 Days Atorvastatin Calcium 20 Mg Tablet 40 Mg PO HS 30 Days Amlodipine Besylate 10 Mg Tablet 10 Mg PO DAILY 30 Days Reported Iron (Ferrous Sulfate) 325 Mg Tablet 1 Tab PO DAILY 30 Days start taking 10-23-19. call Dr. Rankin's office for appointment to recheck lab Calcium (Calcium Carbonate) 500 Mg Tablet 1 Tab PO DAILY 30 Days Viactiv 650 mg-12.5 Mcg Chew (Calcium Carb/Vitamin D3/Vit K1) 1 Each Tab.chew 1 Each PO DAILY Vitamin B-12 (Cyanocobalamin (Vitamin B-12)) 1,000 Mcg Tablet 1 Tab PO DAILY 30 Days Magnesium (Magnesium Oxide) 400 Mg Capsule 1 Cap PO DAILY 30 Days Turmeric 500 mg Capsule (Turmeric/Turmeric Root Extract) 1 Each Capsule 1 Cap PO DAILY 30 Days Vitamin C (Ascorbic Acid) 500 Mg Capsule 1,000 Mg PO DAILY Digoxin 125 Mcg Tablet 125 Mcg PO DAILY Metformin Hcl 500 Mg Tablet 500 Mg PO BIDWMEALS 1 tab in am , 2 tabs after supper Wayne 3 Fish Oil Softgel (Wayne-3 Fatty Acids/Fish Oil) 1 Each Capsule.dr 1 Each PO DAILY Nitrostat (Nitroglycerin) 0.4 Mg Tab.subl 1 Tab SL UD PRN Prilosec (Omeprazole) 20 Mg Capsule.dr 1 Cap PO BIDAC Glipizide 5 Mg Tablet 5 Mg PO BID Neurontin (Gabapentin) 300 Mg Capsule 1 Cap PO TID 1 cap in am, 2 caps at 5pm, 3 caps at bedtime Daily Vitamin (Multivitamin) 1 Each Tablet 1 Each PO DAILY Coreg (Carvedilol) 25 Mg Tablet 1 Tab PO BID Aspir 81 (Aspirin) 81 Mg Tablet.dr 1 Tab PO DAILY Furosemide 20 Mg Tablet 40 Mg PO DAILY Catapres (Clonidine Hcl) 0.1 Mg Tablet 0.1 Mg PO BID PRN Cetirizine Hcl 10 Mg Tablet 1 Tab PO QHS Losartan Potassium 100 Mg Tablet 1 Tab PO DAILY Isosorbide Mononitrate Er (Isosorbide Mononitrate) 30 Mg Tab.er.24h 1 Tab PO DAILY Singulair Tablet (Montelukast Sodium) 10 Mg Tablet 1 Tab PO HS Vitals/I & O Vital Sign - Last 24 Hours 11/25/19 11/25/19 11/25/19 11/25/19 11:00 12:02 15:00 16:18 Temp 97.8 97.4 97.8 97.4 Pulse 78 71 Resp 16 17 B/P (MAP) 124/56 (78) 144/53 (83) Pulse Ox 96 99 O2 Delivery Nasal Cannula Nasal Cannula Nasal Cannula Nasal Cannula O2 Flow Rate 2.0 2.0 2.0 2.0 6/2811/25/19 11/25/19 11/25/19 17:13 19:25 20:00 20:10 Temp 98.5 98.5 Pulse 71 76 Resp 20 B/P (MAP) 144/53 133/46 (75) Pulse Ox 95 96 O2 Delivery Nasal Cannula Nasal Cannula Nasal Cannula O2 Flow Rate 2.0 2.0 11/25/19 11/25/19 11/25/19 11/26/19 21:10 22:20 23:15 03:30 Temp 98.4 98.3 98.4 98.3 Pulse 78 80 Resp 18 18 B/P (MAP) 138/67 (90) 140/62 (88) Pulse Ox 97 98 O2 Delivery Nasal Cannula Nasal Cannula Nasal Cannula Room Air O2 Flow Rate 2.0 2.0 11/26/19 11/26/19 11/26/19 11/26/19 07:00 07:00 08:23 08:24 Temp 97.9 97.9 Pulse 71 71 71 Resp 18 B/P (MAP) 137/50 (79) 137/50 137/50 Pulse Ox 99 99 O2 Delivery Nasal Cannula Nasal Cannula O2 Flow Rate 2.0 2.0 11/26/19 11/26/19 08:26 08:26 Pulse 71 71 B/P (MAP) 137/50 137/50 Intake and Output 11/25/19 11/25/19 11/26/19 15:00 23:00 07:00 Intake Total 360 ml 627 ml 600 ml Output Total 550 ml 350 ml 200 ml Balance -190 ml 277 ml 400 ml UMA WILKERSON MD Nov 26, 2019 09:46
[2019-11-26] MEDS: MULTIVITAMIN with MINERAL TABLET. PO SCH (11:22)
[2019-11-26] MEDS: ASCORBIC ACID 500 MG TABLET PO SCH (11:22)
[2019-11-26] MEDS: OMEGA-3 FATTY ACIDS/FISH OIL 1,000 MG CAPSULE. PO SCH (11:22)
[2019-11-26] MEDS: MAGNESIUM OXIDE 400 MG TABLET PO SCH (11:23)
[2019-11-26] MEDS: FERROUS SULFATE 325 MG TABLET. PO SCH (11:23)
[2019-11-26] MEDS: CYANOCOBALAMIN (VITAMIN B-12) 1,000 MCG TABLET. PO SCH (11:23)
[2019-11-26] MEDS: PANTOPRAZOLE 40 MG TABLET.DR. PO SCH (11:23)
[2019-11-26] MEDS: glipiZIDE 5 MG TABLET PO SCH ×2 (11:23→17:43)
[2019-11-26] MEDS: CALCIUM CARB/VIT D3 500/200 TABLET. PO SCH (11:23)
[2019-11-26] MEDS: ISOSORBIDE MONONITRATE ER 30 MG TAB.ER.24H PO SCH (11:23)
[2019-11-26] MEDS: GABAPENTIN 300 MG CAPSULE. PO SCH ×3 (11:23→20:31)
[2019-11-26] MEDS: ACETAMINOPHEN 650 MG/20.3 ML SOLUTION. GT PRN (11:24)
--- NOTE | 2019-11-26 12:45 | PDOC ---
PROGRESS NOTES Chief Complaint Chief Complaint late entry for 11/24/2019 chest in setting of known multivessel CAD currently off Brilinta CAD; s/p CABG. Cath with 2/3 bypass grafts patent. s/p complex PCI/AKOSUA chronic combined diastolic/systolic CHF -ICM: EF at 40-45%. s/p AICD. hx of Acute respiratory failure with CHF, PNA requring intubated 07/28. Hypertension HLD PAFIB; maintaining SR Anemia PLAN cardiac tele bed cardiac cath on tuesday restart home meds prn ntg start home CPAP cards consult order baseline labs: BMP, CBC, troponin dvt ppx full code History of Present Illness History of Present Illness Patient with no acute events reported overnight, denies chest pain, paln of care discussed in detail Vitals Vitals Vital Signs Date Time Temp Pulse Resp B/P (MAP) Pulse Ox O2 Delivery O2 Flow Rate FiO2 11/26/19 11:23 65 146/63 11/26/19 11:00 97.7 18 94 Nasal Cannula 2.0 97.7 Physical Exam Physical Exam HEENT: Head normocephalic, atraumatic. NECK: Supple LUNGS: Clear to auscultation. HEART: RRR, S1, S2 present, pulses intact ABDOMEN: Soft, positive bowel sounds. EXTREMITIES: No cyanosis or edema. NEUROLOGIC: Normal speech, normal tone PSYCHIATRIC: Normal affect, normal mood. SKIN: No ulceration. General: Alert, Oriented X3, Cooperative, No acute distress Heart: Regular rate Lungs: Clear Abdomen: Normal bowel sounds Extremities: No cyanosis, No edema Skin: No breakdown, No significant lesion Labs LABS Laboratory Tests Test 11/25/19 16:56 11/25/19 21:02 11/26/19 05:10 11/26/19 07:10 Glucose (Fingerstick) 228 mg/dL (70-99) 213 mg/dL (70-99) 130 mg/dL (70-99) White Blood Count 8.3 x10^3/uL (4.0-11.0) Red Blood Count 3.76 x10^6/uL (3.50-5.40) Hemoglobin 8.3 g/dL (12.0-15.5) Hematocrit 26.1 % (36.0-47.0) Mean Corpuscular Volume 69 fL (79-100) Mean Corpuscular Hemoglobin 22 pg (25-35) Mean Corpuscular Hemoglobin Concent 32 g/dL (31-37) Red Cell Distribution Width 18.2 % (11.5-14.5) Platelet Count 310 x10^3/uL (140-400) Neutrophils (%) (Auto) 59 % (31-73) Lymphocytes (%) (Auto) 25 % (24-48) Monocytes (%) (Auto) 10 % (0-9) Eosinophils (%) (Auto) 4 % (0-3) Basophils (%) (Auto) 1 % (0-3) Neutrophils # (Auto) 4.9 x10^3/uL (1.8-7.7) Lymphocytes # (Auto) 2.1 x10^3/uL (1.0-4.8) Monocytes # (Auto) 0.9 x10^3/uL (0.0-1.1) Eosinophils # (Auto) 0.3 x10^3/uL (0.0-0.7) Basophils # (Auto) 0.1 x10^3/uL (0.0-0.2) Heparin Anti-Xa Act, Unfractionated 0.37 IU/mL (0.30-0.70) Sodium Level 138 mmol/L (136-145) Potassium Level 3.8 mmol/L (3.5-5.1) Chloride Level 101 mmol/L (98-107) Carbon Dioxide Level 31 mmol/L (21-32) Anion Gap 6 (6-14) Blood Urea Nitrogen 12 mg/dL (7-20) Creatinine 0.9 mg/dL (0.6-1.0) Estimated GFR (Cockcroft-Gault) 61.0 Glucose Level 133 mg/dL (70-99) Calcium Level 8.8 mg/dL (8.5-10.1) Magnesium Level 2.0 mg/dL (1.8-2.4) Test 11/26/19 09:39 11/26/19 11:30 Activated Clotting Time 107 sec (92-181) Glucose (Fingerstick) 188 mg/dL (70-99) Review of Systems Review of Systems pertineent as per hpi otherwise negative 10 point ROS Comment Review of Relevant I have reviewed the following items jenifer (where applicable) has been applied. Labs Laboratory Tests Test 11/24/19 12:52 11/24/19 16:52 11/24/19 20:39 11/25/19 03:45 Heparin Anti-Xa Act, Unfractionated 0.33 IU/mL (0.30-0.70) 0.37 IU/mL (0.30-0.70) Glucose (Fingerstick) 255 mg/dL (70-99) 152 mg/dL (70-99) Test 11/25/19 07:06 11/25/19 11:46 11/25/19 16:56 11/25/19 21:02 Glucose (Fingerstick) 152 mg/dL (70-99) 190 mg/dL (70-99) 228 mg/dL (70-99) 213 mg/dL (70-99) Test 11/26/19 05:10 11/26/19 07:10 11/26/19 09:39 11/26/19 11:30 White Blood Count 8.3 x10^3/uL (4.0-11.0) Red Blood Count 3.76 x10^6/uL (3.50-5.40) Hemoglobin 8.3 g/dL (12.0-15.5) Hematocrit 26.1 % (36.0-47.0) Mean Corpuscular Volume 69 fL (79-100) Mean Corpuscular Hemoglobin 22 pg (25-35) Mean Corpuscular Hemoglobin Concent 32 g/dL (31-37) Red Cell Distribution Width 18.2 % (11.5-14.5) Platelet Count 310 x10^3/uL (140-400) Neutrophils (%) (Auto) 59 % (31-73) Lymphocytes (%) (Auto) 25 % (24-48) Monocytes (%) (Auto) 10 % (0-9) Eosinophils (%) (Auto) 4 % (0-3) Basophils (%) (Auto) 1 % (0-3) Neutrophils # (Auto) 4.9 x10^3/uL (1.8-7.7) Lymphocytes # (Auto) 2.1 x10^3/uL (1.0-4.8) Monocytes # (Auto) 0.9 x10^3/uL (0.0-1.1) Eosinophils # (Auto) 0.3 x10^3/uL (0.0-0.7) Basophils # (Auto) 0.1 x10^3/uL (0.0-0.2) Heparin Anti-Xa Act, Unfractionated 0.37 IU/mL (0.30-0.70) Sodium Level 138 mmol/L (136-145) Potassium Level 3.8 mmol/L (3.5-5.1) Chloride Level 101 mmol/L (98-107) Carbon Dioxide Level 31 mmol/L (21-32) Anion Gap 6 (6-14) Blood Urea Nitrogen 12 mg/dL (7-20) Creatinine 0.9 mg/dL (0.6-1.0) Estimated GFR (Cockcroft-Gault) 61.0 Glucose Level 133 mg/dL (70-99) Calcium Level 8.8 mg/dL (8.5-10.1) Magnesium Level 2.0 mg/dL (1.8-2.4) Glucose (Fingerstick) 130 mg/dL (70-99) 188 mg/dL (70-99) Activated Clotting Time 107 sec (92-181) Laboratory Tests Test 11/25/19 16:56 11/25/19 21:02 11/26/19 05:10 11/26/19 07:10 Glucose (Fingerstick) 228 mg/dL (70-99) 213 mg/dL (70-99) 130 mg/dL (70-99) White Blood Count 8.3 x10^3/uL (4.0-11.0) Red Blood Count 3.76 x10^6/uL (3.50-5.40) Hemoglobin 8.3 g/dL (12.0-15.5) Hematocrit 26.1 % (36.0-47.0) Mean Corpuscular Volume 69 fL (79-100) Mean Corpuscular Hemoglobin 22 pg (25-35) Mean Corpuscular Hemoglobin Concent 32 g/dL (31-37) Red Cell Distribution Width 18.2 % (11.5-14.5) Platelet Count 310 x10^3/uL (140-400) Neutrophils (%) (Auto) 59 % (31-73) Lymphocytes (%) (Auto) 25 % (24-48) Monocytes (%) (Auto) 10 % (0-9) Eosinophils (%) (Auto) 4 % (0-3) Basophils (%) (Auto) 1 % (0-3) Neutrophils # (Auto) 4.9 x10^3/uL (1.8-7.7) Lymphocytes # (Auto) 2.1 x10^3/uL (1.0-4.8) Monocytes # (Auto) 0.9 x10^3/uL (0.0-1.1) Eosinophils # (Auto) 0.3 x10^3/uL (0.0-0.7) Basophils # (Auto) 0.1 x10^3/uL (0.0-0.2) Heparin Anti-Xa Act, Unfractionated 0.37 IU/mL (0.30-0.70) Sodium Level 138 mmol/L (136-145) Potassium Level 3.8 mmol/L (3.5-5.1) Chloride Level 101 mmol/L (98-107) Carbon Dioxide Level 31 mmol/L (21-32) Anion Gap 6 (6-14) Blood Urea Nitrogen 12 mg/dL (7-20) Creatinine 0.9 mg/dL (0.6-1.0) Estimated GFR (Cockcroft-Gault) 61.0 Glucose Level 133 mg/dL (70-99) Calcium Level 8.8 mg/dL (8.5-10.1) Magnesium Level 2.0 mg/dL (1.8-2.4) Test 11/26/19 09:39 11/26/19 11:30 Activated Clotting Time 107 sec (92-181) Glucose (Fingerstick) 188 mg/dL (70-99) Medications Current Medications Acetaminophen (Tylenol) 650 mg PRN Q4HRS PRN GT TEMP OVER 100.4F OR MILD PAIN Last administered on 11/26/19at 11:24; Start 11/23/19 at 14:30 Al Hydroxide/Mg Hydroxide (Mylanta Plus Xs) 30 ml PRN DAILY PRN PO HEARTBURN / GAS; Start 11/23/19 at 14:30 Clonidine HCl (Catapres) 0.1 mg PRN Q6HRS PRN PO SBP>160 OR DBP>90; Start 11/23/19 at 14:30 Albuterol Sulfate (Ventolin Neb Soln) 2.5 mg PRN Q4HRS PRN NEB SHORTNESS OF BREATH; Start 11/23/19 at 14:30 Albuterol/ Ipratropium (Duoneb) 3 ml Q4HRS NEB ; Start 11/23/19 at 16:00; Stop 11/23/19 at 15:33; Status DC Amlodipine Besylate (Norvasc) 10 mg DAILY PO Last administered on 11/26/19 08:26; Start 11/24/19 at 09:00 Aspirin (Ecotrin) 81 mg DAILY PO Last administered on 11/26/19 08:25; Start 11/24/19 at 09:00 Atorvastatin Calcium (Lipitor) 40 mg QHS PO Last administered on 11/25/19 21:09; Start 11/23/19 at 21:00 Calcium Carbonate/ Glycine (Oscal) 500 mg DAILY PO ; Start 11/24/19 at 09:00; Stop 11/23/19 at 14:49; Status DC Cetirizine HCl (ZyrTEC) 10 mg QHS PO Last administered on 11/25/19at 21:09; Start 11/23/19 at 21:00 Clonidine HCl (Catapres) 0.1 mg BID PRN PO HYPERTENSION; Start 11/23/19 at 14:45; Stop 11/23/19 at 14:49; Status DC Cyanocobalamin (Vitamin B-12) 1,000 mcg DAILY PO Last administered on 11/26/19 11:23; Start 11/24/19 at 09:00 Digoxin (Lanoxin) 125 mcg DAILY PO Last administered on 11/26/19 08:24; Start 11/24/19 at 09:00 Ferrous Sulfate (Feosol) 325 mg DAILY PO Last administered on 11/26/19 11:23; Start 11/24/19 at 09:00 Furosemide (Lasix) 40 mg DAILY PO Last administered on 11/25/19at 07:58; Start 11/24/19 at 09:00 Gabapentin (Neurontin) 300 mg TID PO Last administered on 11/26/19 11:23; Start 11/23/19 at 15:00 Glipizide (Glucotrol) 5 mg BIDWMEALS PO Last administered on 11/26/19 11:23; Start 11/23/19 at 17:00 Isosorbide Mononitrate (Imdur) 30 mg DAILY PO Last administered on 11/26/19 11:23; Start 11/24/19 at 09:00 Metformin HCl (Glucophage) 500 mg BIDWMEALS PO Last administered on 11/23/19 17:00; Start 11/23/19 at 17:00; Stop 11/23/19 at 19:02; Status DC Montelukast Sodium (Singulair) 10 mg HS PO Last administered on 11/24/19at 20:34; Start 11/23/19 at 21:00 Ticagrelor (Brilinta) 90 mg BID PO Last administered on 11/26/19 08:33; Start 11/24/19 at 09:00 Ascorbic Acid (Vitamin C) 1,000 mg DAILY PO Last administered on 11/26/19 11:22; Start 11/24/19 at 09:00 Calcium/Vitamin D (Oscal D 500mg/ 200uts) 1 tab DAILY PO Last administered on 11/26/19 11:23; Start 11/24/19 at 09:00 Carvedilol (Coreg) 25 mg BIDWMEALS PO Last administered on 11/26/19 08:23; Start 11/23/19 at 17:00 Losartan Potassium (Cozaar) 100 mg DAILY PO Last administered on 11/26/19 08:26; Start 11/24/19 at 09:00 Magnesium Oxide (Magnesium Oxide) 400 mg DAILY PO Last administered on 11/26/19 11:23; Start 11/24/19 at 09:00 Multivitamins (Thera M Plus) 1 tab DAILY PO Last administered on 11/26/19 11: 22; Start 11/24/19 at 09:00 Fish Oil (Fish Oil) 1,000 mg DAILY PO Last administered on 11/26/19 11:22; Start 11/24/19 at 09:00 Pantoprazole Sodium (Protonix) 40 mg DAILYAC PO Last administered on 11/26/19 11:23; Start 11/24/19 at 07:30 Insulin Human Lispro (HumaLOG) 0-7 UNITS TIDWMEALS SQ Last administered on 11/25/19 17:16; Start 11/23/19 at 17:00 Dextrose (Dextrose 50%-Water Syringe) 12.5 gm PRN Q15MIN PRN IV SEE COMMENTS; Start 11/23/19 at 15:30 Albuterol/ Ipratropium (Duoneb) 3 ml QID NEB Last administered on 11/26/19at 10:32; Start 11/23/19 at 15:30 Heparin Sodium/ Dextrose 250 ml @ 0 mls/hr CONT PRN IV PER PROTOCOL Last administered on 11/25/19at 06:19; Start 11/23/19 at 17:00 Heparin Sodium (Porcine) (Heparin Sodium) 2,000 unit PRN Q6HRS PRN IV FOR UFH LEVEL LESS THAN 0.2 Last administered on 11/23/19at 17:12; Start 11/23/19 at 17:00 Ticagrelor (Brilinta) 180 mg 1X ONCE PO Last administered on 11/23/19at 17:01; Start 11/23/19 at 17:00; Stop 11/23/19 at 17:01; Status DC Lorazepam (Ativan) 0.5 mg PRN Q12HR PRN PO ANXIETY / AGITATION Last administered on 11/25/19at 21:12; Start 11/23/19 at 18:30 Nitroglycerin/ Dextrose 250 ml @ 1.5 mls/hr CONT PRN IV SEE I/O RECORD; Start 11/23/19 at 18:30 Oxycodone/ Acetaminophen (Percocet 5/325) 1 tab PRN Q6HRS PRN PO MODERATE- SEVERE PAIN Last administered on 11/25/19at 21:10; Start 11/23/19 at 23:00 Info (Anti-Coagulation Monitoring By Pharmacy) 1 each PRN DAILY PRN MC SEE COMMENTS; Start 11/24/19 at 07:45 Sodium Chloride 1,000 ml @ 60 mls/hr [id number] IV Last administered on 11/26/19at 08:25; Start 11/26/19 at 07:30 Lidocaine HCl (Lidocaine 1% 20ml Vial) 20 ml STK-MED ONCE .ROUTE ; Start 11/26/19 at 07:34; Stop 11/26/19 at 07:34; Status DC Iodixanol (Visipaque 320) 100 ml STK-MED ONCE .ROUTE ; Start 11/26/19 at 07:34; Stop 11/26/19 at 07:34; Status DC Heparin Sodium/ Sodium Chloride 1,500 ml @ As Directed STK-MED ONCE .ROUTE ; Start 11/26/19 at 07:34; Stop 11/26/19 at 07:35; Status DC Fentanyl Citrate (Fentanyl 2ml Vial) 100 mcg STK-MED ONCE .ROUTE ; Start 11/26/19 at 08:03; Stop 11/26/19 at 08:03; Status DC Midazolam HCl (Versed) 2 mg STK-MED ONCE .ROUTE ; Start 11/26/19 at 08:03; Stop 11/26/19 at 08:03; Status DC Heparin Sodium/ Sodium Chloride (HEPARIN for ARTERIAL LINE FLUSH) 1,000 unit 1X ONCE IART Last administered on 11/26/19at 08:15; Start 11/26/19 at 08:15; Stop 11/26/19 at 08:41; Status DC Heparin Sodium/ Sodium Chloride (HEPARIN for ARTERIAL LINE FLUSH) 1,000 unit 1X ONCE IART Last administered on 11/26/19at 08:15; Start 11/26/19 at 08:15; Stop 11/26/19 at 08:41; Status DC Midazolam HCl (Versed) 2 mg 1X ONCE IV Last administered on 11/26/19at 09:05; Start 11/26/19 at 08:15; Stop 11/26/19 at 08:41; Status DC Fentanyl Citrate (Fentanyl 2ml Vial) 100 mcg 1X ONCE IV Last administered on 11/26/19at 09:05; Start 11/26/19 at 08:15; Stop 11/26/19 at 08:41; Status DC Iodixanol (Visipaque 320) 100 ml 1X ONCE IART Last administered on 11/26/19at 09:45; Start 11/26/19 at 08:15; Stop 11/26/19 at 08:41; Status DC Lidocaine HCl (Lidocaine 1% 20ml Vial) 20 ml 1X ONCE INJ Last administered on 11/26/19at 09:09; Start 11/26/19 at 08:15; Stop 11/26/19 at 08:41; Status DC Info (CONTRAST GIVEN -- Rx MONITORING) 1 each PRN DAILY PRN MC SEE COMMENTS; Start 11/26/19 at 08:45; Stop 11/28/19 at 08:44 Active Scripts Active Brilinta (Ticagrelor) 90 Mg Tablet 90 Mg PO BID 30 Days Atorvastatin Calcium 20 Mg Tablet 40 Mg PO HS 30 Days Amlodipine Besylate 10 Mg Tablet 10 Mg PO DAILY 30 Days Reported Iron (Ferrous Sulfate) 325 Mg Tablet 1 Tab PO DAILY 30 Days start taking 10-23-19. call Dr. Rankin's office for appointment to recheck lab Calcium (Calcium Carbonate) 500 Mg Tablet 1 Tab PO DAILY 30 Days Viactiv 650 mg-12.5 Mcg Chew (Calcium Carb/Vitamin D3/Vit K1) 1 Each Tab.chew 1 Each PO DAILY Vitamin B-12 (Cyanocobalamin (Vitamin B-12)) 1,000 Mcg Tablet 1 Tab PO DAILY 30 Days Magnesium (Magnesium Oxide) 400 Mg Capsule 1 Cap PO DAILY 30 Days Turmeric 500 mg Capsule (Turmeric/Turmeric Root Extract) 1 Each Capsule 1 Cap PO DAILY 30 Days Vitamin C (Ascorbic Acid) 500 Mg Capsule 1,000 Mg PO DAILY Digoxin 125 Mcg Tablet 125 Mcg PO DAILY Metformin Hcl 500 Mg Tablet 500 Mg PO BIDWMEALS 1 tab in am , 2 tabs after supper Hico 3 Fish Oil Softgel (Hico-3 Fatty Acids/Fish Oil) 1 Each Capsule.dr 1 Each PO DAILY Nitrostat (Nitroglycerin) 0.4 Mg Tab.subl 1 Tab SL UD PRN Prilosec (Omeprazole) 20 Mg Capsule.dr 1 Cap PO BIDAC Glipizide 5 Mg Tablet 5 Mg PO BID Neurontin (Gabapentin) 300 Mg Capsule 1 Cap PO TID 1 cap in am, 2 caps at 5pm, 3 caps at bedtime Daily Vitamin (Multivitamin) 1 Each Tablet 1 Each PO DAILY Coreg (Carvedilol) 25 Mg Tablet 1 Tab PO BID Aspir 81 (Aspirin) 81 Mg Tablet. 1 Tab PO DAILY Furosemide 20 Mg Tablet 40 Mg PO DAILY Catapres (Clonidine Hcl) 0.1 Mg Tablet 0.1 Mg PO BID PRN Cetirizine Hcl 10 Mg Tablet 1 Tab PO QHS Losartan Potassium 100 Mg Tablet 1 Tab PO DAILY Isosorbide Mononitrate Er (Isosorbide Mononitrate) 30 Mg Tab.er.24h 1 Tab PO DAILY Singulair Tablet (Montelukast Sodium) 10 Mg Tablet 1 Tab PO HS Vitals/I & O Vital Sign - Last 24 Hours 11/25/19 11/25/19 11/25/19 11/25/19 15:00 16:18 17:13 19:25 Temp 97.4 98.5 97.4 98.5 Pulse 71 71 76 Resp 17 20 B/P (MAP) 144/53 (83) 144/53 133/46 (75) Pulse Ox 99 95 O2 Delivery Nasal Cannula Nasal Cannula Nasal Cannula O2 Flow Rate 2.0 2.0 2.0 11/25/19 11/25/19 11/25/19 11/25/19 20:00 20:10 21:10 22:20 Pulse Ox 96 O2 Delivery Nasal Cannula Nasal Cannula Nasal Cannula Nasal Cannula O2 Flow Rate 2.0 2.0 11/25/19 11/26/19 11/26/19 11/26/19 23:15 03:30 07:00 07:00 Temp 98.4 98.3 97.9 98.4 98.3 97.9 Pulse 78 80 71 Resp 18 18 18 B/P (MAP) 138/67 (90) 140/62 (88) 137/50 (79) Pulse Ox 97 98 99 99 O2 Delivery Nasal Cannula Room Air Nasal Cannula Nasal Cannula O2 Flow Rate 2.0 2.0 2.0 11/26/19 11/26/19 11/26/19 11/26/19 08:00 08:23 08:24 08:26 Pulse 71 71 71 B/P (MAP) 137/50 137/50 137/50 O2 Delivery Nasal Cannula O2 Flow Rate 1.0 11/26/19 11/26/19 11/26/19 11/26/19 08:26 09:05 09:57 10:34 Pulse 71 65 Resp 14 22 B/P (MAP) 137/50 Pulse Ox 99 99 O2 Delivery Nasal Cannula Nasal Cannula O2 Flow Rate 2.0 1.0 11/26/19 11/26/19 11:00 11:23 Temp 97.7 97.7 Pulse 65 65 Resp 18 B/P (MAP) 135/59 (84) 146/63 Pulse Ox 94 O2 Delivery Nasal Cannula O2 Flow Rate 2.0 Intake and Output 11/25/19 11/25/19 11/26/19 15:00 23:00 07:00 Intake Total 360 ml 627 ml 600 ml Output Total 550 ml 350 ml 200 ml Balance -190 ml 277 ml 400 ml SERGIO SANTOS MD Nov 26, 2019 12:45
--- NOTE | 2019-11-26 12:57 | NUR ---
SS following for discharge planning. SS reviewed pt chart and discussed with pt RN. Pt is from home and is currently requiring oxygen. Pt had heart cath and now on 1 liter nasal canula. Possible discharge to home tomorrow. SS will continue to follow for discharge planning.
[2019-11-26] MEDS: FUROSEMIDE 40 MG TABLET. PO SCH (14:26)
--- NOTE | 2019-11-26 15:53 | CARD ---
MR#: [id number] Date of Study: 11/26/2019 Ordering Physician: JIM LUA, Referring Physician: JIM LUA, Tech: RT Ruddy (R) APPROVED REPORT Technologist: Sunil Phillips RT (R) Nurse: Bernadine Godwin RN Procedure(s) performed: fl time: 6.7 mins dose: 65 gycm2 contrast: 115 ml moderate sedation: 50 mins LHC, Coronary angiography, Bypass angiography HISTORY : The patient is a 74 year-old female with a history of . INDICATION The indication(s) include : non-STEMI . CSHA Clinical Frailty Scale [facility] Clinical Frailty Scale: Moderately Frail Heart Failure Heart Failure: Yes If Yes, Newly Diagnosed: No If Yes, HF Type: Diastolic Systolic If Yes, NYHA Class: Class II PROCEDURE NARRATIVE Clinical information: 74-year-old woman presented with exertional dyspnea, chest pain and an elevated troponin. Informed consent: Written informed consent was obtained from the patient after thorough discussion of the risks and benefits of cardiac catheterization. Procedure details: The right groin was prepped and draped in usual sterile fashion. Under 2% lidocaine local anesthesia a 6 Portuguese sheath was placed in the right common femoral artery via the modified Seldinger technique . Diagnostic angiography was performed with a JL4, JR4 and LORRI catheters. Left ventriculography was performed with a pigtail catheter and a pullback was performed after measurement of left ventricular end-diastolic pressure. Findings: Aorta 140/80 LVEDP 19 mmHg No pullback gradient Left ventriculogram: Ejection fraction 40 to 45%, posterior basal and diaphragmatic akinesis Coronary angiography: Left main is a large-caliber vessel with normal angiographic appearance LAD is a moderate caliber vessel with a proximal 100% occlusion. The mid and distal vessel was seen to fill via a patent LORRI. The apical LAD has 50% stenosis D1 is a moderate caliber vessel with a proximal 100% occlusion and is seen to fill via a patent vein graft Left circumflex is a moderate caliber vessel with a proximal 100% occlusion OM1 is a moderate caliber vessel with a proximal 100% occlusion and is seen to fill via a jump graft from the first diagonal RCA is a moderate caliber vessel with a proximal occlusion and faint ionj-or-getth collaterals noted Bypass angiography: MORILLO to the LAD is widely patent without any anastomotic stenosis SVG jump graft to the first diagonal and obtuse marginal is patent with 10 to 20% in-stent restenosis of the previously placed stent in the jump portion from the first diagonal to the obtuse marginal SVG to the RCA is known occluded and not injected Conclusion 1. Acute on chronic systolic and diastolic heart failure, LVEDP 19 mmHg 2. Severe three-vessel coronary artery disease 3. 3 out of 4 grafts patent 4. Patent stent in the jump graft portion of D1 to OM1 5. Mild LV dysfunction, LV systolic function 40 to 45% Recommendations 1. No significant changes compared to prior cardiac catheterization. Continue aggressive medical th erapy Signed by : Zay Rankin, Electronically Approved : 11/26/2019 15:53:06
[2019-11-26] MEDS: CETIRIZINE HCL 10 MG TABLET. PO SCH (20:31)
[2019-11-26] MEDS: ATORVASTATIN CALCIUM 40 MG TABLET. PO SCH (20:31)
[2019-11-26] MEDS: MONTELUKAST SODIUM 10 MG TABLET. PO SCH (20:31)
[2019-11-26] MEDS: LORazepam 0.5 MG TABLET PO PRN (21:54)
[2019-11-26] MEDS: oxyCODONE/APAP 5/325 1 TAB TABLET PO PRN (21:54)
[2019-11-27 02:51] VITALS: BP 162/60
[2019-11-27 07:00] VITALS: BP 144/58
[2019-11-27] MEDS: INSULIN LISPRO 300 UNITS/3 ML VIAL. SQ SCH ×2 (08:00→12:32)
[2019-11-27] MEDS: IPRATRPIUM/ALBUTEROL 0.5/2.5MG 3 ML NEBU. NEB SCH ×2 (08:07→12:10)
[2019-11-27] MEDS: ACETAMINOPHEN 650 MG/20.3 ML SOLUTION. GT PRN (08:16)
[2019-11-27] MEDS: PANTOPRAZOLE 40 MG TABLET.DR. PO SCH (08:17)
[2019-11-27] MEDS: ASCORBIC ACID 500 MG TABLET PO SCH (08:17)
[2019-11-27] MEDS: GABAPENTIN 300 MG CAPSULE. PO SCH (08:17)
[2019-11-27] MEDS: CALCIUM CARB/VIT D3 500/200 TABLET. PO SCH (08:17)
[2019-11-27] MEDS: ISOSORBIDE MONONITRATE ER 30 MG TAB.ER.24H PO SCH (08:17)
[2019-11-27] MEDS: glipiZIDE 5 MG TABLET PO SCH (08:17)
[2019-11-27] MEDS: MAGNESIUM OXIDE 400 MG TABLET PO SCH (08:18)
[2019-11-27] MEDS: DIGOXIN 125 MCG TABLET. PO SCH (08:18)
[2019-11-27] MEDS: ASPIRIN ENTERIC COATED 81 MG TABLET.DR. PO SCH (08:18)
[2019-11-27] MEDS: FERROUS SULFATE 325 MG TABLET. PO SCH (08:18)
[2019-11-27] MEDS: FUROSEMIDE 40 MG TABLET. PO SCH (08:18)
[2019-11-27] MEDS: CYANOCOBALAMIN (VITAMIN B-12) 1,000 MCG TABLET. PO SCH (08:18)
[2019-11-27] MEDS: OMEGA-3 FATTY ACIDS/FISH OIL 1,000 MG CAPSULE. PO SCH (08:18)
[2019-11-27] MEDS: amLODIPine BESYLATE 10 MG TABLET PO SCH (08:19)
[2019-11-27] MEDS: MULTIVITAMIN with MINERAL TABLET. PO SCH (08:19)
[2019-11-27] MEDS: LOSARTAN POTASSIUM 50 MG TABLET. PO SCH (08:19)
[2019-11-27] MEDS: TICAGRELOR 90 MG TABLET. PO SCH (08:19)
[2019-11-27] MEDS: CARVEDILOL 12.5 MG TABLET. PO SCH (08:20)
--- NOTE | 2019-11-27 09:57 | PDOC ---
PROGRESS NOTES Chief Complaint Chief Complaint impression chest in setting of known multivessel CAD currently off Brilinta CAD; s/p CABG. Cath with 2/3 bypass grafts patent. s/p complex PCI/AKOSUA Acute on chronic systolic and diastolic heart failure, LVEDP 19 mmHg Severe three-vessel coronary artery disease 3 out of 4 grafts patent Patent stent in the jump graft portion of D1 to OM1 Mild LV dysfunction, LV systolic function 40 to 45% chronic combined diastolic/systolic CHF -ICM: EF at 40-45%. s/p AICD. hx of Acute respiratory failure with CHF, PNA requring intubated 07/28. Hypertension HLD PAFIB; maintaining SR Anemia PLAN cardiac tele bed cardiac cath reviewed restart home meds prn ntg start home CPAP cards consult ok with d/c 11/26 labs: BMP, CBC, troponin dvt ppx full code medical management d/c planning 26 min History of Present Illness History of Present Illness VTE Prophylaxis Ordered VTE Prophylaxis Devices: Yes VTE Pharmacological Prophylaxi: Yes Assessment/Plan Assessment/Plan ASSESSMENT chest in setting of known multivessel CAD currently off Brilinta CAD; s/p CABG. Cath with 2/3 bypass grafts patent. s/p complex PCI/AKOSUA chronic combined diastolic/systolic CHF -ICM: EF at 40-45%. s/p AICD. hx of Acute respiratory failure with CHF, PNA requring intubated 07/28. Hypertension HLD PAFIB; maintaining SR Anemia , MICROCYTIC PLAN admit to cardiac tele bed trend troponins restart home meds including Brilinta prn ntg start home CPAP cards consult order baseline labs: BMP, CBC, troponin dvt ppx full code FE PANEL Justicifation of Admission Dx: Justicifation of Admission Dx: Justifications for Admission: Justification of Admission Dx: Yes Angina: Symp at Rest Vitals Vitals Vital Signs Date Time Temp Pulse Resp B/P (MAP) Pulse Ox O2 Delivery O2 Flow Rate FiO2 11/27/19 08:20 69 144/58 11/27/19 08:15 Room Air 11/27/19 07:00 98.1 18 98 2.0 98.1 Physical Exam Physical Exam HEENT: Head normocephalic, atraumatic. NECK: Supple LUNGS: Clear to auscultation. HEART: RRR, S1, S2 present, pulses intact ABDOMEN: Soft, positive bowel sounds. EXTREMITIES: No cyanosis or edema. NEUROLOGIC: Normal speech, normal tone PSYCHIATRIC: Normal affect, normal mood. SKIN: No ulceration. General: Alert, Oriented X3, Cooperative, No acute distress Heart: Regular rate, Normal S1, Normal S2 Lungs: Clear Abdomen: Normal bowel sounds, Soft, No tenderness Extremities: No cyanosis, No edema, No tenderness/swelling Skin: No breakdown, No significant lesion Labs LABS [facility] Clinical Frailty Scale [facility] Clinical Frailty Scale: Moderately Frail Heart Failure Heart Failure: Yes If Yes, Newly Diagnosed: No If Yes, HF Type: Diastolic Systolic If Yes, NYHA Class: Class II PROCEDURE NARRATIVE Clinical information: 74-year-old woman presented with exertional dyspnea, chest pain and an elevated troponin. Informed consent: Written informed consent was obtained from the patient after thorough discussion of the risks and benefits of cardiac catheterization. Procedure details: The right groin was prepped and draped in usual sterile fashion. Under 2% lidocaine local anesthesia a 6 Irish sheath was placed in the right common femoral artery via the modified Seldinger technique. Diagnostic angiography was performed with a JL4, JR4 and LORRI catheters. Left ventriculography was performed with a pigtail catheter and a pullback was performed after measurement of left ventricular end-diastolic pressure. Findings: Aorta 140/80 LVEDP 19 mmHg No pullback gradient Left ventriculogram: Ejection fraction 40 to 45%, posterior basal and diaphragmatic akinesis Coronary angiography: Left main is a large-caliber vessel with normal angiographic appearance LAD is a moderate caliber vessel with a proximal 100% occlusion. The mid and distal vessel was seen to fill via a patent LORRI. The apical LAD has 50% stenosis D1 is a moderate caliber vessel with a proximal 100% occlusion and is seen to fill via a patent vein graft Left circumflex is a moderate caliber vessel with a proximal 100% occlusion OM1 is a moderate caliber vessel with a proximal 100% occlusion and is seen to fill via a jump graft from the first diagonal RCA is a moderate caliber vessel with a proximal occlusion and faint [id number] collaterals noted Bypass angiography: MORILLO to the LAD is widely patent without any anastomotic stenosis SVG jump graft to the first diagonal and obtuse marginal is patent with 10 to 20% in-stent restenosis of the previously placed stent in the jump portion from the first diagonal to the obtuse marginal SVG to the RCA is known occluded and not injected Conclusion 1. Acute on chronic systolic and diastolic heart failure, LVEDP 19 mmHg 2. Severe three-vessel coronary artery disease 3. 3 out of 4 grafts patent 4. Patent stent in the jump graft portion of D1 to OM1 5. Mild LV dysfunction, LV systolic function 40 to 45% Recommendations 1. No significant changes compared to prior cardiac catheterization. Continue aggressive medical therapy Signed by : Jimenez Milner, Electronically Approved : 11/26/2019 15:53:06 DICTATED and SIGNED BY: JIMENEZ MILNER MD DATE: 11/26/19 1211 Laboratory Tests Test 11/26/19 11:30 11/26/19 16:34 11/27/19 07:03 Glucose (Fingerstick) 188 mg/dL (70-99) 289 mg/dL (70-99) 107 mg/dL (70-99) Comment Review of Relevant I have reviewed the following items jenifer (where applicable) has been applied. Labs Laboratory Tests Test 11/25/19 11:46 11/25/19 16:56 11/25/19 21:02 11/26/19 05:10 Glucose (Fingerstick) 190 mg/dL (70-99) 228 mg/dL (70-99) 213 mg/dL (70-99) White Blood Count 8.3 x10^3/uL (4.0-11.0) Red Blood Count 3.76 x10^6/uL (3.50-5.40) Hemoglobin 8.3 g/dL (12.0-15.5) Hematocrit 26.1 % (36.0-47.0) Mean Corpuscular Volume 69 fL (79-100) Mean Corpuscular Hemoglobin 22 pg (25-35) Mean Corpuscular Hemoglobin Concent 32 g/dL (31-37) Red Cell Distribution Width 18.2 % (11.5-14.5) Platelet Count 310 x10^3/uL (140-400) Neutrophils (%) (Auto) 59 % (31-73) Lymphocytes (%) (Auto) 25 % (24-48) Monocytes (%) (Auto) 10 % (0-9) Eosinophils (%) (Auto) 4 % (0-3) Basophils (%) (Auto) 1 % (0-3) Neutrophils # (Auto) 4.9 x10^3/uL (1.8-7.7) Lymphocytes # (Auto) 2.1 x10^3/uL (1.0-4.8) Monocytes # (Auto) 0.9 x10^3/uL (0.0-1.1) Eosinophils # (Auto) 0.3 x10^3/uL (0.0-0.7) Basophils # (Auto) 0.1 x10^3/uL (0.0-0.2) Heparin Anti-Xa Act, Unfractionated 0.37 IU/mL (0.30-0.70) Sodium Level 138 mmol/L (136-145) Potassium Level 3.8 mmol/L (3.5-5.1) Chloride Level 101 mmol/L (98-107) Carbon Dioxide Level 31 mmol/L (21-32) Anion Gap 6 (6-14) Blood Urea Nitrogen 12 mg/dL (7-20) Creatinine 0.9 mg/dL (0.6-1.0) Estimated GFR (Cockcroft-Gault) 61.0 Glucose Level 133 mg/dL (70-99) Calcium Level 8.8 mg/dL (8.5-10.1) Magnesium Level 2.0 mg/dL (1.8-2.4) Iron Level 15 ug/dL (50-170) Total Iron Binding Capacity 381 ug/dL (250-450) Iron Saturation 4 % (15-34) Test 11/26/19 07:10 11/26/19 09:39 11/26/19 11:30 11/26/19 16:34 Glucose (Fingerstick) 130 mg/dL (70-99) 188 mg/dL (70-99) 289 mg/dL (70-99) Activated Clotting Time 107 sec (92-181) Test 11/27/19 07:03 Glucose (Fingerstick) 107 mg/dL (70-99) Laboratory Tests Test 11/26/19 11:30 11/26/19 16:34 11/27/19 07:03 Glucose (Fingerstick) 188 mg/dL (70-99) 289 mg/dL (70-99) 107 mg/dL (70-99) Medications Current Medications Acetaminophen (Tylenol) 650 mg PRN Q4HRS PRN GT TEMP OVER 100.4F OR MILD PAIN Last administered on 11/27/19 08:16; Start 11/23/19 at 14:30 Al Hydroxide/Mg Hydroxide (Mylanta Plus Xs) 30 ml PRN DAILY PRN PO HEARTBURN / GAS; Start 11/23/19 at 14:30 Clonidine HCl (Catapres) 0.1 mg PRN Q6HRS PRN PO SBP>160 OR DBP>90; Start 11/23/19 at 14:30 Albuterol Sulfate (Ventolin Neb Soln) 2.5 mg PRN Q4HRS PRN NEB SHORTNESS OF BREATH; Start 11/23/19 at 14:30 Albuterol/ Ipratropium (Duoneb) 3 ml Q4HRS NEB ; Start 11/23/19 at 16:00; Stop 11/23/19 at 15:33; Status DC Amlodipine Besylate (Norvasc) 10 mg DAILY PO Last administered on 11/27/19at 08:19; Start 11/24/19 at 09:00 Aspirin (Ecotrin) 81 mg DAILY PO Last administered on 11/27/19 08:18; Start 11/24/19 at 09:00 Atorvastatin Calcium (Lipitor) 40 mg QHS PO Last administered on 11/26/19at 20:31; Start 11/23/19 at 21:00 Calcium Carbonate/ Glycine (Oscal) 500 mg DAILY PO ; Start 11/24/19 at 09:00; Stop 11/23/19 at 14:49; Status DC Cetirizine HCl (ZyrTEC) 10 mg QHS PO Last administered on 11/26/19at 20:31; Start 11/23/19 at 21:00 Clonidine HCl (Catapres) 0.1 mg BID PRN PO HYPERTENSION; Start 11/23/19 at 14:45; Stop 11/23/19 at 14:49; Status DC Cyanocobalamin (Vitamin B-12) 1,000 mcg DAILY PO Last administered on 11/27/19at 08:18; Start 11/24/19 at 09:00 Digoxin (Lanoxin) 125 mcg DAILY PO Last administered on 11/27/19at 08:18; Start 11/24/19 at 09:00 Ferrous Sulfate (Feosol) 325 mg DAILY PO Last administered on 11/27/19 08:18; Start 11/24/19 at 09:00 Furosemide (Lasix) 40 mg DAILY PO Last administered on 11/27/19 08:18; Start 11/24/19 at 09:00 Gabapentin (Neurontin) 300 mg TID PO Last administered on 11/27/19 08:17; Start 11/23/19 at 15:00 Glipizide (Glucotrol) 5 mg BIDWMEALS PO Last administered on 11/27/19 08:17; Start 11/23/19 at 17:00 Isosorbide Mononitrate (Imdur) 30 mg DAILY PO Last administered on 11/27/19 08:17; Start 11/24/19 at 09:00 Metformin HCl (Glucophage) 500 mg BIDWMEALS PO Last administered on 11/23/19 17:00; Start 11/23/19 at 17:00; Stop 11/23/19 at 19:02; Status DC Montelukast Sodium (Singulair) 10 mg HS PO Last administered on 11/26/19 20:31; Start 11/23/19 at 21:00 Ticagrelor (Brilinta) 90 mg BID PO Last administered on 11/27/19 08:19; Start 11/24/19 at 09:00 Ascorbic Acid (Vitamin C) 1,000 mg DAILY PO Last administered on 11/27/19 08:17; Start 11/24/19 at 09:00 Calcium/Vitamin D (Oscal D 500mg/ 200uts) 1 tab DAILY PO Last administered on 11/27/19 08:17; Start 11/24/19 at 09:00 Carvedilol (Coreg) 25 mg BIDWMEALS PO Last administered on 11/27/19 08:20; Start 11/23/19 at 17:00 Losartan Potassium (Cozaar) 100 mg DAILY PO Last administered on 11/27/19 08:19; Start 11/24/19 at 09:00 Magnesium Oxide (Magnesium Oxide) 400 mg DAILY PO Last administered on 11/27/19 08:18; Start 11/24/19 at 09:00 Multivitamins (Thera M Plus) 1 tab DAILY PO Last administered on 11/27/19 08:19; Start 11/24/19 at 09:00 Fish Oil (Fish Oil) 1,000 mg DAILY PO Last administered on 11/27/19 08:18; Start 11/24/19 at 09:00 Pantoprazole Sodium (Protonix) 40 mg DAILYAC PO Last administered on 11/27/19 08:17; Start 11/24/19 at 07:30 Insulin Human Lispro (HumaLOG) 0-7 UNITS TIDWMEALS SQ Last administered on 11/26/19at 17:46; Start 11/23/19 at 17:00 Dextrose (Dextrose 50%-Water Syringe) 12.5 gm PRN Q15MIN PRN IV SEE COMMENTS; Start 11/23/19 at 15:30 Albuterol/ Ipratropium (Duoneb) 3 ml QID NEB Last administered on 11/27/19 08:07; Start 11/23/19 at 15:30 Heparin Sodium/ Dextrose 250 ml @ 0 mls/hr CONT PRN IV PER PROTOCOL Last administered on 11/25/19at 06:19; Start 11/23/19 at 17:00 Heparin Sodium (Porcine) (Heparin Sodium) 2,000 unit PRN Q6HRS PRN IV FOR UFH LEVEL LESS THAN 0.2 Last administered on 11/23/19at 17:12; Start 11/23/19 at 17:00 Ticagrelor (Brilinta) 180 mg 1X ONCE PO Last administered on 11/23/19at 17:01; Start 11/23/19 at 17:00; Stop 11/23/19 at 17:01; Status DC Lorazepam (Ativan) 0.5 mg PRN Q12HR PRN PO ANXIETY / AGITATION Last administered on 11/26/19at 21:54; Start 11/23/19 at 18:30 Nitroglycerin/ Dextrose 250 ml @ 1.5 mls/hr CONT PRN IV SEE I/O RECORD; Start 11/23/19 at 18:30 Oxycodone/ Acetaminophen (Percocet 5/325) 1 tab PRN Q6HRS PRN PO MODERATE- SEVERE PAIN Last administered on 11/26/19at 21:54; Start 11/23/19 at 23:00 Info (Anti-Coagulation Monitoring By Pharmacy) 1 each PRN DAILY PRN MC SEE COMMENTS; Start 11/24/19 at 07:45 Sodium Chloride 1,000 ml @ 60 mls/hr [id number] IV Last administered on 11/26/19at 08:25; Start 11/26/19 at 07:30; Stop 11/26/19 at 18:16; Status DC Lidocaine HCl (Lidocaine 1% 20ml Vial) 20 ml STK-MED ONCE .ROUTE ; Start 11/26/19 at 07:34; Stop 11/26/19 at 07:34; Status DC Iodixanol (Visipaque 320) 100 ml STK-MED ONCE .ROUTE ; Start 11/26/19 at 07:34; Stop 11/26/19 at 07:34; Status DC Heparin Sodium/ Sodium Chloride 1,500 ml @ As Directed STK-MED ONCE .ROUTE ; Start 11/26/19 at 07:34; Stop 11/26/19 at 07:35; Status DC Fentanyl Citrate (Fentanyl 2ml Vial) 100 mcg STK-MED ONCE .ROUTE ; Start 11/26/19 at 08:03; Stop 11/26/19 at 08:03; Status DC Midazolam HCl (Versed) 2 mg STK-MED ONCE .ROUTE ; Start 11/26/19 at 08:03; Stop 11/26/19 at 08:03; Status DC Heparin Sodium/ Sodium Chloride (HEPARIN for ARTERIAL LINE FLUSH) 1,000 unit 1X ONCE IART Last administered on 11/26/19at 08:15; Start 11/26/19 at 08:15; Stop 11/26/19 at 08:41; Status DC Heparin Sodium/ Sodium Chloride (HEPARIN for ARTERIAL LINE FLUSH) 1,000 unit 1X ONCE IART Last administered on 11/26/19at 08:15; Start 11/26/19 at 08:15; Stop 11/26/19 at 08:41; Status DC Midazolam HCl (Versed) 2 mg 1X ONCE IV Last administered on 11/26/19at 09:05; Start 11/26/19 at 08:15; Stop 11/26/19 at 08:41; Status DC Fentanyl Citrate (Fentanyl 2ml Vial) 100 mcg 1X ONCE IV Last administered on 11/26/19at 09:05; Start 11/26/19 at 08:15; Stop 11/26/19 at 08:41; Status DC Iodixanol (Visipaque 320) 100 ml 1X ONCE IART Last administered on 11/26/19at 09:45; Start 11/26/19 at 08:15; Stop 11/26/19 at 08:41; Status DC Lidocaine HCl (Lidocaine 1% 20ml Vial) 20 ml 1X ONCE INJ Last administered on 11/26/19at 09:09; Start 11/26/19 at 08:15; Stop 11/26/19 at 08:41; Status DC Info (CONTRAST GIVEN -- Rx MONITORING) 1 each PRN DAILY PRN MC SEE COMMENTS; Start 11/26/19 at 08:45; Stop 11/28/19 at 08:44 Active Scripts Active Brilinta (Ticagrelor) 90 Mg Tablet 90 Mg PO BID 30 Days Atorvastatin Calcium 20 Mg Tablet 40 Mg PO HS 30 Days Amlodipine Besylate 10 Mg Tablet 10 Mg PO DAILY 30 Days Reported Iron (Ferrous Sulfate) 325 Mg Tablet 1 Tab PO DAILY 30 Days start taking 10-23-19. call Dr. Milner's office for appointment to recheck lab Calcium (Calcium Carbonate) 500 Mg Tablet 1 Tab PO DAILY 30 Days Viactiv 650 mg-12.5 Mcg Chew (Calcium Carb/Vitamin D3/Vit K1) 1 Each Tab.chew 1 Each PO DAILY Vitamin B-12 (Cyanocobalamin (Vitamin B-12)) 1,000 Mcg Tablet 1 Tab PO DAILY 30 Days Magnesium (Magnesium Oxide) 400 Mg Capsule 1 Cap PO DAILY 30 Days Turmeric 500 mg Capsule (Turmeric/Turmeric Root Extract) 1 Each Capsule 1 Cap PO DAILY 30 Days Vitamin C (Ascorbic Acid) 500 Mg Capsule 1,000 Mg PO DAILY Digoxin 125 Mcg Tablet 125 Mcg PO DAILY Metformin Hcl 500 Mg Tablet 500 Mg PO BIDWMEALS 1 tab in am , 2 tabs after supper Taylor 3 Fish Oil Softgel (Taylor-3 Fatty Acids/Fish Oil) 1 Each Capsule. 1 Each PO DAILY Nitrostat (Nitroglycerin) 0.4 Mg Tab.subl 1 Tab SL UD PRN Prilosec (Omeprazole) 20 Mg Capsule. 1 Cap PO BIDAC Glipizide 5 Mg Tablet 5 Mg PO BID Neurontin (Gabapentin) 300 Mg Capsule 1 Cap PO TID 1 cap in am, 2 caps at 5pm, 3 caps at bedtime Daily Vitamin (Multivitamin) 1 Each Tablet 1 Each PO DAILY Coreg (Carvedilol) 25 Mg Tablet 1 Tab PO BID Aspir 81 (Aspirin) 81 Mg Tablet.dr 1 Tab PO DAILY Furosemide 20 Mg Tablet 40 Mg PO DAILY Catapres (Clonidine Hcl) 0.1 Mg Tablet 0.1 Mg PO BID PRN Cetirizine Hcl 10 Mg Tablet 1 Tab PO QHS Losartan Potassium 100 Mg Tablet 1 Tab PO DAILY Isosorbide Mononitrate Er (Isosorbide Mononitrate) 30 Mg Tab.er.24h 1 Tab PO DAILY Singulair Tablet (Montelukast Sodium) 10 Mg Tablet 1 Tab PO HS Vitals/I & O Vital Sign - Last 24 Hours 11/26/19 11/26/19 11/26/19 11/26/19 10:15 10:30 10:34 10:45 Pulse 73 62 66 B/P (MAP) 121/53 (75) 129/72 (91) 131/58 (82) Pulse Ox 99 O2 Delivery Nasal Cannula O2 Flow Rate 1.0 11/26/19 11/26/19 11/26/19 11/26/19 11:00 11:23 11:30 12:00 Temp 97.7 97.7 Pulse 65 65 66 67 Resp 18 B/P (MAP) 135/59 (84) 146/63 133/56 (81) 144/64 (90) Pulse Ox 94 O2 Delivery Nasal Cannula O2 Flow Rate 2.0 11/26/19 11/26/19 11/26/19 11/26/19 13:00 14:00 15:00 15:17 Temp 98.0 98.0 Pulse 68 70 67 70 Resp 18 B/P (MAP) 165/61 (95) 133/61 (85) 133/61 (85) 133/61 (85) Pulse Ox 96 O2 Delivery Nasal Cannula O2 Flow Rate 2.0 11/26/19 11/26/19 11/26/19 11/26/19 16:00 17:43 19:22 19:55 Temp 98.4 98.4 Pulse 76 70 77 Resp 20 B/P (MAP) 148/59 (88) 133/61 163/72 (102) Pulse Ox 96 O2 Delivery Nasal Cannula Room Air O2 Flow Rate 1.0 11/26/19 11/26/19 11/26/19 11/26/19 20:01 21:18 21:54 22:38 Temp 97.9 98.1 97.9 98.1 Pulse 77 75 Resp 18 20 20 B/P (MAP) 163/72 (102) 135/67 (89) Pulse Ox 97 93 99 O2 Delivery Room Air Room Air Nasal Cannula Nasal Cannula O2 Flow Rate 2.0 2.0 11/26/19 11/27/19 11/27/19 11/27/19 22:54 02:51 07:00 08:15 Temp 97.7 98.1 97.7 98.1 Pulse 73 69 Resp 20 18 18 B/P (MAP) 162/60 (94) 144/58 (86) Pulse Ox 98 98 O2 Delivery Nasal Cannula Nasal Cannula Room Air O2 Flow Rate 2.0 2.0 11/27/19 11/27/19 11/27/19 11/27/19 08:17 08:18 08:19 08:19 Pulse 69 69 69 69 B/P (MAP) 144/58 144/58 144/58 144/58 11/27/19 08:20 Pulse 69 B/P (MAP) 144/58 Intake and Output 11/26/19 11/26/19 11/27/19 15:00 23:00 07:00 Intake Total 240 ml 200 ml 550 ml Output Total 500 ml Balance 240 ml 200 ml 50 ml UMA WILKERSON MD Nov 27, 2019 09:57
[2019-11-27 11:00] VITALS: BP 138/62
--- NOTE | 2019-11-27 12:14 | NUR ---
SS following up with discharge planning. SS reviewed pt chart and discussed with pt RN. Pt is currently on room air. Discharge disposition is to home when ready. Possible discharge today. SS will continue to follow for discharge planning.
--- NOTE | 2019-11-27 13:26 | PDOC3 ---
Discharge Summary Date of Admission: Nov 23, 2019 Date of Discharge: Nov 27, 2019 Follow-Up: 3-5 days Admitting Diagnosis comment: DISCHARGE DX UNSTABLE ANGINA setting of known multivessel CAD currently off Brilinta CAD; s/p CABG. Cath with 2/3 bypass grafts patent. s/p complex PCI/AKOSUA Acute on chronic systolic and diastolic heart failure, LVEDP 19 mmHg Severe three-vessel coronary artery disease 3 out of 4 grafts patent Patent stent in the jump graft portion of D1 to OM1 Mild LV dysfunction, LV systolic function 40 to 45% chronic combined diastolic/systolic CHF -ICM: EF at 40-45%. s/p AICD. hx of Acute respiratory failure with CHF, PNA requring intubated 07/28. Hypertension HLD PAFIB; maintaining SR Anemia PLAN cardiac tele bed cardiac cath reviewed restart home meds prn ntg start home CPAP cards consult ok with d/c 11/26 labs: BMP, CBC, troponin dvt ppx full code medical management d/c planning 26 min History of Present Illness History of Present Illness VTE Prophylaxis Ordered VTE Prophylaxis Devices: Yes VTE Pharmacological Prophylaxi: Yes Assessment/Plan Assessment/Plan ASSESSMENT chest in setting of known multivessel CAD currently off Brilinta CAD; s/p CABG. Cath with 2/3 bypass grafts patent. s/p complex PCI/AKOSUA chronic combined diastolic/systolic CHF -ICM: EF at 40-45%. s/p AICD. hx of Acute respiratory failure with CHF, PNA requring intubated 07/28. Hypertension HLD PAFIB; maintaining SR Anemia , MICROCYTIC PLAN admit to cardiac tele bed trend troponins restart home meds including Brilinta prn ntg start home CPAP cards consult order baseline labs: BMP, CBC, troponin dvt ppx full code FE PANEL Justicifation of Admission Dx: Justicifation of Admission Dx: Justifications for Admission: Justification of Admission Dx: Yes Angina: Symp at Rest Vitals Vitals Vital Signs Date Time Temp Pulse Resp B/P (MAP) Pulse Ox O2 Delivery O2 Flow Rate FiO2 11/27/19 08:20 69 144/58 11/27/19 08:15 Room Air 11/27/19 07:00 98.1 18 98 2.0 98.1 Physical Exam Physical Exam HEENT: Head normocephalic, atraumatic. NECK: Supple LUNGS: Clear to auscultation. HEART: RRR, S1, S2 present, pulses intact ABDOMEN: Soft, positive bowel sounds. EXTREMITIES: No cyanosis or edema. NEUROLOGIC: Normal speech, normal tone PSYCHIATRIC: Normal affect, normal mood. SKIN: No ulceration. General: Alert, Oriented X3, Cooperative, No acute distress Heart: Regular rate, Normal S1, Normal S2 Lungs: Clear Abdomen: Normal bowel sounds, Soft, No tenderness Extremities: No cyanosis, No edema, No tenderness/swelling Skin: No breakdown, No significant lesion Brief Hospital Course Ms. Jane is a 74 old [sex] who presented with [ UNSTABLE ANGINA] CONDITION AT DISCHARGE: Improved Discharge Medications Current Medications Acetaminophen (Tylenol) 650 mg PRN Q4HRS PRN GT TEMP OVER 100.4F OR MILD PAIN Last administered on 11/27/19at 08:16; Start 11/23/19 at 14:30 Al Hydroxide/Mg Hydroxide (Mylanta Plus Xs) 30 ml PRN DAILY PRN PO HEARTBURN / GAS; Start 11/23/19 at 14:30 Clonidine HCl (Catapres) 0.1 mg PRN Q6HRS PRN PO SBP>160 OR DBP>90; Start 11/23/19 at 14:30 Albuterol Sulfate (Ventolin Neb Soln) 2.5 mg PRN Q4HRS PRN NEB SHORTNESS OF BREATH; Start 11/23/19 at 14:30 Albuterol/ Ipratropium (Duoneb) 3 ml Q4HRS NEB ; Start 11/23/19 at 16:00; Stop 11/23/19 at 15:33; Status DC Amlodipine Besylate (Norvasc) 10 mg DAILY PO Last administered on 11/27/19at 08:19; Start 11/24/19 at 09:00 Aspirin (Ecotrin) 81 mg DAILY PO Last administered on 11/27/19at 08:18; Start 11/24/19 at 09:00 Atorvastatin Calcium (Lipitor) 40 mg QHS PO Last administered on 11/26/19at 20:31; Start 11/23/19 at 21:00 Calcium Carbonate/ Glycine (Oscal) 500 mg DAILY PO ; Start 11/24/19 at 09:00; Stop 11/23/19 at 14:49; Status DC Cetirizine HCl (ZyrTEC) 10 mg QHS PO Last administered on 11/26/19 20:31; Start 11/23/19 at 21:00 Clonidine HCl (Catapres) 0.1 mg BID PRN PO HYPERTENSION; Start 11/23/19 at 14:45; Stop 11/23/19 at 14:49; Status DC Cyanocobalamin (Vitamin B-12) 1,000 mcg DAILY PO Last administered on 11/27/19 08:18; Start 11/24/19 at 09:00 Digoxin (Lanoxin) 125 mcg DAILY PO Last administered on 11/27/19 08:18; Start 11/24/19 at 09:00 Ferrous Sulfate (Feosol) 325 mg DAILY PO Last administered on 11/27/19 08:18; Start 11/24/19 at 09:00 Furosemide (Lasix) 40 mg DAILY PO Last administered on 11/27/19 08:18; Start 11/24/19 at 09:00 Gabapentin (Neurontin) 300 mg TID PO Last administered on 11/27/19 08:17; Start 11/23/19 at 15:00 Glipizide (Glucotrol) 5 mg BIDWMEALS PO Last administered on 11/27/19 08:17; Start 11/23/19 at 17:00 Isosorbide Mononitrate (Imdur) 30 mg DAILY PO Last administered on 11/27/19 08:17; Start 11/24/19 at 09:00 Metformin HCl (Glucophage) 500 mg BIDWMEALS PO Last administered on 11/23/19at 17:00; Start 11/23/19 at 17:00; Stop 11/23/19 at 19:02; Status DC Montelukast Sodium (Singulair) 10 mg HS PO Last administered on 11/26/19 20:31; Start 11/23/19 at 21:00 Ticagrelor (Brilinta) 90 mg BID PO Last administered on 11/27/19 08:19; Start 11/24/19 at 09:00 Ascorbic Acid (Vitamin C) 1,000 mg DAILY PO Last administered on 11/27/19 08:17; Start 11/24/19 at 09:00 Calcium/Vitamin D (Oscal D 500mg/ 200uts) 1 tab DAILY PO Last administered on 11/27/19 08:17; Start 11/24/19 at 09:00 Carvedilol (Coreg) 25 mg BIDWMEALS PO Last administered on 11/27/19 08:20; Start 11/23/19 at 17:00 Losartan Potassium (Cozaar) 100 mg DAILY PO Last administered on 11/27/19 08:19; Start 11/24/19 at 09:00 Magnesium Oxide (Magnesium Oxide) 400 mg DAILY PO Last administered on 11/27/19 08:18; Start 11/24/19 at 09:00 Multivitamins (Thera M Plus) 1 tab DAILY PO Last administered on 11/27/19 08:19; Start 11/24/19 at 09:00 Fish Oil (Fish Oil) 1,000 mg DAILY PO Last administered on 11/27/19 08:18; Start 11/24/19 at 09:00 Pantoprazole Sodium (Protonix) 40 mg DAILYAC PO Last administered on 11/27/19 08:17; Start 11/24/19 at 07:30 Insulin Human Lispro (HumaLOG) 0-7 UNITS TIDWMEALS SQ Last administered on 11/27/19 12:32; Start 11/23/19 at 17:00 Dextrose (Dextrose 50%-Water Syringe) 12.5 gm PRN Q15MIN PRN IV SEE COMMENTS; Start 11/23/19 at 15:30 Albuterol/ Ipratropium (Duoneb) 3 ml QID NEB Last administered on 11/27/19 12:10; Start 11/23/19 at 15:30 Heparin Sodium/ Dextrose 250 ml @ 0 mls/hr CONT PRN IV PER PROTOCOL Last administered on 11/25/19 06:19; Start 11/23/19 at 17:00 Heparin Sodium (Porcine) (Heparin Sodium) 2,000 unit PRN Q6HRS PRN IV FOR UFH LEVEL LESS THAN 0.2 Last administered on 11/23/19 17:12; Start 11/23/19 at 17 :00 Ticagrelor (Brilinta) 180 mg 1X ONCE PO Last administered on 11/23/19at 17:01; Start 11/23/19 at 17:00; Stop 11/23/19 at 17:01; Status DC Lorazepam (Ativan) 0.5 mg PRN Q12HR PRN PO ANXIETY / AGITATION Last administered on 11/26/19at 21:54; Start 11/23/19 at 18:30 Nitroglycerin/ Dextrose 250 ml @ 1.5 mls/hr CONT PRN IV SEE I/O RECORD; Start 11/23/19 at 18:30 Oxycodone/ Acetaminophen (Percocet 5/325) 1 tab PRN Q6HRS PRN PO MODERATE- SEVERE PAIN Last administered on 11/26/19at 21:54; Start 11/23/19 at 23:00 Info (Anti-Coagulation Monitoring By Pharmacy) 1 each PRN DAILY PRN MC SEE COMMENTS; Start 11/24/19 at 07:45 Sodium Chloride 1,000 ml @ 60 mls/hr [id number] IV Last administered on 11/26/19at 08:25; Start 11/26/19 at 07:30; Stop 11/26/19 at 18:16; Status DC Lidocaine HCl (Lidocaine 1% 20ml Vial) 20 ml STK-MED ONCE .ROUTE ; Start 11/26/19 at 07:34; Stop 11/26/19 at 07:34; Status DC Iodixanol (Visipaque 320) 100 ml STK-MED ONCE .ROUTE ; Start 11/26/19 at 07:34; Stop 11/26/19 at 07:34; Status DC Heparin Sodium/ Sodium Chloride 1,500 ml @ As Directed STK-MED ONCE .ROUTE ; Start 11/26/19 at 07:34; Stop 11/26/19 at 07:35; Status DC Fentanyl Citrate (Fentanyl 2ml Vial) 100 mcg STK-MED ONCE .ROUTE ; Start 11/26/19 at 08:03; Stop 11/26/19 at 08:03; Status DC Midazolam HCl (Versed) 2 mg STK-MED ONCE .ROUTE ; Start 11/26/19 at 08:03; Stop 11/26/19 at 08:03; Status DC Heparin Sodium/ Sodium Chloride (HEPARIN for ARTERIAL LINE FLUSH) 1,000 unit 1X ONCE IART Last administered on 11/26/19at 08:15; Start 11/26/19 at 08:15; Stop 11/26/19 at 08:41; Status DC Heparin Sodium/ Sodium Chloride (HEPARIN for ARTERIAL LINE FLUSH) 1,000 unit 1X ONCE IART Last administered on 11/26/19at 08:15; Start 11/26/19 at 08:15; Stop 11/26/19 at 08:41; Status DC Midazolam HCl (Versed) 2 mg 1X ONCE IV Last administered on 11/26/19at 09:05; Start 11/26/19 at 08:15; Stop 11/26/19 at 08:41; Status DC Fentanyl Citrate (Fentanyl 2ml Vial) 100 mcg 1X ONCE IV Last administered on 11/26/19at 09:05; Start 11/26/19 at 08:15; Stop 11/26/19 at 08:41; Status DC Iodixanol (Visipaque 320) 100 ml 1X ONCE IART Last administered on 11/26/19at 09:45; Start 11/26/19 at 08:15; Stop 11/26/19 at 08:41; Status DC Lidocaine HCl (Lidocaine 1% 20ml Vial) 20 ml 1X ONCE INJ Last administered on 11/26/19at 09:09; Start 11/26/19 at 08:15; Stop 11/26/19 at 08:41; Status DC Info (CONTRAST GIVEN -- Rx MONITORING) 1 each PRN DAILY PRN MC SEE COMMENTS; Start 11/26/19 at 08:45; Stop 11/28/19 at 08:44 Active Scripts Active Brilinta (Ticagrelor) 90 Mg Tablet 90 Mg PO BID 30 Days Atorvastatin Calcium 20 Mg Tablet 40 Mg PO HS 30 Days Amlodipine Besylate 10 Mg Tablet 10 Mg PO DAILY 30 Days Reported Iron (Ferrous Sulfate) 325 Mg Tablet 1 Tab PO DAILY 30 Days start taking 10-23-19. call Dr. Rankin's office for appointment to recheck lab Calcium (Calcium Carbonate) 500 Mg Tablet 1 Tab PO DAILY 30 Days Viactiv 650 mg-12.5 Mcg Chew (Calcium Carb/Vitamin D3/Vit K1) 1 Each Tab.chew 1 Each PO DAILY Vitamin B-12 (Cyanocobalamin (Vitamin B-12)) 1,000 Mcg Tablet 1 Tab PO DAILY 30 Days Magnesium (Magnesium Oxide) 400 Mg Capsule 1 Cap PO DAILY 30 Days Turmeric 500 mg Capsule (Turmeric/Turmeric Root Extract) 1 Each Capsule 1 Cap PO DAILY 30 Days Vitamin C (Ascorbic Acid) 500 Mg Capsule 1,000 Mg PO DAILY Digoxin 125 Mcg Tablet 125 Mcg PO DAILY Metformin Hcl 500 Mg Tablet 500 Mg PO BIDWMEALS 1 tab in am , 2 tabs after supper [place] 3 Fish Oil Softgel ([place]-3 Fatty Acids/Fish Oil) 1 Each Capsule.dr 1 Each PO DAILY Nitrostat (Nitroglycerin) 0.4 Mg Tab.subl 1 Tab SL UD PRN Prilosec (Omeprazole) 20 Mg Capsule.dr 1 Cap PO BIDAC Glipizide 5 Mg Tablet 5 Mg PO BID Neurontin (Gabapentin) 300 Mg Capsule 1 Cap PO TID 1 cap in am, 2 caps at 5pm, 3 caps at bedtime Daily Vitamin (Multivitamin) 1 Each Tablet 1 Each PO DAILY Coreg (Carvedilol) 25 Mg Tablet 1 Tab PO BID Aspir 81 (Aspirin) 81 Mg Tablet.dr 1 Tab PO DAILY Furosemide 20 Mg Tablet 40 Mg PO DAILY Catapres (Clonidine Hcl) 0.1 Mg Tablet 0.1 Mg PO BID PRN Cetirizine Hcl 10 Mg Tablet 1 Tab PO QHS Losartan Potassium 100 Mg Tablet 1 Tab PO DAILY Isosorbide Mononitrate Er (Isosorbide Mononitrate) 30 Mg Tab.er.24h 1 Tab PO DAILY Singulair Tablet (Montelukast Sodium) 10 Mg Tablet 1 Tab PO HS Vital Signs Vital Signs Date Time Temp Pulse Resp B/P (MAP) Pulse Ox O2 Delivery O2 Flow Rate FiO2 11/27/19 12:11 Room Air 11/27/19 11:00 97.6 72 18 138/62 (87) 96 97.6 11/27/19 07:00 2.0 Labs Laboratory Tests Test 11/25/19 16:56 11/25/19 21:02 11/26/19 05:10 11/26/19 07:10 Glucose (Fingerstick) 228 mg/dL (70-99) 213 mg/dL (70-99) 130 mg/dL (70-99) White Blood Count 8.3 x10^3/uL (4.0-11.0) Red Blood Count 3.76 x10^6/uL (3.50-5.40) Hemoglobin 8.3 g/dL (12.0-15.5) Hematocrit 26.1 % (36.0-47.0) Mean Corpuscular Volume 69 fL (79-100) Mean Corpuscular Hemoglobin 22 pg (25-35) Mean Corpuscular Hemoglobin Concent 32 g/dL (31-37) Red Cell Distribution Width 18.2 % (11.5-14.5) Platelet Count 310 x10^3/uL (140-400) Neutrophils (%) (Auto) 59 % (31-73) Lymphocytes (%) (Auto) 25 % (24-48) Monocytes (%) (Auto) 10 % (0-9) Eosinophils (%) (Auto) 4 % (0-3) Basophils (%) (Auto) 1 % (0-3) Neutrophils # (Auto) 4.9 x10^3/uL (1.8-7.7) Lymphocytes # (Auto) 2.1 x10^3/uL (1.0-4.8) Monocytes # (Auto) 0.9 x10^3/uL (0.0-1.1) Eosinophils # (Auto) 0.3 x10^3/uL (0.0-0.7) Basophils # (Auto) 0.1 x10^3/uL (0.0-0.2) Heparin Anti-Xa Act, Unfractionated 0.37 IU/mL (0.30-0.70) Sodium Level 138 mmol/L (136-145) Potassium Level 3.8 mmol/L (3.5-5.1) Chloride Level 101 mmol/L (98-107) Carbon Dioxide Level 31 mmol/L (21-32) Anion Gap 6 (6-14) Blood Urea Nitrogen 12 mg/dL (7-20) Creatinine 0.9 mg/dL (0.6-1.0) Estimated GFR (Cockcroft-Gault) 61.0 Glucose Level 133 mg/dL (70-99) Calcium Level 8.8 mg/dL (8.5-10.1) Magnesium Level 2.0 mg/dL (1.8-2.4) Iron Level 15 ug/dL (50-170) Total Iron Binding Capacity 381 ug/dL (250-450) Iron Saturation 4 % (15-34) Test 11/26/19 09:39 11/26/19 11:30 11/26/19 16:34 11/27/19 07:03 Activated Clotting Time 107 sec (92-181) Glucose (Fingerstick) 188 mg/dL (70-99) 289 mg/dL (70-99) 107 mg/dL (70-99) Test 11/27/19 11:34 Glucose (Fingerstick) 162 mg/dL (70-99) Laboratory Tests Test 11/26/19 16:34 11/27/19 07:03 11/27/19 11:34 Glucose (Fingerstick) 289 mg/dL (70-99) 107 mg/dL (70-99) 162 mg/dL (70-99) Allergies Allergies Coded Allergies Type Severity Reaction Last Updated Verified No Known Drug Allergies 08/10/19 No Disposition/Orders: D/C to Home Justicifation of Admission Dx: Justifications for Admission: Justification of Admission Dx: Yes Angina: Symp at Rest UMA WILKERSON MD Nov 27, 2019 13:26
[2019-11-27] MEDS ORDERED: MAG30ORA2 PO (13:30)
[2019-11-27] MEDS ORDERED: IPRA3AMP29 NEB (13:30)
--- NOTE | 2019-11-27 13:31 | DISCH ---
DISCHARGE INSTRUCTIONS Condition on Discharge Condition on Discharge: Stable Activity After Discharge Activity Instructions for Disc: Activity as tolerated Lifting Instructions after Dis: No heavy lifting, No pulling or pushing, Do not lift >10 pounds Exercise Instruction after Dis: Progress as tolerated Driving Instructions after Dis: Do not drive today Weight Bearing Status after Di: No restrictions Diet after Discharge Diet after Discharge: Cardiac, No Added Salt, Diabetic No Calorie Level Diet Texture: Regular Liquid Texture: Thin Liquid Swallowing Supervision: None needed Wound Incision Care Wound/Incision Care: Keep wound/cast CDI Checks after Discharge Checks after discharge: Check blood press - daily, Check blood sugar, ac/hs, Check your Temp as needed Contacting the DR. after DC Call your doctor for: Concerns you may have Treatment/Equipment after DC Adaptive Equipment Issued: None Discharge Respiratory Equipmen: Oxygen, Nebulizer UMA WILKERSON MD Nov 27, 2019 13:31
--- NOTE | 2019-11-27 15:12 | PDOC ---
CARDIO Progress Notes Date and Time Date of Service 11/27/2019 Time of Evaluation 1340 Subjective Subjective: No Chest Pain, No shortness of breath, No Palpitations Vitals Vitals Vital Signs Date Time Temp Pulse Resp B/P (MAP) Pulse Ox O2 Delivery O2 Flow Rate FiO2 11/27/19 12:11 Room Air 11/27/19 11:00 97.6 72 18 138/62 (87) 96 97.6 11/27/19 07:00 2.0 Weight Weight [ ] Input and Output Intake and Output Intake and Output 11/27/19 07:00 Intake Total 990 ml Output Total 500 ml Balance 490 ml Intake Oral 990 ml Output Urine Total 500 ml # Voids 1 Laboratory Labs Laboratory Tests Test 11/26/19 16:34 11/27/19 07:03 11/27/19 11:34 Glucose (Fingerstick) 289 mg/dL (70-99) 107 mg/dL (70-99) 162 mg/dL (70-99) Physical Exam HEENT: Neck Supple W Full Motion Chest: Symmetric LUNGS: Clear to Auscultation Heart: S1S2, RRR (SR) Abdomen: Soft N/T Extremities: No Calf Tenderness Neurology: alert, oriented, follow commands Assessment Assessment 1. NSTEMI: possibly from microvascular dysfunction with associated CAD and HTN. S/P C no significant changes by comparison 2. CAD: past CABG 2/3 grafts were patent at that time of [facility]. s/p PCI/AKOSUA to SVG from the Diag to OM 07/25/2019. 3. Chronic combined diastolic/systolic CHF: compensated 4. HTN: controlled 5. HLP 6. ICM: EF at 40-45% appears compensated 7. AICD in situ: [employer]. recent gen change 10/23/2019 8. PAFIB; maintaining SR Recommendations 1. Continue Secondary prevention measures. Discussed further and to continue ASA and brilinta 2. Continue lasix therapy. Continue imdur 3. May DC per cardiac perspective. HBPM. Follow up as scheduled. Justicifation of Admission Dx: Justifications for Admission: Justification of Admission Dx: Yes Angina: Symp at Rest [employer] Nov 27, 2019 15:12
--- NOTE | 2019-11-27 15:16 | NUR ---
Discharge Note: SHANIQUA SHRESTHA [address] Discharge instructions and discharge home medications reviewed with Patient and a copy given. All questions have been answered and understanding verbalized. The following instructions and handouts were given: Cath teaching Discontinued lines and drains: IV catheter removed intact. Tele monitor removed. Patient discharged to Home with Self Care via Wheelchair.
== END 2019-11-27 15:00 | disposition home or self-care (01) | DRG 280 ==
LOC: 2 SOUTH 13:35
PROVIDERS: ADMIT Internal Medicine; ATTEND Internal Medicine
PROC: 4A023N7 Measurement of Cardiac Sampling and Pressure, Left Heart, Percutaneous Approach (ICD-10-PCS; principal; 2019-11-26)
PROC: B2111ZZ Fluoroscopy of Multiple Coronary Arteries using Low Osmolar Contrast (ICD-10-PCS; 2019-11-26)
PROC: B2151ZZ Fluoroscopy of Left Heart using Low Osmolar Contrast (ICD-10-PCS; 2019-11-26)
PROC: B2131ZZ Fluoroscopy of Multiple Coronary Artery Bypass Grafts using Low Osmolar Contrast (ICD-10-PCS; 2019-11-26)
PROC: B2181ZZ Fluoroscopy of Left Internal Mammary Bypass Graft using Low Osmolar Contrast (ICD-10-PCS; 2019-11-26)
DX: T82.855A Stenosis of coronary artery stent, initial encounter (principal); I21.4 Non-ST elevation (NSTEMI) myocardial infarction; I50.43 Acute on chronic combined systolic (congestive) and diastolic (congestive) heart failure; Q24.5 Malformation of coronary vessels; I25.110 Atherosclerotic heart disease of native coronary artery with unstable angina pectoris; I48.0 Paroxysmal atrial fibrillation; D50.9 Iron deficiency anemia, unspecified; E11.610 Type 2 diabetes mellitus with diabetic neuropathic arthropathy; E78.5 Hyperlipidemia, unspecified; I11.0 Hypertensive heart disease with heart failure; J44.9 Chronic obstructive pulmonary disease, unspecified; M06.9 Rheumatoid arthritis, unspecified; Z79.02 Long term (current) use of antithrombotics/antiplatelets; Z82.49 Family history of ischemic heart disease and other diseases of the circulatory system; Z95.1 Presence of aortocoronary bypass graft; Z95.810 Presence of automatic (implantable) cardiac defibrillator; Z96.652 Presence of left artificial knee joint; Z98.61 Coronary angioplasty status; F41.9 Anxiety disorder, unspecified; K21.9 Gastro-esophageal reflux disease without esophagitis; K57.90 Diverticulosis of intestine, part unspecified, without perforation or abscess without bleeding; M19.90 Unspecified osteoarthritis, unspecified site; Z79.899 Other long term (current) drug therapy; I25.5 Ischemic cardiomyopathy
CPT/HCPCS: 36415; 80048; 80061; 80076; 82962; 83540; 83550; 83735; 83880; 84484; 85025; 85027; 85347; 85520; 93005; 93459; 94640; 94760; 99152; 99153; 99285; C1769; C1892; J1644; J1815; J2250; J3010; J3490; J7030; Q9967; G0378

== ENCOUNTER 2020-02-13 00:56 | Inpatient (IN) | payer MEDICARE ==
[~2020-02-13] VITALS: Ht 162.6 cm; Wt 77.6 kg
[~2020-02-13 00:56] MED LIST changes: +MAG30ORA2 PO
--- NOTE | 2020-02-13 01:11 | PHYS DOC ---
Past Medical History Past Medical History: Anxiety, CHF, COPD, Diabetes-Type II, GERD, High Ch olesterol, Hypertension, MO Additional Past Medical Histor: RA; neuropathy Past Surgical History: Coronary Bypass Surgery, Hysterectomy, Other Additional Past Surgical Histo: defibrillator 2003; left bunionectomy Smoking Status: Former Smoker Alcohol Use: None Drug Use: None General Adult HPI: HPI: 75F with PMH of HTN, HL, CHF, CAD s/p CABG, PAF, anemia, p/w acute respiratory distress. Dyspnea began a couple hours prior to arrival at around 10 PM this evening. Associated diffuse chest pain. The patient has hypoxic in the 70s per EMS, based on CPAP prior to arrival with modest improvement. She received full dose aspirin and 1 nitroglycerin prior to arrival. Review of records show prior admission for acute respiratory failure in October. She was previously intubated for CHF and pneumonia in July. Review of Systems: Review of Systems: Gen: No fever, chills. CV: Reports chest pain. Resp. Reports dyspnea. GI: No abd pain, N/V. Neuro: No CERVANTES, dizziness, weakness. Remainder of ROS reviewed and negative unless otherwise specified. Heart Score: Risk Factors: Risk Factors: DM, Current or recent (<one month) smoker, HTN, HLP, family history of CAD, obesity. Risk Scores: Score 0 - 3: 2.5% MACE over next 6 weeks - Discharge Home Score 4 - 6: 20.3% MACE over next 6 weeks - Admit for Clinical Observation Score 7 - 10: 72.7% MACE over next 6 weeks - Early Invasive Strategies Allergies: Allergies: Allergies Coded Allergies Type Severity Reaction Last Updated Verified No Known Drug Allergies 08/10/19 No Physical Exam: PE: Gen: Mild distress secondary to dyspnea. Head: NC/AT. Eyes: No scleral icterus. No conjunctival injection. ENT: MMM. Posterior OP clear. Neck: Supple. CV: Mildly tachycardic and regular at 107. Peripheral pulses intact. Resp: Acute respiratory distress. Tachypneic. Prolonged expiratory phase. Bilateral rhonchi and rales. Abd: Soft. NT. ND. MSK: No peripheral cyanosis. Lower extremity edema. Neuro: Awake and alert. Skin. Warm. Dry. Psych: Appropriate mood & affect. EKG: EKG: EKG at 0059. Sinus tachycardia. Heart rate 107. Intraventricular conduction delay with QRS interval of 142 ms. Diffuse nonspecific STT changes. No significant interval change from prior EKG performed 11/23/2019. No STEMI criteria met. Interp by me. Radiology/Procedures: Radiology/Procedures: EXAM: CHEST 1 VIEW History: Shortness of breath COMPARISON: 08/03/2019 TECHNIQUE: Single portable radiograph of the chest FINDINGS: Mild cardiomegaly. Moderate prominent bilateral interstitial lung markings likely congestive changes. Left-sided cardiac pacer AICD is identified. IMPRESSION: Moderate congestive changes. Electronically signed by: Wilfredo Varma MD (02/13/2020 1:23 AM) [id number] Course & Med Decision Making: Course & Med Decision Making Pertinent Labs and Imaging studies reviewed. (See chart for details) In summary, 75-year-old female who presents for evaluation of acute respiratory distress and chest discomfort that began at 10 PM this evening. Rhonchorous bilaterally. Pulse oximetry mid to upper 80s on nonrebreather, placed on BiPAP with improvement. Congestive chest x-ray with elevated BNP. Troponin elevated at 0.44 with EKG showing no acute injury pattern, and no significant prior interval change from prior EKG performed in October. Repeat EKG obtained here after being on BiPAP for period of time was largely unremarkable as well. Corrected hyponatremia of 123. We will hold off on aggressive hydration at this time given acute heart failure. Remains on BiPAP, and was previously on nitro drip, now discontinued. She is now breathing much more comfortably. Given Lasix 40 mg IV for diuresis. Will be admitted for further management. Will obtain serial troponins as well, and if uptrending, will consider heparinization. Repeat troponin 0.8. CP improved and WOB improved however. Though currently s uspecting demand mediated process, will heparinize for now. Will admit. Travis Disclaimer: Travis Disclaimer: This electronic medical record was generated, in whole or in part, using a voice recognition dictation system. Departure Departure Impression: Primary Impression: Congestive heart failure Additional Impressions: Troponin level elevated Hyponatremia Disposition: ADMITTED INPATIENT Condition: GUARDED Referrals: FLACO HEREDIA (PCP) Justicifation of Admission Dx: Justifications for Admission: Justification of Admission Dx: Yes CHF: Sev. Electrolyte Abnormal Angina: Symp at Rest MO: Acute NSTEMI DAVID GROVES DO Feb 13, 2020 01:11
[2020-02-13 01:18] LABS: BASO # 0.1 x10^3/uL (0.0-0.2); BASO % 1 % (0-3); EOS # 0.1 x10^3/uL (0.0-0.7); EOS % 1 % (0-3); HEMATOCRIT 28.3 % (36.0-47.0); HEMOGLOBIN 8.9 g/dL (12.0-15.5); LYMPH % 15 % (24-48); MEAN CORPUSCULAR HEMOGLOBIN 22 pg (25-35); MEAN CORPUSCULAR HGB CONC 32 g/dL (31-37); MEAN CORPUSCULAR VOLUME 69 fL (79-100); MONO # 1.1 x10^3/uL (0.0-1.1); MONO % 8 % (0-9); NEUT # 9.6 x10^3/uL (1.8-7.7); NEUT % 75 % (31-73); PLATELET COUNT 395 x10^3/uL (140-400); RED BLOOD COUNT 4.12 x10^6/uL (3.50-5.40); RED CELL DISTRIBUTION WIDTH 17.7 % (11.5-14.5)
[2020-02-13] MEDS ORDERED: NITROGLYCERIN PREMIX 250 ML IV ONE ×2 (01:23→02:00)
--- NOTE | 2020-02-13 01:27 | RAD ---
EXAM: CHEST 1 VIEW History: Shortness of breath COMPARISON: 08/03/2019 TECHNIQUE: Single portable radiograph of the chest FINDINGS: Mild cardiomegaly. Moderate prominent bilateral interstitial lung markings likely congestive changes. Left-sided cardiac pacer AICD is identified. IMPRESSION: Moderate congestive changes. Electronically signed by: Wilfredo Varma MD (02/13/2020 1:23 AM) [id number]
[2020-02-13 01:32] LABS: ALBUMIN 3.8 g/dL (3.4-5.0); ALBUMIN/GLOBULIN RATIO 0.9 (1.0-1.7); CALCIUM 8.5 mg/dL (8.5-10.1); CREATININE 1.1 mg/dL (0.6-1.0); GFR 48.3; MAGNESIUM 1.7 mg/dL (1.8-2.4); POTASSIUM 3.8 mmol/L (3.5-5.1); TOTAL BILIRUBIN 0.4 mg/dL (0.2-1.0); TOTAL PROTEIN 7.9 g/dL (6.4-8.2)
[2020-02-13 01:41] LABS: PLT ESTIMATE ADEQUATE (ADEQUATE)
[2020-02-13 01:42] LABS: ANISOCYTOSIS SLIGHT; HYPOCHROMIA MOD; MICROCYTOSIS MARKED; POLYCHROMASIA SLIGHT
[2020-02-13] MEDS ORDERED: fentaNYL PF VIAL 100 MCG/2 ML VIAL ONE (01:51)
[2020-02-13 02:01] LABS: DIG 0.4 ng/mL (0.9-2.0); PROTHROMBIN TIME PATIENT 13.1 SEC (11.7-14.0)
[2020-02-13] MEDS ORDERED: fentaNYL PF VIAL 100 MCG/2 ML VIAL IVP ONE (02:30)
[2020-02-13 03:22] LABS: BASE EXCESS ABG -5 mmol/L (-3-3); HCO3 ABG 19 mmol/L (21-28); PCO2 ABG 35 mmHg (35-46); PO2 ABG 163 mmHg (65-108); SAT O2 ABG 99 % (92-99)
[2020-02-13] MEDS ORDERED: FUROSEMIDE 40 MG/4 ML VIAL. IVP ONE (03:30)
[2020-02-13] MEDS ORDERED: MAGNESIUM SULFATE 2GM 50 ML IV ONE (03:30)
[2020-02-13 03:36] LABS: FIO2 ABG 80
[2020-02-13] MEDS ORDERED: MORPHINE SULFATE 2 MG/ML VIAL. ONE (03:38)
[2020-02-13] MEDS ORDERED: MORPHINE SULFATE 2 MG/ML VIAL. IV ONE (04:00)
[2020-02-13] MEDS ORDERED: IV NORMAL SALINE 500ML BAG 500 ML IV ONE (05:00)
[2020-02-13] MEDS ORDERED: ANTI-COAG MONITOR BY PHARMACY. MC PRN (05:00)
[2020-02-13 05:44] LABS: BILIRUBIN,URINE NEGATIVE (NEG); CLARITY,URINE CLEAR; COLOR,URINE YELLOW; NITRITE,URINE NEGATIVE (NEG); PH,URINE 5.5 (<5.0-8.0); PROTEIN,URINE 100 mg/dL (NEG-TRACE); UROBILINOGEN,URINE 0.2 mg/dL (0.2 mg/dL)
[2020-02-13 05:58] LABS: BACTERIA,URINE FEW /HPF (0-FEW); HYALINE CASTS, URINE OCCASIONAL /HPF; RBC,URINE 0 /HPF (0-2); SQUAMOUS EPITHELIAL CELL,UR MOD /LPF
[2020-02-13] MEDS ORDERED: ONDANSETRON PF 4 MG/2 ML VIAL. IV PRN (06:15)
[2020-02-13] MEDS: HEPARIN for IV BOLUS 10,000 UNIT/10 ML VIAL. IV PRN ×2 (06:15→14:21)
[2020-02-13] MEDS: HEPARIN 25,000UTS/250ML PREMIX 250 ML IV PRN (06:33)
[2020-02-13 07:00] VITALS: BP 177/77
--- NOTE | 2020-02-13 09:16 | PDOC2 ---
CARDIAC CONSULT DATE OF CONSULT Date of Consult DATE: 02/13/20 TIME: 09:03 REASON FOR CONSULT Reason for Consult: Elevated troponin REFERRING PHYSICIAN Referring Physician: Garcia SOURCE Source: Chart review HISTORY OF PRESENT ILLNESS HISTORY OF PRESENT ILLNESS This is a pleasant 75 yo female admitted for complains of shortness of breath. Reports that her SOA got really bad yesterday. No significant peripheral edema b ut feels some tightness around her belly. Also had a bout of diarrhea yesterday. No chest pain per se but felt like chest was pounding and felt anxious. She does take 20 mg po lasix only and compliant with her meds otherwise. She does not check her BP regularly, does not weigh self and admits drinking soda and ingest possibly between 2-3 L per her description. Denies cough, fever, chills. PAST MEDICAL HISTORY Past Medical History Cardiovascular: CAD, CHF, HTN, Hyperlipidemia, ICM, PAFIB Pulmonary: COPD, Pneumonia, Other (ROEL CENTRAL NERVOUS SYSTEM: Carpal Tunnel Syndrome, Peripheral neuropathy GI: GERD Heme/Onc: Anemia NOS Hepatobiliary: No pertinent hx Psych: Anxiety Musculoskeletal: Osteoarthritis, Other (charcot foot) Rheumatologic: Rheumatoid arthritis Infectious disease: No pertinent hx ENT: Allergic Rhinitis Renal/: No pertinent hx Endocrine: Diabetes (2) Dermatology: Other (skin CA) PAST SURGICAL HISTORY Past Surgical History Pacemaker (AICD) Medtronic recnet gen change 09/2019, Appendectomy, Arthroscopy (right foot surgery), CABG (CABG x 4 MORILLO to LAD, SVG to diagonal and marginal and SVG to PDA), Total knee replacement (left), PCI 06/2019 FAMILY HISTORY Family History: Coronary Artery Disease SOCIAL HISTORY Smoke: Quit ALCOHOL: none Drugs: None Lives: with Family CURRENT MEDICATIONS CURRENT MEDICATIONS Current Medications Medications (Trade) Dose Ordered Sig/Christian Route PRN Reason Start Time Stop Time Status Last Admin Dose Admin Fentanyl Citrate (Fentanyl 2ml Vial) 50 mcg 1X ONCE IVP 02/13/20 02:30 02/13/20 02:31 DC 02/13/20 02:00 Magnesium Sulfate 50 ml @ 25 mls/hr 1X ONCE IV 02/13/20 03:30 02/13/20 05:29 DC 02/13/20 03:51 Furosemide (Lasix) 40 mg 1X ONCE IVP 02/13/20 03:30 9/16/20 03:31 DC 02/13/20 03:51 Morphine Sulfate (Morphine Sulfate) 2 mg 1X ONCE IV 02/13/20 04:00 02/13/20 04:01 DC 02/13/20 03:50 Sodium Chloride 500 ml @ 500 mls/hr 1X ONCE IV 02/13/20 05:00 02/13/20 05:59 DC 02/13/20 04:45 Heparin Sodium/ Dextrose 250 ml @ 0 mls/hr CONT PRN IV PER PROTOCOL 02/13/20 05:00 02/13/20 06:33 Heparin Sodium (Porcine) (Heparin Sodium) 2,100 unit PRN Q6HRS PRN IV FOR UFH LEVEL LESS THAN 0.2 02/13/20 05:00 02/13/20 06:15 Info (Anti-Coagulation Monitoring By Pharmacy) 1 each PRN DAILY PRN MC SEE COMMENTS 02/13/20 05:00 02/13/20 05:46 ALLERGIES ALLERGIES: Coded Allergies: No Known Drug Allergies (Unverified , 08/10/19) ROS Review of System 14 point ROS evaluated with pertinent positives noted per HPI PHYSICAL EXAM General: Alert, Oriented X3, Cooperative, No acute distress HEENT: Atraumatic, Mucous membr. moist/pink Lungs: Other (diminished, bipap in place) Heart: Regular rate (SR), Other (distant heart sounds) Abdomen: Soft, No tenderness Extremities: No cyanosis, No edema Skin: No breakdown, No significant lesion Neuro: Normal speech, Sensation intact Psych/Mental Status: Mental status NL, Mood NL MUSCULOSKELETAL: Osteoarthritic changes both hands VITALS/I&O VITALS/I&O: Vital Signs Date Time Temp Pulse Resp B/P (MAP) Pulse Ox O2 Delivery O2 Flow Rate FiO2 02/13/20 07:14 76 20 118/57 (77) 100 BiPAP/CPAP 02/13/20 00:56 97.6 97.6 I & O 02/12/20 02/12/20 02/13/20 15:00 23:00 07:00 Intake Total 300 ml Balance 300 ml LABS Lab: Laboratory Tests Test 02/13/20 01:07 02/13/20 03:11 02/13/20 04:09 02/13/20 05:22 White Blood Count 13.0 x10^3/uL (4.0-11.0) H Red Blood Count 4.12 x10^6/uL (3.50-5.40) Hemoglobin 8.9 g/dL (12.0-15.5) L Hematocrit 28.3 % (36.0-47.0) L Mean Corpuscular Volume 69 fL (79-100) L Mean Corpuscular Hemoglobin 22 pg (25-35) L Mean Corpuscular Hemoglobin Concent 32 g/dL (31-37) Red Cell Distribution Width 17.7 % (11.5-14.5) H Platelet Count 395 x10^3/uL (140-400) Neutrophils (%) (Auto) 75 % (31-73) H Lymphocytes (%) (Auto) 15 % (24-48) L Monocytes (%) (Auto) 8 % (0-9) Eosinophils (%) (Auto) 1 % (0-3) Basophils (%) (Auto) 1 % (0-3) Neutrophils # (Auto) 9.6 x10^3/uL (1.8-7.7) H Lymphocytes # (Auto) 2.0 x10^3/uL (1.0-4.8) Monocytes # (Auto) 1.1 x10^3/uL (0.0-1.1) Eosinophils # (Auto) 0.1 x10^3/uL (0.0-0.7) Basophils # (Auto) 0.1 x10^3/uL (0.0-0.2) Platelet Estimate Adequate (ADEQUATE) Polychromasia Slight Hypochromasia Mod Anisocytosis Slight Microcytosis Marked Prothrombin Time 13.1 SEC (11.7-14.0) Prothrombin Time INR 1.0 (0.8-1.1) Activated Partial Thromboplast Time 32 SEC (24-38) Sodium Level 120 mmol/L (136-145) *L Potassium Level 3.8 mmol/L (3.5-5.1) Chloride Level 86 mmol/L (98-107) L Carbon Dioxide Level 23 mmol/L (21-32) Anion Gap 11 (6-14) Blood Urea Nitrogen 13 mg/dL (7-20) Creatinine 1.1 mg/dL (0.6-1.0) H Estimated GFR (Cockcroft-Gault) 48.3 BUN/Creatinine Ratio 12 (6-20) Glucose Level 276 mg/dL (70-99) H Calcium Level 8.5 mg/dL (8.5-10.1) Magnesium Level 1.7 mg/dL (1.8-2.4) L Total Bilirubin 0.4 mg/dL (0.2-1.0) Aspartate Amino Transferase (AST) 20 U/L (15-37) Alanine Aminotransferase (ALT) 28 U/L (14-59) Alkaline Phosphatase 90 U/L (46-116) Troponin I Quantitative 0.444 ng/mL (0.000-0.055) 0.890 ng/mL (0.000-0.055) UT-Cft-T-Type Natriuretic Peptide 1697 pg/mL (0-449) H Total Protein 7.9 g/dL (6.4-8.2) Albumin 3.8 g/dL (3.4-5.0) Albumin/Globulin Ratio 0.9 (1.0-1.7) L Digoxin Level 0.4 ng/mL (0.9-2.0) L Digoxin Last Dose Date Unk Digoxin Last Dose Time Unk O2 Saturation 99 % (92-99) Arterial Blood pH 7.37 (7.35-7.45) Arterial Blood pCO2 at Patient Temp 35 mmHg (35-46) Arterial Blood pO2 at Patient Temp 163 mmHg (65-108) H Arterial Blood HCO3 19 mmol/L (21-28) L Arterial Blood Base Excess -5 mmol/L (-3-3) L FiO2 80 Urine Collection Type Unknown Urine Color Yellow Urine Clarity Clear Urine pH 5.5 (<5.0-8.0) Urine Specific [place] 1.010 (1.000-1.030) Urine Protein 100 mg/dL (NEG-TRACE) Urine Glucose (UA) 250 mg/dL (NEG) Urine Ketones (Stick) Negative mg/dL (NEG) Urine Blood Negative (NEG) Urine Nitrite Negative (NEG) Urine Bilirubin Negative (NEG) Urine Urobilinogen Dipstick 0.2 mg/dL (0.2 mg/dL) Urine Leukocyte Esterase Negative (NEG) Urine RBC 0 /HPF (0-2) Urine WBC 5-10 /HPF (0-4) Urine Squamous Epithelial Cells Mod /LPF Urine Bacteria Few /HPF (0-FEW) Urine Hyaline Casts Occasional /HPF Laboratory Tests 02/13/20 01:07 Laboratory Tests 02/13/20 01:07 ECHOCARDIOGRAM ECHOCARDIOGRAM <Conclusion> The left ventricular systolic function is mildly decreased. The Ejection Fraction is 40-45%. Septal motion consistent with conduction abnormality. Otherwise, mild global hypokinesis. There is a pacemaker lead in the right ventricle. Calculated aortic valve area is 1.01 cm2 with maximum pressure gradient of 22 mmHg and mean pressure gradient of 12 mmHg. Doppler and Color-flow revealed mild mitral regurgitation. DATE: 07/24/19 1033 HEART CATH HEART CATH Conclusion 1. Acute on chronic systolic and diastolic heart failure, LVEDP 19 mmHg 2. Severe three-vessel coronary artery disease 3. 3 out of 4 grafts patent 4. Patent stent in the jump graft portion of D1 to OM1 5. Mild LV dysfunction, LV systolic function 40 to 45% Recommendations 1. No significant changes compared to prior cardiac catheterization. Continue aggressive medical therapy DATE: 11/26/19 1211 ASSESSMENT/PLAN ASSESSMENT/PLAN 1. Acute on chronic combined diastolic/systolic contributors include HTN urgency and overhydration. covid pending 2. CAD: past CABG recent [facility] 11/25 3/4 grafts were patent. s/p PCI/AKOSUA to SVG from the Diag to OM 07/25/2019. 3. NSTEMI: possibly demand mediated. CP free. Likely from CHF/HTN with associated microvascular dysfunction. 4. HTN urgency 5. HLP 6. ICM: prior EF at 40-45% 7. AICD in situ: Medtronic. recent gen change 10/23/2019 8. PAFIB: noted with low burden in the past. SR 9. Hyponatremia: due to CHF 10. Mild hypomagnesemia 11. ROEL: CPAP compliant 12. Microcytic anemia: Hgb is within her baseline in the 8s Recommendations 1. Continue secondary prevention measures. Heparin drip. Repeat EKG. Will trend troponin. On ASA/brilinta at home and will resume 2. Optimize lasix therapy Interrogate device and note if optivol function is operational and note any contributing arrhythmias. 3. Monitor BP trend. Will obtain limited TTE 4. Bipap PRN 5. Discussed with pt HBPM, daily wt and FR. 6. Replace K and Mg as warranted MILES FUENTES APRN Feb 13, 2020 09:16
[2020-02-13] MEDS ORDERED: FUROSEMIDE 20 MG/2 ML VIAL. IVP ONE ×2 (10:00→12:00)
--- NOTE | 2020-02-13 10:14 | CONS ---
DATE OF CONSULTATION: 02/13/2020 PULMONARY CONSULTATION ATTENDING PHYSICIAN: Dr. Zelaya. REASON FOR CONSULTATION: Respiratory failure. HISTORY OF PRESENT ILLNESS: The patient is a 75-year-old who has history of congestive heart failure, history of cardiomyopathy with an EF of 45%. The patient was brought into the hospital with increasing shortness of breath, which came on rapidly. She had no significant cough. Denied any fever or chills. No COVID exposures. She was hypoxic in the Emergency Room with saturation in the 70s. She had some nonspecific chest pain as well. The patient's chest x-ray showed diffuse interstitial infiltrates. This was a new finding compared to her chest x-ray from July of this year. She is currently on BiPAP at 40% FiO2. Her ABGs showed a pH of 7.37, pCO2 of 35 and a pO2 163 on 80% FiO2. I have been asked to see her for further evaluation. She did receive one dose of Lasix. Her troponin levels were elevated as well. PAST MEDICAL HISTORY: Significant for CHF. Questionable COPD. She quit smoking 35 years ago. History of type 2 diabetes, GERD, dyslipidemia, hypertension, RA and neuropathy. PAST SURGICAL HISTORY: Coronary artery bypass surgery, hysterectomy, defibrillator in 2003, left bunionectomy. SOCIAL HISTORY: Quit 35 years ago, before that smoked cigarettes. ALLERGIES: None. MEDICATIONS: Reviewed as listed in the MRAD. REVIEW OF SYSTEMS: Ten-point system obtained. Pertinent positives discussed in my history of present illness, otherwise noncontributory. All systems that were negative were reviewed as well. PHYSICAL EXAMINATION: VITAL SIGNS: Reviewed. Pulse ox is 100% on current BiPAP. NECK: Supple. LUNGS: With diminished breath sounds. CARDIOVASCULAR: With a regular rate. ABDOMEN: Soft. EXTREMITIES: With trace pitting edema. LABORATORY DATA: Reviewed. ABGs as discussed in my history of present illness. Chemistries with sodium of 120, BUN 13, creatinine 1.1. Troponin 0.89. White cell count 13.0. IMPRESSION: 1. Acute hypoxic respiratory failure with diffuse interstitial lung infiltrates in a patient with EF of 45%. This is highly suggestive of acute on chronic systolic heart failure. Clinically, less likely interstitial lung disease as her chest x-ray was relatively clear in July. Clinically, less likely rheumatoid arthritis induced interstitial lung disease. 2. Cardiomyopathy with an ejection fraction of 45%. 3. Prior history of tobacco use, but quit 35 years ago. 4. Abnormal troponin consistent with non-ST myocardial infarction. RECOMMENDATIONS: 1. We will continue with present diuresis. 2. Continue BiPAP and gradually wean FiO2 and hopefully change her to nasal cannula once oxygenation improves. 3. Follow cardiology recommendations. 4. Follow chest x-ray post-diuresis. 5. Heparin per protocol per Cardiology. 6. Discussed with RN and we will follow along with you. RAY TRAVIS MD DR: IRENE/karmen JOB#: [id number] / [id number]
[2020-02-13 10:44] LABS: CALCIUM 8.5 mg/dL (8.5-10.1); CREATININE 0.9 mg/dL (0.6-1.0); GFR 60.9
--- NOTE | 2020-02-13 10:50 | EKG ---
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
[2020-02-13 11:00] VITALS: BP 167/72
--- NOTE | 2020-02-13 11:19 | NUR ---
SS following for discharge planning, SS reviewed pt chart and discussed with pt RN. Pt is from home and is currently on BIPAP. Cardiology consulted. COVID19 pending. SS will continue to follow for discharge planning.
--- NOTE | 2020-02-13 11:44 | EKG ---
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
--- NOTE | 2020-02-13 12:13 | HP ---
ADMIT DATE: 02/13/2020 CHIEF COMPLAINT: Shortness of breath. HISTORY OF PRESENT ILLNESS: The patient is a pleasant 75-year-old who presented with respiratory distress. She is very short of breath that began about 10:00 p.m. last night, came on suddenly. She has some associated chest pain. When the EMS got there, she was hypoxic in the 70s. She was placed on BiPAP. We also gave her nitroglycerin. When she got to the ER, she was noted to also have some heart failure and an elevated troponin and BNP level. She has now been admitted to the cardiac floor where she is being examined. PAST MEDICAL HISTORY: Anxiety, CHF, hypertension, hyperlipidemia, COPD, GERD, myocardial infarction, rheumatoid arthritis, neuropathy, coronary artery bypass surgery, hysterectomy, defibrillator, left bunionectomy, previous tobacco abuse. ALLERGIES: None. FAMILY HISTORY: Coronary artery disease. SOCIAL HISTORY: She quit smoking, no drinking or drugs. She is retired. MEDICATIONS: Reviewed, please refer to the MRAD. REVIEW OF SYSTEMS: GENERAL: No history of weight change, weakness or fevers. SKIN: No bruising, hair changes or rashes. EYES: No blurred, double or loss of vision. NOSE AND THROAT: No history of nosebleeds, hoarseness or sore throat. CARDIAC: She complains of chest pain. PULMONARY: She complains of shortness of breath. GASTROINTESTINAL: Denies changes in appetite, nausea, vomiting, diarrhea or constipation. GENITOURINARY: No history of frequency, urgency, hesitancy or nocturia. NEUROLOGIC: Denies history of numbness, tingling, tremor or weakness. PSYCHIATRIC: No history of panic, anxiety or depression. ENDOCRINE: No history of heat or cold intolerance, polyuria or polydipsia. EXTREMITIES: Denies muscle weakness, joint pain, pain on walking or stiffness. PHYSICAL EXAMINATION: VITALS: Within normal limits and are stable. GENERAL: She is in respiratory distress. She has BiPAP on. HEENT: Normal cephalic atraumatic, external auditory canals are patent. Eyes: Extraocular muscles are intact, pupils are equally round and reactive to light and accommodation. MUSCULOSKELETAL: Well developed, well nourished, good range of motion. ENDOCRINE: No thyromegaly was palpated. LYMPHATICS: No cervical chain or axillary nodes were noted. HEMATOPOIETIC: No bruising. NECK: Supple, no JVD, no thyromegaly was noted. PULMONARY: She has diffuse crackles. HEART: RRR, S1, S2 present. Peripheral pulses intact, no obvious murmurs were noted. ABDOMEN: Soft, nontender. Positive bowel sounds no organomegaly, normal bowel sounds. EXTREMITIES: Without any cyanosis, clubbing, or edema. Pedal pulses intact, Homans sign is negative. NEUROLOGIC: She is weak and short of breath. PSYCHIATRIC: She is anxious. SKIN: No ulcerations or rashes, good skin turgor, no jaundice. VASCULAR: Good capillary refill, neurovascular bundle appears to be intact. LABORATORY DATA: Chest x-ray shows vascular congestion. White count 13, hemoglobin 8.9, platelets 395. Electrolytes: Sodium 128, potassium 4.0, chloride 92, bicarbonate 26, BUN 13, creatinine 0.9, glucose 139. Urinalysis negative. Digoxin level pending. ASSESSMENT AND PLAN: Acute on chronic systolic and diastolic heart failure with respiratory failure in an elderly female who has a previous history of cardiomyopathy and previous tobacco abuse. The patient has been admitted to the cardiac floor. We are checking serial enzymes, serial EKGs. We have her on BiPAP. We have consulted Pulmonary and Cardiology. DuoNebs. Home meds. DVT prophylaxis. Full code. We will trend her chest x-rays and labs. Heparin drip. Prognosis long-term guarded. Critical care time 32 minutes. MAXIM VARGAS DO DR: AMARILYS/karmen JOB#: [id number] / [id number]
[2020-02-13] MEDS: TICAGRELOR 90 MG TABLET. PO SCH ×2 (12:36→20:49)
[2020-02-13] MEDS: amLODIPine BESYLATE 10 MG TABLET PO SCH (12:36)
[2020-02-13] MEDS: CARVEDILOL 12.5 MG TABLET. PO SCH ×2 (12:36→17:30)
[2020-02-13] MEDS: ISOSORBIDE MONONITRATE ER 30 MG TAB.ER.24H PO SCH (12:36)
[2020-02-13] MEDS: ASPIRIN ENTERIC COATED 81 MG TABLET.DR. PO SCH (12:36)
[2020-02-13 12:39] VITALS: BP 152/57
--- NOTE | 2020-02-13 12:43 | EKG ---
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
[2020-02-13 14:31] VITALS: BP 151/54
[2020-02-13 20:00] VITALS: BP 151/51
[2020-02-13] MEDS: ATORVASTATIN CALCIUM 20 MG TABLET PO SCH (20:49)
[2020-02-13 23:40] VITALS: BP 141/82
[2020-02-14] VITALS (10 sets, daily range): BP systolic 131–164; BP diastolic 44–80
[2020-02-14] MEDS: HEPARIN 25,000UTS/250ML PREMIX 250 ML IV PRN (00:54)
[2020-02-14 02:11] LABS: HEMATOCRIT 22.5 % (36.0-47.0); HEMOGLOBIN 7.2 g/dL (12.0-15.5); RED BLOOD COUNT 3.32 x10^6/uL (3.50-5.40); RED CELL DISTRIBUTION WIDTH 17.7 % (11.5-14.5); WHITE BLOOD COUNT 11.6 x10^3/uL (4.0-11.0)
[2020-02-14] MEDS: TICAGRELOR 90 MG TABLET. PO SCH ×2 (09:10→21:04)
[2020-02-14] MEDS: ASPIRIN ENTERIC COATED 81 MG TABLET.DR. PO SCH (09:10)
[2020-02-14] MEDS: ISOSORBIDE MONONITRATE ER 30 MG TAB.ER.24H PO SCH (09:14)
[2020-02-14] MEDS: CARVEDILOL 12.5 MG TABLET. PO SCH ×2 (09:15→17:19)
[2020-02-14] MEDS: amLODIPine BESYLATE 10 MG TABLET PO SCH (09:15)
[2020-02-14] MEDS: FUROSEMIDE 40 MG/4 ML VIAL. IVP SCH (09:15)
--- NOTE | 2020-02-14 09:30 | PDOC ---
CARDIO Progress Notes Date and Time Date of Service 02/14/2020 Time of Evaluation 0920 Subjective Subjective: No Chest Pain, No shortness of breath, No Palpitations, Other (feels better today) Vitals Vitals Vital Signs Date Time Temp Pulse Resp B/P (MAP) Pulse Ox O2 Delivery O2 Flow Rate FiO2 02/14/20 07:18 99 Nasal Cannula 4.0 02/14/20 07:05 99.4 80 21 147/59 (88) 99.4 Weight Weight [ ] Input and Output Intake and Output Intake and Output 02/14/20 07:00 Intake Total 340 ml Output Total 3550 ml Balance -3210 ml Intake Oral 340 ml Output Urine Total 3550 ml # Voids 1 Laboratory Labs Laboratory Tests Test 02/13/20 10:10 02/13/20 12:25 02/13/20 20:20 02/14/20 01:55 Sodium Level 128 mmol/L (136-145) Potassium Level 4.0 mmol/L (3.5-5.1) Chloride Level 92 mmol/L (98-107) Carbon Dioxide Level 26 mmol/L (21-32) Anion Gap 10 (6-14) Blood Urea Nitrogen 13 mg/dL (7-20) Creatinine 0.9 mg/dL (0.6-1.0) Estimated GFR (Cockcroft-Gault) 60.9 Glucose Level 139 mg/dL (70-99) Calcium Level 8.5 mg/dL (8.5-10.1) Troponin I Quantitative 2.881 ng/mL (0.000-0.055) Heparin Anti-Xa Act, Unfractionated 0.16 IU/mL (0.30-0.70) 0.36 IU/mL (0.30-0.70) 0.25 IU/mL (0.30-0.70) White Blood Count 11.6 x10^3/uL (4.0-11.0) Red Blood Count 3.32 x10^6/uL (3.50-5.40) Hemoglobin 7.2 g/dL (12.0-15.5) Hematocrit 22.5 % (36.0-47.0) Mean Corpuscular Volume 68 fL (79-100) Mean Corpuscular Hemoglobin 22 pg (25-35) Mean Corpuscular Hemoglobin Concent 32 g/dL (31-37) Red Cell Distribution Width 17.7 % (11.5-14.5) Platelet Count 278 x10^3/uL (140-400) Test 02/14/20 07:59 02/14/20 08:19 Troponin I Quantitative 3.082 ng/mL (0.000-0.055) Heparin Anti-Xa Act, Unfractionated 0.38 IU/mL (0.30-0.70) Physical Exam HEENT: Neck Supple W Full Motion Chest: Symmetric LUNGS: Other (CXR reviewed) Heart: RRR (SR) Abdomen: Other (soft) Extremities: No Calf Tenderness Neurology: alert, oriented, follow commands Assessment Assessment 1. Acute on chronic combined diastolic/systolic contributors include HTN urgency and overhydration. covid pending. Now compensated 2. CAD: past CABG recent [facility] 11/25 3/4 grafts were patent. s/p PCI/AKOSUA to SVG from the Diag to OM 07/25/2019. 3. NSTEMI: peaked at 3. possibly demand mediated. CP free. Likely from CHF/HTN with associated microvascular dysfunction. 4. HTN urgency: better 5. HLP 6. ICM: prior EF at 40-45% 7. AICD in situ: Medtronic. recent gen change 10/23/2019. Normal device. No optivol ability. No arrhythmias. 8. PAFIB: noted with low burden in the past. SR. Remains with low AFIB burden 9. Hyponatremia: due to CHF. improved 10. Mild hypomagnesemia: resolved 11. ROEL: CPAP compliant 12. Microcytic anemia: Hgb is within her baseline in the 8s Recommendations 1. Continue secondary prevention measures. May DC heparin. Continue ASA/brilinta 2. Lasix therapy. Transition to PO tomorrow with 40 mg po daily. 3. follow up TTE if negative for covid 4. Bipap PRN 5. Discussed with pt HBPM, daily wt and FR. 6. Replace K and Mg as warranted 7. Consider 1U PRBC and xtra lasix afterwards Justicifation of Admission Dx: Justifications for Admission: Justification of Admission Dx: Yes CHF: Sev. Electrolyte Abnormal Angina: Symp at Rest MS: Acute NSTEMI MILES FUENTES APRN Feb 14, 2020 09:30
--- NOTE | 2020-02-14 10:10 | RAD ---
PORTABLE CHEST 1V INDICATION: CHF . COMPARISON STUDY: 02/13/2020. FINDINGS: Life Support Devices: Left pectoral pacemaker. Lungs: Normal lung volume. Improving bilateral perihilar and basilar heterogeneous opacities. Pulmonary vasculature indistinctness. Pleura: No pleural effusion or pneumothorax. Heart and Mediastinum: Stable cardiomediastinal silhouette and great vessels. IMPRESSION: Improving bilateral perihilar and basilar opacities. Electronically signed by: Miguel Colemna MD (02/14/2020 10:07 AM) [id number]
[2020-02-14 10:22] LABS: CALCIUM 8.6 mg/dL (8.5-10.1); CREATININE 0.7 mg/dL (0.6-1.0); GFR 81.4; MAGNESIUM 2.3 mg/dL (1.8-2.4); POTASSIUM 3.2 mmol/L (3.5-5.1)
[2020-02-14] MEDS ORDERED: POTASSIUM CHLORIDE 20 MEQ TABLET.ER. PO ONE (11:45)
--- NOTE | 2020-02-14 11:49 | PDOC ---
[employer] PROGRESS NOTE Date of Service DOS: DATE: 02/14/20 TIME: 11:45 Chief Complaint Chief Complaint Shortness of breath History of Present Illness History of Present Illness Patient reports improvement in her shortness of breath. She is off heparin drip, currently breathing on 4 L nasal cannula. She is refusing her BiPAP at night, stating she is not needed to breathe well. Discussed with RN. Vitals/I&O Vitals/I&O: Vital Signs Date Time Temp Pulse Resp B/P (MAP) Pulse Ox O2 Delivery O2 Flow Rate FiO2 02/14/20 11:43 96 Nasal Cannula 4.0 02/14/20 09:15 80 147/59 02/14/20 07:05 99.4 21 99.4 I & O 02/13/20 02/13/20 02/14/20 15:00 23:00 07:00 Intake Total 340 ml Output Total 2150 ml 1400 ml Balance -2150 ml 340 ml -1400 ml Physical Exam General: Alert, Oriented X3, Cooperative, No acute distress Heart: Regular rate (SR), Other (distant heart sounds) Lungs: Clear Abdomen: Soft, No tenderness Extremities: No cyanosis, No edema Skin: No breakdown, No significant lesion Labs Labs: Laboratory Tests Test 02/13/20 12:25 02/13/20 20:20 02/14/20 01:55 02/14/20 07:59 Heparin Anti-Xa Act, Unfractionated 0.16 IU/mL (0.30-0.70) 0.36 IU/mL (0.30-0.70) 0.25 IU/mL (0.30-0.70) White Blood Count 11.6 x10^3/uL (4.0-11.0) Red Blood Count 3.32 x10^6/uL (3.50-5.40) Hemoglobin 7.2 g/dL (12.0-15.5) Hematocrit 22.5 % (36.0-47.0) Mean Corpuscular Volume 68 fL (79-100) Mean Corpuscular Hemoglobin 22 pg (25-35) Mean Corpuscular Hemoglobin Concent 32 g/dL (31-37) Red Cell Distribution Width 17.7 % (11.5-14.5) Platelet Count 278 x10^3/uL (140-400) Sodium Level 132 mmol/L (136-145) Potassium Level 3.2 mmol/L (3.5-5.1) Chloride Level 97 mmol/L (98-107) Carbon Dioxide Level 28 mmol/L (21-32) Anion Gap 7 (6-14) Blood Urea Nitrogen 9 mg/dL (7-20) Creatinine 0.7 mg/dL (0.6-1.0) Estimated GFR (Cockcroft-Gault) 81.4 Glucose Level 133 mg/dL (70-99) Calcium Level 8.6 mg/dL (8.5-10.1) Magnesium Level 2.3 mg/dL (1.8-2.4) Troponin I Quantitative 3.082 ng/mL (0.000-0.055) Test 02/14/20 08:19 Heparin Anti-Xa Act, Unfractionated 0.38 IU/mL (0.30-0.70) Review of Systems Review of Systems: GENERAL: No history of weight change, weakness or fevers.. CARDIAC: Denies chest pain. PULMONARY: She complains of shortness of breath. GASTROINTESTINAL: Denies changes in appetite, nausea, vomiting, diarrhea or constipation. NEUROLOGIC: Denies history of numbness, tingling, tremor or weakness. EXTREMITIES: Denies muscle weakness, joint pain, pain on walking or stiffness. Assessment and Plan Assessmemt and Plan Problems Medical Problems: (1) Hyponatremia Status: Acute (2) Troponin level elevated Status: Acute Comment Review of Relevant I have reviewed the following items jenifer (where applicable) has been applied. Medications: Current Medications Medications (Trade) Dose Ordered Sig/Christian Route PRN Reason Start Time Stop Time Status Last Admin Dose Admin Furosemide (Lasix) 20 mg 1X ONCE IVP 02/13/20 12:00 02/13/20 12:01 DC 02/13/20 12:35 Furosemide (Lasix) 40 mg DAILY IVP 02/14/20 09:00 02/14/20 09:15 Amlodipine Besylate (Norvasc) 10 mg DAILY PO 02/13/20 12:30 02/14/20 09:15 Aspirin (Ecotrin) 81 mg DAILY PO 02/13/20 12:30 02/14/20 09:10 Atorvastatin Calcium (Lipitor) 40 mg HS PO 02/13/20 21:00 02/13/20 20:49 Isosorbide Mononitrate (Imdur) 30 mg DAILY PO 02/13/20 12:30 02/14/20 09:14 Ticagrelor (Brilinta) 90 mg BID PO 02/13/20 12:30 02/14/20 09:10 Carvedilol (Coreg) 25 mg BIDWMEALS PO 02/13/20 12:30 02/14/20 09:15 Justifications for Admission Other Justification TAWANDA COKER MD Feb 14, 2020 11:49
--- NOTE | 2020-02-14 13:05 | PDOC2 ---
CONSULT Date of Consult Date of Consult DATE: 02/14/20 TIME: 12:59 Reason for Consult Reason for Consult: LOW NA Referring Physician Referring Physician: SAM Identification/Chief Complaint Chief Complaint SOB Source Source: Chart review History of Present Illness Reason for Visit: THIS IS A 75 YR OLD WITH SOB. HX OF CM WITH EF OF 45%. NOTED TO BY HYPOXIC AND IN CHF BASED ON IMAGING. CARDIOLOGY AND PULM EVALUATION ONGOING AT THIS TIME. WAS PLACED ON BIPAP AND NOW ON SUPPLEMENTAL O2. NO RENAL ISSUES NOTED BUT NA OF 120 ON ADMIT AND THIS HAS IMPROVED SLOWLY LAST COUPLE DAYS. PT IS A VERY POOR HISTORIAN. NO HX REPORTED. Past Medical History Cardiovascular: CAD, CHF, HTN, ND, Hyperlipidemia Pulmonary: COPD, Pneumonia, Other CENTRAL NERVOUS SYSTEM: Periperal neuropathy GI: Diverticulosis, Other Heme/Onc: Anemia NOS Hepatobiliary: No pertinent hx Psych: Anxiety Musculoskeletal: low back pain Rheumatologic: Rheumatoid arthritis Infectious disease: No pertinent hx Renal/: No pertinent hx Endocrine: Diabetes Past Surgical History Past Surgical History: Pacemaker, Appendectomy, CABG, Cataract Removal, Total knee replacement, Tonsillectomy, Other Family History Family History: Coronary Artery Disease Social History Quit ALCOHOL: none Drugs: None Lives: with Family Current Problem List Problem List Problems Medical Problems: (1) Hyponatremia Status: Acute (2) Troponin level elevated Status: Acute Current Medications Current Medications Current Medications Nitroglycerin/ Dextrose 250 ml @ 0 mls/hr 1X ONCE IV ; Start 02/13/20 at 02:00; Stop 02/13/20 at 02:01; Status DC Nitroglycerin/ Dextrose 250 ml @ As Directed STK-MED ONCE IV ; Start 02/13/20 at 01:23; Stop 02/13/20 at 01:23; Status DC Fentanyl Citrate (Fentanyl 2ml Vial) 100 mcg STK-MED ONCE .ROUTE ; Start 02/13/20 at 01:51; Stop 02/13/20 at 01:51; Status DC Fentanyl Citrate (Fentanyl 2ml Vial) 50 mcg 1X ONCE IVP Last administered on 02/13/20at 02:00; Start 02/13/20 at 02:30; Stop 02/13/20 at 02:31; Status DC Magnesium Sulfate 50 ml @ 25 mls/hr 1X ONCE IV Last administered on 02/13/20at 03:51; Start 02/13/20 at 03:30; Stop 02/13/20 at 05:29; Status DC Furosemide (Lasix) 40 mg 1X ONCE IVP Last administered on 02/13/20at 03:51; St art 02/13/20 at 03:30; Stop 02/13/20 at 03:31; Status DC Morphine Sulfate (Morphine Sulfate) 2 mg STK-MED ONCE .ROUTE ; Start 02/13/20 at 03:38; Stop 02/13/20 at 03:38; Status DC Morphine Sulfate (Morphine Sulfate) 2 mg 1X ONCE IV Last administered on at 03:50; Start 02/13/20 at 04:00; Stop 02/13/20 at 04:01; Status DC Sodium Chloride 500 ml @ 500 mls/hr 1X ONCE IV Last administered on 02/13/20at 04:45; Start 02/13/20 at 05:00; Stop 02/13/20 at 05:59; Status DC Heparin Sodium/ Dextrose 250 ml @ 0 mls/hr CONT PRN IV PER PROTOCOL Last administered on 02/14/20at 00:54; Start 02/13/20 at 05:00 Heparin Sodium (Porcine) (Heparin Sodium) 2,100 unit PRN Q6HRS PRN IV FOR UFH LEVEL LESS THAN 0.2 Last administered on 02/13/20at 14:21; Start 02/13/20 at 05 :00 Info (Anti-Coagulation Monitoring By Pharmacy) 1 each PRN DAILY PRN MC SEE COMMENTS Last administered on 02/13/20at 05:46; Start 02/13/20 at 05:00 Ondansetron HCl (Zofran) 4 mg PRN Q8HRS PRN IV NAUSEA/VOMITING 1ST CHOICE; Start 02/13/20 at 06:15; Stop 02/14/20 at 06:14; Status DC Furosemide (Lasix) 20 mg 1X ONCE IVP Last administered on 02/13/20at 11:13; Start 02/13/20 at 10:00; Stop 02/13/20 at 10:05; Status DC Furosemide (Lasix) 20 mg 1X ONCE IVP Last administered on 02/13/20at 12:35; Start 02/13/20 at 12:00; Stop 02/13/20 at 12:01; Status DC Furosemide (Lasix) 40 mg DAILY IVP Last administered on 02/14/20 09:15; Start 02/14/20 at 09:00 Amlodipine Besylate (Norvasc) 10 mg DAILY PO Last administered on 02/14/20at 09:15; Start 02/13/20 at 12:30 Aspirin (Ecotrin) 81 mg DAILY PO Last administered on 02/14/20at 09:10; Start 02/13/20 at 12:30 Atorvastatin Calcium (Lipitor) 40 mg HS PO Last administered on 02/13/20at 20:49; Start 02/13/20 at 21:00 Isosorbide Mononitrate (Imdur) 30 mg DAILY PO Last administered on 02/14/20at 09:14; Start 02/13/20 at 12:30 Ticagrelor (Brilinta) 90 mg BID PO Last administered on 02/14/20at 09:10; Start 02/13/20 at 12:30 Carvedilol (Coreg) 25 mg BIDWMEALS PO Last administered on 02/14/20at 09:15; Start 02/13/20 at 12:30 Potassium Chloride (Klor-Con) 40 meq 1X ONCE PO Last administered on 02/14/20at 12:15; Start 02/14/20 at 11:45; Stop 02/14/20 at 11:47; Status DC Active Scripts Active Mag-Al Plus Xs Suspension (Mag Hydrox/Al Hydrox/Simeth) 30 Ml Oral.susp 30 Ml PO PRN DAILY PRN 30 Days Duoneb 0.5-3(2.5) Mg/3 Ml (Albuterol/Ipratropium) 3 Ml Ampul.neb 3 Ml NEB QID 30 Days Brilinta (Ticagrelor) 90 Mg Tablet 90 Mg PO BID 30 Days Atorvastatin Calcium 20 Mg Tablet 40 Mg PO HS 30 Days Amlodipine Besylate 10 Mg Tablet 10 Mg PO DAILY 30 Days Reported Iron (Ferrous Sulfate) 325 Mg Tablet 1 Tab PO DAILY 30 Days start taking 10-23-19. call Dr. Rankin's office for appointment to recheck lab Calcium (Calcium Carbonate) 500 Mg Tablet 1 Tab PO DAILY 30 Days Viactiv 650 mg-12.5 Mcg Chew (Calcium Carb/Vitamin D3/Vit K1) 1 Each Tab.chew 1 Each PO DAILY Vitamin B-12 (Cyanocobalamin (Vitamin B-12)) 1,000 Mcg Tablet 1 Tab PO DAILY 30 Days Magnesium (Magnesium Oxide) 400 Mg Capsule 1 Cap PO DAILY 30 Days Vitamin C (Ascorbic Acid) 500 Mg Capsule 1,000 Mg PO DAILY Digoxin 125 Mcg Tablet 125 Mcg PO DAILY Metformin Hcl 500 Mg Tablet 500 Mg PO BIDWMEALS 1 tab in am , 2 tabs after supper [place] 3 Fish Oil Softgel ([place]-3 Fatty Acids/Fish Oil) 1 Each Capsule.dr 1 Each PO DAILY Nitrostat (Nitroglycerin) 0.4 Mg Tab.subl 1 Tab SL UD PRN Prilosec (Omeprazole) 20 Mg Capsule.dr 1 Cap PO BIDAC Glipizide 5 Mg Tablet 5 Mg PO BID Neurontin (Gabapentin) 300 Mg Capsule 1 Cap PO TID 1 cap in am, 2 caps at 5pm, 3 caps at bedtime Daily Vitamin (Multivitamin) 1 Each Tablet 1 Each PO DAILY Coreg (Carvedilol) 25 Mg Tablet 1 Tab PO BID Aspir 81 (Aspirin) 81 Mg Tablet.dr 1 Tab PO DAILY Furosemide 20 Mg Tablet 40 Mg PO DAILY Catapres (Clonidine Hcl) 0.1 Mg Tablet 0.1 Mg PO BID PRN Cetirizine Hcl 10 Mg Tablet 1 Tab PO QHS Losartan Potassium 100 Mg Tablet 1 Tab PO DAILY Isosorbide Mononitrate Er (Isosorbide Mononitrate) 30 Mg Tab.er.24h 1 Tab PO DAILY Singulair Tablet (Montelukast Sodium) 10 Mg Tablet 1 Tab PO HS Allergies Allergies: Coded Allergies: No Known Drug Allergies (Unverified , 08/10/19) ROS Review of System POOR HISTORIAN. NOT ACCURATE Physical Exam General: Cooperative, No acute distress HEENT: Atraumatic, PERRLA Lungs: Other (DECREASED AT BASES) Heart: Regular rate Abdomen: Normal bowel sounds, Soft, No tenderness Skin: No rashes, No breakdown Neuro: Normal speech Psych/Mental Status: Other (FLAT) MUSCULOSKELETAL: No joint tenderness, No deformity Vitals VITALS Vital Signs Date Time Temp Pulse Resp B/P (MAP) Pulse Ox O2 Delivery O2 Flow Rate FiO2 02/14/20 12:55 98.6 73 20 140/54 98.6 02/14/20 11:43 96 Nasal Cannula 4.0 Labs Labs Laboratory Tests Test 02/13/20 01:07 02/13/20 03:11 9/16/20 04:09 02/13/20 05:22 White Blood Count 13.0 x10^3/uL (4.0-11.0) Red Blood Count 4.12 x10^6/uL (3.50-5.40) Hemoglobin 8.9 g/dL (12.0-15.5) Hematocrit 28.3 % (36.0-47.0) Mean Corpuscular Volume 69 fL (79-100) Mean Corpuscular Hemoglobin 22 pg (25-35) Mean Corpuscular Hemoglobin Concent 32 g/dL (31-37) Red Cell Distribution Width 17.7 % (11.5-14.5) Platelet Count 395 x10^3/uL (140-400) Neutrophils (%) (Auto) 75 % (31-73) Lymphocytes (%) (Auto) 15 % (24-48) Monocytes (%) (Auto) 8 % (0-9) Eosinophils (%) (Auto) 1 % (0-3) Basophils (%) (Auto) 1 % (0-3) Neutrophils # (Auto) 9.6 x10^3/uL (1.8-7.7) Lymphocytes # (Auto) 2.0 x10^3/uL (1.0-4.8) Monocytes # (Auto) 1.1 x10^3/uL (0.0-1.1) Eosinophils # (Auto) 0.1 x10^3/uL (0.0-0.7) Basophils # (Auto) 0.1 x10^3/uL (0.0-0.2) Platelet Estimate Adequate (ADEQUATE) Polychromasia Slight Hypochromasia Mod Anisocytosis Slight Microcytosis Marked Prothrombin Time 13.1 SEC (11.7-14.0) Prothromb Time International Ratio 1.0 (0.8-1.1) Activated Partial Thromboplast Time 32 SEC (24-38) Sodium Level 120 mmol/L (136-145) Potassium Level 3.8 mmol/L (3.5-5.1) Chloride Level 86 mmol/L (98-107) Carbon Dioxide Level 23 mmol/L (21-32) Anion Gap 11 (6-14) Blood Urea Nitrogen 13 mg/dL (7-20) Creatinine 1.1 mg/dL (0.6-1.0) Estimated GFR (Cockcroft-Gault) 48.3 BUN/Creatinine Ratio 12 (6-20) Glucose Level 276 mg/dL (70-99) Plasma/Serum Osmolality 258 mOsmol/kg (280-301) Calcium Level 8.5 mg/dL (8.5-10.1) Magnesium Level 1.7 mg/dL (1.8-2.4) Total Bilirubin 0.4 mg/dL (0.2-1.0) Aspartate Amino Transf (AST/SGOT) 20 U/L (15-37) Alanine Aminotransferase (ALT/SGPT) 28 U/L (14-59) Alkaline Phosphatase 90 U/L (46-116) Troponin I Quantitative 0.444 ng/mL (0.000-0.055) 0.890 ng/mL (0.000-0.055) IN-Fbd-L-Type Natriuretic Peptide 1697 pg/mL (0-449) Total Protein 7.9 g/dL (6.4-8.2) Albumin 3.8 g/dL (3.4-5.0) Albumin/Globulin Ratio 0.9 (1.0-1.7) Digoxin Level 0.4 ng/mL (0.9-2.0) Digoxin Last Dose Date Unk Digoxin Last Dose Time Unk O2 Saturation 99 % (92-99) Arterial Blood pH 7.37 (7.35-7.45) Arterial Blood pCO2 at Patient Temp 35 mmHg (35-46) Arterial Blood pO2 at Patient Temp 163 mmHg (65-108) Arterial Blood HCO3 19 mmol/L (21-28) Arterial Blood Base Excess -5 mmol/L (-3-3) FiO2 80 Urine Collection Type Unknown Urine Color Yellow Urine Clarity Clear Urine pH 5.5 (<5.0-8.0) Urine Specific [place] 1.010 (1.000-1.030) Urine Protein 100 mg/dL (NEG-TRACE) Urine Glucose (UA) 250 mg/dL (NEG) Urine Ketones (Stick) Negative mg/dL (NEG) Urine Blood Negative (NEG) Urine Nitrite Negative (NEG) Urine Bilirubin Negative (NEG) Urine Urobilinogen Dipstick 0.2 mg/dL (0.2 mg/dL) Urine Leukocyte Esterase Negative (NEG) Urine RBC 0 /HPF (0-2) Urine WBC 5-10 /HPF (0-4) Urine Squamous Epithelial Cells Mod /LPF Urine Bacteria Few /HPF (0-FEW) Urine Hyaline Casts Occasional /HPF Test 02/13/20 10:10 02/13/20 12:25 02/13/20 20:20 02/14/20 01:55 Sodium Level 128 mmol/L (136-145) Potassium Level 4.0 mmol/L (3.5-5.1) Chloride Level 92 mmol/L (98-107) Carbon Dioxide Level 26 mmol/L (21-32) Anion Gap 10 (6-14) Blood Urea Nitrogen 13 mg/dL (7-20) Creatinine 0.9 mg/dL (0.6-1.0) Estimated GFR (Cockcroft-Gault) 60.9 Glucose Level 139 mg/dL (70-99) Calcium Level 8.5 mg/dL (8.5-10.1) Troponin I Quantitative 2.881 ng/mL (0.000-0.055) Heparin Anti-Xa Act, Unfractionated 0.16 IU/mL (0.30-0.70) 0.36 IU/mL (0.30-0.70) 0.25 IU/mL (0.30-0.70) White Blood Count 11.6 x10^3/uL (4.0-11.0) Red Blood Count 3.32 x10^6/uL (3.50-5.40) Hemoglobin 7.2 g/dL (12.0-15.5) Hematocrit 22.5 % (36.0-47.0) Mean Corpuscular Volume 68 fL (79-100) Mean Corpuscular Hemoglobin 22 pg (25-35) Mean Corpuscular Hemoglobin Concent 32 g/dL (31-37) Red Cell Distribution Width 17.7 % (11.5-14.5) Platelet Count 278 x10^3/uL (140-400) Test 02/14/20 07:59 02/14/20 08:19 Sodium Level 132 mmol/L (136-145) Potassium Level 3.2 mmol/L (3.5-5.1) Chloride Level 97 mmol/L (98-107) Carbon Dioxide Level 28 mmol/L (21-32) Anion Gap 7 (6-14) Blood Urea Nitrogen 9 mg/dL (7-20) Creatinine 0.7 mg/dL (0.6-1.0) Estimated GFR (Cockcroft-Gault) 81.4 Glucose Level 133 mg/dL (70-99) Calcium Level 8.6 mg/dL (8.5-10.1) Magnesium Level 2.3 mg/dL (1.8-2.4) Troponin I Quantitative 3.082 ng/mL (0.000-0.055) Heparin Anti-Xa Act, Unfractionated 0.38 IU/mL (0.30-0.70) Laboratory Tests Test 02/13/20 20:20 02/14/20 01:55 02/14/20 07:59 02/14/20 08:19 Heparin Anti-Xa Act, Unfractionated 0.36 IU/mL (0.30-0.70) 0.25 IU/mL (0.30-0.70) 0.38 IU/mL (0.30-0.70) White Blood Count 11.6 x10^3/uL (4.0-11.0) Red Blood Count 3.32 x10^6/uL (3.50-5.40) Hemoglobin 7.2 g/dL (12.0-15.5) Hematocrit 22.5 % (36.0-47.0) Mean Corpuscular Volume 68 fL (79-100) Mean Corpuscular Hemoglobin 22 pg (25-35) Mean Corpuscular Hemoglobin Concent 32 g/dL (31-37) Red Cell Distribution Width 17.7 % (11.5-14.5) Platelet Count 278 x10^3/uL (140-400) Sodium Level 132 mmol/L (136-145) Potassium Level 3.2 mmol/L (3.5-5.1) Chloride Level 97 mmol/L (98-107) Carbon Dioxide Level 28 mmol/L (21-32) Anion Gap 7 (6-14) Blood Urea Nitrogen 9 mg/dL (7-20) Creatinine 0.7 mg/dL (0.6-1.0) Estimated GFR (Cockcroft-Gault) 81.4 Glucose Level 133 mg/dL (70-99) Calcium Level 8.6 mg/dL (8.5-10.1) Magnesium Level 2.3 mg/dL (1.8-2.4) Troponin I Quantitative 3.082 ng/mL (0.000-0.055) Assessment/Plan Assessment/Plan IMP HYPONATREMIA-MOST LIKELY DUE TO HYPERVOLEMIA ACUTE ON CHRONIC CHF - SYSTOLIC HX OF HTN-POORLY CONTROLLED LOW MAG-CORRECTED PLAN FLUID RESTRICT NA RESTRICT CORRECT MAG CONT DIURESIS EXPECT NA TO CONTINUE CORRECTING WITH NEG FLUID BALANCE WILL FOLLOW ADDIS JONES MD Feb 14, 2020 13:05
--- NOTE | 2020-02-14 13:07 | PDOC ---
PULMONARY PROGRESS NOTES DATE: 02/14/20 TIME: 13:05 Subjective feels better Vitals Vital Signs Date Time Temp Pulse Resp B/P (MAP) Pulse Ox O2 Delivery O2 Flow Rate FiO2 02/14/20 12:55 98.6 73 20 140/54 98.6 02/14/20 11:43 96 Nasal Cannula 4.0 General: Alert, No acute distress Lungs: Clear Cardiovascular: S1, S2 Abdomen: Soft, Non-tender Extremities: No Edema Labs Laboratory Tests Test 02/13/20 01:07 02/13/20 03:11 02/13/20 04:09 02/13/20 05:22 White Blood Count 13.0 x10^3/uL (4.0-11.0) Red Blood Count 4.12 x10^6/uL (3.50-5.40) Hemoglobin 8.9 g/dL (12.0-15.5) Hematocrit 28.3 % (36.0-47.0) Mean Corpuscular Volume 69 fL (79-100) Mean Corpuscular Hemoglobin 22 pg (25-35) Mean Corpuscular Hemoglobin Concent 32 g/dL (31-37) Red Cell Distribution Width 17.7 % (11.5-14.5) Platelet Count 395 x10^3/uL (140-400) Neutrophils (%) (Auto) 75 % (31-73) Lymphocytes (%) (Auto) 15 % (24-48) Monocytes (%) (Auto) 8 % (0-9) Eosinophils (%) (Auto) 1 % (0-3) Basophils (%) (Auto) 1 % (0-3) Neutrophils # (Auto) 9.6 x10^3/uL (1.8-7.7) Lymphocytes # (Auto) 2.0 x10^3/uL (1.0-4.8) Monocytes # (Auto) 1.1 x10^3/uL (0.0-1.1) Eosinophils # (Auto) 0.1 x10^3/uL (0.0-0.7) Basophils # (Auto) 0.1 x10^3/uL (0.0-0.2) Platelet Estimate Adequate (ADEQUATE) Polychromasia Slight Hypochromasia Mod Anisocytosis Slight Microcytosis Marked Prothrombin Time 13.1 SEC (11.7-14.0) Prothromb Time International Ratio 1.0 (0.8-1.1) Activated Partial Thromboplast Time 32 SEC (24-38) Sodium Level 120 mmol/L (136-145) Potassium Level 3.8 mmol/L (3.5-5.1) Chloride Level 86 mmol/L (98-107) Carbon Dioxide Level 23 mmol/L (21-32) Anion Gap 11 (6-14) Blood Urea Nitrogen 13 mg/dL (7-20) Creatinine 1.1 mg/dL (0.6-1.0) Estimated GFR (Cockcroft-Gault) 48.3 BUN/Creatinine Ratio 12 (6-20) Glucose Level 276 mg/dL (70-99) Plasma/Serum Osmolality 258 mOsmol/kg (280-301) Calcium Level 8.5 mg/dL (8.5-10.1) Magnesium Level 1.7 mg/dL (1.8-2.4) Total Bilirubin 0.4 mg/dL (0.2-1.0) Aspartate Amino Transf (AST/SGOT) 20 U/L (15-37) Alanine Aminotransferase (ALT/SGPT) 28 U/L (14-59) Alkaline Phosphatase 90 U/L (46-116) Troponin I Quantitative 0.444 ng/mL (0.000-0.055) 0.890 ng/mL (0.000-0.055) YG-[id number]-Type Natriuretic Peptide 1697 pg/mL (0-449) Total Protein 7.9 g/dL (6.4-8.2) Albumin 3.8 g/dL (3.4-5.0) Albumin/Globulin Ratio 0.9 (1.0-1.7) Digoxin Level 0.4 ng/mL (0.9-2.0) Digoxin Last Dose Date Unk Digoxin Last Dose Time Unk O2 Saturation 99 % (92-99) Arterial Blood pH 7.37 (7.35-7.45) Arterial Blood pCO2 at Patient Temp 35 mmHg (35-46) Arterial Blood pO2 at Patient Temp 163 mmHg (65-108) Arterial Blood HCO3 19 mmol/L (21-28) Arterial Blood Base Excess -5 mmol/L (-3-3) FiO2 80 Urine Collection Type Unknown Urine Color Yellow Urine Clarity Clear Urine pH 5.5 (<5.0-8.0) Urine Specific [place] 1.010 (1.000-1.030) Urine Protein 100 mg/dL (NEG-TRACE) Urine Glucose (UA) 250 mg/dL (NEG) Urine Ketones (Stick) Negative mg/dL (NEG) Urine Blood Negative (NEG) Urine Nitrite Negative (NEG) Urine Bilirubin Negative (NEG) Urine Urobilinogen Dipstick 0.2 mg/dL (0.2 mg/dL) Urine Leukocyte Esterase Negative (NEG) Urine RBC 0 /HPF (0-2) Urine WBC 5-10 /HPF (0-4) Urine Squamous Epithelial Cells Mod /LPF Urine Bacteria Few /HPF (0-FEW) Urine Hyaline Casts Occasional /HPF Test 02/13/20 10:10 02/13/20 12:25 02/13/20 20:20 02/14/20 01:55 Sodium Level 128 mmol/L (136-145) Potassium Level 4.0 mmol/L (3.5-5.1) Chloride Level 92 mmol/L (98-107) Carbon Dioxide Level 26 mmol/L (21-32) Anion Gap 10 (6-14) Blood Urea Nitrogen 13 mg/dL (7-20) Creatinine 0.9 mg/dL (0.6-1.0) Estimated GFR (Cockcroft-Gault) 60.9 Glucose Level 139 mg/dL (70-99) Calcium Level 8.5 mg/dL (8.5-10.1) Troponin I Quantitative 2.881 ng/mL (0.000-0.055) Heparin Anti-Xa Act, Unfractionated 0.16 IU/mL (0.30-0.70) 0.36 IU/mL (0.30-0.70) 0.25 IU/mL (0.30-0.70) White Blood Count 11.6 x10^3/uL (4.0-11.0) Red Blood Count 3.32 x10^6/uL (3.50-5.40) Hemoglobin 7.2 g/dL (12.0-15.5) Hematocrit 22.5 % (36.0-47.0) Mean Corpuscular Volume 68 fL (79-100) Mean Corpuscular Hemoglobin 22 pg (25-35) Mean Corpuscular Hemoglobin Concent 32 g/dL (31-37) Red Cell Distribution Width 17.7 % (11.5-14.5) Platelet Count 278 x10^3/uL (140-400) Test 02/14/20 07:59 02/14/20 08:19 Sodium Level 132 mmol/L (136-145) Potassium Level 3.2 mmol/L (3.5-5.1) Chloride Level 97 mmol/L (98-107) Carbon Dioxide Level 28 mmol/L (21-32) Anion Gap 7 (6-14) Blood Urea Nitrogen 9 mg/dL (7-20) Creatinine 0.7 mg/dL (0.6-1.0) Estimated GFR (Cockcroft-Gault) 81.4 Glucose Level 133 mg/dL (70-99) Calcium Level 8.6 mg/dL (8.5-10.1) Magnesium Level 2.3 mg/dL (1.8-2.4) Troponin I Quantitative 3.082 ng/mL (0.000-0.055) Heparin Anti-Xa Act, Unfractionated 0.38 IU/mL (0.30-0.70) Laboratory Tests Test 02/13/20 20:20 02/14/20 01:55 02/14/20 07:59 02/14/20 08:19 Heparin Anti-Xa Act, Unfractionated 0.36 IU/mL (0.30-0.70) 0.25 IU/mL (0.30-0.70) 0.38 IU/mL (0.30-0.70) White Blood Count 11.6 x10^3/uL (4.0-11.0) Red Blood Count 3.32 x10^6/uL (3.50-5.40) Hemoglobin 7.2 g/dL (12.0-15.5) Hematocrit 22.5 % (36.0-47.0) Mean Corpuscular Volume 68 fL (79-100) Mean Corpuscular Hemoglobin 22 pg (25-35) Mean Corpuscular Hemoglobin Concent 32 g/dL (31-37) Red Cell Distribution Width 17.7 % (11.5-14.5) Platelet Count 278 x10^3/uL (140-400) Sodium Level 132 mmol/L (136-145) Potassium Level 3.2 mmol/L (3.5-5.1) Chloride Level 97 mmol/L (98-107) Carbon Dioxide Level 28 mmol/L (21-32) Anion Gap 7 (6-14) Blood Urea Nitrogen 9 mg/dL (7-20) Creatinine 0.7 mg/dL (0.6-1.0) Estimated GFR (Cockcroft-Gault) 81.4 Glucose Level 133 mg/dL (70-99) Calcium Level 8.6 mg/dL (8.5-10.1) Magnesium Level 2.3 mg/dL (1.8-2.4) Troponin I Quantitative 3.082 ng/mL (0.000-0.055) Medications Active Scripts Medications Dose Route/Sig Max Daily Dose Days Date Category Dose Instructions Mag-Al Plus Xs Suspension (Mag Hydrox/Al Hydrox/Simeth) 30 Ml Oral.susp 30 Ml PO PRN DAILY PRN 30 11/27/19 Rx Duoneb 0.5-3(2.5) Mg/3 Ml (Albuterol/Ipratropium) 3 Ml Ampul.neb 3 Ml NEB QID 30 11/27/19 Rx Iron (Ferrous Sulfate) 325 Mg Tablet 1 Tab PO DAILY 30 10/23/19 Reported start taking 10-23-19. call Dr. Rankin's office for appointment to recheck lab Calcium (Calcium Carbonate) 500 Mg Tablet 1 Tab PO DAILY 30 10/23/19 Reported Viactiv 650 mg-12.5 Mcg Chew (Calcium Carb/Vitamin D3/Vit K1) 1 Each Tab.chew 1 Each PO DAILY 10/23/19 Reported Vitamin B-12 (Cyanocobalamin (Vitamin B-12)) 1,000 Mcg Tablet 1 Tab PO DAILY 30 10/23/19 Reported Magnesium (Magnesium Oxide) 400 Mg Capsule 1 Cap PO DAILY 30 10/23/19 Reported Vitamin C (Ascorbic Acid) 500 Mg Capsule 1,000 Mg PO DAILY 10/23/19 Reported Digoxin 125 Mcg Tablet 125 Mcg PO DAILY 10/23/19 Reported Metformin Hcl 500 Mg Tablet 500 Mg PO BIDWMEALS 10/23/19 Reported 1 tab in am , 2 tabs after supper Brilinta (Ticagrelor) 90 Mg Tablet 90 Mg PO BID 30 08/02/19 Rx Atorvastatin Calcium 20 Mg Tablet 40 Mg PO HS 30 08/02/19 Rx Amlodipine Besylate 10 Mg Tablet 10 Mg PO DAILY 30 12/06/18 Rx [place] 3 Fish Oil Softgel ([place]-3 Fatty Acids/Fish Oil) 1 Each Capsule.dr 1 Each PO DAILY 12/27/16 Reported Nitrostat (Nitroglycerin) 0.4 Mg Tab.subl 1 Tab SL UD PRN 03/30/16 Reported Prilosec (Omeprazole) 20 Mg Capsule.dr 1 Cap PO BIDAC 01/22/14 Reported Glipizide 5 Mg Tablet 5 Mg PO BID 01/22/14 Reported Neurontin (Gabapentin) 300 Mg Capsule 1 Cap PO TID 01/22/14 Reported 1 cap in am, 2 caps at 5pm, 3 caps at bedtime Daily Vitamin (Multivitamin) 1 Each Tablet 1 Each PO DAILY 01/22/14 Reported Coreg (Carvedilol) 25 Mg Tablet 1 Tab PO BID 01/22/14 Reported Aspir 81 (Aspirin) 81 Mg Tablet.dr 1 Tab PO DAILY 01/22/14 Reported Furosemide 20 Mg Tablet 40 Mg PO DAILY 01/22/14 Reported Catapres (Clonidine Hcl) 0.1 Mg Tablet 0.1 Mg PO BID PRN 01/22/14 Reported Cetirizine Hcl 10 Mg Tablet 1 Tab PO QHS 01/22/14 Reported Losartan Potassium 100 Mg Tablet 1 Tab PO DAILY 01/22/14 Reported Isosorbide Mononitrate Er (Isosorbide Mononitrate) 30 Mg Tab.er.24h 1 Tab PO DAILY 01/22/14 Reported Singulair Tablet (Montelukast Sodium) 10 Mg Tablet 1 Tab PO HS 01/22/14 Reported Impression . 1. Acute hypoxic respiratory failure with diffuse interstitial lung infiltrates in a patient with EF of 45%. This is highly suggestive of acute on chronic systolic heart failure. Clinically, less likely interstitial lung disease as her chest x-ray was relatively clear in July. Clinically, less likely rheumatoid arthritis induced interstitial lung disease. 2. Cardiomyopathy with an ejection fraction of 45%. 3. Prior history of tobacco use, but quit 35 years ago. 4. Abnormal troponin consistent with non-ST myocardial infarction. Plan . 1. We will continue with present diuresis. 2. dc BiPAP and gradually wean FiO2 3. Follow cardiology recommendations. 4. Follow chest x-ray post-diuresis.02/13 sig improved 5. Heparin per Cardiology. 6. Discussed with RN / low suspicion for RAY GREY MD Feb 14, 2020 13:07
[2020-02-14] MEDS ORDERED: FUROSEMIDE 40 MG/4 ML VIAL. IVP ONE (13:45)
[2020-02-14] MEDS ORDERED: ACETAMINOPHEN 325 MG TABLET. PO PRN (14:15)
--- NOTE | 2020-02-14 17:23 | NUR ---
SW following. Spoke with RN and reviewed chart. Pt currently on 4l 02, IV Heparin, cardiac diet, COVID negative. SW following for discharge planning.
--- NOTE | 2020-02-14 20:28 | NUR ---
Assessment completed vss poc explained pt c/o back pain and stated tylenol is not helping will resume care and continue to monitor pt.Call light in reach.
[2020-02-14] MEDS ORDERED: HYDROcodone/APAP 5/325MG 1 TAB TABLET PO PRN (20:45)
[2020-02-14] MEDS: ATORVASTATIN CALCIUM 20 MG TABLET PO SCH (21:03)
[2020-02-14] MEDS: HYDROcodone/APAP 5/325MG 1 TAB TABLET PO PRN (21:04)
[2020-02-15 02:46] VITALS: BP 163/81
[2020-02-15 03:55] LABS: CALCIUM 8.7 mg/dL (8.5-10.1); CREATININE 0.9 mg/dL (0.6-1.0); GFR 60.9; POTASSIUM 3.6 mmol/L (3.5-5.1)
[2020-02-15] MEDS: HYDROcodone/APAP 5/325MG 1 TAB TABLET PO PRN ×2 (04:55→11:23)
[2020-02-15 07:00] VITALS: BP 159/76
[2020-02-15] MEDS ORDERED: POTASSIUM CHLORIDE 20 MEQ TABLET.ER. PO SCH (08:00)
[2020-02-15 08:29] LABS: HEMATOCRIT 27.8 % (36.0-47.0); HEMOGLOBIN 8.9 g/dL (12.0-15.5); RED BLOOD COUNT 3.88 x10^6/uL (3.50-5.40); WHITE BLOOD COUNT 6.6 x10^3/uL (4.0-11.0)
[2020-02-15] MEDS: amLODIPine BESYLATE 10 MG TABLET PO SCH (08:38)
[2020-02-15] MEDS: CARVEDILOL 12.5 MG TABLET. PO SCH ×2 (08:38→16:53)
[2020-02-15] MEDS: ASPIRIN ENTERIC COATED 81 MG TABLET.DR. PO SCH (08:38)
[2020-02-15] MEDS: FUROSEMIDE 40 MG/4 ML VIAL. IVP SCH (08:39)
[2020-02-15 11:07] VITALS: BP 179/75
[2020-02-15 11:08] VITALS: BP 149/72
--- NOTE | 2020-02-15 11:18 | PDOC ---
PULMONARY PROGRESS NOTES DATE: 02/15/20 TIME: 11:14 Subjective continue to clinically improve Now on N/C, denies cough or SOB COVID-19 Vitals Vital Signs Date Time Temp Pulse Resp B/P (MAP) Pulse Ox O2 Delivery O2 Flow Rate FiO2 02/15/20 11:08 149/72 (97) 02/15/20 11:07 98.5 69 18 98 Nasal Cannula 3.0 98.5 ROS: No Nausea, No Chest Pain, No Abdominal Pain, No Increase Cough General: Alert, Oriented X4, No acute distress Lungs: Clear Cardiovascular: S1, S2 Abdomen: Soft, Non-tender Extremities: No Edema Skin: Warm, Dry Labs Laboratory Tests Test 02/13/20 12:25 02/13/20 20:20 02/14/20 01:55 02/14/20 07:59 Heparin Anti-Xa Act, Unfractionated 0.16 IU/mL (0.30-0.70) 0.36 IU/mL (0.30-0.70) 0.25 IU/mL (0.30-0.70) White Blood Count 11.6 x10^3/uL (4.0-11.0) Red Blood Count 3.32 x10^6/uL (3.50-5.40) Hemoglobin 7.2 g/dL (12.0-15.5) Hematocrit 22.5 % (36.0-47.0) Mean Corpuscular Volume 68 fL (79-100) Mean Corpuscular Hemoglobin 22 pg (25-35) Mean Corpuscular Hemoglobin Concent 32 g/dL (31-37) Red Cell Distribution Width 17.7 % (11.5-14.5) Platelet Count 278 x10^3/uL (140-400) Sodium Level 132 mmol/L (136-145) Potassium Level 3.2 mmol/L (3.5-5.1) Chloride Level 97 mmol/L (98-107) Carbon Dioxide Level 28 mmol/L (21-32) Anion Gap 7 (6-14) Blood Urea Nitrogen 9 mg/dL (7-20) Creatinine 0.7 mg/dL (0.6-1.0) Estimated GFR (Cockcroft-Gault) 81.4 Glucose Level 133 mg/dL (70-99) Calcium Level 8.6 mg/dL (8.5-10.1) Magnesium Level 2.3 mg/dL (1.8-2.4) Troponin I Quantitative 3.082 ng/mL (0.000-0.055) Test 02/14/20 08:19 02/14/20 12:45 02/15/20 03:30 Heparin Anti-Xa Act, Unfractionated 0.38 IU/mL (0.30-0.70) Urine Random Sodium 56 mmol/L (Not Estab.) White Blood Count 6.6 x10^3/uL (4.0-11.0) Red Blood Count 3.88 x10^6/uL (3.50-5.40) Hemoglobin 8.9 g/dL (12.0-15.5) Hematocrit 27.8 % (36.0-47.0) Mean Corpuscular Volume 72 fL (79-100) Mean Corpuscular Hemoglobin 23 pg (25-35) Mean Corpuscular Hemoglobin Concent 32 g/dL (31-37) Red Cell Distribution Width 19.0 % (11.5-14.5) Platelet Count 273 x10^3/uL (140-400) Sodium Level 135 mmol/L (136-145) Potassium Level 3.6 mmol/L (3.5-5.1) Chloride Level 98 mmol/L (98-107) Carbon Dioxide Level 30 mmol/L (21-32) Anion Gap 7 (6-14) Blood Urea Nitrogen 15 mg/dL (7-20) Creatinine 0.9 mg/dL (0.6-1.0) Estimated GFR (Cockcroft-Gault) 60.9 Glucose Level 189 mg/dL (70-99) Calcium Level 8.7 mg/dL (8.5-10.1) Magnesium Level 2.0 mg/dL (1.8-2.4) Laboratory Tests Test 02/14/20 12:45 02/15/20 03:30 Urine Random Sodium 56 mmol/L (Not Estab.) White Blood Count 6.6 x10^3/uL (4.0-11.0) Red Blood Count 3.88 x10^6/uL (3.50-5.40) Hemoglobin 8.9 g/dL (12.0-15.5) Hematocrit 27.8 % (36.0-47.0) Mean Corpuscular Volume 72 fL (79-100) Mean Corpuscular Hemoglobin 23 pg (25-35) Mean Corpuscular Hemoglobin Concent 32 g/dL (31-37) Red Cell Distribution Width 19.0 % (11.5-14.5) Platelet Count 273 x10^3/uL (140-400) Sodium Level 135 mmol/L (136-145) Potassium Level 3.6 mmol/L (3.5-5.1) Chloride Level 98 mmol/L (98-107) Carbon Dioxide Level 30 mmol/L (21-32) Anion Gap 7 (6-14) Blood Urea Nitrogen 15 mg/dL (7-20) Creatinine 0.9 mg/dL (0.6-1.0) Estimated GFR (Cockcroft-Gault) 60.9 Glucose Level 189 mg/dL (70-99) Calcium Level 8.7 mg/dL (8.5-10.1) Magnesium Level 2.0 mg/dL (1.8-2.4) Medications Active Scripts Medications Dose Route/Sig Max Daily Dose Days Date Category Dose Instructions Mag-Al Plus Xs Suspension (Mag Hydrox/Al Hydrox/Simeth) 30 Ml Oral.susp 30 Ml PO PRN DAILY PRN 30 11/27/19 Rx Duoneb 0.5-3(2.5) Mg/3 Ml (Albuterol/Ipratropium) 3 Ml Ampul.neb 3 Ml NEB QID 30 11/27/19 Rx Iron (Ferrous Sulfate) 325 Mg Tablet 1 Tab PO DAILY 10/23/19 Reported start taking 10-23-19. call Dr. Rankin's office for appointment to recheck lab Calcium (Calcium Carbonate) 500 Mg Tablet 1 Tab PO DAILY 10/23/19 Reported Viactiv 650 mg-12.5 Mcg Chew (Calcium Carb/Vitamin D3/Vit K1) 1 Each Tab.chew 1 Each PO DAILY 10/23/19 Reported Vitamin B-12 (Cyanocobalamin (Vitamin B-12)) 1,000 Mcg Tablet 1 Tab PO DAILY 30 10/23/19 Reported Magnesium (Magnesium Oxide) 400 Mg Capsule 1 Cap PO DAILY 30 10/23/19 Reported Vitamin C (Ascorbic Acid) 500 Mg Capsule 1,000 Mg PO DAILY 10/23/19 Reported Digoxin 125 Mcg Tablet 125 Mcg PO DAILY 10/23/19 Reported Metformin Hcl 500 Mg Tablet 500 Mg PO BIDWMEALS 10/23/19 Reported 1 tab in am , 2 tabs after supper Brilinta (Ticagrelor) 90 Mg Tablet 90 Mg PO BID 30 08/02/19 Rx Atorvastatin Calcium 20 Mg Tablet 40 Mg PO HS 30 08/02/19 Rx Amlodipine Besylate 10 Mg Tablet 10 Mg PO DAILY 30 12/06/18 Rx [place] 3 Fish Oil Softgel ([place]-3 Fatty Acids/Fish Oil) 1 Each Capsule.dr 1 Each PO DAILY 12/27/16 Reported Nitrostat (Nitroglycerin) 0.4 Mg Tab.subl 1 Tab SL UD PRN 03/30/16 Reported Prilosec (Omeprazole) 20 Mg Capsule.dr 1 Cap PO BIDAC 01/22/14 Reported Glipizide 5 Mg Tablet 5 Mg PO BID 01/22/14 Reported Neurontin (Gabapentin) 300 Mg Capsule 1 Cap PO TID 01/22/14 Reported 1 cap in am, 2 caps at 5pm, 3 caps at bedtime Daily Vitamin (Multivitamin) 1 Each Tablet 1 Each PO DAILY 01/22/14 Reported Coreg (Carvedilol) 25 Mg Tablet 1 Tab PO BID 01/22/14 Reported Aspir 81 (Aspirin) 81 Mg Tablet.dr 1 Tab PO DAILY 01/22/14 Reported Furosemide 20 Mg Tablet 40 Mg PO DAILY 01/22/14 Reported Catapres (Clonidine Hcl) 0.1 Mg Tablet 0.1 Mg PO BID PRN 01/22/14 Reported Cetirizine Hcl 10 Mg Tablet 1 Tab PO QHS 01/22/14 Reported Losartan Potassium 100 Mg Tablet 1 Tab PO DAILY 01/22/14 Reported Isosorbide Mononitrate Er (Isosorbide Mononitrate) 30 Mg Tab.er.24h 1 Tab PO DAILY 01/22/14 Reported Singulair Tablet (Montelukast Sodium) 10 Mg Tablet 1 Tab PO HS 01/22/14 Reported Comments CXR 02/14/2020 IMPRESSION: Improving bilateral perihilar and basilar opacities. Impression . 1. Acute hypoxic respiratory failure with diffuse interstitial lung infiltrates in a patient with EF of 45%. This is highly suggestive of acute on chronic systolic heart failure. Clinically, less likely interstitial lung disease as her chest x-ray was relatively clear in July. Clinically, less likely rheumatoid arthritis induced interstitial lung disease.-- improved after lasix on on N/C 2. Cardiomyopathy with an ejection fraction of 45%. 3. Prior history of tobacco use, but quit 35 years ago. 4. Abnormal troponin consistent with non-ST myocardial infarction. Plan . continue supplemental oxygen now on 3 liters N/C no longer needs BIPAP, titrate oxygen as tolerated Follow cardiology recs- continue diuresis Heparin per cardiology await ECHO results Covid-19 negative D/W RAY NIXON MD Feb 15, 2020 11:18
[2020-02-15] MEDS: ISOSORBIDE MONONITRATE ER 30 MG TAB.ER.24H PO SCH (11:23)
[2020-02-15] MEDS: TICAGRELOR 90 MG TABLET. PO SCH (11:23)
--- NOTE | 2020-02-15 12:20 | PDOC ---
Renal-Progress Notes Subjective Notes Notes LESS SOB History of Present Illness Hx of present illness STABLE Vitals Vitals Vital Signs Date Time Temp Pulse Resp B/P (MAP) Pulse Ox O2 Delivery O2 Flow Rate FiO2 02/15/20 11:23 20 98 Nasal Cannula 3.0 02/15/20 11:23 69 149/72 02/15/20 11:07 98.5 98.5 Weight Weight [ ] I.O. Intake and Output Intake and Output 02/15/20 07:00 Intake Total 840 ml Output Total 2300 ml Balance -1460 ml Intake Oral 740 ml Blood Product IV Normal Saline Flush 100 ml Output Urine Total 2300 ml Labs Labs Laboratory Tests Test 02/14/20 12:45 02/15/20 03:30 Urine Random Sodium 56 mmol/L (Not Estab.) White Blood Count 6.6 x10^3/uL (4.0-11.0) Red Blood Count 3.88 x10^6/uL (3.50-5.40) Hemoglobin 8.9 g/dL (12.0-15.5) Hematocrit 27.8 % (36.0-47.0) Mean Corpuscular Volume 72 fL (79-100) Mean Corpuscular Hemoglobin 23 pg (25-35) Mean Corpuscular Hemoglobin Concent 32 g/dL (31-37) Red Cell Distribution Width 19.0 % (11.5-14.5) Platelet Count 273 x10^3/uL (140-400) Sodium Level 135 mmol/L (136-145) Potassium Level 3.6 mmol/L (3.5-5.1) Chloride Level 98 mmol/L (98-107) Carbon Dioxide Level 30 mmol/L (21-32) Anion Gap 7 (6-14) Blood Urea Nitrogen 15 mg/dL (7-20) Creatinine 0.9 mg/dL (0.6-1.0) Estimated GFR (Cockcroft-Gault) 60.9 Glucose Level 189 mg/dL (70-99) Calcium Level 8.7 mg/dL (8.5-10.1) Magnesium Level 2.0 mg/dL (1.8-2.4) Review of Systems Constitutional: yes: alert, oriented Ears/Nose/Throat: Yes: no symptom reported Eyes: Yes: no symptom reported Pulmonary: Yes dyspnea Cardiovascular: Yes no symptom reported Gastrointestional: Yes: no symptom reported Genitourinary: Yes: no symptom reported Skin: Yes no symptom reported Psychiatric/Neurological: Yes: no symptom reported Endocrine: Yes: no symptom reported Physical Exam General Appearance: no apparent distress Skin: warm Respiratory: decreased breath sounds Heart: S1S2 Abdomen: soft, bowel sounds present Genitourinary: bladder flat Extremities: pulses present Neurology: alert Assessment Assessment IMP [id number] LIKELY DUE TO HYPERVOLEMIA ACUTE ON CHRONIC CHF - SYSTOLIC HX OF HTN-POORLY CONTROLLED LOW MAG-CORRECTED PLAN FLUID RESTRICT NA RESTRICT CORRECT MAG NEEDED CONT DIURESIS EXPECT NA TO CONTINUE CORRECTING WITH NEG FLUID BALANCE WILL FOLLOW ADDIS JONES MD Feb 15, 2020 12:20
[2020-02-15] MEDS ORDERED: DIGOXIN 125 MCG TABLET. PO SCH (13:00)
[2020-02-15] MEDS ORDERED: LOSARTAN POTASSIUM 50 MG TABLET. PO SCH (13:00)
[2020-02-15 13:13] LABS: URINE OSMOLALITY 223 mOsmol/kg (.)
--- NOTE | 2020-02-15 13:18 | PDOC ---
[employer] PROGRESS NOTE Date of Service DOS: DATE: 02/15/20 TIME: 13:16 Chief Complaint Chief Complaint Shortness of breath History of Present Illness History of Present Illness Patient reports continued improvement in shortness of breath, still requiring oxygen. She had echocardiogram today with results pending. States she feels okay. Continue to diurese. Vitals/I&O Vitals/I&O: Vital Signs Date Time Temp Pulse Resp B/P (MAP) Pulse Ox O2 Delivery O2 Flow Rate FiO2 02/15/20 11:23 20 98 Nasal Cannula 3.0 02/15/20 11:23 69 149/72 02/15/20 11:07 98.5 98.5 I & O0 02/14/20 02/14/20 02/15/20 15:00 23:00 07:00 Intake Total 300 ml 100 ml 440 ml Output Total 1000 ml 1300 ml Balance -700 ml -1200 ml 440 ml Physical Exam General: Cooperative, No acute distress Heart: Regular rate Lungs: Clear Abdomen: Normal bowel sounds, Soft, No tenderness Extremities: No cyanosis, No edema Skin: No rashes, No breakdown Labs Labs: Laboratory Tests Test 02/15/20 03:30 White Blood Count 6.6 x10^3/uL (4.0-11.0) Red Blood Count 3.88 x10^6/uL (3.50-5.40) Hemoglobin 8.9 g/dL (12.0-15.5) Hematocrit 27.8 % (36.0-47.0) Mean Corpuscular Volume 72 fL (79-100) Mean Corpuscular Hemoglobin 23 pg (25-35) Mean Corpuscular Hemoglobin Concent 32 g/dL (31-37) Red Cell Distribution Width 19.0 % (11.5-14.5) Platelet Count 273 x10^3/uL (140-400) Sodium Level 135 mmol/L (136-145) Potassium Level 3.6 mmol/L (3.5-5.1) Chloride Level 98 mmol/L (98-107) Carbon Dioxide Level 30 mmol/L (21-32) Anion Gap 7 (6-14) Blood Urea Nitrogen 15 mg/dL (7-20) Creatinine 0.9 mg/dL (0.6-1.0) Estimated GFR (Cockcroft-Gault) 60.9 Glucose Level 189 mg/dL (70-99) Calcium Level 8.7 mg/dL (8.5-10.1) Magnesium Level 2.0 mg/dL (1.8-2.4) Review of Systems Review of Systems: Shortness of breath. Denies chest pain, denies fever. Assessment and Plan Assessmemt and Plan Problems Medical Problems: (1) Hyponatremia Status: Acute (2) Troponin level elevated Status: Acute Plan: continue supplemental oxygen Follow cardiology recs- continue diuresis ECHO results pending Covid-19 negative D/W RN Comment Review of Relevant I have reviewed the following items jenifer (where applicable) has been applied. Medications: Current Medications Medications (Trade) Dose Ordered Sig/Christian Route PRN Reason Start Time Stop Time Status Last Admin Dose Admin Furosemide (Lasix) 40 mg 1X ONCE IVP 02/14/20 13:45 02/14/20 13:47 DC 02/14/20 13:52 Acetaminophen (Tylenol) 650 mg PRN Q6HRS PRN PO MILD PAIN 1-3 02/14/20 14:15 02/14/20 14:36 Acetaminophen/ Hydrocodone Bitart (Lortab 5/325) 1 tab PRN Q6HRS PRN PO PAIN miild to mod 02/14/20 20:45 02/15/20 11:23 Potassium Chloride (Klor-Con) 20 meq [id number] PO 02/15/20 08:00 02/15/20 08:39 Justifications for Admission Other Justification TAWANDA COKER MD Feb 15, 2020 13:18
--- NOTE | 2020-02-15 14:09 | PDOC ---
MILES FUENTES ICT PROJECT MANAGER 02/15/20 1408: CARDIO Progress Notes Date and Time Date of Service 02/15/2020 Time of Evaluation 1200 Subjective Subjective: No Chest Pain, No shortness of breath, No Palpitations, Other (feels good) Vitals Vitals Vital Signs Date Time Temp Pulse Resp B/P (MAP) Pulse Ox O2 Delivery O2 Flow Rate FiO2 02/15/20 13:55 69 149/72 02/15/20 12:23 20 98 Nasal Cannula 3.0 02/15/20 11:07 98.5 98.5 Weight Weight [ ] Input and Output Intake and Output Intake and Output 02/15/20 07:00 Intake Total 840 ml Output Total 2300 ml Balance -1460 ml Intake Oral 740 ml Blood Product IV Normal Saline Flush 100 ml Output Urine Total 2300 ml Laboratory Labs Laboratory Tests Test 02/15/20 03:30 White Blood Count 6.6 x10^3/uL (4.0-11.0) Red Blood Count 3.88 x10^6/uL (3.50-5.40) Hemoglobin 8.9 g/dL (12.0-15.5) Hematocrit 27.8 % (36.0-47.0) Mean Corpuscular Volume 72 fL (79-100) Mean Corpuscular Hemoglobin 23 pg (25-35) Mean Corpuscular Hemoglobin Concent 32 g/dL (31-37) Red Cell Distribution Width 19.0 % (11.5-14.5) Platelet Count 273 x10^3/uL (140-400) Sodium Level 135 mmol/L (136-145) Potassium Level 3.6 mmol/L (3.5-5.1) Chloride Level 98 mmol/L (98-107) Carbon Dioxide Level 30 mmol/L (21-32) Anion Gap 7 (6-14) Blood Urea Nitrogen 15 mg/dL (7-20) Creatinine 0.9 mg/dL (0.6-1.0) Estimated GFR (Cockcroft-Gault) 60.9 Glucose Level 189 mg/dL (70-99) Calcium Level 8.7 mg/dL (8.5-10.1) Magnesium Level 2.0 mg/dL (1.8-2.4) Review of Systems Constitutional: yes: alert, oriented Ears/Nose/Throat: Yes: no symptom reported Eyes: Yes: no symptom reported Pulmonary: Yes dyspnea Cardiovascular: Yes no symptom reported Gastrointestional: Yes: no symptom reported Genitourinary: Yes: no symptom reported Skin: Yes no symptom reported Psychiatric/Neurological: Yes: no symptom reported Endocrine: Yes: no symptom reported Physical Exam HEENT: Neck Supple W Full Motion Chest: Symmetric LUNGS: Other (CXR reviewed) Heart: RRR (SR no ectopies) Abdomen: Other (soft) Extremities: No Edema, No Calf Tenderness Neurology: alert, oriented, follow commands Assessment Assessment 1. Acute on chronic combined diastolic/systolic contributors include HTN urgency and overhydration. Well compensated.Covid neg 2. CAD: past CABG recent LHC 11/25 3/ grafts were patent. s/p PCI/AKOSUA to SVG from the Diag to OM 07/25/2019. Clinically stable. Cp free 3. NSTEMI: peaked at 3. possibly demand mediated. CP free. Likely from CHF/HTN with associated microvascular dysfunction. 4. HTN urgency: better 5. HLP 6. ICM: EF from 40-45% now 35% 7. AICD in situ: Medtr[employer]. recent gen change 10/23/2019. Normal device. No optivol ability. No arrhythmias. 8. PAFIB: noted with low burden in the past. SR. Remains with low AFIB burden 9. Hyponatremia: due to CHF. improved 10. Mild hypomagnesemia: resolved 11. ROEL: CPAP compliant 12. Microcytic anemia: post transfusion. Hgb stable Recommendations 1. Continue ASA/brilinta. Continue home meds with lasix at 40mg daily. On losa rtan would consider entresto as an outpt. 2. Follow up in office 3. Continue home CPAP 4. Discussed with pt HBPM, daily wt and FR. and low Na diet Justicifation of Admission Dx: Justifications for Admission: Justification of Admission Dx: Yes CHF: Sev. Electrolyte Abnormal Angina: Symp at Rest [place]: Acute NSTEMI JIMENEZ MILNER MD 02/15/20 1522: CARDIO Progress Notes Plan Plan The patient was seen and interviewed as well as examined at the bedside. The chart was reviewed. The case was discussed. Agree with the plan of care. MILES FUENTES ICT PROJECT MANAGER Feb 15, 2020 14:08 JIMENEZ MILNER MD Feb 15, 2020 15:22
--- NOTE | 2020-02-15 14:38 | CARD ---
MR#: [id number] Date of Study: 02/15/2020 Ordering Physician: MILES FUENTES, Referring Physician: MILES FUENTES Tech: Maribel Vega [facility] APPROVED REPORT EXAM: Two-dimensional and M-mode echocardiogram with Doppler and color Doppler. Other Information Quality : Good INDICATION Aortic Valve Disease LV Function:Systolic Surgery/Intervention ICD/Pacemaker: Date: 2003 CABG: Date: 2003 2D DIMENSIONS RVDd2.0 (2.9-3.5cm)Left Atrium(2D)3.5 (1.6-4.0cm) IVSd1.2 (0.7-1.1cm)Aortic Root(2D)2.8 (2.0-3.7cm) LVDd6.5 (3.9-5.9cm)LVOT Diameter2.0 (1.8-2.4cm) PWd1.0 (0.7-1.1cm)LVDs5.3 (2.5-4.0cm) FS (%) 17.8 %SV77.6 ml LVEF(%)35.0 (>50%) Aortic Valve AoV Peak Adis.269.3cm/sAoV VTI59.3cm AO Peak GR.29.0mmHgLVOT Peak Adis.137.9cm/s AO Mean GR.17mmHgAVA (VMAX)1.64cm2 [place] (VTI)1.60cm2 Mitral Valve MV E Aqgsteuc537.1cm/sMV DECEL GNZA271zj MV A Finuvtbt11.5cm/sE/A Ratio1.4 Tricuspid Valve TR P. Zjeldebg148gq/sRAP FIQUVVCO3ztDf TR Peak Gr.62dfLlBIKU08eoUa Pulmonary Vein S1 Tqiejeks82.2cm/sD2 Epkxodfw27.2cm/s LEFT VENTRICLE The Left Ventricle is moderately dilated. There is normal left ventricular wall thickness. Left ventr icle systolic function is moderately impaired. The Ejection Fraction is 35%. Transmitral Doppler flow pattern is Grade II-pseudonormal filling dynamics. RIGHT VENTRICLE The right ventricle is normal size. The right ventricular systolic function is normal. There is a pac emaker lead in the right ventricle. ATRIA The left atrium size is normal. The right atrium size is normal. A pacemaker is seen in the right atr ium consistent with history. The interatrial septum is intact with no evidence for an atrial septal d efect or patent foramen ovale as noted on 2-D or Doppler imaging. AORTIC VALVE The aortic valve is calcified and displays decreased opening. Doppler and Color Flow revealed trace a ortic regurgitation. Calculated aortic valve area is 1.6 cm2 with maximum pressure gradient of 29 mmH g and mean pressure gradient of 17 mmHg. Doppler and color-flow analysis revealed mild aortic stenosi s. MITRAL VALVE The mitral valve is mildly thickened but opens well. Mitral annular calcification is moderate. There is no evidence of mitral valve prolapse. There is no mitral valve stenosis. Doppler and Color-flow re vealed mild mitral regurgitation. TRICUSPID VALVE The tricuspid valve is normal in structure and function. Doppler and Color Flow revealed trace to mil d tricuspid regurgitation. There is mild pulmonary hypertension. The PA pressure was estimated at 33 mmHg. There is no tricuspid valve stenosis. PULMONIC VALVE The pulmonic valve is not well visualized. Doppler and Color Flow revealed trace pulmonic valvular re gurgitation. There is no pulmonic valvular stenosis. GREAT VESSELS The aortic root is normal in size. The ascending aorta is not well seen. The IVC is normal in size an d collapses >50% with inspiration. PERICARDIAL EFFUSION There is no evidence of significant pericardial effusion. Critical Notification Critical Value: No <Conclusion> Left ventricle systolic function is moderately impaired. The Ejection Fraction is 35%. Pacer/ICD lead noted RA/RV. Mild aortic stenosis. Mild mitral regurgitation. Trace to mild tricuspid regurgitation. The PA pressure was estimated at 33 mmHg. There is no evidence of significant pericardial effusion. Signed by : Lawrence Mcelroy, Electronically Approved : 02/15/2020 14:38:10
[2020-02-15 15:00] VITALS: BP 142/69
--- NOTE | 2020-02-15 16:37 | PDOC3 ---
Discharge Summary Visit Information Date of Admission: Feb 13, 2020 Date of Discharge: Feb 15, 2020 Final Diagnosis Problems Medical Problems: (1) Hyponatremia Status: Acute (2) Troponin level elevated Status: Acute Brief Hospital Course Allergies Allergies Coded Allergies Type Severity Reaction Last Updated Verified No Known Drug Allergies 08/10/19 No Vital Signs Vital Signs Date Time Temp Pulse Resp B/P (MAP) Pulse Ox O2 Delivery O2 Flow Rate FiO2 02/15/20 13:55 69 149/72 02/15/20 12:23 20 98 Nasal Cannula 3.0 02/15/20 11:07 98.5 98.5 Lab Results Laboratory Tests Test 02/13/20 20:20 02/14/20 01:55 02/14/20 07:59 02/14/20 08:19 Heparin Anti-Xa Act, Unfractionated 0.36 IU/mL (0.30-0.70) 0.25 IU/mL (0.30-0.70) 0.38 IU/mL (0.30-0.70) White Blood Count 11.6 x10^3/uL (4.0-11.0) Red Blood Count 3.32 x10^6/uL (3.50-5.40) Hemoglobin 7.2 g/dL (12.0-15.5) Hematocrit 22.5 % (36.0-47.0) Mean Corpuscular Volume 68 fL (79-100) Mean Corpuscular Hemoglobin 22 pg (25-35) Mean Corpuscular Hemoglobin Concent 32 g/dL (31-37) Red Cell Distribution Width 17.7 % (11.5-14.5) Platelet Count 278 x10^3/uL (140-400) Sodium Level 132 mmol/L (136-145) Potassium Level 3.2 mmol/L (3.5-5.1) Chloride Level 97 mmol/L (98-107) Carbon Dioxide Level 28 mmol/L (21-32) Anion Gap 7 (6-14) Blood Urea Nitrogen 9 mg/dL (7-20) Creatinine 0.7 mg/dL (0.6-1.0) Estimated GFR (Cockcroft-Gault) 81.4 Glucose Level 133 mg/dL (70-99) Plasma/Serum Osmolality 273 mOsmol/kg (280-301) Calcium Level 8.6 mg/dL (8.5-10.1) Magnesium Level 2.3 mg/dL (1.8-2.4) Troponin I Quantitative 3.082 ng/mL (0.000-0.055) Test 02/14/20 12:45 02/15/20 03:30 Urine Osmolality 223 mOsmol/kg (.) Urine Random Sodium 56 mmol/L (Not Estab.) White Blood Count 6.6 x10^3/uL (4.0-11.0) Red Blood Count 3.88 x10^6/uL (3.50-5.40) Hemoglobin 8.9 g/dL (12.0-15.5) Hematocrit 27.8 % (36.0-47.0) Mean Corpuscular Volume 72 fL (79-100) Mean Corpuscular Hemoglobin 23 pg (25-35) Mean Corpuscular Hemoglobin Concent 32 g/dL (31-37) Red Cell Distribution Width 19.0 % (11.5-14.5) Platelet Count 273 x10^3/uL (140-400) Sodium Level 135 mmol/L (136-145) Potassium Level 3.6 mmol/L (3.5-5.1) Chloride Level 98 mmol/L (98-107) Carbon Dioxide Level 30 mmol/L (21-32) Anion Gap 7 (6-14) Blood Urea Nitrogen 15 mg/dL (7-20) Creatinine 0.9 mg/dL (0.6-1.0) Estimated GFR (Cockcroft-Gault) 60.9 Glucose Level 189 mg/dL (70-99) Calcium Level 8.7 mg/dL (8.5-10.1) Magnesium Level 2.0 mg/dL (1.8-2.4) Laboratory Tests Test 02/15/20 03:30 White Blood Count 6.6 x10^3/uL (4.0-11.0) Red Blood Count 3.88 x10^6/uL (3.50-5.40) Hemoglobin 8.9 g/dL (12.0-15.5) Hematocrit 27.8 % (36.0-47.0) Mean Corpuscular Volume 72 fL (79-100) Mean Corpuscular Hemoglobin 23 pg (25-35) Mean Corpuscular Hemoglobin Concent 32 g/dL (31-37) Red Cell Distribution Width 19.0 % (11.5-14.5) Platelet Count 273 x10^3/uL (140-400) Sodium Level 135 mmol/L (136-145) Potassium Level 3.6 mmol/L (3.5-5.1) Chloride Level 98 mmol/L (98-107) Carbon Dioxide Level 30 mmol/L (21-32) Anion Gap 7 (6-14) Blood Urea Nitrogen 15 mg/dL (7-20) Creatinine 0.9 mg/dL (0.6-1.0) Estimated GFR (Cockcroft-Gault) 60.9 Glucose Level 189 mg/dL (70-99) Calcium Level 8.7 mg/dL (8.5-10.1) Magnesium Level 2.0 mg/dL (1.8-2.4) Brief Hospital Course Ms. Jane is a 75 old female who presented with CHF exacerbation. She was treated with appropriate diuresis. Consults were placed to cardiology. After removing some fluid, patient completed a 6-minute walk and did not require any home oxygen. She was stable for discharge. Discharge Information Condition at Discharge: Improved Disposition/Orders: D/C to Home Scheduled Amlodipine Besylate (Amlodipine Besylate) 10 Mg Tablet, 10 MG PO DAILY for HTN for 30 Days, #30 Ref 5 Prescribed by: MILA CONN on 12/06/18 1007 Last Action: Continued on 02/13/201147 by MILES FUENTES Ascorbic Acid (Vitamin C) 500 Mg Capsule, 1,000 MG PO DAILY for rx, (Reported) Entered as Reported by: RIGO CORDOBA on 10/23/19 0758 Last Action: Reviewed on 02/13/20 09 by LAZARO PEREZ Aspirin (Aspir 81) 81 Mg Tablet.dr, 1 TAB PO DAILY, #30 Ref 5 (Reported) Entered as Reported by: KEVIN SPARKS on 01/22/14 1052 Last Action: Continued on 02/13/201147 by MILES FUENTES Atorvastatin Calcium (Atorvastatin Calcium) 20 Mg Tablet, 40 MG PO HS for CAD, cholesterol for 30 Days, #60 Ref 2 Prescribed by: BUBBA SHAH APRN on 08/02/19 1417 Last Action: Continued on 02/13/201147 by MILES FUENTES Calcium Carb/Vitamin D3/Vit K1 (Viactiv 650 mg-12.5 Mcg Chew) 1 Each Tab.chew, 1 EACH PO DAILY for rx, (Reported) Entered as Reported by: RIGO CORDOBA on 10/23/19757 Last Action: Reviewed on 02/13/20939 by LAZARO PEREZ Calcium Carbonate (Calcium) 500 Mg Tablet, 1 TAB PO DAILY for rx for 30 Days, #30 Ref 0 (Reported) Entered as Reported by: RIGO CORDOBA on 10/23/19757 Last Action: Reviewed on 02/13/20939 by LAZARO PEREZ Carvedilol (Coreg) 25 Mg Tablet, 1 TAB PO BID, #60 Ref 5 (Reported) Entered as Reported by: KEVIN SPARKS on 01/22/141051 Last Action: Converted on 02/13/201147 by MILES FUENTES Cetirizine Hcl (Cetirizine Hcl) 10 Mg Tablet, 1 TAB PO QHS, #30 Ref 5 (Reported) Entered as Reported by: KEVIN SPARKS on 01/22/141051 Last Action: Reviewed on 02/13/20939 by LAZARO PEREZ Cyanocobalamin (Vitamin B-12) (Vitamin B-12) 1,000 Mcg Tablet, 1 TAB PO DAILY for rx for 30 Days, #30 Ref 0 (Reported) Entered as Reported by: RIGO CORDOBA on 10/23/19757 Last Action: Reviewed on 02/13/20939 by LAZARO PEREZ Digoxin (Digoxin) 125 Mcg Tablet, 125 MCG PO DAILY for AFIB/HEART FAILURE, (Reported) Entered as Reported by: RIGO CORDOBA on 10/23/19757 Last Action: Continued on 02/15/201251 by DOROTA CONSTANTINO RN Ferrous Sulfate (Iron) 325 Mg Tablet, 1 TAB PO DAILY for rx for 30 Days, #30 Ref 0 (Reported) start taking 10-23-19. call Dr. Rankin's office for appointment to recheck lab Entered as Reported by: RIGO CORDOBA on 10/23/19 101 Last Action: Reviewed on 02/13/20939 by LAZARO PEREZ Furosemide (Furosemide) 20 Mg Tablet, 40 MG PO DAILY for rx, #90 Ref 1 (Reported) Entered as Reported by: KEVIN SPARKS on 01/22/141051 Last Action: Reviewed on 02/13/20939 by LAZARO PEREZ Gabapentin (Neurontin ) 300 Mg Capsule, 1 CAP PO TID for Neuropathy, #90 Ref 3 (Reported) 1 cap in am, 2 caps at 5pm, 3 caps at bedtime Entered as Reported by: KEVIN SPARKS on 01/22/14 105 Last Action: Reviewed on 02/13/20939 by LAZARO PEREZ Glipizide (Glipizide) 5 Mg Tablet, 5 MG PO BID, #60 Ref 3 (Reported) Entered as Reported by: KEVIN SPARKS on 01/22/14 105 Last Action: Reviewed on 02/13/20939 by LAZARO PEREZ Ipratropium/Albuterol Sulfate (Duoneb 0.5-3(2.5) Mg/3 Ml) 3 Ml Ampul.neb, 3 ML NEB QID for COUGH, SOA for 30 Days, #120 Prescribed by: UMA WILKERSON MD on 11/27/19 1330 Last Action: Reviewed on 02/13/20939 by LAZARO PEREZ Isosorbide Mononitrate (Isosorbide Mononitrate Er) 30 Mg Tab.er.24h, 1 TAB PO DAILY, #30 Ref 5 (Reported) Entered as Reported by: KEVIN SPARKS on 01/22/141051 Last Action: Continued on 02/13/201147 by MILES FUENTES Losartan Potassium (Losartan Potassium) 100 Mg Tablet, 1 TAB PO DAILY, #30 Ref 5 (Reported) Entered as Reported by: KEVIN SPARKS on 01/22/141051 Last Action: Converted on 02/15/20 1252 by DOROTA CONSTANTINO RN Magnesium Oxide (Magnesium) 400 Mg Capsule, 1 CAP PO DAILY for rx for 30 Days, #30 Ref 0 (Reported) Entered as Reported by: RIGO CORDOBA on 10/23/19 0758 Last Action: Reviewed on 02/13/20939 by LAZARO PEREZ Metformin Hcl (Metformin Hcl) 500 Mg Tablet, 500 MG PO BIDWMEALS for ANTI- DIABETIC, Ref 0 (Reported) 1 tab in am , 2 tabs after supper Entered as Reported by: RIGO CORDOBA on 10/23/19 0758 Last Action: Reviewed on 02/13/20939 by LAZARO PEREZ Montelukast Sodium (Singulair Tablet ) 10 Mg Tablet, 1 TAB PO HS, #90 Ref 1 (Reported) Entered as Reported by: KEVIN SPARKS on 01/22/141051 Last Action: Reviewed on 02/13/20939 by LAZARO PEREZ Multivitamin (Daily Vitamin) 1 Each Tablet, 1 EACH PO DAILY, (Reported) Entered as Reported by: KEVIN SPARKS on 01/22/14 105 Last Action: Reviewed on 02/13/20939 by LAZARO PEREZ Liberty-3 Fatty Acids/Fish Oil (Liberty 3 Fish Oil Softgel) 1 Each Capsule.dr, 1 EACH PO DAILY, (Reported) Entered as Reported by: ENRRIQUE MICHELLE on 12/27/16 0436 Last Action: Reviewed on 02/13/20939 by LAZARO PEREZ Omeprazole (Prilosec) 20 Mg Capsule.dr, 1 CAP PO BIDAC, #90 Ref 1 (Reported) Entered as Reported by: KEVIN SPARKS on 01/22/141051 Last Action: Reviewed on 02/13/20939 by LAZARO PEREZ Ticagrelor (Brilinta) 90 Mg Tablet, 90 MG PO BID for CAD for 30 Days, #60 Ref 2 Prescribed by: BUBBA SHAH APRN on 08/02/19 1417 Last Action: Continued on 02/13/20 1148 by MILES FUENTES Scheduled PRN Clonidine Hcl (Catapres) 0.1 Mg Tablet, 0.1 MG PO BID PRN for HYPERTENSION, SEE COMMENTS, #180 Ref 1 (Reported) Entered as Reported by: KEVIN SPARKS on 01/22/141051 Last Action: Reviewed on 02/13/20939 by LAZARO PEREZ Mag Hydrox/Al Hydrox/Simeth (Mag-Al Plus Xs Suspension) 30 Ml Oral.susp, 30 ML PO PRN DAILY PRN for HEARTBURN / GAS for 30 Days, #360 Prescribed by: UMA WILKERSON MD on 11/27/19 1330 Last Action: Reviewed on 02/13/20939 by LAZARO PEREZ Nitroglycerin (Nitrostat) 0.4 Mg Tab.subl, 1 TAB SL UD PRN for CHEST PAIN, #100 Ref 3 (Reported) Entered as Reported by: MO AVELAR on 03/30/16 1704 Last Action: Reviewed on 02/13/20939 by LAZARO PEREZ Justicifation of Admission Dx: Justifications for Admission: Justification of Admission Dx: Yes CHF: Sev. Electrolyte Abnormal Angina: Symp at Rest [place]: Acute NSTEMI TAWANDA COKER MD Feb 15, 2020 16:37
[2020-02-15 16:53] VITALS: BP 142/69
[2020-02-15] MEDS ORDERED: PANTOPRAZOLE 40 MG TABLET.DR. PO ONE (17:00)
--- NOTE | 2020-02-15 18:06 | NUR ---
SW following. Spoke with RN and reviewed chart. Pt had a 6 min walk today and 02 is not needed on discharge. Pt to discharge home today, self-care. Pt on room air and oral medications. No further SW needs at this time.
--- NOTE | 2020-02-15 19:27 | NUR ---
Discharge Note: SHANIQUA SHRESTHA [address] Discharge instructions and discharge home medications reviewed with Patient and a copy given. All questions have been answered and understanding verbalized. The following instructions and handouts were given: CARDIAC DIET AND DAILY WEIGHT. Discontinued IV line and CATHETER intact. Patient discharged to home with self-care via private vehicle.
[2020-02-16] MEDS ORDERED: FUROSEMIDE 40 MG TABLET. PO SCH (09:00)
== END 2020-02-15 19:30 | disposition home or self-care (01) | DRG 280 ==
LOC: ER 00:56 → 2 SOUTH 06:05 → 6 SOUTH 12:52
PROVIDERS: ADMIT Internal Medicine; ATTEND Internal Medicine
PROC: 5A09357 Assistance with Respiratory Ventilation, Less than 24 Consecutive Hours, Continuous Positive Airway Pressure (ICD-10-PCS; 2020-02-13)
PROC: 30233N1 Transfusion of Nonautologous Red Blood Cells into Peripheral Vein, Percutaneous Approach (ICD-10-PCS; principal; 2020-02-14)
DX: I11.0 Hypertensive heart disease with heart failure (principal); J96.01 Acute respiratory failure with hypoxia; I21.A1 Myocardial infarction type 2; E87.1 Hypo-osmolality and hyponatremia; I50.43 Acute on chronic combined systolic (congestive) and diastolic (congestive) heart failure; I42.9 Cardiomyopathy, unspecified; Z20.828 Contact with and (suspected) exposure to other viral communicable diseases; D50.9 Iron deficiency anemia, unspecified; E78.00 Pure hypercholesterolemia, unspecified; E78.5 Hyperlipidemia, unspecified; E83.42 Hypomagnesemia; G47.33 Obstructive sleep apnea (adult) (pediatric); E11.42 Type 2 diabetes mellitus with diabetic polyneuropathy; I16.0 Hypertensive urgency; I25.10 Atherosclerotic heart disease of native coronary artery without angina pectoris; I25.2 Old myocardial infarction; I48.0 Paroxysmal atrial fibrillation; J44.9 Chronic obstructive pulmonary disease, unspecified; M06.9 Rheumatoid arthritis, unspecified; Z96.652 Presence of left artificial knee joint; F41.9 Anxiety disorder, unspecified; K21.9 Gastro-esophageal reflux disease without esophagitis; K57.90 Diverticulosis of intestine, part unspecified, without perforation or abscess without bleeding; M19.90 Unspecified osteoarthritis, unspecified site; I25.5 Ischemic cardiomyopathy; Z79.02 Long term (current) use of antithrombotics/antiplatelets; Z79.82 Long term (current) use of aspirin; Z79.84 Long term (current) use of oral hypoglycemic drugs; Z79.899 Other long term (current) drug therapy; Z82.49 Family history of ischemic heart disease and other diseases of the circulatory system; Z87.01 Personal history of pneumonia (recurrent); Z87.891 Personal history of nicotine dependence; Z90.710 Acquired absence of both cervix and uterus; Z95.1 Presence of aortocoronary bypass graft; Z95.810 Presence of automatic (implantable) cardiac defibrillator; Z98.61 Coronary angioplasty status; Z90.49 Acquired absence of other specified parts of digestive tract
CPT/HCPCS: 36415; 36600; 71045; 80048; 80053; 80162; 81001; 82805; 83735; 83880; 83930; 83935; 84300; 84484; 85025; 85027; 85520; 85610; 85730; 86850; 86900; 86901; 86920; 93005; 93306; 94618; 94660; 96365; 96366; 96375; 99285; J1644; J1940; J2270; J3010; J3475; J7040; P9016; G0378; U0003-CS

== ENCOUNTER → 2020-02-29 | Outpatient (CLI) | payer MEDICARE ==
[2020-02-15 16:53] VITALS: BP 142/69
--- NOTE | 2020-03-01 08:40 | RAD ---
MR#: [id number] Date of Study: 02/29/2020 Ordering Physician: JIMENEZ MILNER, Referring Physician: JIMENEZ MILNER, Tech: Bhakti Nguyen, RDMS, RVT, RTR APPROVED REPORT Patient Location: OUT-PATIENT Indications Claudication:Bilaterally Risk Factors Diabetes VELOCITY AND DOPPLER WAVEFORM ANALYSIS RIGHT cm/secWaveformSeverity LEFT cm/secWaveform Severity pCFA 106.3pCFA 159.9 Prof Fem Art. 62.5Prof Fem Art. 75.8 Fem Art Prox. 87.3Fem Art Prox. 121.5 Fem Art Mid. 81.0Fem Art Mid. 108.2 Fem Art Dist. 74.0Fem Art Dist. 123.9 Pop Art(AK) 104.1Pop Art(AK) 113.2 Pop Art(Fossa) 50.5Pop Art(AK) 107.4 Pop Art(BK) 77.8Pop Art(BK) 103.3 FINE ARTS CHAIR Prox. 49.2PTA Prox. 61.7 FINE ARTS CHAIR Dist. 109.3PTA Dist. 20.8 Per Art Prox. 65.7Per Art Prox. 88.7 VAN Prox. 45.0ATA Prox. 108.6 DPA 44DPA 186 Findings Grayscale images of the bilateral lower extremity arterial vessels demonstrates moderate diffuse plaq ue. Bilateral arterial waveforms are mostly biphasic without any significant flow-limiting lesions noted. There is three-vessel runoff on the right side and two-vessel runoff on the left side. The left po sterior tibial artery appears to be occluded in the distal segment. Incidental right sided Kilpatrick's cyst is noted measuring 4 x 3.4 x 1.7 cm. Critical Notification Critical Value: No <Conclusion> 1. Small vessel disease on the left side but otherwise no significant stenosis identified bilaterall y Signed by : Jimenez Milner, Electronically Approved : 03/01/2020 08:40:29
--- NOTE | 2020-03-01 08:41 | RAD ---
MR#: [id number] Date of Study: 02/29/2020 Ordering Physician: JIMENEZ MILNER, Referring Physician: JIMENEZ MILNER, Tech: Bhakti Nguyen RDMS, RVT, RTR APPROVED REPORT Patient Location: OUT-PATIENT Exam Type: Ankle to Brachial Index Indications Claudication:Bilaterally Risk Factors Diabetes Pressures/Indices RightABI LeftABI Brachial 122mmHg.92Brachial 128mmHg.92 Ankle(PT) 119mmHgAnkle(PT) Ankle(DP) 126mmHgAnkle(DP) 119mmHg Findings Mildly decreased bilateral ABIs of 0.9 Critical Notification Critical Value: No <Conclusion> 1. Mildly reduced bilateral BRANDEN at 0.9. Signed by : Jimenez Milner, Electronically Approved : 03/01/2020 08:41:11
--- NOTE | 2020-03-01 08:42 | RAD ---
MR#: [id number] Date of Study: 02/29/2020 Ordering Physician: JIMENEZ MILNER, Referring Physician: JIMENEZ MILNER, Tech: Bhakti Nguyen RDMS, RVT, RTR APPROVED REPORT Patient Location : OUT-PATIENT Indications Lower Extremity Pain : Bilateral Lower Extremity Edema : Bilateral Findings Bilateral limited images of the saphenofemoral junctions are grossly unremarkable. Negative reflux in the bilateral lesser saphenous veins. No reflux in the right greater saphenous vein. Left greater saphenous vein was previously harvested for bypass surgery. Critical Notification Critical Value: No <Conclusion> 1. No significant reflux identified. Signed by : Jimenez Milner, Electronically Approved : 03/01/2020 08:42:15
== END | disposition home or self-care (01) ==
LOC: US 13:36
PROVIDERS: ATTEND Internal Medicine Cardiovascular Disease
DX: I65.23 Occlusion and stenosis of bilateral carotid arteries (principal); R60.0 Localized edema; M71.21 Synovial cyst of popliteal space [Baker], right knee
CPT/HCPCS: 93922; 93925; 93970

== ENCOUNTER → 2020-04-29 | Outpatient (CLI) | payer MEDICARE ==
[~2020-04-29] MED LIST changes: +AMLO-186 PO; +AMLO-187 PO; -AMLO10TA8 PO; -AMLO5TAB10 PO; -MECL12.573 PO; +MECL12.574 PO
[2020-04-29 13:03] LABS: ALBUMIN 3.8 g/dL (3.4-5.0); ALBUMIN/GLOBULIN RATIO 1.1 (1.0-1.7); CALCIUM 9.1 mg/dL (8.5-10.1); CREATININE 0.9 mg/dL (0.6-1.0); GFR 60.9; POTASSIUM 4.2 mmol/L (3.5-5.1); TOTAL BILIRUBIN 0.4 mg/dL (0.2-1.0); TOTAL PROTEIN 7.3 g/dL (6.4-8.2)
[2020-04-29 13:08] LABS: CHOLESTEROL/HDL RATIO 4.3
== END ==
LOC: LAB 12:07
PROVIDERS: ATTEND Internal Medicine Cardiovascular Disease
DX: I25.10 Atherosclerotic heart disease of native coronary artery without angina pectoris (principal)
CPT/HCPCS: 36415; 80053; 80061; 83721

== ENCOUNTER → 2020-06-10 | Outpatient (CLI) | payer MEDICARE ==
[~2020-06-10] MED LIST changes: +CLOP75TA PO; -ISOS30TA4 PO; +ISOS30TA68 PO; -MECL12.574 PO; +MECL12.582 PO; +SPIR25TA5 PO
[2020-06-10 13:55] LABS: BASO # 0.1 x10^3/uL (0.0-0.2); BASO % 1 % (0-3); EOS # 0.3 x10^3/uL (0.0-0.7); EOS % 4 % (0-3); HEMATOCRIT 31.4 % (36.0-47.0); HEMOGLOBIN 10.3 g/dL (12.0-15.5); LYMPH % 14 % (24-48); MEAN CORPUSCULAR HEMOGLOBIN 24 pg (25-35); MEAN CORPUSCULAR HGB CONC 33 g/dL (31-37); MEAN CORPUSCULAR VOLUME 73 fL (79-100); MONO # 0.7 x10^3/uL (0.0-1.1); MONO % 10 % (0-9); NEUT # 5.2 x10^3/uL (1.8-7.7); NEUT % 71 % (31-73); PLATELET COUNT 223 x10^3/uL (140-400); RED BLOOD COUNT 4.32 x10^6/uL (3.50-5.40); RED CELL DISTRIBUTION WIDTH 20.9 % (11.5-14.5); WHITE BLOOD COUNT 7.3 x10^3/uL (4.0-11.0)
[2020-06-10 15:05] LABS: ANISOCYTOSIS MOD; HYPOCHROMIA SLIGHT; MICROCYTOSIS SLIGHT; OVALOCYTES FEW; PLT ESTIMATE ADEQUATE (ADEQUATE); POIKILOCYTOSIS SLIGHT
== END ==
LOC: ONCLAB 13:29
PROVIDERS: ATTEND Internal Medicine Hematology & Oncology
DX: D50.9 Iron deficiency anemia, unspecified (principal)
CPT/HCPCS: 36415; 82728; 82746; 83540; 83550; 85025

== ENCOUNTER → 2020-06-17 | Outpatient (CLI) | payer MEDICARE ==
[~2020-06-17] MED LIST changes: -CLOP75TA PO; +ISOS30TA4 PO; -ISOS30TA68 PO; +MECL12.574 PO; -MECL12.582 PO
== END ==
LOC: LAB 08:34
PROVIDERS: ATTEND Internal Medicine Gastroenterology
DX: Z01.812 Encounter for preprocedural laboratory examination (principal); Z80.9 Family history of malignant neoplasm, unspecified; Z20.828 Contact with and (suspected) exposure to other viral communicable diseases
CPT/HCPCS: U0003

== ENCOUNTER → 2020-06-19 | Day surgery (SDC) | payer MEDICARE ==
[~2020-06-19] MED LIST changes: -ISOS30TA4 PO; +ISOS30TA68 PO; +IV RINGERS,LACTATED 1000ML 1,000 ML IV SCH; +PROPOFOL 10 MG/ML (20ML) VIAL. IV ONE
[2020-06-19 13:43] VITALS: BP 140/66
== END | disposition home or self-care (01) ==
LOC: ENDOS 12:05
PROVIDERS: ATTEND Internal Medicine Gastroenterology
DX: R13.10 Dysphagia, unspecified (principal); D64.9 Anemia, unspecified; K31.89 Other diseases of stomach and duodenum; I11.0 Hypertensive heart disease with heart failure; I50.9 Heart failure, unspecified; E78.00 Pure hypercholesterolemia, unspecified; K21.9 Gastro-esophageal reflux disease without esophagitis; J44.9 Chronic obstructive pulmonary disease, unspecified; G47.30 Sleep apnea, unspecified; E66.9 Obesity, unspecified; M19.90 Unspecified osteoarthritis, unspecified site; F41.9 Anxiety disorder, unspecified; I25.10 Atherosclerotic heart disease of native coronary artery without angina pectoris; E11.9 Type 2 diabetes mellitus without complications; Z90.710 Acquired absence of both cervix and uterus; Z98.890 Other specified postprocedural states; Z87.891 Personal history of nicotine dependence; Z79.82 Long term (current) use of aspirin; Z79.84 Long term (current) use of oral hypoglycemic drugs; Z79.899 Other long term (current) drug therapy
CPT/HCPCS: 43450; J2704; 43235

== ENCOUNTER → 2020-07-02 | Outpatient (CLI) | payer MEDICARE ==
[2020-06-19 13:43] VITALS: BP 140/66
[~2020-07-02] MED LIST changes: +CLOP75TA PO; -IV RINGERS,LACTATED 1000ML 1,000 ML IV SCH; -MECL12.574 PO; +MECL12.582 PO; -PROPOFOL 10 MG/ML (20ML) VIAL. IV ONE
[2020-07-02 13:41] LABS: BASO # 0.1 x10^3/uL (0.0-0.2); BASO % 1 % (0-3); EOS # 0.2 x10^3/uL (0.0-0.7); EOS % 2 % (0-3); HEMATOCRIT 31.3 % (36.0-47.0); HEMOGLOBIN 10.4 g/dL (12.0-15.5); LYMPH # 1.2 x10^3/uL (1.0-4.8); LYMPH % 16 % (24-48); MEAN CORPUSCULAR HEMOGLOBIN 24 pg (25-35); MEAN CORPUSCULAR HGB CONC 33 g/dL (31-37); MEAN CORPUSCULAR VOLUME 74 fL (79-100); MONO # 0.8 x10^3/uL (0.0-1.1); MONO % 10 % (0-9); NEUT # 5.3 x10^3/uL (1.8-7.7); NEUT % 71 % (31-73); PLATELET COUNT 226 x10^3/uL (140-400); RED BLOOD COUNT 4.27 x10^6/uL (3.50-5.40); RED CELL DISTRIBUTION WIDTH 19.1 % (11.5-14.5); WHITE BLOOD COUNT 7.4 x10^3/uL (4.0-11.0)
[2020-07-02 13:49] LABS: CALCIUM 9.2 mg/dL (8.5-10.1); GFR 53.9; POTASSIUM 5.3 mmol/L (3.5-5.1)
[2020-07-02 13:54] LABS: ALBUMIN 3.6 g/dL (3.4-5.0); TOTAL BILIRUBIN 0.3 mg/dL (0.2-1.0); TOTAL PROTEIN 7.1 g/dL (6.4-8.2)
== END ==
LOC: ONCLAB 13:02
PROVIDERS: ATTEND Physician Assistant
DX: D50.0 Iron deficiency anemia secondary to blood loss (chronic) (principal)
CPT/HCPCS: 36415; 80053; 85025

== ENCOUNTER → 2020-07-09 | Outpatient (CLI) | payer MEDICARE ==
[2020-06-19 13:43] VITALS: BP 140/66
[~2020-07-09] MED LIST changes: -CLOP75TA PO; +MECL12.574 PO; -MECL12.582 PO
[2020-07-09 13:39] LABS: BASO # 0.1 x10^3/uL (0.0-0.2); BASO % 1 % (0-3); EOS # 0.2 x10^3/uL (0.0-0.7); EOS % 3 % (0-3); HEMATOCRIT 31.5 % (36.0-47.0); HEMOGLOBIN 10.3 g/dL (12.0-15.5); LYMPH % 13 % (24-48); MEAN CORPUSCULAR HEMOGLOBIN 24 pg (25-35); MEAN CORPUSCULAR HGB CONC 33 g/dL (31-37); MEAN CORPUSCULAR VOLUME 75 fL (79-100); MONO # 0.7 x10^3/uL (0.0-1.1); MONO % 9 % (0-9); NEUT # 5.5 x10^3/uL (1.8-7.7); NEUT % 73 % (31-73); PLATELET COUNT 222 x10^3/uL (140-400); RED BLOOD COUNT 4.22 x10^6/uL (3.50-5.40); WHITE BLOOD COUNT 7.6 x10^3/uL (4.0-11.0)
[2020-07-09 13:59] LABS: CALCIUM 9.1 mg/dL (8.5-10.1); CREATININE 0.8 mg/dL (0.6-1.0); GFR 69.7; POTASSIUM 4.9 mmol/L (3.5-5.1)
== END ==
LOC: ONCLAB 12:50
PROVIDERS: ATTEND Physician Assistant
DX: D50.0 Iron deficiency anemia secondary to blood loss (chronic) (principal)
CPT/HCPCS: 36415; 80048; 85025

== ENCOUNTER → 2020-07-23 | Outpatient (CLI) | payer MEDICARE ==
[2020-06-19 13:43] VITALS: BP 140/66
[~2020-07-23] MED LIST changes: +CLOP75TA PO
== END ==
LOC: LAB 08:44
PROVIDERS: ATTEND Internal Medicine Gastroenterology
DX: Z01.812 Encounter for preprocedural laboratory examination (principal); R19.4 Change in bowel habit; Z20.822 Contact with and (suspected) exposure to COVID-19
CPT/HCPCS: U0003

== ENCOUNTER → 2020-07-25 | Day surgery (SDC) | payer MEDICARE ==
[~2020-07-25] MED LIST changes: +HYDROmorphone 2 MG/ML VIAL IVP PRN; +IV RINGERS,LACTATED 1000ML 1,000 ML IV SCH; +LIDOCAINE 2% PF 5 ML VIAL. ONE; -MECL12.574 PO; +MECL12.582 PO; +MORPHINE SULFATE 2 MG/ML VIAL. IVP PRN; +PROCHLORPERAZINE 10 MG/2 ML VIAL. IVP PRN; +PROPOFOL 10 MG/ML (20ML) VIAL. IV ONE; +fentaNYL PF VIAL 100 MCG/2 ML VIAL IVP PRN
[2020-07-25 09:05] VITALS: BP 179/62
--- NOTE | 2020-07-29 09:11 | PATHOLOGY ---
[facility] Accession Number: [id number] . 01 Material submitted: . PART A: hepatic flexure - HEPATIC FLEXURE POLYP BIOPSY PART B: colon - ASCENDING COLON POLYP. Modifiers: ascending PART C: cecum - CECAL POLYP . 01 Clinical history: . CHANGE IN BOWEL HABITS . 02 Diagnosis: A. Colon biopsy, hepatic flexure polyp: - Tubular adenoma. . B. Colon biopsies, ascending colon polyp: - Tubular adenoma. . C. Colon biopsies, cecal polyp: - Tubular adenoma. . (DYLANM:thi; 07/28/2020) MBMaribel 07/28/2020 1644 Local . 02 Comment: There is no high-grade dysplasia or evidence of malignancy. (VAISHALI:thi; 07/28/2020) . 02 Electronically signed: . Balwinder Briscoe MD, Pathologist NPI- [id number] . 01 Gross description: . A. Received in formalin labeled "Aleena Jane, hepatic flexure polyp biopsy" is a fragment of lozano-brown soft tissue measuring 0.4 x 0.4 x 0.3 cm. The specimen is submitted entirely in A1. . B. Received in formalin labeled "Forson, Aleena ascending colon polyp biopsy" are multiple fragments of lozano-brown soft tissue measuring in aggregate 1.2 x 0.4 x 0.3 cm. The specimen is submitted entirely in B1. . C. Received in formalin labeled "Forson, Aleena cecal polyp" are multiple fragments of lozaon-brown soft tissue measuring in aggregate 1.2 x 0.7 x 0.4 cm. The specimen is submitted entirely in C1.([facility]; 07/27/2020) GZA/GZA 07/28/2020 1642 Local . 02 Pathologist provided ICD-10: D12.3, D12.2, D12.0 . 02 CPT . 466922, 685265, 478540 Specimen Comment: Report sent to / Performed at: [address], [place] [id number] MD Rom Blackmon MD Phone: [phone] Performed at: [address] [id number] MD Balwinder Briscoe MD Phone: [phone]
== END | disposition home or self-care (01) ==
LOC: SURG 07:03
PROVIDERS: ATTEND Internal Medicine Gastroenterology
DX: R19.4 Change in bowel habit (principal); D12.0 Benign neoplasm of cecum; D12.2 Benign neoplasm of ascending colon; D12.3 Benign neoplasm of transverse colon; K63.89 Other specified diseases of intestine; I11.0 Hypertensive heart disease with heart failure; I50.9 Heart failure, unspecified; I25.10 Atherosclerotic heart disease of native coronary artery without angina pectoris; J44.9 Chronic obstructive pulmonary disease, unspecified; G47.30 Sleep apnea, unspecified; E66.9 Obesity, unspecified; K21.9 Gastro-esophageal reflux disease without esophagitis; M19.90 Unspecified osteoarthritis, unspecified site; E11.9 Type 2 diabetes mellitus without complications; F41.9 Anxiety disorder, unspecified; Z85.828 Personal history of other malignant neoplasm of skin; Z90.710 Acquired absence of both cervix and uterus; Z98.890 Other specified postprocedural states; Z79.82 Long term (current) use of aspirin; Z79.84 Long term (current) use of oral hypoglycemic drugs; Z79.899 Other long term (current) drug therapy; Z87.891 Personal history of nicotine dependence
CPT/HCPCS: 45380; 45385; 88305; J2704

== ENCOUNTER → 2020-08-08 | Outpatient (CLI) | payer MEDICARE ==
[2020-07-25 09:05] VITALS: BP 179/62
[~2020-08-08] MED LIST changes: -HYDROmorphone 2 MG/ML VIAL IVP PRN; -IV RINGERS,LACTATED 1000ML 1,000 ML IV SCH; -LIDOCAINE 2% PF 5 ML VIAL. ONE; -MORPHINE SULFATE 2 MG/ML VIAL. IVP PRN; -PROCHLORPERAZINE 10 MG/2 ML VIAL. IVP PRN; -PROPOFOL 10 MG/ML (20ML) VIAL. IV ONE; -fentaNYL PF VIAL 100 MCG/2 ML VIAL IVP PRN
[2020-08-08 13:00] LABS: BASO # 0.1 x10^3/uL (0.0-0.2); BASO % 1 % (0-3); EOS # 0.1 x10^3/uL (0.0-0.7); EOS % 2 % (0-3); HEMATOCRIT 33.6 % (36.0-47.0); HEMOGLOBIN 11.5 g/dL (12.0-15.5); LYMPH # 1.1 x10^3/uL (1.0-4.8); LYMPH % 15 % (24-48); MEAN CORPUSCULAR HEMOGLOBIN 27 pg (25-35); MEAN CORPUSCULAR HGB CONC 34 g/dL (31-37); MEAN CORPUSCULAR VOLUME 78 fL (79-100); MONO # 0.7 x10^3/uL (0.0-1.1); MONO % 10 % (0-9); NEUT # 5.1 x10^3/uL (1.8-7.7); NEUT % 72 % (31-73); PLATELET COUNT 229 x10^3/uL (140-400); RED BLOOD COUNT 4.28 x10^6/uL (3.50-5.40); RED CELL DISTRIBUTION WIDTH 20.8 % (11.5-14.5); WHITE BLOOD COUNT 7.1 x10^3/uL (4.0-11.0)
[2020-08-08 13:08] LABS: CREATININE 0.9 mg/dL (0.6-1.0); GFR 60.9; POTASSIUM 4.9 mmol/L (3.5-5.1)
== END ==
LOC: ONCLAB 12:40
PROVIDERS: ATTEND Physician Assistant
DX: D50.0 Iron deficiency anemia secondary to blood loss (chronic) (principal)
CPT/HCPCS: 36415; 80048; 82728; 83540; 83550; 85025

== ENCOUNTER 2020-11-14 20:43 | Emergency (ER) | payer MEDICARE ==
[~2020-11-14] VITALS: Ht 162.6 cm; Wt 78.0 kg
--- NOTE | 2020-11-14 21:07 | PHYS DOC ---
Past Medical History Past Medical History: Anxiety, CHF, COPD, Diabetes-Type II, GERD, High Ch olesterol, Hypertension, DC Additional Past Medical Histor: RA; neuropathy Past Surgical History: Coronary Bypass Surgery, Hysterectomy, Other Additional Past Surgical Histo: defibrillator 2003; left bunionectomy, HX OF INTUBATION Smoking Status: Former Smoker Alcohol Use: None Drug Use: None General Adult EDM: Chief Complaint: OTHER COMPLAINTS HPI: HPI: Patient is a 75 year old female with a past medical history of coronary artery disease status post CABG and defibrillator placement presents for evaluation due to defibrillator alarm. Patient states she was normal state of health today and on 3 separate occasions noticed an alarm beeping in her chest. First episode happened shortly after lunch, second episode have been this afternoon and last episode around dinnertime. Patient states devised did not discharge. She denied any preceding symptoms. She denies any chest pain shortness of breath palpitations. Review of Systems: Review of Systems: Review of systems: Constitutional symptoms- No fever, no chills. Eyes- No Discharge, No Visual Loss Respiratory symptoms- No shortness of breath, No wheezing, No Dyspnea on Exertion Cardiovascular Systems; No chest pain, No Palpitations, No syncope Gastrointestinal symptoms: NO abdominal pain, no nausea, no vomiting or diarr hea. Genitourinary symptoms: No dysuria. Musculoskeletal symptoms: No back pain No extremity pain. NEUROLOGICAL Symptoms: No headache, no generalized weakness; No focal Weakness Skin: No rash. Heart Score: C/O Chest Pain: N/A Risk Factors: Risk Factors: DM, Current or recent (<one month) smoker, HTN, HLP, family history of CAD, obesity. Risk Scores: Score 0 - 3: 2.5% MACE over next 6 weeks - Discharge Home Score 4 - 6: 20.3% MACE over next 6 weeks - Admit for Clinical Observation Score 7 - 10: 72.7% MACE over next 6 weeks - Early Invasive Strategies Allergies: Allergies: Allergies Coded Allergies Type Severity Reaction Last Updated Verified No Known Drug Allergies 06/19/20 No Physical Exam: PE: General: alert, no acute distress. Skin: warm, dry and intact. HENT: bilateral external ears normal, oropharynx moist, nose normal. Head:: Normocephalic, atraumatic. Neck: Trachea midline. Eyes: EOMI, Normal conjunctiva, No drainage CARDIOVASCULAR: Regular rate and rhythm RESPIRATORY: No respiratory distress Back: Full range of motion. Skin: Warm, dry, no erythema, no rash. MUSCULOSKELETAL: Full range of motion of bilateral upper and lower extremities. GASTROINTESTINAL: Abdomen soft without rebound or guarding. NEUROLOGICAL: Alert and noted to person, place and time. No neurological deficits observed Psychiatric: Cooperative. Normal judgment EKG: EKG: Performed at 2103 Rate [address] elevation No ST depression No acute DC [] Radiology/Procedures: Radiology/Procedures: [] Impression: Exam: Chest one view INDICATION: Defibrillator discharge TECHNIQUE: Frontal view of the chest Comparisons: 02/14/2020 FINDINGS: Pacer with leads terminating the right atrium and ventricle. Sternotomy wires are noted. Heart is mildly enlarged. Pulmonary vessels are within normal limits. The lung and pleural spaces are clear. IMPRESSION: No acute pulmonary process. Course & Med Decision Making: Course & Med Decision Making Pertinent Labs and Imaging studies reviewed. (See chart for details) [] Patient's [employer] defibrillator interrogated. Is a lead abnormality. Patient's pacemaker apparently turned off with a magnet. [employer] rep presented to the ER and permanently turned off patient's defibrillator. Patient's troponin noted to be elevated at 0.06 repeat was drawn 3 hours post initial and and did not elevate. 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 Patient stable for discharge. Patient to follow-up on an outpatient basis. Travis Disclaimer: Travis Disclaimer: This electronic medical record was generated, in whole or in part, using a voice recognition dictation system. Departure Departure Impression: Primary Impression: Implanted defibrillator electrode lead fracture Disposition: HOME / SELF CARE / HOMELESS Referrals: FLACO HEREDIA (PCP) JIMENEZ MILNER MD Patient Instructions: Implantable Cardioverter Defibrillator SUKH HECK DO Nov 14, 2020 21:07
[2020-11-14 21:56] LABS: BASO # 0.1 x10^3/uL (0.0-0.2); BASO % 1 % (0-3); EOS # 0.2 x10^3/uL (0.0-0.7); EOS % 2 % (0-3); HEMOGLOBIN 11.8 g/dL (12.0-15.5); LYMPH # 1.4 x10^3/uL (1.0-4.8); LYMPH % 16 % (24-48); MEAN CORPUSCULAR HEMOGLOBIN 30 pg (25-35); MEAN CORPUSCULAR HGB CONC 36 g/dL (31-37); MEAN CORPUSCULAR VOLUME 84 fL (79-100); MONO # 0.9 x10^3/uL (0.0-1.1); MONO % 11 % (0-9); NEUT # 6.1 x10^3/uL (1.8-7.7); NEUT % 71 % (31-73); PLATELET COUNT 211 x10^3/uL (140-400); RED BLOOD COUNT 3.92 x10^6/uL (3.50-5.40); RED CELL DISTRIBUTION WIDTH 12.6 % (11.5-14.5); WHITE BLOOD COUNT 8.6 x10^3/uL (4.0-11.0)
[2020-11-14 22:07] LABS: CALCIUM 9.1 mg/dL (8.5-10.1); CREATININE 1.2 mg/dL (0.6-1.0); GFR 43.7; POTASSIUM 4.6 mmol/L (3.5-5.1)
[2020-11-14 22:13] LABS: ALBUMIN 4.2 g/dL (3.4-5.0); ALBUMIN/GLOBULIN RATIO 1.6 (1.0-1.7); MAGNESIUM 1.3 mg/dL (1.8-2.4); TOTAL BILIRUBIN 0.4 mg/dL (0.2-1.0); TOTAL PROTEIN 6.8 g/dL (6.4-8.2)
--- NOTE | 2020-11-14 22:26 | EKG ---
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
--- NOTE | 2020-11-14 22:33 | RAD ---
Exam: Chest one view INDICATION: Defibrillator discharge TECHNIQUE: Frontal view of the chest Comparisons: 02/14/2020 FINDINGS: Pacer with leads terminating the right atrium and ventricle. Sternotomy wires are noted. Heart is mildly enlarged. Pulmonary vessels are within normal limits. The lung and pleural spaces are clear. IMPRESSION: No acute pulmonary process. Electronically signed by: Darvin Amor MD (11/14/2020 10:30 PM) OMAYRA
[2020-11-15] MEDS ORDERED: ACETAMINOPHEN 325 MG TABLET. PO ONE (00:30)
[2020-11-15 00:42] VITALS: BP 151/58
== END 2020-11-15 01:03 | disposition home or self-care (01) ==
LOC: ER 20:43
DX: T82.897A Other specified complication of cardiac prosthetic devices, implants and grafts, initial encounter (principal); F41.9 Anxiety disorder, unspecified; I11.0 Hypertensive heart disease with heart failure; I50.9 Heart failure, unspecified; J44.9 Chronic obstructive pulmonary disease, unspecified; K21.9 Gastro-esophageal reflux disease without esophagitis; E78.00 Pure hypercholesterolemia, unspecified; M06.9 Rheumatoid arthritis, unspecified; E11.40 Type 2 diabetes mellitus with diabetic neuropathy, unspecified; Z95.1 Presence of aortocoronary bypass graft
CPT/HCPCS: 36415; 71045; 80053; 83735; 84484; 85025; 93005; 99285-25

== ENCOUNTER → 2021-03-13 | Outpatient (CLI) | payer MEDICARE ==
[2020-11-30 11:05] VITALS: BP 135/69
[~2021-03-13] MED LIST changes: +CEPH250C PO
--- NOTE | 2021-03-13 15:27 | CARD ---
MR#: [id number] Date of Study: 03/13/2021 Ordering Physician: JIMENEZ MILNER, Referring Physician: JIMENEZ MILNER, Tech: Sathish Vasquez [facility] APPROVED REPORT EXAM: Two-dimensional and M-mode echocardiogram with Doppler and color Doppler. Other Information Quality : FairHR: 72bpm Rhythm : NSRTechnically limited study due to body habitus. INDICATION Cardiac Disease: CAD Surgery/Intervention ICD/Pacemaker: RISK FACTORS Hypertension Obesity Hyperlipidemia 2D DIMENSIONS Left Atrium(2D)4.7 (1.6-4.0cm)IVSd1.6 (0.7-1.1cm) Aortic Root(2D)3.4 (2.0-3.7cm)LVDd5.6 (3.9-5.9cm) LVOT Diameter2.0 (1.8-2.4cm)PWd1.4 (0.7-1.1cm) LVDs4.4 (2.5-4.0cm)FS (%) 21.3 % SV65.5 ml Aortic Valve AoV Peak Adis.245.3cm/sAoV VTI51.4cm AO Peak GR.24.1mmHgLVOT Peak Adis.0.9cm/s LVOT VTI 15.38cmAO Mean GR.13mmHg [place] (VMAX)1.99qq7QGO (VTI)1.20cm2 Mitral Valve MV E Llktgjgh03.6cm/sMV DECEL [id number] MV A Svkukzyg703.4cm/sMV CFH37ex E/A Ratio0.6MVA (PHT)3.09cm2 TDI E/Lateral E'10.9E/Medial E'15.3 Pulmonary Valve PV Peak Ujvjwqog075.3cm/sPV Peak Grad.7mmHg Tricuspid Valve TR P. Kpbyvrol884kx/sTR Peak Gr.23mmHg LEFT VENTRICLE The left ventricle is normal size. There is moderate concentric left ventricular hypertrophy. The lef t ventricular systolic function is normal. The Ejection Fraction is 50-55%. There is normal LV segmen gayatri wall motion. Transmitral Doppler flow pattern is Grade I-abnormal relaxation pattern. No left preston tricle thrombus noted on this study. There is no ventricular septal defect visualized. There is no le ft ventricular aneurysm. There is no mass noted in the left ventricle. RIGHT VENTRICLE The right ventricle is normal size. There is normal right ventricular wall thickness. The right ventr icular systolic function is normal. ATRIA The left atrium is mildly dilated. The right atrium size is normal. The interatrial septum is intact with no evidence for an atrial septal defect or patent foramen ovale as noted on 2-D or Doppler imagi ng. AORTIC VALVE The aortic valve is calcified but opens well. Doppler and Color Flow revealed trace aortic regurgitat ion. There is mild valvular aortic stenosis. Calculated aortic valve area is 1.2 cm2 with maximum pre ssure gradient of 24 mmHg and mean pressure gradient of 12 mmHg. There is no aortic valvular vegetati on. MITRAL VALVE The mitral valve is thickened but opens well. There is no evidence of mitral valve prolapse. There is no mitral valve stenosis. Doppler and Color-flow revealed mild mitral regurgitation. TRICUSPID VALVE The tricuspid valve is normal in structure and function. Doppler and Color Flow revealed mild tricusp id regurgitation. There is no tricuspid valve prolapse or vegetation. There is no tricuspid valve silvia nosis. PULMONIC VALVE The pulmonic valve is not well seen. Doppler and Color Flow revealed no pulmonic valvular regurgitati on. There is no pulmonic valvular stenosis. GREAT VESSELS The aortic root is normal in size. The ascending aorta is normal in size. The pulmonary artery is nor mal. The IVC is normal in size and collapses >50% with inspiration. PERICARDIAL EFFUSION There is no pleural effusion. There is no evidence of significant pericardial effusion. Critical Notification Critical Value: No <Conclusion> The left ventricular systolic function is normal. The Ejection Fraction is 50-55%. There is normal LV segmental wall motion. Transmitral Doppler flow pattern is Grade I-abnormal relaxation pattern. There is mild valvular aortic stenosis. Mild mitral regurgitation. Mild tricuspid regurgitation. There is no evidence of significant pericardial effusion. Signed by : Lawrence Mcelroy, Electronically Approved : 03/13/2021 15:26:56
== END ==
LOC: ECHO 13:44
PROVIDERS: ATTEND Internal Medicine Cardiovascular Disease
DX: I08.3 Combined rheumatic disorders of mitral, aortic and tricuspid valves (principal); I25.10 Atherosclerotic heart disease of native coronary artery without angina pectoris
CPT/HCPCS: 93306

== ENCOUNTER 2021-04-16 12:19 | Inpatient (IN) | payer MEDICARE ==
[~2021-04-16] VITALS: Ht 165.1 cm; Wt 83.0 kg
[~2021-04-16 12:19] MED LIST changes: +TIZA-75 PO; -TIZA4TAB2 PO
--- NOTE | 2021-04-16 13:13 | EKG ---
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
[2021-04-16 13:21] LABS: BASO # 0.1 x10^3/uL (0.0-0.2); BASO % 1 % (0-3); EOS # 0.2 x10^3/uL (0.0-0.7); EOS % 1 % (0-3); HEMATOCRIT 37.1 % (36.0-47.0); HEMOGLOBIN 12.7 g/dL (12.0-15.5); LYMPH # 0.9 x10^3/uL (1.0-4.8); LYMPH % 8 % (24-48); MEAN CORPUSCULAR HEMOGLOBIN 29 pg (25-35); MEAN CORPUSCULAR HGB CONC 34 g/dL (31-37); MEAN CORPUSCULAR VOLUME 84 fL (79-100); MONO # 0.9 x10^3/uL (0.0-1.1); MONO % 7 % (0-9); NEUT # 10.5 x10^3/uL (1.8-7.7); NEUT % 84 % (31-73); PLATELET COUNT 248 x10^3/uL (140-400); WHITE BLOOD COUNT 12.6 x10^3/uL (4.0-11.0)
--- NOTE | 2021-04-16 13:27 | RAD ---
EXAM: Chest, single view. HISTORY: Covid 19 positive. COMPARISON: 11/29/2020 FINDINGS: A frontal view of the chest is obtained. There is no infiltrate, pleural effusion or pneumo thorax. There is slight increased right lower lobe opacity due to asymmetric overlying soft tissue. T here is a stable prominent cardiac silhouette and evidence of coronary artery bypass grafting. There is a coronary artery stent. There is a cardiac pacemaker defibrillator overlying expected position. IMPRESSION: No acute pulmonary finding. Electronically signed by: Jessica Baca MD (04/16/2021 1:25 PM) [id number]
[2021-04-16] MEDS ORDERED: ACETAMINOPHEN 325 MG TABLET. PO ONE (13:30)
[2021-04-16 13:34] LABS: GFR 53.8; POTASSIUM 5.2 mmol/L (3.5-5.1)
--- NOTE | 2021-04-16 14:29 | PHYS DOC ---
Past Medical History Past Medical History: Anxiety, CHF, COPD, Diabetes-Type II, GERD, High Cholesterol, Hypertension, [place] Additional Past Medical Histor: RA; neuropathy Past Surgical History: Coronary Bypass Surgery, Hysterectomy, Other Additional Past Surgical Histo: defibrillator 2003; left bunionectomy, HX OF INTUBATION Smoking Status: Former Smoker Alcohol Use: None Drug Use: None General Adult EDM: Chief Complaint: SHORTNESS OF BREATH HPI: HPI: Patient is a 76 year old female with history of CABG, HTN, HLD, DM, COPD who presents with cough, shortness of breath, chest discomfort in the setting of known Covid. Was diagnosed on 04/07. She is fully vaccinated and has received a booster for moderna. Over the past couple of days has had increasing chest tightness, not similar to her previous cardiac pain. Was worse with coughing. Has been coughing up some green phlegm. Denies any swelling in the legs, redness, pain. Review of Systems: Review of Systems: Constitutional: Denies fever or chills. [] Eyes: Denies change in visual acuity. [] HENT: Denies nasal congestion or sore throat. [] Respiratory: Reports cough and shortness of breath Cardiovascular: reports chest pain GI: Denies abdominal pain, nausea, vomiting, bloody stools or diarrhea. [] : Denies dysuria. [] Musculoskeletal: Denies back pain or joint pain. [] Integument: Denies rash. [] Neurologic: Denies headache, focal weakness or sensory changes. [] Endocrine: Denies polyuria or polydipsia. [] Lymphatic: Denies swollen glands. [] Psychiatric: Denies depression or anxiety. [] Heart Score: C/O Chest Pain: Yes HEART Score for Chest Pain: HEART Score for Chest Pain Response (Comments) Value History Slighlty/Non-Suspicious 0 ECG Nonspecific Repolarizatio 1 Age > 65 2 Risk Factors >3 Risk Factors or Hx CAD 2 Troponin >1-<3x Normal Limit 1 Total 6 Risk Factors: Risk Factors: DM, Current or recent (<one month) smoker, HTN, HLP, family history of CAD, obesity. Risk Scores: Score 0 - 3: 2.5% MACE over next 6 weeks - Discharge Home Score 4 - 6: 20.3% MACE over next 6 weeks - Admit for Clinical Observation Score 7 - 10: 72.7% MACE over next 6 weeks - Early Invasive Strategies Current Medications: Current Medications Medications (Trade) Dose Ordered Sig/Christian Start Time Stop Time Status Last Admin Dose Admin Acetaminophen (Tylenol) 650 mg 1X ONCE 04/16/21 13:30 04/16/21 13:31 DC 04/16/21 13:35 650 MG Labetalol HCl (Normodyne Iv Push) 10 mg 1X ONCE 04/16/21 14:30 04/16/21 14:31 Allergies: Allergies: Allergies Coded Allergies Type Severity Reaction Last Updated Verified No Known Drug Allergies 11/25/20 No Physical Exam: PE: Constitutional: Well developed, well nourished, no acute distress, non-toxic appearance. [] HENT: Normocephalic, atraumatic, bilateral external ears normal, oropharynx moist, no oral exudates, nose normal. [] Eyes: PERRLA, EOMI, conjunctiva normal, no discharge. [] Neck: Normal range of motion, no tenderness, supple, no stridor. [] Cardiovascular:Heart rate regular rhythm, no murmur [] Lungs & Thorax: Bilateral breath sounds clear to auscultation [] Abdomen: Bowel sounds normal, soft, no tenderness, no masses, no pulsatile masses. [] Skin: Warm, dry, no erythema, no rash. [] Back: No tenderness, no CVA tenderness. [] Extremities: No tenderness, no cyanosis, no clubbing, ROM intact, no edema. [] Neurologic: Alert and oriented X 3, normal motor function, normal sensory function, no focal deficits noted. [] Psychologic: Affect normal, judgement normal, mood normal. [] Current Patient Data: Labs: Laboratory Tests Test 04/16/21 13:00 White Blood Count 12.6 x10^3/uL (4.0-11.0) H Red Blood Count 4.40 x10^6/uL (3.50-5.40) Hemoglobin 12.7 g/dL (12.0-15.5) Hematocrit 37.1 % (36.0-47.0) Mean Corpuscular Volume 84 fL (79-100) Mean Corpuscular Hemoglobin 29 pg (25-35) Mean Corpuscular Hemoglobin Concent 34 g/dL (31-37) Red Cell Distribution Width 13.0 % (11.5-14.5) Platelet Count 248 x10^3/uL (140-400) Neutrophils (%) (Auto) 84 % (31-73) H Lymphocytes (%) (Auto) 8 % (24-48) L Monocytes (%) (Auto) 7 % (0-9) Eosinophils (%) (Auto) 1 % (0-3) Basophils (%) (Auto) 1 % (0-3) Neutrophils # (Auto) 10.5 x10^3/uL (1.8-7.7) H Lymphocytes # (Auto) 0.9 x10^3/uL (1.0-4.8) L Monocytes # (Auto) 0.9 x10^3/uL (0.0-1.1) Eosinophils # (Auto) 0.2 x10^3/uL (0.0-0.7) Basophils # (Auto) 0.1 x10^3/uL (0.0-0.2) D-Dimer (Tawanna) 0.38 ug/mlFEU (0.00-0.50) Sodium Level 129 mmol/L (136-145) L Potassium Level 5.2 mmol/L (3.5-5.1) H Chloride Level 92 mmol/L (98-107) L Carbon Dioxide Level 26 mmol/L (21-32) Anion Gap 11 (6-14) Blood Urea Nitrogen 12 mg/dL (7-20) Creatinine 1.0 mg/dL (0.6-1.0) Estimated GFR (Cockcroft-Gault) 53.8 Glucose Level 220 mg/dL (70-99) H Calcium Level 9.0 mg/dL (8.5-10.1) Troponin I High Sensitivity 135 ng/L (4-50) H Laboratory Tests 04/16/21 13:00 Laboratory Tests 04/16/21 13:00 Vital Signs: Vital Signs Date Time Temp Pulse Resp B/P (MAP) Pulse Ox O2 Delivery O2 Flow Rate FiO2 04/16/21 12:30 98.4 78 18 228/100 (142) 98 Room Air 98.4 EKG: EKG: Sinus rhythm. Inferior Q waves. Mild ST depressions and T wave inversions in [address] elevations. [] Radiology/Procedures: Radiology/Procedures: [] Course & Med Decision Making: Course & Med Decision Making Pertinent Labs and Imaging studies reviewed. (See chart for details) Patient is 76-year-old female with history of CABG, HTN, HLD, DM, recent Covid diagnosed on 04/07 who presents with cough, increasing shortness of breath, incre asing chest discomfort. Is now chest pain-free after initial evaluation. On arrival is vitally stable, aside from HTN with SBP of 228. This came down to 185 spontaneously, will be treated with labetalol 10 mg IV initially. D-dimer negative. No further work-up for PE ordered. Troponin elevated to 135, with normal creatinine. DDx includes ACS, myocarditis, hypertensive emergency. Patient will be admitted for further treatment. Dragon Disclaimer: Dragon Disclaimer: This electronic medical record was generated, in whole or in part, using a voice recognition dictation system. Departure Departure Impression: Primary Impression: Chest pain Additional Impressions: NSTEMI (non-ST elevated myocardial infarction) COVID-19 Hypertensive emergency Disposition: ADMITTED INPATIENT Admitting Physician: LUCÍA Bocanegra) Condition: STABLE Referrals: FLACO HEREDIA (PCP) JEFFERSON ATWOOD MD Apr 16, 2021 14:28
[2021-04-16] MEDS ORDERED: LABETALOL 20 MG/4 ML DISP.SYRIN. IVP ONE (14:30)
[2021-04-16] MEDS ORDERED: PIP/TAZO PER PHARMACY MC PRN (15:30)
[2021-04-16] MEDS ORDERED: CALCIUM CARBONATE 500 MG TAB.CHEW PO PRN (15:30)
[2021-04-16] MEDS ORDERED: ONDANSETRON PF 4 MG/2 ML VIAL. IVP PRN (15:30)
[2021-04-16] MEDS ORDERED: oxyCODONE/APAP 5/325 1 TAB TABLET PO PRN (15:30)
[2021-04-16] MEDS ORDERED: ACETAMINOPHEN 325 MG TABLET. PO PRN (15:30)
[2021-04-16] MEDS ORDERED: oxyCODONE IR 5 MG TABLET PO PRN (15:30)
[2021-04-16] MEDS ORDERED: ZOLPIDEM 5 MG TABLET. PO PRN (15:30)
[2021-04-16] MEDS ORDERED: ELECTROLYTE (NON-ICU) PROTOCOL. MC PRN (15:30)
[2021-04-16] MEDS: DEXAMETHASONE 4 MG TABLET PO SCH (16:18)
[2021-04-16] MEDS: PIPERACILLIN/TAZOBACTAM 3.375 GM in IV NORMAL SALINE 50ML 50 ML IV SCH (16:20)
[2021-04-16 18:20] VITALS: BP 196/70
[2021-04-16] MEDS: metFORMIN 500 MG TABLET PO SCH (18:24)
[2021-04-16] MEDS: CARVEDILOL 12.5 MG TABLET. PO SCH (18:24)
[2021-04-16] MEDS ORDERED: hydrALAZINE 20 MG/ML VIAL. IVP PRN (18:45)
--- NOTE | 2021-04-16 18:56 | PDOC1 ---
History and Physical Date of Service: DOS: DATE: 04/16/21 TIME: 18:48 Chief Complaint: Chief Complain: Cough shortness of breath History of Present Illness: HPI: Patient is a 76-year-old white female presented emergency room today due to cough shortness of breath and mild chest pain. Patient reports she has been infected with Covid was positive 9 days ago; many family members at home infected. She has received all 3 Moderna vaccines. Reports that over the past 1-2 today she is reporting worsening cough that has been productive of green mucus at times. This caused some chest tightness and soreness she is concerned given her considerable cardiac history. When I evaluated her she was resting in bed comfortably. Said her shortness of breath and chest pain has definitely improved. She was denying any sort of headache vision changes dizziness abdominal pain dysuria Past Medical/Surgical History: PMH/PSH: Anxiety, CHF, COPD, Diabetes-Type II, GERD, High Cholesterol, Hypertension, [place] CABG Allergies: Allergies: Coded Allergies: No Known Drug Allergies (Unverified , 11/25/20) Family History: Family History: Hypertension CHF diabetes Social History: Social History: Former smoker. Denies alcohol drug use Current Medications: Current Medications Current Medications Acetaminophen (Tylenol) 650 mg 1X ONCE PO Last administered on 04/16/21at 13:35; Start 04/16/21 at 13:30; Stop 04/16/21 at 13:31; Status DC Labetalol HCl (Normodyne Iv Push) 10 mg 1X ONCE IVP ; Start 04/16/21 at 14:30; Stop 04/16/21 at 14:31; Status DC Piperacillin Sod/ Tazobactam Sod (Zosyn Per Pharmacy) 1 each PRN DAILY PRN MC SEE COMMENTS; Start 04/16/21 at 15:30 Dexamethasone (Decadron) 6 mg DAILY PO Last administered on 04/16/21at 16:18; Start 04/16/21 at 15:30 Amlodipine Besylate (Norvasc) 10 mg DAILY PO ; Start 04/17/21 at 09:00 Atorvastatin Calcium (Lipitor) 40 mg QHS PO ; Start 04/16/21 at 21:00 Cetirizine HCl (ZyrTEC) 10 mg QHS PO ; Start 04/16/21 at 21:00 Clopidogrel Bisulfate (Plavix) 75 mg DAILY PO ; Start 04/17/21 at 09:00 Digoxin (Lanoxin) 125 mcg DAILY PO ; Start 04/17/21 at 09:00 Gabapentin (Neurontin) 300 mg TID PO ; Start 04/16/21 at 21:00 Glipizide (Glucotrol) 5 mg BID PO ; Start 04/16/21 at 21:00 Isosorbide Mononitrate (Imdur) 30 mg DAILY PO ; Start 04/17/21 at 09:00 Metformin HCl (Glucophage) 500 mg BIDWMEALS PO Last administered on 04/16/21at 18:24; Start 04/16/21 at 17:00 Montelukast Sodium (Singulair) 10 mg HS PO ; Start 04/16/21 at 21:00 Spironolactone (Aldactone) 25 mg DAILY PO ; Start 04/17/21 at 09:00 Ascorbic Acid (Vitamin C) 1,000 mg DAILY PO ; Start 04/17/21 at 09:00 Carvedilol (Coreg) 25 mg BIDWMEALS PO Last administered on 04/16/21at 18:24; Start 04/16/21 at 17:00 Losartan Potassium (Cozaar) 100 mg DAILY PO ; Start 04/17/21 at 09:00 Multivitamins (Thera M Plus) 1 tab DAILY PO ; Start 04/17/21 at 09:00 Pantoprazole Sodium (Protonix) 40 mg DAILYAC PO ; Start 04/17/21 at 07:30 Ondansetron HCl (Zofran) 4 mg PRN Q6HRS PRN IVP NAUSEA/VOMITING; Start 1 06/16/20 at 15:30 Calcium Carbonate/ Glycine (Tums) 500 mg PRN Q3HRS PRN PO UPSET STOMACH; Start 04/16/21 at 15:30 Zolpidem Tartrate (Ambien) 5 mg PRN QHS PRN PO INSOMNIA, MAY REPEAT IN 1HR; Start 04/16/21 at 15:30 Info (Non-Icu Electrolyte Protocol) 1 ea PRN DAILY PRN MC SEE COMMENTS; Start 04/16/21 at 15:30 Oxycodone HCl (Roxicodone) 5 mg PRN Q3HRS PRN PO BREAKTHROUGH PAIN; Start 04/16/21 at 15:30 Oxycodone/ Acetaminophen (Percocet 5/325) 1 tab PRN Q4HRS PRN PO MILD PAIN, 1ST CHOICE; Start 04/16/21 at 15:30 Oxycodone/ Acetaminophen (Percocet 5/325) 2 tab PRN Q4HRS PRN PO MODERATE PAIN, SEVERE PAIN; Start 04/16/21 at 15:30 Acetaminophen (Tylenol) 650 mg PRN Q6HRS PRN PO Headaches, Temp > 101.5F; Start 04/16/21 at 15:30 Senna/Docusate Sodium (Senna Plus) 1 tab BID PO ; Start 04/16/21 at 21:00 Heparin Sodium (Porcine) (Heparin Sodium) 5,000 unit Q8HRS SQ ; Start 04/16/21 at 22:00 Piperacillin Sod/ Tazobactam Sod 3.375 gm/Sodium Chloride 50 ml @ 100 mls/hr Q6HRS IV Last administered on 04/16/21at 16:20; Start 04/16/21 at 16:00 Hydralazine HCl (Apresoline Inj) 10 mg PRN Q4HRS PRN IVP ELEVATED BP, SEE COMMENTS; Start 04/16/21 at 18:45 Active Scripts Active Keflex (Cephalexin) 250 Mg Capsule 500 Mg PO BID 7 Days Atorvastatin Calcium 20 Mg Tablet 40 Mg PO HS 30 Days Reported Clopidogrel (Clopidogrel Bisulfate) 75 Mg Tablet 1 Tab PO DAILY Amlodipine Besylate 10 Mg Tablet 10 Mg PO DAILY Spironolactone 25 Mg Tablet 25 Mg PO DAILY Losartan Potassium 100 Mg Tablet 100 Mg PO DAILY Calcium (Calcium Carbonate) 500 Mg Tablet 1 Tab PO DAILY 30 Days Viactiv 650 mg-12.5 Mcg Chew (Calcium Carb/Vitamin D3/Vit K1) 1 Each Tab.chew 1 Each PO DAILY Vitamin B-12 (Cyanocobalamin (Vitamin B-12)) 1,000 Mcg Tablet 1 Tab PO DAILY 30 Days Magnesium (Magnesium Oxide) 400 Mg Capsule 1 Cap PO DAILY 30 Days Vitamin C (Ascorbic Acid) 500 Mg Capsule 1,000 Mg PO DAILY Digoxin 125 Mcg Tablet 125 Mcg PO DAILY Metformin Hcl 500 Mg Tablet 500 Mg PO BIDWMEALS 1 tab in am , 2 tabs after supper [place] 3 Fish Oil Softgel ([place]-3 Fatty Acids/Fish Oil) 1 Each Capsule. 1 Each PO DAILY Prilosec (Omeprazole) 20 Mg Capsule.dr 1 Cap PO BIDAC Glipizide 5 Mg Tablet 5 Mg PO BID Neurontin (Gabapentin) 300 Mg Capsule 1 Cap PO TID 1 cap in am, 2 caps at 5pm, 3 caps at bedtime Daily Vitamin (Multivitamin) 1 Each Tablet 1 Each PO DAILY Coreg (Carvedilol) 25 Mg Tablet 1 Tab PO BID Aspir 81 (Aspirin) 81 Mg Tablet.dr 1 Tab PO DAILY Cetirizine Hcl 10 Mg Tablet 1 Tab PO QHS Isosorbide Mononitrate Er (Isosorbide Mononitrate) 30 Mg Tab.er.24h 1 Tab PO DAILY Singulair Tablet (Montelukast Sodium) 10 Mg Tablet 1 Tab PO HS ROS: Review of Systems Review of System Unless noted in HPI 14 point review systems was negative Physical Exam: Vital Signs: Vital Signs Date Time Temp Pulse Resp B/P (MAP) Pulse Ox O2 Delivery O2 Flow Rate FiO2 04/16/21 18:24 78 196/70 04/16/21 18:04 97 Room Air 04/16/21 12:30 98.4 18 98.4 Physcial Exam: GEN: No apparent distress. Alert and oriented HEENT: Normal cephalic, atraumatic, external auditory canals are patent EYES: Extraocular muscles are intact, pupil are equally round and reactive to light and accommodation MUSCULOSKELETAL: Well developed , well nourished, good range of motion ENDOCRINE: No thyromegaly was palpated LYMPHATICS: No cervical chain or axillary nodes were noted HEMATOPOIETIC: No bruising NECK: Supple, no JVD, no thyromegaly was noted LUNGS: Very mild wheezing basilar segments otherwise clear HEART: Scar from previous CABG noted. Normal heart sounds no apparent murmurs ABDOMEN: Soft, nontender. Positive bowel sounds, no organomegaly, normal bowel sounds EXTREMITIES: Mild bilateral lower extremity edema NEUROLOGIC: Normal speech and tone. A&O x 3, moves all extremities, no obvio us focal deficits PSYCHIATRIC: Normal affect, normal mood. Stable SKIN: No ulcerations or rashes, good skin turgor, no jaundice VASCULAR: Good capillary refill, neurovascular bundle appears to be intact Labs: Labs: Laboratory Tests Test 04/16/21 13:00 White Blood Count 12.6 x10^3/uL (4.0-11.0) Red Blood Count 4.40 x10^6/uL (3.50-5.40) Hemoglobin 12.7 g/dL (12.0-15.5) Hematocrit 37.1 % (36.0-47.0) Mean Corpuscular Volume 84 fL (79-100) Mean Corpuscular Hemoglobin 29 pg (25-35) Mean Corpuscular Hemoglobin Concent 34 g/dL (31-37) Red Cell Distribution Width 13.0 % (11.5-14.5) Platelet Count 248 x10^3/uL (140-400) Neutrophils (%) (Auto) 84 % (31-73) Lymphocytes (%) (Auto) 8 % (24-48) Monocytes (%) (Auto) 7 % (0-9) Eosinophils (%) (Auto) 1 % (0-3) Basophils (%) (Auto) 1 % (0-3) Neutrophils # (Auto) 10.5 x10^3/uL (1.8-7.7) Lymphocytes # (Auto) 0.9 x10^3/uL (1.0-4.8) Monocytes # (Auto) 0.9 x10^3/uL (0.0-1.1) Eosinophils # (Auto) 0.2 x10^3/uL (0.0-0.7) Basophils # (Auto) 0.1 x10^3/uL (0.0-0.2) D-Dimer (Tawanna) 0.38 ug/mlFEU (0.00-0.50) Sodium Level 129 mmol/L (136-145) Potassium Level 5.2 mmol/L (3.5-5.1) Chloride Level 92 mmol/L (98-107) Carbon Dioxide Level 26 mmol/L (21-32) Anion Gap 11 (6-14) Blood Urea Nitrogen 12 mg/dL (7-20) Creatinine 1.0 mg/dL (0.6-1.0) Estimated GFR (Cockcroft-Gault) 53.8 Glucose Level 220 mg/dL (70-99) Calcium Level 9.0 mg/dL (8.5-10.1) Troponin I High Sensitivity 135 ng/L (4-50) Laboratory Tests Test 04/16/21 13:00 White Blood Count 12.6 x10^3/uL (4.0-11.0) Red Blood Count 4.40 x10^6/uL (3.50-5.40) Hemoglobin 12.7 g/dL (12.0-15.5) Hematocrit 37.1 % (36.0-47.0) Mean Corpuscular Volume 84 fL (79-100) Mean Corpuscular Hemoglobin 29 pg (25-35) Mean Corpuscular Hemoglobin Concent 34 g/dL (31-37) Red Cell Distribution Width 13.0 % (11.5-14.5) Platelet Count 248 x10^3/uL (140-400) Neutrophils (%) (Auto) 84 % (31-73) Lymphocytes (%) (Auto) 8 % (24-48) Monocytes (%) (Auto) 7 % (0-9) Eosinophils (%) (Auto) 1 % (0-3) Basophils (%) (Auto) 1 % (0-3) Neutrophils # (Auto) 10.5 x10^3/uL (1.8-7.7) Lymphocytes # (Auto) 0.9 x10^3/uL (1.0-4.8) Monocytes # (Auto) 0.9 x10^3/uL (0.0-1.1) Eosinophils # (Auto) 0.2 x10^3/uL (0.0-0.7) Basophils # (Auto) 0.1 x10^3/uL (0.0-0.2) D-Dimer (Tawanna) 0.38 ug/mlFEU (0.00-0.50) Sodium Level 129 mmol/L (136-145) Potassium Level 5.2 mmol/L (3.5-5.1) Chloride Level 92 mmol/L (98-107) Carbon Dioxide Level 26 mmol/L (21-32) Anion Gap 11 (6-14) Blood Urea Nitrogen 12 mg/dL (7-20) Creatinine 1.0 mg/dL (0.6-1.0) Estimated GFR (Cockcroft-Gault) 53.8 Glucose Level 220 mg/dL (70-99) Calcium Level 9.0 mg/dL (8.5-10.1) Troponin I High Sensitivity 135 ng/L (4-50) Assessment/Plan Assessment/Plan COVID-19 pneumonia, hypertensive urgency, NSTEMI, history COPD CHF CABG anxiety diabetes -Patient Covid +9 days ago. Initially asymptomatic however worsening cough over past few days -Patient with notably elevated blood pressure on presentation 190 systolic. Says she has been compliant with her meds says she thinks it is elevated because she does not feel well. Home meds resumed as needed hydralazine -Troponins elevated in emergency room. Demand ischemia? -Start dexamethasone, Zosyn for presumed Covid positivity -Should she develop an oxygen requirement can start remdesivir -As needed cough medications -Home meds resumed as indicated -DVT prophylaxis Justifications for Admission Other Justification SILAS BRYAN MD Apr 16, 2021 18:56
--- NOTE | 2021-04-16 20:00 | NUR ---
Admit from ER to [facility] prior to shift change. A/O x 4. Pleasant. Cooperative. Orientated to room and call light. Reviewed home medication list. Reports Neurontin ordered 300mg 0800, 600mg 1700 and 900mg at HS as well as Amitriptyline 10mg at HS. Paged Dr Cortes to obtain order. Reviewed POC to include Tele monitor and lab draws such as Troponin. Verbalized understanding.
[2021-04-16] MEDS: BENZONATATE 100 MG CAPSULE. PO SCH (20:52)
[2021-04-16] MEDS: SENNOSIDES/DOCUSATE 8.6/50MG TABLET. PO SCH (20:52)
[2021-04-16] MEDS: HEPARIN for SUB-Q USE 5,000 UNIT/ML VIAL. SQ SCH (20:54)
[2021-04-16] MEDS: glipiZIDE 5 MG TABLET PO SCH (20:54)
[2021-04-16] MEDS: GABAPENTIN 300 MG CAPSULE. PO SCH (20:54)
[2021-04-16] MEDS: oxyCODONE/APAP 5/325 1 TAB TABLET PO PRN (20:55)
[2021-04-16] MEDS: guaiFENesin/CODEINE 100mg/10mg 5 ML LIQUID PO PRN (20:55)
[2021-04-16] MEDS ORDERED: MONTELUKAST SODIUM 10 MG TABLET. PO SCH (21:00)
[2021-04-16] MEDS ORDERED: CETIRIZINE HCL 10 MG TABLET. PO SCH (21:00)
[2021-04-16] MEDS ORDERED: ATORVASTATIN CALCIUM 40 MG TABLET. PO SCH (21:00)
[2021-04-16 22:31] VITALS: BP 162/63
[2021-04-17] MEDS: oxyCODONE/APAP 5/325 1 TAB TABLET PO PRN ×2 (00:23→05:29)
[2021-04-17] MEDS: PIPERACILLIN/TAZOBACTAM 3.375 GM in IV NORMAL SALINE 50ML 50 ML IV SCH ×3 (00:24→12:07)
--- NOTE | 2021-04-17 00:24 | NUR ---
Patient reports she takes Amitriptyline 10mg HS, Neurontin 300mg 0800, Neurontin 600mg [address] Cortes to review and obtain home medication orders. Waiting call back.
[2021-04-17 02:39] VITALS: BP 170/67
[2021-04-17] MEDS: guaiFENesin/CODEINE 100mg/10mg 5 ML LIQUID PO PRN (05:28)
[2021-04-17] MEDS: HEPARIN for SUB-Q USE 5,000 UNIT/ML VIAL. SQ SCH ×2 (05:29→14:00)
[2021-04-17] MEDS ORDERED: PANTOPRAZOLE 40 MG TABLET.DR. PO SCH (07:30)
[2021-04-17 07:55] VITALS: BP 153/72
--- NOTE | 2021-04-17 08:13 | PDOC2 ---
CARDIAC CONSULT DATE OF CONSULT Date of Consult DATE: 04/17/21 TIME: 08:11 REASON FOR CONSULT Reason for Consult: NSTEMI REFERRING PHYSICIAN Referring Physician: Sebastian SOURCE Source: Chart review HISTORY OF PRESENT ILLNESS HISTORY OF PRESENT ILLNESS This is a pleasant 76 yo female admitted for complains of cough and SOA. She has not been feeling ok in the last few days and then she got tested over a week ago and tested + which her family members has it too but she has been vaccinated for covid-19 and already had her booster. Had green phlegm but no significant SOA compared to yesterday. No chest pain or palpitations. PAST MEDICAL HISTORY Past Medical History Cardiovascular: CAD, CHF, HTN, Hyperlipidemia, ICM, PAFIB Pulmonary: COPD, Pneumonia, Other (ROEL CENTRAL NERVOUS SYSTEM: Carpal Tunnel Syndrome, Peripheral neuropathy GI: GERD Heme/Onc: Anemia NOS Hepatobiliary: No pertinent hx Psych: Anxiety Musculoskeletal: Osteoarthritis, Other (charcot foot) Rheumatologic: Rheumatoid arthritis Infectious disease: No pertinent hx ENT: Allergic Rhinitis Renal/: No pertinent hx Endocrine: Diabetes (2) Dermatology: Other (skin CA) PAST SURGICAL HISTORY Past Surgical History Pacemaker (AICD) Medtronic recnet gen change 09/2019, Appendectomy, Arthroscopy (right foot surgery), CABG (CABG x 4 MORILLO to LAD, SVG to diagonal and marginal and SVG to PDA), Total knee replacement (left), PCI 06/2019 RV lead failure due to fracture. Complex RV lead revision with placement of a new Medtronic DF 1-lead. FAMILY HISTORY Family History: Coronary Artery Disease SOCIAL HISTORY Smoke: Quit CURRENT MEDICATIONS CURRENT MEDICATIONS Current Medications Medications (Trade) Dose Ordered Sig/Christian Route PRN Reason Start Time Stop Time Status Last Admin Dose Admin Acetaminophen (Tylenol) 650 mg 1X ONCE PO 04/16/21 13:30 04/16/21 13:31 DC 04/16/21 13:35 Dexamethasone (Decadron) 6 mg DAILY PO 04/16/21 15:30 04/16/21 16:18 Atorvastatin Calcium (Lipitor) 40 mg QHS PO 04/16/21 21:00 04/16/21 20:54 Cetirizine HCl (ZyrTEC) 10 mg QHS PO 04/16/21 21:00 04/16/21 20:54 Gabapentin (Neurontin) 300 mg TID PO 04/16/21 21:00 04/16/21 20:54 Glipizide (Glucotrol) 5 mg BID PO 04/16/21 21:00 04/16/21 20:54 Metformin HCl (Glucophage) 500 mg BIDWMEALS PO 04/16/21 17:00 04/16/21 18:24 Carvedilol (Coreg) 25 mg BIDWMEALS PO 04/16/21 17:00 04/16/21 18:24 Pantoprazole Sodium (Protonix) 40 mg DAILYAC PO 04/17/21 07:30 04/17/21 05:31 Oxycodone/ Acetaminophen (Percocet 5/325) 2 tab PRN Q4HRS PRN PO MODERATE PAIN, SEVERE PAIN 04/16/21 15:30 04/17/21 05:29 Heparin Sodium (Porcine) (Heparin Sodium) 5,000 unit Q8HRS SQ 04/16/21 22:00 04/17/21 05:29 Piperacillin Sod/ Tazobactam Sod 3.375 gm/Sodium Chloride 50 ml @ 100 mls/hr Q6HRS IV 04/16/21 16:00 04/17/21 05:28 Guaifenesin/ Codeine Phosphate (Robitussin Ac) 5 ml PRN Q6HRS PRN PO COUGH 04/16/21 19:00 04/17/21 05:28 Amlodipine Besylate (Norvasc) 5 mg 1X ONCE PO 04/16/21 19:30 04/16/21 19:31 DC 04/16/21 20:55 ALLERGIES ALLERGIES: Coded Allergies: No Known Drug Allergies (Unverified , 11/25/20) ROS Review of System 14 point ROS evaluated with pertinent positives noted per HPI PHYSICAL EXAM General: Alert, Oriented X3, Cooperative, No acute distress HEENT: Atraumatic, Mucous membr. moist/pink Lungs: Other (diminished bases) Heart: Regular rate (SR), Normal S1, Normal S2, No murmurs Abdomen: Soft, No tenderness Extremities: No cyanosis, No edema Skin: No significant lesion Neuro: Normal speech, Sensation intact Psych/Mental Status: Mental status NL, Mood NL MUSCULOSKELETAL: Osteoarthritic changes both hands VITALS/I&O VITALS/I&O: Vital Signs Date Time Temp Pulse Resp B/P (MAP) Pulse Ox O2 Delivery O2 Flow Rate FiO2 04/17/21 06:00 98 Room Air 04/17/21 05:29 20 04/17/21 02:39 97.7 78 170/67 (101) 97.7 I & O 04/16/21 04/16/21 04/17/21 15:00 23:00 07:00 Intake Total 790 ml Balance 790 ml LABS Lab: Laboratory Tests Test 04/16/21 13:00 04/17/21 04:00 White Blood Count 12.6 x10^3/uL (4.0-11.0) H Red Blood Count 4.40 x10^6/uL (3.50-5.40) Hemoglobin 12.7 g/dL (12.0-15.5) Hematocrit 37.1 % (36.0-47.0) Mean Corpuscular Volume 84 fL (79-100) Mean Corpuscular Hemoglobin 29 pg (25-35) Mean Corpuscular Hemoglobin Concent 34 g/dL (31-37) Red Cell Distribution Width 13.0 % (11.5-14.5) Platelet Count 248 x10^3/uL (140-400) Neutrophils (%) (Auto) 84 % (31-73) H Lymphocytes (%) (Auto) 8 % (24-48) L Monocytes (%) (Auto) 7 % (0-9) Eosinophils (%) (Auto) 1 % (0-3) Basophils (%) (Auto) 1 % (0-3) Neutrophils # (Auto) 10.5 x10^3/uL (1.8-7.7) H Lymphocytes # (Auto) 0.9 x10^3/uL (1.0-4.8) L Monocytes # (Auto) 0.9 x10^3/uL (0.0-1.1) Eosinophils # (Auto) 0.2 x10^3/uL (0.0-0.7) Basophils # (Auto) 0.1 x10^3/uL (0.0-0.2) D-Dimer (Tawanna) 0.38 ug/mlFEU (0.00-0.50) Sodium Level 129 mmol/L (136-145) L Potassium Level 5.2 mmol/L (3.5-5.1) H Chloride Level 92 mmol/L (98-107) L Carbon Dioxide Level 26 mmol/L (21-32) Anion Gap 11 (6-14) Blood Urea Nitrogen 12 mg/dL (7-20) Creatinine 1.0 mg/dL (0.6-1.0) Estimated GFR (Cockcroft-Gault) 53.8 Glucose Level 220 mg/dL (70-99) H Calcium Level 9.0 mg/dL (8.5-10.1) Troponin I High Sensitivity 135 ng/L (4-50) H 108 ng/L (4-50) H Laboratory Tests 04/16/21 13:00 Laboratory Tests 04/16/21 13:00 ECHOCARDIOGRAM ECHOCARDIOGRAM <Conclusion> The left ventricular systolic function is normal. The Ejection Fraction is 50-55%. There is normal LV segmental wall motion. Transmitral Doppler flow pattern is Grade I-abnormal relaxation pattern. There is mild valvular aortic stenosis. Mild mitral regurgitation. Mild tricuspid regurgitation. There is no evidence of significant pericardial effusion. DATE: 03/13/21 [id number] 0 HEART CATH HEART CATH Bypass angiography: MORILLO to the LAD is widely patent without any anastomotic stenosis SVG jump graft to the first diagonal and obtuse marginal is patent with 10 to 20% in-stent restenosis of the previously placed stent in the jump portion from the first diagonal to the obtuse marginal SVG to the RCA is known occluded and not injected Conclusion 1. Acute on chronic systolic and diastolic heart failure, LVEDP 19 mmHg 2. Severe three-vessel coronary artery disease 3. 3 out of 4 grafts patent 4. Patent stent in the jump graft portion of D1 to OM1 5. Mild LV dysfunction, LV systolic function 40 to 45% Recommendations 1. No significant changes compared to prior cardiac catheterization. Continue aggressive medical therapy DATE: 11/26/19 1211 ASSESSMENT/PLAN ASSESSMENT/PLAN 1. Viral syndrome with covid-19: vaccinated 2. CAD: past CABG recent [facility] 11/25 3/4 grafts were patent. s/p PCI/AKOSUA to SVG from the Diag to OM 07/25/2019. Clinically stable. Cp free 3. Mild troponin elevation: demand mediated in the setting of covid-19 recent TTE with normal EF 4. HTN: controlled 5. HLP 6. Hx of ICM: recoveered 7. AICD in situ: Medtronic. recent device check was good 8. PAFIB: previously noted very low burden Maintaining SR 9 ROEL: CPAP compliant 10. DM2: per PCP Recommendations 1. Continue secondary prevention measures and HF regimen. BMP prior to DC. Continue plavix 2. Follow up in office 3. Continue home CPAP MILES FUENTES APRN Apr 17, 2021 08:13
[2021-04-17] MEDS ORDERED: ASCORBIC ACID 1,000 MG TABLET PO SCH (09:00)
[2021-04-17] MEDS ORDERED: LOSARTAN POTASSIUM 50 MG TABLET. PO SCH (09:00)
[2021-04-17] MEDS ORDERED: DIGOXIN 125 MCG TABLET. PO SCH (09:00)
[2021-04-17] MEDS ORDERED: CLOPIDOGREL BISULFATE 75 MG TABLET PO SCH (09:00)
[2021-04-17] MEDS ORDERED: SPIRONOLACTONE 25 MG TABLET PO SCH (09:00)
[2021-04-17] MEDS ORDERED: ISOSORBIDE MONONITRATE ER 30 MG TAB.ER.24H PO SCH (09:00)
[2021-04-17] MEDS ORDERED: MULTIVITAMIN with MINERAL TABLET. PO SCH (09:00)
[2021-04-17] MEDS: SENNOSIDES/DOCUSATE 8.6/50MG TABLET. PO SCH (09:50)
[2021-04-17] MEDS: BENZONATATE 100 MG CAPSULE. PO SCH ×2 (09:50→14:10)
[2021-04-17] MEDS: GABAPENTIN 300 MG CAPSULE. PO SCH ×2 (09:51→14:10)
[2021-04-17] MEDS: metFORMIN 500 MG TABLET PO SCH (09:52)
[2021-04-17] MEDS: CARVEDILOL 12.5 MG TABLET. PO SCH (09:53)
[2021-04-17] MEDS: DEXAMETHASONE 4 MG TABLET PO SCH (09:53)
[2021-04-17] MEDS: glipiZIDE 5 MG TABLET PO SCH (09:56)
[2021-04-17 11:54] VITALS: BP 177/73
[2021-04-17] MEDS ORDERED: BENZ-8 PO (11:59)
[2021-04-17] MEDS ORDERED: GUAI120L35 PO (11:59)
[2021-04-17] MEDS ORDERED: OXYC5TAB4 PO (11:59)
--- NOTE | 2021-04-17 12:04 | SNU/HH DC ---
DISCHARGE WITH HOME HEALTH DISCHARGE INFORMATION: Final Diagnosis: Problems Medical Problems: (1) Chest pain Status: Acute (2) COVID-19 Status: Acute (3) Hypertensive emergency Status: Acute (4) NSTEMI (non-ST elevated myocardial infarction) Status: Acute Condition on Discharge: Stable CODE STATUS: Code Status: Full HOME HEALTH: Face to Face: I certify this patient is under my care and that I, or a nurse practitioner or physician's assistant womens volleyball coach working with me, had a face to face encounter that meets the physician face to face encounter requirements with this patient on []. Medical Complications: Other (COVID-19 pneumonia) Senior Living For: Assess Cardiopulm Status, Assess & Educate Safety RN For Eval/Treatment: Yes Physical Therapy For: Evalulation/Treatment Home Health Aide For: Self-care BUS INSPECTOR For: Community Resources Pt Meets Homebound Status: Extreme weakness w/ amb. POST DISCHARGE ORDERS: Activity Instructions for Disc: Avoid exertion Weight Bearing Status after Di: Non weight bearing DIET AFTER DISCHARGE: Cardiac Wound/Incision Care: Ice to area for comfort, Keep wound/cast CDI, Reinforce dressing PRN CHECKS AFTER DISCHARGE: Checks after discharge: Check blood press - daily, Check blood sugar, ac/hs TREATMENT/EQUIPMENT ORDERS: Adaptive Equipment Issued: None Discharge Respiratory Equipmen: Oxygen, Nebulizer CERTIFICATION STATEMENT: Certification Statement: Certification Statement: Based on the above finding, I certify that this patient is confined to the home and needs intermittent usp care, physical therapy and/or speech therapy, or continues to need occupational therapy.~ This patient is under my care, and I have initiated the establishment of the plan of care.~ This patient will be followed by myself or a community physician who will periodically review the plan of care. Home Meds Active Scripts Guaifenesin/Codeine Phosphate (Codeine-Guaifen 10-100 mg/5 ml) 120 Ml Liquid, 5 ML PO PRN Q6HRS PRN for COUGH for 10 Days, #100 LIQUID Prov:CASTLE,NIAL K III DO 04/17/21 Benzonatate (BENZONATATE) 100 Mg Capsule, 100 MG PO [id number] for . for 10 Days, #30 CAP Prov:CASTLE,NIAL K III DO 04/17/21 Oxycodone Hcl (OXYCODONE HCL IMMED.RELEASE ) 5 Mg Tablet, 5 MG PO PRN Q3HRS PRN for BREAKTHROUGH PAIN for 10 Days, #20 TAB Prov:CASTLE,NIAL K III DO 04/17/21 Cephalexin (KEFLEX) 250 Mg Capsule, 500 MG PO BID for infection prevention for 7 Days, #28 CAP Prov:JIMENEZ MILNER MD 11/30/20 Atorvastatin Calcium (ATORVASTATIN CALCIUM) 20 Mg Tablet, 40 MG PO HS for CAD, cholesterol for 30 Days, #60 TAB 2 Refills Prov:BUBBA SHAH APRN 08/02/19 Reported Medications Clopidogrel Bisulfate (CLOPIDOGREL) 75 Mg Tablet, 1 TAB PO DAILY for HEART STENT, #90 TAB 1 Refill 07/25/20 Amlodipine Besylate (AMLODIPINE BESYLATE) 10 Mg Tablet, 10 MG PO DAILY for HTN, TAB 06/19/20 Spironolactone (SPIRONOLACTONE) 25 Mg Tablet, 25 MG PO DAILY for WATER PILL, TAB 06/19/20 Losartan Potassium (LOSARTAN POTASSIUM) 100 Mg Tablet, 100 MG PO DAILY for HYPERTENSION, TAB 06/19/20 Calcium Carbonate (CALCIUM) 500 Mg Tablet, 1 TAB PO DAILY for rx for 30 Days, #30 TAB 0 Refills 10/23/19 Calcium Carb/Vitamin D3/Vit K1 (Viactiv 650 mg-12.5 Mcg Chew) 1 Each Tab.chew, 1 EACH PO DAILY for rx, TAB.CHEW 10/23/19 Cyanocobalamin (Vitamin B-12) (VITAMIN B-12) 1,000 Mcg Tablet, 1 TAB PO DAILY for rx for 30 Days, #30 TAB 0 Refills 10/23/19 Magnesium Oxide (MAGNESIUM) 400 Mg Capsule, 1 CAP PO DAILY for rx for 30 Days, #30 CAP 0 Refills 10/23/19 Ascorbic Acid (Vitamin C) 500 Mg Capsule, 1000 MG PO DAILY for rx, CAP 10/23/19 Digoxin (DIGOXIN) 125 Mcg Tablet, 125 MCG PO DAILY for AFIB/HEART FAILURE, TAB 10/23/19 Metformin Hcl (METFORMIN HCL) 500 Mg Tablet, 500 MG PO BIDWMEALS for ANTI- DIABETIC, TAB 0 Refills 1 tab in am , 2 tabs after supper 10/23/19 [place]-3 Fatty Acids/Fish Oil ([place] 3 FISH OIL SOFTGEL) 1 Each Capsule.dr, 1 EACH PO DAILY, CAP 12/27/16 Omeprazole (PRILOSEC) 20 Mg Capsule.dr, 1 CAP PO BIDAC, #90 CAP 1 Refill 01/22/14 Glipizide (GLIPIZIDE) 5 Mg Tablet, 5 MG PO BID, #60 TAB 3 Refills 01/22/14 Gabapentin (NEURONTIN ) 300 Mg Capsule, 1 CAP PO TID for Neuropathy, #90 CAP 3 Refills 1 cap in am, 2 caps at 5pm, 3 caps at bedtime 01/22/14 Multivitamin (DAILY VITAMIN) 1 Each Tablet, 1 EACH PO DAILY 01/22/14 Carvedilol (COREG) 25 Mg Tablet, 1 TAB PO BID, #60 TAB 5 Refills 01/22/14 Aspirin (ASPIR 81) 81 Mg Tablet.dr, 1 TAB PO DAILY, #30 TAB 5 Refills 01/22/14 Cetirizine Hcl (CETIRIZINE HCL) 10 Mg Tablet, 1 TAB PO QHS, #30 TAB 5 Refills 01/22/14 Isosorbide Mononitrate (ISOSORBIDE MONONITRATE ER) 30 Mg Tab.er.24h, 1 TAB PO DAILY, #30 TAB 5 Refills 01/22/14 Montelukast Sodium (SINGULAIR TABLET ) 10 Mg Tablet, 1 TAB PO HS, #90 TAB 1 Refill 01/22/14 MAXIM VARGAS III DO Apr 17, 2021 12:04
[2021-04-17] MEDS ORDERED: METH4TAB2 PO (12:08)
[2021-04-17] MEDS ORDERED: DOXY100C3 PO (12:09)
--- NOTE | 2021-04-17 12:39 | DS ---
DATE OF DISCHARGE: 04/17/2021 DATE OF DISCHARGE: 04/17/2021 ADMITTING DIAGNOSIS: Recent COVID-19, elevated troponin, possible acute myocardial infarction, hypertensive urgency, COPD, history of previous coronary artery disease with bypass surgery. DISCHARGE DIAGNOSES: Resolving COVID-19, resolving elevated troponin (she went from 135-108) which were only slightly high, suspect demand ischemia, history of coronary artery disease, history of bypass surgery. CONSULTS: Cardiology. PROCEDURES: None. HOSPITAL COURSE: The patient is a pleasant, middle-aged female who presented with some shortness of breath and cough and had recent COVID-19 for the past 9 days. She was admitted. We ruled out myocardial infarction by checking serial enzymes, serial EKGs. We consulted Cardiology. I discussed the case with Cardiology, nurse practitioner this morning. Clinically, she looks great. She wants to go home. We plan to discharge with close outpatient followup. DISPOSITION: Home. ACTIVITY: As tolerated. DIET: Low sodium. MEDICATIONS: Please see the MRAD. OTHER MEDICATIONS: 1. Doxycycline 100 p.o. b.i.d. for a week. 2. Medrol Dosepak. We will continue her home medications, which include amlodipine 10 a day, vitamins, aspirin 81 a day, atorvastatin 40, carvedilol 25 b.i.d., cetirizine 10 at bedtime, Plavix 75 a day, digoxin 0.125 a day, gabapentin 300 t.i.d., glipizide 5 a day, Imdur 30 a day, losartan 100 a day, magnesium 400 a day, metformin 500 b.i.d., Singulair 10 a day, Prilosec 20 a day and Aldactone 25 a day. TOTAL TIME: [address]: Sanjeev TID: [id number]
[2021-04-17 13:26] LABS: CALCIUM 9.1 mg/dL (8.5-10.1); CREATININE 1.1 mg/dL (0.6-1.0); GFR 48.2; POTASSIUM 4.5 mmol/L (3.5-5.1)
--- NOTE | 2021-04-17 13:58 | NUR ---
SS following for discharge planning. SS reviewed pt chart and discussed with pt RN. Pt is from home and is currently on room air. COVID19 positive. PT/OT ordered. No PT needs at this time. Discharge orders received for home with home healthcare. SS met with pt and discussed discharge planning and home healthcare. Pt agreeable to home healthcare with no preference of company. Discharge orders and referral phoned and faxed to [facility], ; fax [phone]. Pt's RN notified.
--- NOTE | 2021-04-17 14:34 | NUR ---
Discharge Note: SHANIQUA SHRESTHA [address] Discharge instructions and discharge home medications reviewed with Patient and a copy given. All questions have been answered and understanding verbalized. The following instructions and handouts were given: hyponatremia, methylprednisolone, doxycycline, benzonatate, oxycodone Patient discharged to home with home health via wheelchair.
[2021-04-17] MEDS ORDERED: LACTOBACILLUS RHAMNOSUS GG 1 CAPSULE. PO SCH (21:00)
== END 2021-04-17 16:03 | disposition home health service (06) | DRG 304 ==
LOC: ER 12:19 → ED HOLD 14:34 → 2 SOUTH 18:17 → 6 SOUTH 18:20
PROVIDERS: ADMIT Student in an Organized Health Care Education/Training Program; ATTEND Student in an Organized Health Care Education/Training Program
DX: I16.0 Hypertensive urgency (principal); U07.1 COVID-19; J12.82 Pneumonia due to coronavirus disease 2019; J44.0 Chronic obstructive pulmonary disease with (acute) lower respiratory infection; I24.8 Other forms of acute ischemic heart disease; E11.610 Type 2 diabetes mellitus with diabetic neuropathic arthropathy; E78.00 Pure hypercholesterolemia, unspecified; E78.5 Hyperlipidemia, unspecified; F41.9 Anxiety disorder, unspecified; G47.33 Obstructive sleep apnea (adult) (pediatric); I11.0 Hypertensive heart disease with heart failure; I25.10 Atherosclerotic heart disease of native coronary artery without angina pectoris; I48.0 Paroxysmal atrial fibrillation; I50.9 Heart failure, unspecified; K21.9 Gastro-esophageal reflux disease without esophagitis; M06.9 Rheumatoid arthritis, unspecified; Z82.49 Family history of ischemic heart disease and other diseases of the circulatory system; Z83.3 Family history of diabetes mellitus; Z87.891 Personal history of nicotine dependence; Z95.1 Presence of aortocoronary bypass graft; Z95.810 Presence of automatic (implantable) cardiac defibrillator; Z96.652 Presence of left artificial knee joint; Z98.61 Coronary angioplasty status
CPT/HCPCS: 36415; 71045; 80048; 84484; 85025; 85379; 93005; J1644; J2543; 99285-25; G0378

== ENCOUNTER → 2021-10-14 | Outpatient (CLI) | payer MEDICARE ==
[~2021-10-14] MED LIST changes: +BENZ-8 PO; +DOXY100C3 PO; +GUAI120L35 PO; +METH4TAB2 PO; +OXYC5TAB4 PO
--- NOTE | 2021-10-15 15:38 | RAD ---
EXAM: BILATERAL DIGITAL 3D SCREENING MAMMOGRAPHY. HISTORY: Routine mammographic screening. TECHNIQUE: Bilateral digital 3D and tomographic images were obtained in CC and MLO projections. Compu ter-aided detection was applied. COMPARISON: 07/29/2016. COMPOSITION: C. The breasts are heterogeneously dense, which may obscure small masses. FINDINGS: A pacemaker generator is noted on the left. There are no suspicious masses, microcalcificat ions or architectural distortion. The parenchymal pattern is stable. Scattered, coarse and vascular c alcifications are benign. BI-RADS CATEGORY 2: Benign. RECOMMENDATION: 1. Routine screening mammography in one year. If mammography demonstrates dense breast tissue (heterogenously dense or extremely dense, category C or D), which could hide abnormalities, and if other risk factors for breast cancer have been identifi ed, supplemental screening tests that may be suggested by the ordering physician may be of benefit. D ense breast tissue, in and of itself, is a relatively common condition. Therefore, this information i s not provided to cause undue concern, but rather to raise awareness and to promote discussion with t he referring physician regarding the presence of other risk factors, in addition to dense breast tiss ue. The results of this mammography examination is provided to the patient and referring physician. T he patient should contact their referring physician if any questions or concerns exist regarding this report. PQRS compliance statement - Patient information was entered into a reminder system with a target due date for the next mammogram. "Our facility is accredited by the [employer] Mammography Program." Electronically signed by: Judy Baxter MD (10/15/2021 3:35 PM) [id number]
== END ==
LOC: MAMMO 12:49
PROVIDERS: ATTEND Family Medicine
DX: Z12.31 Encounter for screening mammogram for malignant neoplasm of breast (principal)
CPT/HCPCS: 77063; 77067